=== PATIENT | male | born 1940 | race Caucasian/White ===

== ENCOUNTER 2017-06-05 15:04 | Emergency (ER) | payer MEDICARE, OTHER, SELFPAY ==
[2017-06-05 15:05] VITALS: BP 173/87; PULSE 62; RESP 16; TEMP 37.7; O2SAT 98; BMI 31.4
[2017-06-05 15:19] VITALS: BP 179/90; PULSE 65; RESP 22; O2SAT 97
[2017-06-05 15:22] VITALS: O2SAT 98
--- NOTE | 2017-06-05 15:31 | EKG12_ITS ---
Test Reason : SOB Blood Pressure : / mmHG Vent. Rate : 066 BPM Atrial Rate : 066 BPM P-R Int : 182 ms QRS Dur : 110 ms QT Int : 416 ms P-R-T Axes : 033 029 114 degrees QTc Int : 436 ms Normal sinus rhythm Left ventricular hypertrophy with repolarization abnormality Abnormal ECG Confirmed by MICHELLE WINSLOW, ELISA ([id number]), video editor KOBY DUGGAN ([id number]) on 06/07/2017 1:06:28 PM Referred By: RICARDO Confirmed By:ELISA MARTINEZ MD
--- NOTE | 2017-06-05 15:33 | ED.VISSUMM ---
- ER Visit Summary Date of Service: 06/05/17 Chief Complaint: Shortness of breath on exertion History of Present Illness: The patient is a 76 M with a history of COPD and cardiomyopathy. Patient states he has had shortness of breath on exertion or with breathing in cold air for the past several months. He very rarely has any chest pressure. He has no significant cough or fever. He states he does feel that he wheezes when he has exposure to cold air. It sounds as if patient had stopped using his inhalers, but states he has been using his nebulizer recently without any improvement in his symptoms. He follows with Dr. Wilberto Michel and Dr. Lee. He does not see a planning coordinator on a regular basis. Physical Examination: Vital signs reveal blood pressure 173/87, temperature 99.8 TA, heart rate 62, respiratory rate 16, pulse ox 98% on room air. Oral temperature at the time of my exam is 97.8. Head neck examination is grossly unremarkable. Heart is regular rate and rhythm. Lung sounds are clear with good air movement throughout. Abdomen is soft and nontender. Extremity examination reveals no significant edema. Test Results: EKG is sinus at [address] depression. Prior EKG from Dr. Lee's office was obtained and this is unchanged compared to that study on 09/14/2015. Two-view chest x-ray shows COPD with small pleural effusions. CBC reveals a hemoglobin of 9.3. Prior hemoglobins have ranged from 8 to mid 10 region. Chemistry studies reveal chronic renal insufficiency with a creatinine 1.49. Troponin is 0.02. Emergency Department Course and Treatment: Patient was monitored throughout his stay here. Vital signs are stable. At this time I have no criteria for admission. He does take amiodarone which can have some pulmonary effects. I am unsure if this may be contributing to his symptoms. He is also been diagnosed with COPD but does not follow up with a planning coordinator. I have recommended this and patient was referred to Dr. Kerr for follow-up. At this time symptoms have been ongoing for months and I do not believe he meets criteria for hospitalization. Treatment Plan: [] Disposition: Discharge Impression: Dyspnea This note was generated with [employer] dictation software. It may contain incorrect words, spelling, and punctuation that were not noted in review of the chart prior to signing ED Disposition - Plan for ED Patient: Disposition: Home or Assisted Living Chief Complaint: Shortness of Breath Instructions: ED Dyspnea Shortness of Breath Referrals: John Paul Kerr MD [STAFF PHYSICIAN] - As soon as possible Wilberto Michel MD [Primary Care Provider] -
--- NOTE | 2017-06-05 15:36 | ED.DCSUM_ITS ---
- ER Visit Summary Date of Service: 06/05/17 Chief Complaint: Shortness of breath on exertion History of Present Illness: The patient is a 76 M with a history of COPD and cardiomyopathy. Patient states he has had shortness of breath on exertion or with breathing in cold air for the past several months. He very rarely has any chest pressure. He has no significant cough or fever. He states he does feel that he wheezes when he has exposure to cold air. It sounds as if patient had stopped using his inhalers, but states he has been using his nebulizer recently without any improvement in his symptoms. He follows with Dr. Wilberto Michel and Dr. Lee. He does not see a intelligence agent on a regular basis. Physical Examination: Vital signs reveal blood pressure 173/87, temperature 99.8 TA, heart rate 62, respiratory rate 16, pulse ox 98% on room air. Oral temperature at the time of my exam is 97.8. Head neck examination is grossly unremarkable. Heart is regular rate and rhythm. Lung sounds are clear with good air movement throughout. Abdomen is soft and nontender. Extremity examination reveals no significant edema. Test Results: EKG is sinus at [address] depression. Prior EKG from Dr. Lee's office was obtained and this is unchanged compared to that study on 09/14/2015. Two-view chest x-ray shows COPD with small pleural effusions. CBC reveals a hemoglobin of 9.3. Prior hemoglobins have ranged from 8 to mid 10 region. Chemistry studies reveal chronic renal insufficiency with a creatinine 1.49. Troponin is 0.02. Emergency Department Course and Treatment: Patient was monitored throughout his stay here. Vital signs are stable. At this time I have no criteria for admission. He does take amiodarone which can have some pulmonary effects. I am unsure if this may be contributing to his symptoms. He is also been diagnosed with COPD but does not follow up with a intelligence agent. I have recommended this and patient was referred to Dr. Kerr for follow-up. At this time symptoms have been ongoing for months and I do not believe he meets criteria for hospitalization. Treatment Plan: [] Disposition: Discharge Impression: Dyspnea This note was generated with [employer] acquired by [employer] dictation software. It may contain incorrect words, spelling, and punctuation that were not noted in review of the chart prior to signing ED Disposition - Plan for ED Patient: Disposition: Home or Assisted Living Chief Complaint: Shortness of Breath Instructions: ED Dyspnea Shortness of Breath Referrals: John Paul Kerr MD [STAFF PHYSICIAN] - As soon as possible Wilberto Michel MD [Primary Care Provider] -
--- NOTE | 2017-06-05 15:45 | RAD_ITS ---
STUDY: X-RAY CHEST REASON FOR EXAM: Male, 76 years old. Shortness of breath on exertion. TECHNIQUE: PA and lateral views of the chest. COMPARISON: Chest radiograph dated October 31, 2013. FINDINGS: Cardiac monitoring leads are present. There is hyperinflation of the lungs consistent with chronic obstructive lung disease (COPD). There is interstitial thickening visible throughout both lungs. There is blunting of the posterior costophrenic angles possibly related to small pleural effusions. There is borderline cardiomegaly. Normal mediastinum and scarlett. There is prominence of the pulmonary hilar arteries without peripheral pulmonary vascular congestion. There is atherosclerotic calcification of the aortic arch with tortuosity. There is demineralization of the osseous structures. Normal visualized ribs, clavicles, and shoulders. There is no demonstrated abnormality of the visualized soft tissue structures of the upper abdomen. RAD/Chest PA and Lateral IMPRESSION: COPD with small pleural effusions. Electronically Signed: Angy Benson MD at 16:26 EST , Service support ,
[2017-06-05 16:05] LABS: Absolute Lymphocyte Count 0.92 X10^3/ul (0.83-4.51); Basophil# 0.09 X10^3/uL; Basophil% 1.3 % (0-1); Eosinophil# 0.14 X10^3/uL; Hematocrit 33.3 % (40-54); Hemoglobin 9.3 g/dl (13.0-16.5); Lymphocyte # 0.92 X10^3/ul (4.0); Lymphocyte % 13.2 % (19-41); Mean Corp Hgb Conc 27.9 g/gl (32-36); Mean Corpuscular Hgb 20.1 pg (27.0-32.0); Mean Corpuscular Volume 71.9 fL (80-94); Monocyte# 0.84 X10^3/uL; Monocyte% 12.1 % (0-10); Neutrophil # 4.97 X10^3/uL (2.7-7.7); Neutrophil % 71.3 % (47-70); Platelet Count 194 K/mm3 (150-450); RBC Distribution Width SD 46.6 fl (35.1-43.9); Red Blood Count 4.63 M/mm3 (4.6-6.2)
[2017-06-05 16:08] LABS: Anion Gap 7 (5-15); BUN 15 mg/dL (7-18); BUN/Creat Ratio 10.1 RATIO (10-20); Calcium,Total 8.5 mg/dL (8.5-10.1); Chloride 107 mmol/L (98-107); Creatinine, Serum 1.49 mg/dL (0.70-1.30); Differential Indicated SCAN CRITERIA MET; EST Glomerular Filtration Rate 49 mL/min (>60); Est Glom Filt Rate - Afr Amer 59 mL/min (>60); Estimated Creatinine Clearance 47.02 ml/min; Glucose 112 mg/dL (74-106); POSITIVE COUNT NO; POSITIVE DIFFERENTIAL NO; POSITIVE MORPHOLOGY YES; Sodium Level 141 mmol/L (136-145)
[2017-06-05 16:49] LABS: Anisocytosis 1+; Hypochromasia 2+; Microcytosis 3+
[2017-06-05 17:09] VITALS: BP 167/90; PULSE 67; RESP 14; O2SAT 97
--- NOTE | 2017-06-05 17:11 | ED.DEP ---
ED Disposition - Plan for ED Patient: Disposition: Home or Assisted Living Chief Complaint: Shortness of Breath Instructions: ED Dyspnea Shortness of Breath Referrals: Wilberto Michel MD [Primary Care Provider] - John Paul Kerr MD [STAFF PHYSICIAN] - As soon as possible
[2017-06-05 17:23] VITALS: BP 166/81; PULSE 65; RESP 18; O2SAT 95
== END 2017-06-05 17:24 | disposition home or self-care (01) ==
PROVIDERS: Emergency Provider Emergency Medicine; Family Provider Family Medicine; PCP Family Medicine
DX: R06.00 Dyspnea, unspecified (principal); J44.9 Chronic obstructive pulmonary disease, unspecified; I48.0 Paroxysmal atrial fibrillation; I12.9 Hypertensive chronic kidney disease with stage 1 through stage 4 chronic kidney disease, or unspecified chronic kidney disease; N18.9 Chronic kidney disease, unspecified; I42.9 Cardiomyopathy, unspecified; D64.9 Anemia, unspecified; N40.0 Benign prostatic hyperplasia without lower urinary tract symptoms; Z79.82 Long term (current) use of aspirin; Z79.899 Other long term (current) drug therapy; Z85.828 Personal history of other malignant neoplasm of skin; Z87.891 Personal history of nicotine dependence
CPT/HCPCS: 71046; 80048; 84484; 85025; 93005; 99284

== ENCOUNTER → 2018-02-05 09:47 | Outpatient (CLI) | payer MEDICARE, OTHER, SELFPAY ==
[2018-02-05 12:25] LABS: Absolute Lymphocyte Count 0.92 X10^3/ul (0.83-4.51); Absolute Neutrophil Count 4.4 X10^3/uL (2.0-7.7); Basophil# 0.06 X10^3/uL; Eosinophil# 0.11 X10^3/uL; Eosinophils% 1.8 % (0-5); Hematocrit 34.1 % (40-54); Hemoglobin 9.5 g/dl (13.0-16.5); Lymphocyte # 0.92 X10^3/ul (4.0); Lymphocyte % 15.2 % (19-41); Mean Corp Hgb Conc 27.9 g/gl (32-36); Mean Corpuscular Hgb 20.5 pg (27.0-32.0); Mean Corpuscular Volume 73.7 fL (80-94); Monocyte# 0.55 X10^3/uL; Monocyte% 9.1 % (0-10); Neutrophil # 4.41 X10^3/uL (2.7-7.7); Neutrophil % 72.9 % (47-70); Platelet Count 217 K/mm3 (150-450); RBC Distribution Width CV 18.8 % (11.6-14.6); RBC Distribution Width SD 49.9 fl (35.1-43.9); Red Blood Count 4.63 M/mm3 (4.6-6.2); White Blood Count 6.1 K/mm3 (4.4-11.0)
[2018-02-05 12:26] LABS: Anion Gap 9 (5-15); BUN 16 mg/dL (7-18); BUN/Creat Ratio 9.8 RATIO (10-20); Calcium,Total 8.5 mg/dL (8.5-10.1); Chloride 109 mmol/L (98-107); Creatinine, Serum 1.64 mg/dL (0.70-1.30); EST Glomerular Filtration Rate 44 mL/min (>60); Est Glom Filt Rate - Afr Amer 53 mL/min (>60); Glucose 106 mg/dL (74-106); Potassium 3.5 mmol/L (3.5-5.1); Sodium Level 143 mmol/L (136-145)
[2018-02-05 12:30] LABS: Differential Indicated SCAN CRITERIA MET; POSITIVE COUNT NO; POSITIVE DIFFERENTIAL NO; POSITIVE MORPHOLOGY YES
[2018-02-05 12:51] LABS: BNP,B-Type NATRIURETIC PEPTIDE 1756.6 pg/mL (0-100)
[2018-02-05 13:09] LABS: Platelet Estimate ADEQUATE (ADEQ)
[2018-02-05 13:10] LABS: Anisocytosis 1+; Hypochromasia 1+; Platelet Morphology LARGE
== END ==
PROVIDERS: Family Provider Family Medicine; PCP Family Medicine; Referring Provider Physician Assistant Medical; Visit Provider Physician Assistant Medical
DX: I48.0 Paroxysmal atrial fibrillation (principal); I43 Cardiomyopathy in diseases classified elsewhere; I10 Essential (primary) hypertension; R06.00 Dyspnea, unspecified; E78.5 Hyperlipidemia, unspecified
CPT/HCPCS: 36415; 80048; 83880; 85025

== ENCOUNTER → 2018-03-20 15:45 | Outpatient (CLI) | payer MEDICARE, OTHER, SELFPAY ==
--- NOTE | 2018-03-20 15:51 | RAD_ITS ---
STUDY: X-RAY - PELVIS REASON FOR EXAM: Male, 77 years old. Left inguinal hernia versus varicocele. TECHNIQUE: Frontal and lateral views COMPARISON: None. FINDINGS: There are no dilated loops of bowel. There is abnormal air lucency overlying the left inguinal region with suggestion of hernia containing nondilated bowel versus soft tissue air associated with infection. There are atherosclerotic vascular calcifications of the pelvic arteries. There is diffuse demineralization of the osseous structures. Normal bilateral iliac wings, sacroiliac joints and visualized sacrum. Normal visualized bilateral superior and inferior pubic rami. Normal pubic symphysis. Normal ischial tuberosities. Normal visualized right femoral head. Normal right acetabulum. There is mild articular joint space narrowing of the right hip. Normal visualized left femoral head. Normal left acetabulum. There is mild articular joint space narrowing of the left hip. No acute fracture. RAD/Pelvis 1 or 2 Views IMPRESSION: Air in the left inguinal region with possible hernia containing nondilated bowel. Consider CT scan for confirmation. Electronically Signed: Leonardo Lyons MD at 16:52 EST , Service support ,
== END ==
PROVIDERS: Family Provider Family Medicine; PCP Family Medicine; Referring Provider Family Medicine; Visit Provider Family Medicine
DX: R19.09 Other intra-abdominal and pelvic swelling, mass and lump (principal); J44.9 Chronic obstructive pulmonary disease, unspecified
CPT/HCPCS: 72170

== ENCOUNTER 2018-04-05 09:53 | Day surgery (SDC) | payer MEDICARE, OTHER, SELFPAY ==
[2018-03-22 09:38] VITALS: BMI 27.6
[2018-04-05 10:11] VITALS: BP 166/102; PULSE 67; RESP 16; TEMP 36.6; O2SAT 100; BMI 28.8
[2018-04-05 10:33] LABS: International Normalized Ratio 1.1
[2018-04-05 10:34] LABS: Partial Thromboplast Time 30.2 Seconds (24.1-36.2)
[2018-04-05] MEDS: Cefazolin 2 GM in 0.9% Normal Saline 100 ML IV (11:42)
--- NOTE | 2018-04-05 11:51 | DCINST_ITS ---
Discharge Diet: Light diet - advance as tolerated Discharge Activity: Return to Normal Activity, May Drive - when you are no longer taking narcotic pain medications., May Shower - with the bandage in place 1-2 days after surgery. Lifting Restrictions: 20 pounds for 8 weeks. Additional Activity Instructions:: Climbing stairs is fine, walking is encouraged. Sitting in bed may be uncomfortable. Sitting up using your lateral muscles (sitting up sideways) is usually more comfortable. Do not drive, work heavy equipment of sign legal documents for 24 hours. If your hernia repair was an ingunial repair, you may have scrotal swelling, an ice pack and/or athletic support can provide more comfort. Pain medications may cause nausea, you should typically eat light foods as you take your pain medications. Pain medications may also cause constipation. If you have difficulty with this, discuss with your doctor. Call your doctor if your incision/area has: Continuous Slow Oozing, Sudden Increased Bleeding, Increased Pain/ Swelling, Increased Redness, Foul Smelling Discharge Call your doctor if you observe: Fever of 101 or Higher Suture Line Care: Avoid Pulling/Pushing, Avoid Pinching/Bending Additional Dressing/Incision Instructions:: Leave the operative bandage on for 2-3 days. When you remove the bandage, leave the steri-strips on place until your follow up appointment or they fall off. Allergies/Adverse Reactions: Allergies cortisone Allergy (Verified 04/01/18 08:09) Rash Medications to take at Discharge Albuterol Sulfate [Proair Respiclick] 90 mcg IH DAILY 11/24/14 Aspirin [Aspirin, Baby] 81 mg PO DAILY@0800 11/24/14 Multivitamins,Therapeutic [Multivitamin] 1 tab PO DAILY 11/24/14 omeprazole 40 mg capsule,delayed release 40 mg PO QDAY 05/04/17 lisinopril 10 mg tablet 10 mg PO BID tab 07/03/17 potassium chloride ER 10 mEq capsule,extended release 10 meq PO QDAY #90 cap 07/03/17 simvastatin 20 mg tablet 20 mg PO QHS #90 tab 07/03/17 HANDICAP PLACARD #1 ea 07/05/17 amiodarone 200 mg tablet 200 mg PO DAILY 03/22/18 spironolactone 25 mg tablet 25 mg PO DAILY 03/22/18 Albuterol Aerosols [Ventolin Aerosols] 2.5 mg INHALATION Q4H PRN PRN 04/01/18 Carvedilol [Coreg] 6.25 mg PO BID 04/01/18 Furosemide [Lasix] 40 mg PO DAILY 04/01/18 Isosorbide Dinitrate 30 mg PO QDAY 04/01/18 Oxycodone HCl/Acetaminophen [Percocet 5/325] 1 - 2 tab PO Q4H PRN PRN 5 Days #30 tab 04/05/18 The following prescriptions were given: Oxycodone HCl/Acetaminophen [Percocet 5/325] 1 - 2 tab PO Q4H PRN PRN 5 Days #30 tab PRN Reason: Pain Primary Care Physician: Wilberto Michel MD [Primary Care Provider] - Test Results: Test results from this visit will be discussed in further detail at your follow- up appointment, if applicable. Please Follow Up With: Nikolai Butler MD - [phone] When: Plan to have a follow up appointment in 7 days. Call to schedule.
--- NOTE | 2018-04-05 11:53 | OP.PCM_ITS ---
Problem List (1) Bilateral inguinal hernia with obstruction and without gangrene Status: Acute Qualifiers: Recurrence: non-recurrent Qualified Code(s): K40.00 - Bilateral inguinal hernia, with obstruction, without gangrene, not specified as recurrent Report of Operation Date of Procedure: 04/05/18 Pre-Operative Diagnosis: Bilateral inguinal hernias Post-Operative Diagnosis: Same Surgery/Procedure Performed:: Open left inguinal hernia repair of incarcerated hernia with mesh Type of Anesthesia:: General Anesthesiologist: Afshin Cardona Estimated Blood Loss (mL): < 25 cc Description of Procedure: Patient was brought into the operating room. Placed in the supine position. Under excellent general anesthetic the left lower inguinal area was sterilely prepped and draped in the usual fashion. Local was injected. Left inguinal incision was created. I dissected down. Identified the superior inferior epigastric vessels and tied these off with 2-0 Vicryl ties. I dissected down to the external oblique fascia. I opened the external oblique fascia. I identified the ilioinguinal nerve. It was wispy thin and I knew I was not going to be able to save this so I transected it. I dissected an extremely large hernia off of the cord and vessel structures. I placed it back into its preperitoneal space. I had excellent hemostasis. The cord and vessel structures were all preserved without any bleeding. I placed an extra large mesh plug into the defect. Sutured it to the surrounding structures with 0 Prolene. I placed the onlay piece of mesh. I tacked it to the pubic tubercle with 2 sutures of 0 Prolene. I ran the 1 suture along the ilioinguinal ligament above the internal ring and then the second suture along the transversalis fascia above the inguinal ring. I tied the sutures upon themselves leaving enough space and the keyhole for the cord and vessel structures so that good blood supply would be to the testicle. Ilioinguinal nerve block above the internal ring was performed. I brought the external oblique fascia back tog ether with 2-0 Vicryl. More local was injected. Kehinde's fascia was brought together with 2 interrupted sutures of 2-0 Vicryl. Deep dermal stitches of 3-0 Vicryl. And a running 4-0 Monocryl on the skin. Steri-Strips are applied sterile dressings were applied and the patient tolerated the procedure well. Left testicle was brought back down into its normal anatomic space. - Admit VTE Documentation VTE Present on Admission: No VTE Mechan Device Prophylaxis: SCD's VTE Pharm Prophylaxis ordered?: No Reason prophylaxis not ordered:: Treatment Not Indicated
[2018-04-05] MEDS: Bupivacaine Mpf 0.5% 30 ML VIAL ×2 (12:00→12:43)
[2018-04-05 13:20] VITALS: BP 166/102; BP 168/84; PULSE 75; RESP 18; TEMP 36.3; O2SAT 94
[2018-04-05 13:32] VITALS: BP 151/92; BP 166/102; PULSE 66; RESP 22; O2SAT 100
[2018-04-05 13:45] VITALS: BP 155/88; BP 166/102; PULSE 72; RESP 24; TEMP 36.4; O2SAT 100
[2018-04-05] MEDS: oxyCODONE 5 MG Tablet 10 MG PO (14:39)
[2018-04-05 16:02] VITALS: BP 158/87; BP 166/102; PULSE 78; RESP 18; TEMP 36.6; O2SAT 99
== END 2018-04-05 16:06 | disposition home or self-care (01) ==
LOC: SDC 09:54 → AC 09:54
PROVIDERS: Anesthesiology; Family Provider Family Medicine; PCP Family Medicine; Referring Provider Surgery; Visit Provider Surgery
PROC: (CPT 49507; principal; 2018-04-05 11:45)
DX: K40.00 Bilateral inguinal hernia, with obstruction, without gangrene, not specified as recurrent (principal); I48.0 Paroxysmal atrial fibrillation; J44.9 Chronic obstructive pulmonary disease, unspecified; I10 Essential (primary) hypertension; E78.5 Hyperlipidemia, unspecified; K27.3 Acute peptic ulcer, site unspecified, without hemorrhage or perforation; K27.7 Chronic peptic ulcer, site unspecified, without hemorrhage or perforation; D64.9 Anemia, unspecified; N40.0 Benign prostatic hyperplasia without lower urinary tract symptoms; K21.9 Gastro-esophageal reflux disease without esophagitis; F32.9 Major depressive disorder, single episode, unspecified; Z79.82 Long term (current) use of aspirin; Z79.899 Other long term (current) drug therapy; Z96.653 Presence of artificial knee joint, bilateral; Z87.891 Personal history of nicotine dependence; Z85.828 Personal history of other malignant neoplasm of skin
CPT/HCPCS: 49507; 36415; 85610; 85730; J7120; C1781

== ENCOUNTER → 2018-09-10 10:04 | Outpatient (CLI) | payer MEDICARE, OTHER, SELFPAY ==
[2018-08-26 14:42] VITALS: BMI 27.8
[2018-09-10 13:20] LABS: AST(SGOT) 17 U/L (15-37); Alanine Aminotransfer ALT/SGPT 18 U/L (16-61); Alkaline Phosphatase 86 U/L (45-117); Bilirubin, Direct 0.15 mg/dL (0.00-0.30); Cholesterol 146 mg/dL (200); Globulin 3.6 g/dL (2.2-4.2); High Density Lipoprotein 45 mg/dL; Protein, Total 7.6 g/dL (6.4-8.2); Triglycerides 88 mg/dL; Very Low Density Lipoprotein 18 mg/dL (5-40)
== END ==
PROVIDERS: Family Provider Family Medicine; PCP Family Medicine; Referring Provider Internal Medicine Cardiovascular Disease; Visit Provider Internal Medicine Cardiovascular Disease
DX: E78.5 Hyperlipidemia, unspecified (principal); Z79.899 Other long term (current) drug therapy
CPT/HCPCS: 36415; 80061; 80076

== ENCOUNTER 2018-09-14 18:58 | Inpatient (IN) | payer MEDICARE, OTHER, SELFPAY ==
[2018-08-26 14:42] VITALS: BMI 27.8
[2018-09-14] VITALS (25 sets, daily range): BP systolic 134–155; BP diastolic 72–102; PULSE 62–75; RESP 16–28; TEMP 36.7–37.4; O2SAT 95–100; BMI 27.6; BMI 27.8; BMI 27.9
--- NOTE | 2018-09-14 19:07 | EKG12_ITS ---
Test Reason : STROKE S/SX Blood Pressure : / mmHG Vent. Rate : 068 BPM Atrial Rate : 068 BPM P-R Int : 174 ms QRS Dur : 152 ms QT Int : 478 ms P-R-T Axes : 089 092 089 degrees QTc Int : 508 ms Normal sinus rhythm Right bundle branch block Abnormal ECG Confirmed by MICHELLE WINSLOW, ELISA ([id number]), editor map KOBY DUGGAN ([id number]) on 09/18/2018 11:46:01 AM Referred By: Jackson Kilpatrick Confirmed By:ELISA MARTINEZ MD
--- NOTE | 2018-09-14 19:07 | CT_ITS ---
STUDY: CTA NECK WITH CONTRAST REASON FOR EXAM: Male, 77 years old. Stroke. RADIATION DOSAGE (If Supplied By Facility): CTDIvol = ( 33.90 ) mGy, DLP = ( 696.53 ) mGycm TECHNIQUE: CT angiography with multi-detector data acquisition was performed from the aortic arch to the skull base following intravenous administration of 100 IV Isovue 370. MIP images were reconstructed from the axial data set. Post-processing of the angiographic images was performed, with multiplanar reformation and 3D reconstruction. Individualized dose optimization techniques were used for this CT. COMPARISON: None. FINDINGS: AORTIC ARCH: Normal visualized aortic arch. Normal origins of the brachiocephalic, left common carotid, and left subclavian arteries. RIGHT CAROTID ARTERIES: Normal right common carotid artery (CCA). There is mild atherosclerotic plaque formation without narrowing of the right carotid bulb. Normal origin of the right internal carotid (ICA) artery without a hemodynamically significant stenosis. Normal visualized cervical portion of the right internal carotid artery. Normal origin of the right external carotid artery (ECA). LEFT CAROTID ARTERIES: Normal left common carotid artery (CCA). There is moderate atherosclerotic plaque formation without narrowing of the carotid bulb. There is atherosclerotic plaque formation of the proximal left internal carotid artery with less than 50% cross sectional diameter stenosis. Normal visualized cervical portion of the left internal carotid artery. Normal origin of the left external carotid artery (ECA). VERTEBRAL ARTERIES: Normal bilateral vertebral arteries. Degenerative spine changes are noted. Emphysematous changes are noted in the lung apices. CT/CTA Neck W/WO Contrast IMPRESSION: 1. Atherosclerotic calcification of the left bulb and proximal ICA, with less than 50% stenosis. 2. Atherosclerotic calcification of the right carotid bulb, no stenosis. 3. Normal vertebral arteries. Electronically Signed: Anushka Galaviz MD at 20:02 EDT Tel , Service support ,
--- NOTE | 2018-09-14 19:07 | CT_ITS ---
STUDY: CTA OF THE BRAIN REASON FOR EXAM: Male, 77 years old. Stroke. RADIATION DOSAGE (If Supplied By Facility): CTDIvol = ( 33.90 ) mGy, DLP = ( 696.53 ) mGycm TECHNIQUE: CT angiography was performed with a multi-detector CT scanner. Data acquisition was obtained from the skull base through the vertex following intravenous administration of 100 IV Isovue 370. MIP images were reconstructed from the axial data set. Post-processing of the angiographic images was performed, with multiplanar reformation and 3D reconstruction. Individualized dose optimization techniques were used for this CT. COMPARISON: None. FINDINGS: Normal bilateral petrous carotid arteries. Normal right cavernous carotid artery with a normal supraclinoid bifurcation. Normal left cavernous carotid artery with a normal supraclinoid bifurcation. Normal right A1 segment of the anterior cerebral artery. Normal left A1 segment of the anterior cerebral artery. Normal intact anterior communicating artery (ACOM). Normal bilateral A2 segments of the anterior cerebral arteries. Normal right M1 and M2 segments of the middle cerebral arteries, with a normal M1 bifurcation. Normal left M1 and M2 segments of the middle cerebral arteries, with a normal M1 bifurcation. There is non-visualization of the right posterior communicating artery (PCOM). There is non-visualization of the left posterior communicating artery (PCOM). Normal bilateral vertebral arteries. Normal basilar artery with a normal basilar bifurcation. The visualized bilateral superior cerebellar (SCA) arteries are normal. Normal bilateral P1, P2 and visualized P3 segments of the posterior cerebral arteries. There is no demonstrated aneurysm of the [place]. CT/CTA Head W/WO Contrast IMPRESSION: Normal [place] without a demonstrated aneurysm or significant stenosis. Electronically Signed: Anushka Galaviz MD at 19:53 EDT Tel , Service support ,
--- NOTE | 2018-09-14 19:07 | CT_ITS ---
We are attempting to reach an attending provider to discuss findings. An addendum with communication details will be sent when the communication is complete. STUDY: CT BRAIN WITHOUT CONTRAST REASON FOR EXAM: Male, 77 years old. Strokelike symptoms, weakness RADIATION DOSAGE (If Supplied By Facility): CTDIvol = ( 44.99 ) mGy, DLP = ( 745.49 ) mGycm TECHNIQUE: Transaxial CT imaging of the brain was performed without administration of intravenous contrast material. Individualized dose optimization techniques were used for this CT. COMPARISON: Previous study of 05/04/2015 FINDINGS: Normal soft tissue structures. Normal calvarium. There is mild cerebral atrophy with widening of the extra-axial spaces and ventricular dilatation. There are areas of decreased attenuation within the white matter tracts of the supratentorial brain, consistent with microvascular disease changes. Normal basal ganglia and thalami. Normal brainstem. Normal cerebellum. There is no intracranial hemorrhage. There are no findings of an acute ischemic infarction. Normal visualized paranasal sinuses. CT/Brain/Head without Contrast IMPRESSION: Chronic involutional changes of the brain. There is no intracranial hemorrhage or evidence of acute infarct. If clinically, MRI may be helpful for further evaluation at this time. Electronically Signed: Trey Yepez MD at 19:29 EDT , Service support ,
--- NOTE | 2018-09-14 19:08 | ED.VISSUMM ---
- ER Visit Summary Date of Service: 09/14/18 Chief Complaint: Right-sided weakness and slurred speech History of Present Illness: The patient is a 77 M who presents for sudden onset of right-sided weakness and slurred speech. Patient was eating dinner with his when she suddenly noticed he was not acting right. She called EMS. EMS found him to have right-sided weakness and slurred speech. stroke team was called from the field. Patient is denying any complaints, such as pain, nausea or vomiting, headache, chest pain, shortness of breath at this time. Patient denies being on any blood thinners. He has a history of A. fib, chronic kidney disease, peptic ulcer disease per chart review. Physical Examination: Vital signs: afebrile, hemodynamically stable, no hypoxia on room air General: well nourished, well developed, in no distress leaning to the right Skin: warm, dry, no rash, no pallor HEENT: normocephalic and atraumatic; PERRL, EOMI, moist mucous membranes Cardiovascular: regular rate and rhythm without murmurs, no peripheral edema, 2+ pulses all distal extremities Respiratory: No increased work of breathing Abdominal: Abdomen is soft, nontender with normoactive bowel sounds, no guarding or rebound, no masses MSK: Moves all extremities, no deformities Neuro: Awake and alert, oriented ?4. Right sided lower facial droop, sensation intact and symmetric bilaterally, right arm drift and leg drift, slurred speech, mild expressive aphasia, NIH equals 5 Test Results: Abnormal Lab Results 09/14/18 09/14/18 09/14/18 19:00 19:00 19:00 WBC 7.0 RBC 4.86 Hgb 10.1 L Hct 35.2 L MCV 72.4 L MCH 20.8 L MCHC 28.7 L RDW 18.5 H RDW Differential 48.6 H Plt Count 245 MPV TNP Immature Gran % (Auto) 0.300 Neut % (Auto) 65.2 Lymph % (Auto) 19.3 [place] % (Auto) 10.9 H Eos % (Auto) 2.4 Baso % (Auto) 1.9 H Absolute Neuts (auto) 4.6 Absolute Lymphs (auto) 1.35 Total Counted Not Reportable Differential Comment SCANNED PT 14.2 INR 1.1 APTT 31.9 Sodium 141 Potassium 4.2 Chloride 108 H Carbon Dioxide 27.0 Anion Gap 6 BUN 23 H Creatinine 2.08 H Estim Creat Clear Calc 33.16 Est GFR (MDRD) Af Amer 40 L Est GFR (MDRD) Non-Af 33 L BUN/Creatinine Ratio 11.1 Glucose 115 H Calcium 8.7 Troponin I < 0.015 Clinical Impression(s) from Imaging Studies Brain CT 09/14/18 19:07 IMPRESSION: Chronic involutional changes of the brain. There is no intracranial hemorrhage or evidence of acute infarct. If clinically, MRI may be helpful for further evaluation at this time. Electronically Signed: Trey Yepez MD at 19:29 EDT , Service support , ADDENDUM: 09/14/18 194 IMPRESSION: Chronic involutional changes of the brain. There is no intracranial hemorrhage or evidence of acute infarct. If clinically, MRI may be helpful for further evaluation at this time. N.B. : The above information has been verbally conveyed by Trey Yepez MD to Dr. Sarah Juárez MD, on 09/14/2018 19:33:04 (ET). Electronically Signed: Trey Yepez MD at 19:29 EDT , Service support , Head CTA 09/14/18 19:07 IMPRESSION: Normal [place] of [place] without a demonstrated aneurysm or significant stenosis. Electronically Signed: Anushka Galaviz MD at 19:53 EDT Tel , Service support , Neck CTA 09/14/18 19:07 IMPRESSION: 1. Atherosclerotic calcification of the left bulb and proximal ICA, with less than 50% stenosis. 2. Atherosclerotic calcification of the right carotid bulb, no stenosis. 3. Normal vertebral arteries. Electronically Signed: Anushka Galaviz MD at 20:02 EDT Tel , Service support , Chest X-Ray 09/14/18 19:10 IMPRESSION: Stable cardiomegaly with hyperexpansion. No acute finding. Electronically Signed: Hermes Santana MD at 19:26 EDT , Service support , Medications Given Discontinued Medications Alteplase, Recombinant (Activase; Tpa) 8.33 mg 0.09 mg/kg (8.33 mg) IV X1 ONE Stop: 09/14/18 19:26 Last Admin: 09/14/18 19:41 Dose: 8.33 mg Alteplase, Recombinant 74.9 mg (/ N/A) 0 mls @ 0 mls/hr IV X1 ONE Stop: 09/14/18 19:26 Alteplase, Recombinant 74.9 mg (/ N/A) 74.9 mls @ 74.9 mls/hr IV X1 ONE Stop: 09/14/18 20:29 Last Admin: 09/14/18 19:44 Dose: 74.9 mls/hr Emergency Department Course and Treatment: Stroke team was called. Patient has an NIH of 5. Head CT and CTA head neck was performed. Head CT as read by me showed no intracranial hemorrhage. Patient was discussed with neurologist Dr. Vincent and determined to be an appropriate candidate for TPA. On reevaluation patient had no change in his NIH. The risks and benefits of TPA administration were discussed with the patient with multiple nurses present, and the patient agreed to administration. TPA checklist was reviewed with the patient and he had no contraindications to administration. TPA was administered. Patient had no complications while in the emergency department. His CTA head and neck showed no significant occlusions that would be amenable to thrombectomy therapy, thus patient was admitted to the ICU after discussion with Dr. Kilpatrick. Critical care time of 40 minutes for initial evaluation, coordination of care, interpretation of imaging, EKG and labs, discussion with specialist and hospitalist, discussion with family, frequent re-evaluations and documentation. Treatment Plan: [] Disposition: [] Impression: Acute ischemic stroke, TPA administration This note was generated with Wambaation software. It may contain incorrect words, spelling, and punctuation that were not noted in review of the chart prior to signing ED Disposition - Plan for ED Patient: Disposition: Acute Care Hospital [facility]
--- NOTE | 2018-09-14 19:10 | RAD_ITS ---
STUDY: X-RAY CHEST REASON FOR EXAM: Male, 77 years old. Weakness. Stroke protocol. TECHNIQUE: Single frontal view of the chest. COMPARISON: June 05, 2017 FINDINGS: The lungs are hyperexpanded and unchanged. There are stable healed granulomatous calcifications. There is no demonstrated pleural abnormality. There is stable cardiomegaly. Normal mediastinum and [place]. Normal visualized pulmonary arteries. There is atherosclerotic calcification of the aortic arch with tortuosity. Normal visualized thoracic spine. Normal visualized ribs, clavicles, and shoulders. There is no demonstrated abnormality of the visualized soft tissue structures of the upper abdomen. RAD/Chest 1 View IMPRESSION: Stable cardiomegaly with hyperexpansion. No acute finding. Electronically Signed: Hermes Santana MD at 19:26 EDT , Service support ,
--- NOTE | 2018-09-14 19:12 | ED.DCSUM_ITS ---
- ER Visit Summary Date of Service: 09/14/18 Chief Complaint: Right-sided weakness and slurred speech History of Present Illness: The patient is a 77 M who presents for sudden onset of right-sided weakness and slurred speech. Patient was eating dinner with his when she suddenly noticed he was not acting right. She called EMS. EMS found him to have right-sided weakness and slurred speech. stroke team was called from the field. Patient is denying any complaints, such as pain, nausea or vomiting, headache, chest pain, shortness of breath at this time. Patient denies being on any blood thinners. He has a history of A. fib, chronic kidney disease, peptic ulcer disease per chart review. Physical Examination: Vital signs: afebrile, hemodynamically stable, no hypoxia on room air General: well nourished, well developed, in no distress leaning to the right Skin: warm, dry, no rash, no pallor HEENT: normocephalic and atraumatic; PERRL, EOMI, moist mucous membranes Cardiovascular: regular rate and rhythm without murmurs, no peripheral edema, 2+ pulses all distal extremities Respiratory: No increased work of breathing Abdominal: Abdomen is soft, nontender with normoactive bowel sounds, no guarding or rebound, no masses MSK: Moves all extremities, no deformities Neuro: Awake and alert, oriented ?4. Right sided lower facial droop, sensation intact and symmetric bilaterally, right arm drift and leg drift, slurred speech, mild expressive aphasia, NIH equals 5 Test Results: Abnormal Lab Results 09/14/18 09/14/18 09/14/18 19:00 19:00 19:00 WBC 7.0 RBC 4.86 Hgb 10.1 L Hct 35.2 L MCV 72.4 L MCH 20.8 L MCHC 28.7 L RDW 18.5 H RDW Differential 48.6 H Plt Count 245 MPV TNP Immature Gran % (Auto) 0.300 Neut % (Auto) 65.2 Lymph % (Auto) 19.3 [place] % (Auto) 10.9 H Eos % (Auto) 2.4 Baso % (Auto) 1.9 H Absolute Neuts (auto) 4.6 Absolute Lymphs (auto) 1.35 Total Counted Not Reportable Differential Comment SCANNED PT 14.2 INR 1.1 APTT 31.9 Sodium 141 Potassium 4.2 Chloride 108 H Carbon Dioxide 27.0 Anion Gap 6 BUN 23 H Creatinine 2.08 H Estim Creat Clear Calc 33.16 Est GFR (MDRD) Af Amer 40 L Est GFR (MDRD) Non-Af 33 L BUN/Creatinine Ratio 11.1 Glucose 115 H Calcium 8.7 Troponin I < 0.015 Clinical Impression(s) from Imaging Studies Brain CT 09/14/18 19:07 IMPRESSION: Chronic involutional changes of the brain. There is no intracranial hemorrhage or evidence of acute infarct. If clinically, MRI may be helpful for further evaluation at this time. Electronically Signed: Trey Yepez MD at 19:29 EDT , Service support , ADDENDUM: 09/14/18 194 IMPRESSION: Chronic involutional changes of the brain. There is no intracranial hemorrhage or evidence of acute infarct. If clinically, MRI may be helpful for further evaluation at this time. N.B. : The above information has been verbally conveyed by Trey Yepez MD to Dr. Sarah Juárez MD, on 09/14/2018 19:33:04 (ET). Electronically Signed: Trey Yepez MD at 19:29 EDT , Service support , Head CTA 09/14/18 19:07 IMPRESSION: Normal [place] of [place] without a demonstrated aneurysm or significant stenosis. Electronically Signed: Anushka Galaviz MD at 19:53 EDT Tel , Service support , Neck CTA 09/14/18 19:07 IMPRESSION: 1. Atherosclerotic calcification of the left bulb and proximal ICA, with less than 50% stenosis. 2. Atherosclerotic calcification of the right carotid bulb, no stenosis. 3. Normal vertebral arteries. Electronically Signed: Anushka Galaviz MD at 20:02 EDT Tel , Service support , Chest X-Ray 09/14/18 19:10 IMPRESSION: Stable cardiomegaly with hyperexpansion. No acute finding. Electronically Signed: Hermes Santana MD at 19:26 EDT , Service support , Medications Given Discontinued Medications Alteplase, Recombinant (Activase; Tpa) 8.33 mg 0.09 mg/kg (8.33 mg) IV X1 ONE Stop: 09/14/18 19:26 Last Admin: 09/14/18 19:41 Dose: 8.33 mg Alteplase, Recombinant 74.9 mg (/ N/A) 0 mls @ 0 mls/hr IV X1 ONE Stop: 09/14/18 19:26 Alteplase, Recombinant 74.9 mg (/ N/A) 74.9 mls @ 74.9 mls/hr IV X1 ONE Stop: 09/14/18 20:29 Last Admin: 09/14/18 19:44 Dose: 74.9 mls/hr Emergency Department Course and Treatment: Stroke team was called. Patient has an NIH of 5. Head CT and CTA head neck was performed. Head CT as read by me showed no intracranial hemorrhage. Patient was discussed with neurologist Dr. Vincent and determined to be an appropriate candidate for TPA. On reevaluation patient had no change in his NIH. The risks and benefits of TPA administration were discussed with the patient with multiple nurses present, and the patient agreed to administration. TPA checklist was reviewed with the patient and he had no contraindications to administration. TPA was administered . Patient had no complications while in the emergency department. His CTA head and neck showed no significant occlusions that would be amenable to thrombectomy therapy, thus patient was admitted to the ICU after discussion with Dr. Kilpatrick. Critical care time of 40 minutes for initial evaluation, coordination of care, interpretation of imaging, EKG and labs, discussion with specialist and hospit alist, discussion with family, frequent re-evaluations and documentation. Treatment Plan: [] Disposition: [] Impression: Acute ischemic stroke, TPA administration This note was generated with playnikation software. It may contain incorrect words, spelling, and punctuation that were not noted in review of the chart prior to signing ED Disposition - Plan for ED Patient: Disposition: Acute Care Hospital [facility]
[2018-09-14 19:29] LABS: Absolute Lymphocyte Count 1.35 X10^3/ul (0.83-4.51); Absolute Neutrophil Count 4.6 X10^3/uL (2.0-7.7); Basophil# 0.13 X10^3/uL; Basophil% 1.9 % (0-1); Eosinophil# 0.17 X10^3/uL; Eosinophils% 2.4 % (0-5); Hematocrit 35.2 % (40-54); Hemoglobin 10.1 g/dl (13.0-16.5); Lymphocyte # 1.35 X10^3/ul (4.0); Lymphocyte % 19.3 % (19-41); Mean Corp Hgb Conc 28.7 g/gl (32-36); Mean Corpuscular Hgb 20.8 pg (27.0-32.0); Mean Corpuscular Volume 72.4 fL (80-94); Monocyte# 0.76 X10^3/uL; Monocyte% 10.9 % (0-10); Neutrophil # 4.56 X10^3/uL (2.7-7.7); Neutrophil % 65.2 % (47-70); Platelet Count 245 K/mm3 (150-450); RBC Distribution Width CV 18.5 % (11.6-14.6); RBC Distribution Width SD 48.6 fl (35.1-43.9); Red Blood Count 4.86 M/mm3 (4.6-6.2)
[2018-09-14 19:36] LABS: International Normalized Ratio 1.1; Prothrombin Time (Protime)PT. 14.2 SECONDS (11.7-14.9)
[2018-09-14 19:37] LABS: Anion Gap 6 (5-15); BUN 23 mg/dL (7-18); BUN/Creat Ratio 11.1 RATIO (10-20); Calcium,Total 8.7 mg/dL (8.5-10.1); Chloride 108 mmol/L (98-107); Creatinine, Serum 2.08 mg/dL (0.70-1.30); Differential Indicated SCAN CRITERIA MET; EST Glomerular Filtration Rate 33 mL/min (>60); Est Glom Filt Rate - Afr Amer 40 mL/min (>60); Estimated Creatinine Clearance 33.16 ml/min; Glucose 115 mg/dL (74-106); POSITIVE COUNT NO; POSITIVE DIFFERENTIAL NO; POSITIVE MORPHOLOGY YES; Partial Thromboplast Time 31.9 Seconds (24.1-36.2); Potassium 4.2 mmol/L (3.5-5.1); Sodium Level 141 mmol/L (136-145)
[2018-09-14 19:46] LABS: Differential Comment SCANNED
[2018-09-14] MEDS: 0.9% Normal Saline 1,000 ML 100 ML IV (19:46)
--- NOTE | 2018-09-14 21:21 | HP.PCM_ITS ---
Problem List (1) Acute stroke Status: Acute (2) Hx of bilateral inguinal hernia repair Status: Chronic Comment: 04/05/18 (3) Bilateral inguinal hernia with obstruction and without gangrene Status: Chronic Qualifiers: (4) History of colonoscopy Status: Chronic (5) Atrial fibrillation Status: Chronic (6) PUD (peptic ulcer disease) Status: Chronic (7) Left inguinal hernia Status: Chronic (8) Hemorrhoid Status: Chronic (9) History of left heart catheterization Status: Chronic Comment: 11/25/2014 @ [facility] (10) Anemia Status: Chronic (11) BPH (benign prostatic hyperplasia) Status: Chronic (12) Renal insufficiency Status: Chronic (13) History of bilateral knee replacement Status: Chronic (14) History of cataract surgery Status: Chronic (15) Peptic ulcer disease Status: Chronic (16) GI bleed Status: Chronic (17) COPD (chronic obstructive pulmonary disease) Status: Chronic (18) Osteoarthritis Status: Chronic (19) Dyspnea Status: Acute Qualifiers: (20) Hyperlipidemia Status: Chronic Qualifiers: (21) Cardiomyopathy in diseases classified elsewhere Status: Chronic (22) Hypertension Status: Chronic Qualifiers: (23) Paroxysmal atrial fibrillation Status: Chronic History of Present Illness Date of Admission: 09/14/18 Chief Complaint: Right-sided weakness and slurred speech The patient is a 77 year old M with multiple comorbidities as listed above was brought into ER after he had sudden right-sided weakness, slurred speech just after he finished dinner. As per the near the bedside and his stepdaughter, he was fine before the dinner. He also was not acting right possible confused or disoriented. He denies nausea, vomiting, headache no chest pain, shortness of breath, missed heartbeat or syncope. Patient has been found paroxysmal A. fib at that time he was going preop evaluation for inguinal hernia surgery but is not taking any oral anticoagulant. In ED, CT head does not show acute intracranial hemorrhage. NIH 5 was found. CTA head and neck which did not show any major vessel stenosis or lesion. CTA neck reported less than 50% stenosis of ICA and left bundle and proximal ICA atherosclerotic calcification. EKG shows normal sinus rhythm with right bundle branch block, QRS 152 ms. No d ifference from EMS EKG. To me, patient is not able to provide complete details of history and exam as he states very tired a little irritated. Past Medical History Past Medical History (Chronic Problems): Chronic Problems (Last Reviewed 08/26/18 @ 14:35 by Jazzy Sierra) Hx of bilateral inguinal hernia repair (Chronic) 04/05/18 Bilateral inguinal hernia with obstruction and without gangrene (Chronic) History of colonoscopy (Chronic) Atrial fibrillation (Chronic) PUD (peptic ulcer disease) (Chronic) Left inguinal hernia (Chronic) Hemorrhoid (Chronic) History of left heart catheterization (Chronic 11/25/14) 11/25/2014 @ [facility] Anemia (Chronic) BPH (benign prostatic hyperplasia) (Chronic) Renal insufficiency (Chronic) History of bilateral knee replacement (Chronic) History of cataract surgery (Chronic) Peptic ulcer disease (Chronic) GI bleed (Chronic) COPD (chronic obstructive pulmonary disease) (Chronic) Osteoarthritis (Chronic) Hyperlipidemia (Chronic) Cardiomyopathy in diseases classified elsewhere (Chronic) Hypertension (Chronic) Paroxysmal atrial fibrillation (Chronic) Medical History: Medical History (Last Reviewed 08/26/18 @ 14:35 by Jazzy Sierra) Atrial fibrillation (Chronic) I48.91 PUD (peptic ulcer disease) (Chronic) K27.9 Left inguinal hernia (Chronic) K40.90 Hemorrhoid (Chronic) K64.9 Anemia (Chronic) D64.9 BPH (benign prostatic hyperplasia) (Chronic) N40.0 Renal insufficiency (Chronic) N28.9 Peptic ulcer disease (Chronic) K27.9 GI bleed (Chronic) K92.2 COPD (chronic obstructive pulmonary disease) (Chronic) J44.9 Osteoarthritis (Chronic) M19.90 Hyperlipidemia (Chronic) E78.5 Cardiomyopathy in diseases classified elsewhere (Chronic) I43 Hypertension (Chronic) I10 Paroxysmal atrial fibrillation (Chronic) I48.0 Renal insufficiency (Resolved) N28.9 Allergies cortisone Allergy (Verified 09/14/18 19:21) Rash Home Medications: Ambulatory Orders Medication Instructions Recorded Albuterol Sulfate [Proair 90 mcg IH DAILY 11/24/14 Respiclick] Aspirin [Aspirin, Baby] 81 mg PO DAILY@0800 11/24/14 omeprazole 40 mg capsule,delayed 40 mg PO QDAY 05/04/17 release potassium chloride ER 10 mEq 10 meq PO QDAY #90 cap 07/03/17 capsule,extended release Albuterol Aerosols [Ventolin 2.5 mg INHALATION Q4H PRN PRN 04/01/18 Aerosols] Isosorbide Dinitrate 30 mg PO QDAY 04/01/18 carvedilol 12.5 mg tablet 6.25 mg PO BID #90 tab 06/28/18 furosemide 40 mg tablet 40 mg PO DAILY #90 tab 06/28/18 amiodarone 200 mg tablet 200 mg PO DAILY #90 tab 08/26/18 simvastatin 20 mg tablet 20 mg PO QHS #90 tab 08/26/18 spironolactone 25 mg tablet 25 mg PO DAILY #90 tab 08/26/18 lisinopril 10 mg tablet 10 mg PO BID #180 tab 09/02/18 Surgical History: Surgical History (Last Reviewed 08/26/18 @ 14:35 by Jazzy Sierra) Hx of bilateral inguinal hernia repair (Chronic) Z98.890, Z87.19 04/05/18 History of colonoscopy (Chronic) Z98.890 History of left heart catheterization (Chronic) Onset Date: 11/25/14 Z98.890 11/25/2014 @ [facility] History of bilateral knee replacement (Chronic) Z96.653 History of cataract surgery (Chronic) Z98.49 history of incision and drainage infected back abscess Onset Date: 06/14/18 Surgical History: cataract, - - knee replacement-L, glaucoma surgery Psychiatric History: No pertinent psych hx Smoking Status: Former smoker - *Family History Maternal Family History: Family History (Last Reviewed 08/26/18 @ 14:35 by Jazzy Sierra) Father CAD (coronary artery disease) Colon cancer Mother Alzheimers disease Sister Cancer History Items: - - Alzheimer's dementia Paternal Family History: Family History (Last Reviewed 08/26/18 @ 14:35 by Jazzy Sierra) Father CAD (coronary artery disease) Colon cancer Mother Alzheimers disease Sister Cancer History Items: Heart Disease Sibling Family History: Family History (Last Reviewed 08/26/18 @ 14:35 by Jazzy Sierra) Father CAD (coronary artery disease) Colon cancer Mother Alzheimers disease Sister Cancer History Items: Cancer Review of Systems Constitutional: Denies: Chills, Fever, Weight Change HEENT: Denies: Head Aches, Sinus Congestion, Sinus Drainage Cardiovascular: Reports: Edema. Denies: Chest Pain, Claudication, Chest Pressure, Chest Tightness, Palpitations Respiratory: Denies: Cough, Shortness of breath at rest, Sputum production Gastrointestinal: Denies: Abdominal Pain, Nausea, Vomiting Genitourinary: Denies: Dysuria Musculoskeletal: Denies: Joint Pain, Joint Tenderness Skin: Denies: Rash, Wounds Neurological: Reports: Balance problems, Change in Speech, Slurred speech, Focal weakness, Incoordination. Denies: Numbness Psychiatric: Denies: Anxiety, Depression, Homicidal Ideations, Suicidal Ideations Hematologic/ Lymphatic: Denies: Easy Bruising, Easy Bleeding VTE Information - Inpt Only VTE Present on Admission: No VTE Mechan Device Prophylaxis: SCD's Reason prophylaxis not ordered:: Medical Contraindication - Patient had TPA Patient Problems: Active and Suspected Problems (Last Reviewed 08/26/18 @ 14:35 by Jazzy Sierra) Acute stroke (Acute) - Physical Exam General: Confused, Lethargic HEENT: Atraumatic, PERRLA, EOMI, Normocephalic Oral: Dry Mucosa Neck: Supple, No JVD, Negative Carotid Bruits Lungs: Normal air movement, No rhonchi, No wheeze, No rales, Diminished - Air entry is diminished bilaterally Cardiovascular: Regular rate, Regular Rhythm, Normal S1, Normal S2, No murmurs Abdomen: Bowel Sounds Present, Soft, Non Tender, Non-Distended Extremities: Capillary Refill Less than 3 Seconds, Edema Skin: No rashes, No breakdown Musculoskeletal: No Tenderness to Palpation of Joints or Extremities, Arthritic Changes, - - Bilateral TKR Neurological: - - Right-sided mild facial droop. Right-sided weakness more on the right upper extremity. Slurred speech. Language deficit. To me, patient not able to tell date of and month. NIH 8. Psych/Mental Status: Normal Affect, Appropriate Vital Signs Temp Pulse Resp BP Pulse Ox 99.3 F H 71 20 H 149/83 H 98 09/14/18 20:59 09/14/18 21:02 09/14/18 21:02 09/14/18 21:02 09/14/18 21:02 Oxygen Flow Rate (L/min) 2 Oxygen Delivery Method Nasal Cannula Weight: 203 lb 14.841 oz Body Mass Index (BMI) 27.6 Finger Stick Blood Glucose 123 Laboratory Tests Past 24 Hrs 09/14/18 09/14/18 09/14/18 19:00 19:00 19:00 WBC 7.0 RBC 4.86 Hgb 10.1 L Hct 35.2 L MCV 72.4 L MCH 20.8 L MCHC 28.7 L RDW 18.5 H RDW Differential 48.6 H Plt Count 245 MPV TNP Immature Gran % (Auto) 0.300 Neut % (Auto) 65.2 Lymph % (Auto) 19.3 Child[place] % (Auto) 10.9 H Eos % (Auto) 2.4 Baso % (Auto) 1.9 H Absolute Neuts (auto) 4.6 Absolute Lymphs (auto) 1.35 Total Counted Not Reportable Differential Comment SCANNED PT 14.2 INR 1.1 APTT 31.9 Sodium 141 Potassium 4.2 Chloride 108 H Carbon Dioxide 27.0 Anion Gap 6 BUN 23 H Creatinine 2.08 H Estim Creat Clear Calc 33.16 Est GFR (MDRD) Af Amer 40 L Est GFR (MDRD) Non-Af 33 L BUN/Creatinine Ratio 11.1 Glucose 115 H Calcium 8.7 Troponin I < 0.015 Assessment/Plan All Active Problems (Last Reviewed 08/26/18 @ 14:35 by Jazzy Sierra) Acute stroke (Acute) Dyspnea (Acute) Acute blood loss anemia (Resolved) Atrial fibrillation (Resolved) Renal insufficiency (Resolved) The patient is a 77 year old M with multiple comorbidities as listed above was brought into ER after he had sudden right-sided weakness, slurred speech just after he finished dinner. As per the near the bedside and his stepdaughter, he was fine before the dinner. He also was not acting right possible confused or disoriented. He denies nausea, vomiting, headache no chest pain, shortness of breath, missed heartbeat or syncope. Patient has been found paroxysmal A. fib at that time he was going preop evaluation for inguinal hernia surgery but is not taking any oral anticoagulant. In ED, CT head does not show acute intracranial hemorrhage. NIH 5 was found. CTA head and neck which did not show any major vessel stenosis or lesion. CTA neck reported less than 50% stenosis of ICA and left bundle and proximal ICA atherosclerotic calcification. EKG shows normal sinus rhythm with right bundle branch block, QRS 152 ms. No difference from EMS EKG. To me, patient is not able to provide complete details of history and exam as he states very tired a little irritated. 1. Acute left-sided ischemic stroke: Patient is being admitted admitted in ICU after TPA. No aspirin or antiplatelet or anticoagulant for 24 hours after TPA. MRI brain and 2D echo tomorrow a.m. Neurologist is already been consulted from ER physician. Spiral Winder consult. Fasting profile and A1c tomorrow a.m. 2. 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 Echo in October 2014 reported as EF 35 to 40% with a stage I diastolic dysfunction. Mid inferior mildly hypokinetic. RVSP 36 mmHg. No significant valvular abnormality. Patient is on amiodarone and Coreg at home and is being continued. 3 hypertension: Maintain blood pressure as per protocol of TPA. The most recent blood pressure is 153/92. Patient did not require any antihypertensive medications. 4. Peptic ulcer disease history of GI bleed past 2017: IV PPI. 5. COPD: Bronchodilator as needed. Continue home inhaler. Patient not in exacerbation. 6. Other comorbidities include chronic microcytic anemia mostly secondary to iron deficiency anemia, bilateral TKR, dyslipidemia, BPH: Stable. DVT prophylaxis: Bilateral SCDs. Pharmacological prophylaxis contraindicated as mentioned above. Laboratory Results 09/14/18 19:00: WBC 7.0, RBC 4.86, Hgb 10.1 L, Hct 35.2 L, MCV 72.4 L, MCH 20.8 L, MCHC 28.7 L, RDW 18.5 H, RDW Differential 48.6 H, Plt Count 245, MPV TNP, Immature Gran % (Auto) 0.300, Neut % (Auto) 65.2, Lymph % (Auto) 19.3, Childress % (Auto) 10.9 H, Eos % (Auto) 2.4, Baso % (Auto) 1.9 H, Absolute Neuts (auto) 4.6, Absolute Lymphs (auto) 1.35, Total Counted Not Reportable, Differential Comment SCANNED 09/14/18 19:00: PT 14.2, INR 1.1, APTT 31.9 09/14/18 19:00: Sodium 141, Potassium 4.2, Chloride 108 H, Carbon Dioxide 27.0, Anion Gap 6, BUN 23 H, Creatinine 2.08 H, Estim Creat Clear Calc 33.16, Est GFR (MDRD) Af Amer 40 L, Est GFR (MDRD) Non-Af 33 L, BUN/Creatinine Ratio 11.1, Glucose 115 H, Calcium 8.7, Troponin I < 0.015 Clinical Impression(s) from Imaging Studies Brain CT 09/14/18 19:07 IMPRESSION: Chronic involutional changes of the brain. There is no intracranial hemorrhage or evidence of acute infarct. If clinically, MRI may be helpful for further evaluation at this time. Head CTA 09/14/18 19:07 IMPRESSION: Normal [place] of [place] without a demonstrated aneurysm or significant stenosis. Neck CTA 09/14/18 19:07 IMPRESSION: 1. Atherosclerotic calcification of the left bulb and proximal ICA, with less than 50% stenosis. 2. Atherosclerotic calcification of the right carotid bulb, no stenosis. 3. Normal vertebral arteries. Chest X-Ray 09/14/18 19:10 IMPRESSION: Stable cardiomegaly with hyperexpansion. No acute finding. Code Visit Inpatient E&M: 42348 Init Hosp L3
--- NOTE | 2018-09-14 21:32 | ECHOD_ITS ---
Reason For Study: CVA Procedure This was a 2D Doppler, Color Flow transthoracic echocardiogram. The study was technically difficult. Exam performed portable in ICU/CCU. Left Ventricle Severely dilated left ventricle. Moderately severe segmental systolic dysfunction (see wall motion). The estimated ejection fraction is 27 %. Stage 2 diastolic dysfunction. Mid-Inferior: Akinetic. Mid- inferoseptal : Akinetic. Inferior [place] : Akinetic. Septal [place] : Normal. The rest of the wall segments are hypokinetic. Right Ventricle Normal RV size. Normal systolic function. Atria The left atrium is moderately enlarged. The right atrium is mildly enlarged. Bubble contrast study negative for right to left interatrial shunt. Mitral Valve Normal mitral valve. Mild (1+) eccentric mitral valve insufficiency. Tricuspid Valve Normal tricuspid valve. Mild (1+) tricuspid valve insufficiency. Pulmonary artery systolic pressure is 58 mmHg. Moderate pulmonary hypertension. Aortic Valve Normal aortic valve. Trisinus/trileaflet aortic valve. Pulmonic Valve Normal pulmonic valve. Great Vessels Normal aortic root. The pulmonary artery is normal size. Normal inferior vena cava. Pericardium/Pleural No pericardial effusion. Medication Performed a rapid injection of agitated mix of 9 cc saline and 1cc air to assess for atrial septal defect. MMode/2D Measurements & Calculations LVIDd: 6.4 cm IVSd: 0.66 cm LVOT diam: 2.5 cm LVIDs: 5.7 cm LVPWd: 1.2 cm RVDd: 4.0 cm FS: 12.0 % LVOT area: 4.8 cm2 Ao root diam: 4.2 cm LAV(MOD-bp): 136.4 ml LA A4 area: 30.7 cm2 LAV(MOD-bp) Indexed: 63.6 ml/m2 LAV(MOD-sp2): 154.8 ml LAV(MOD-sp4): 116.2 ml LA dimension(2D): 4.7 cm RA A4 area: 21.2 cm2 Doppler Measurements & Calculations MV E max jasiel: 72.9 cm/sec Lat Peak E' Jasiel: 9.4 cm/sec Med Peak E' Jasiel: 4.5 cm/sec MV A max jasiel: 54.0 cm/sec E/E' lat: 7.8 E/E' med: 16.1 MV E/A: 1.3 Ao V2 max: 136.6 cm/sec LV V1 max: 92.5 cm/sec TR max jasiel: 366.2 cm/sec Ao max P.5 mmHg LV V1 max P.4 mmHg TR max P.6 mmHg MILAGRO(V,D): 3.2 cm2 Interpretation Summary Severely dilated left ventricle. Moderately severe segmental systolic dysfunction (see wall motion). The estimated ejection fraction is 27 %. Stage 2 diastolic dysfunction. The left atrium is moderately enlarged. Mild (1+) eccentric mitral valve insufficiency. Pulmonary artery systolic pressure is 58 mmHg. Moderate pulmonary hypertension. Bubble contrast study negative for right to left interatrial shunt. Compared to previous study, the left ventricular systolic function has worsened.. Ordering Physician: Jackson Kilpatrick Referring Physician: Jackson Kilpatrick Performed By: Kenyatta Carrillo, GELACIO
[2018-09-14] MEDS: Ipratropium/Albuterol Sulfate 3 ML AMPUL.NEB INHALATION (22:12)
[2018-09-14 23:16] LABS: Bedside Glucose 123 mg/dL (70-110)
[2018-09-15] VITALS (36 sets, daily range): BP systolic 132–173; BP diastolic 72–104; PULSE 65–84; RESP 15–32; TEMP 36.9–37.7; O2SAT 93–99; BMI 27.8
[2018-09-15] MEDS: Ipratropium/Albuterol Sulfate 3 ML AMPUL.NEB INHALATION ×3 (03:38→22:05)
--- NOTE | 2018-09-15 03:38 | CT_ITS ---
STUDY: CT BRAIN WITHOUT CONTRAST REASON FOR EXAM: Male, 77 years old. Confusion RADIATION DOSAGE (If Supplied By Facility): CTDIvol = ( 44.99 ) mGy, DLP = ( 779.24 ) mGycm TECHNIQUE: Transaxial CT imaging of the brain was performed without administration of intravenous contrast material. Individualized dose optimization techniques were used for this CT. COMPARISON: No relevant priors. FINDINGS: Normal soft tissue structures. Normal calvarium. There is mild cerebral atrophy with widening of the extra-axial spaces and ventricular dilatation. There are areas of decreased attenuation within the white matter tracts of the supratentorial brain, consistent with microvascular disease changes. Normal basal ganglia and thalami. Normal brainstem. Normal cerebellum. There is no intracranial hemorrhage. There are no findings of an acute ischemic infarction. Normal visualized paranasal sinuses. CT/Brain/Head without Contrast IMPRESSION: Chronic involutional changes of the brain. Electronically Signed: Jaylan Jay, at 4:31 EDT Tel , Service support ,
--- NOTE | 2018-09-15 03:58 | MRI_ITS ---
STUDY: MRI BRAIN WITHOUT CONTRAST REASON FOR EXAM: Male, 77 years old. Sudden onset of slurred speech. TECHNIQUE: Standardized multiplanar fat and water weighted pulse sequences were obtained. COMPARISON: None. FINDINGS: There is moderate cerebral atrophy with widening of the extra-axial spaces and ventricular dilatation. There are multiple confluent white matter hyperintensities, distributed throughout the deep white matter tracts of the cerebral hemispheres, consistent with severe chronic white matter ischemic changes. There is a focal region of posterior left insular ribbon cortical DWI signal extending to the centrum semiovale ovale with diameter measuring approximately 10 x 5 mm.. Normal T2* images of the brain without demonstrated susceptibility artifact. There is no demonstrated hemosiderin stain. Normal bilateral basal ganglia. Normal thalami. There is no extra-axial fluid accumulation. Normal flow voids within the major intracranial circulation suggesting patency by spin echo criteria. Normal sella turcica, pituitary gland, infundibular stalk, optic chiasm and hypothalamus. Normal tectal plate and pineal gland. Normal midbrain, belkis and medulla. Normal cerebellum. Normal basal cisterns. Normal bilateral temporal bones. Normal bilateral internal auditory canals. No demonstrated orbital abnormality, within the constraints of a routine brain study. Normal visualized paranasal sinuses. Normal calvarium and skull base. Normal visualized soft tissue structures. Normal visualized upper cervical spine. MRI/Brain without Contrast IMPRESSION: Extensive periventricular microvascular ischemic senescent changes with left posterior insular ribbon small region of cortical ischemia extending to the centrum semiovale. No evidence of large territorial ischemia or acute intracranial blood product. Electronically Signed: Serafin Arguello DO at 8:51 EDT , Service support ,
[2018-09-15 04:38] LABS: Absolute Lymphocyte Count 1.06 X10^3/ul (0.83-4.51); Absolute Neutrophil Count 5.7 X10^3/uL (2.0-7.7); Basophil# 0.08 X10^3/uL; Eosinophil# 0.16 X10^3/uL; Eosinophils% 2.1 % (0-5); Hematocrit 32.2 % (40-54); Hemoglobin 9.3 g/dl (13.0-16.5); Lymphocyte # 1.06 X10^3/ul (4.0); Lymphocyte % 13.8 % (19-41); Mean Corp Hgb Conc 28.9 g/gl (32-36); Mean Corpuscular Hgb 20.9 pg (27.0-32.0); Mean Corpuscular Volume 72.2 fL (80-94); Mean Platelet Vol. 11.6 fl (6.2-12.0); Monocyte# 0.69 X10^3/uL; Neutrophil # 5.66 X10^3/uL (2.7-7.7); Platelet Count 228 K/mm3 (150-450); RBC Distribution Width CV 18.6 % (11.6-14.6); RBC Distribution Width SD 49.1 fl (35.1-43.9); Red Blood Count 4.46 M/mm3 (4.6-6.2); White Blood Count 7.7 K/mm3 (4.4-11.0)
[2018-09-15 04:45] LABS: AST(SGOT) 17 U/L (15-37); Alanine Aminotransfer ALT/SGPT 18 U/L (16-61); Albumin, Serum 3.4 g/dL (3.2-5.0); Alkaline Phosphatase 74 U/L (45-117); Anion Gap 7 (5-15); BUN 23 mg/dL (7-18); BUN/Creat Ratio 12.5 RATIO (10-20); Calcium,Total 8.3 mg/dL (8.5-10.1); Chloride 112 mmol/L (98-107); Cholesterol 105 mg/dL (200); Creatinine, Serum 1.84 mg/dL (0.70-1.30); Differential Indicated SCAN CRITERIA MET; EST Glomerular Filtration Rate 38 mL/min (>60); Est Glom Filt Rate - Afr Amer 46 mL/min (>60); Estimated Creatinine Clearance 37.49 ml/min; Globulin 3.3 g/dL (2.2-4.2); Glucose 104 mg/dL (74-106); High Density Lipoprotein 35 mg/dL; POSITIVE COUNT NO; POSITIVE DIFFERENTIAL NO; POSITIVE MORPHOLOGY YES; Phosphorus 3.9 mg/dL (2.5-4.9); Protein, Total 6.7 g/dL (6.4-8.2); Sodium Level 144 mmol/L (136-145); Thyroid Stim Hormone (TSH) 1.85 uIU/mL (0.358-3.74); Triglycerides 97 mg/dL; Very Low Density Lipoprotein 19 mg/dL (5-40)
--- NOTE | 2018-09-15 05:55 | EKG12_ITS ---
Test Reason : CVA Blood Pressure : / mmHG Vent. Rate : 076 BPM Atrial Rate : 076 BPM P-R Int : 182 ms QRS Dur : 152 ms QT Int : 468 ms P-R-T Axes : 081 091 066 degrees QTc Int : 526 ms Sinus rhythm with occasional Premature ventricular complexes Right bundle branch block Abnormal ECG When compared with ECG of 14-SEP-2018 19:31, MANUAL COMPARISON REQUIRED, DATA IS UNCONFIRMED Confirmed by MICHELLE WINSLOW, ELISA ([id number]), web editor KOBY DUGGAN ([id number]) on 09/23/2018 2:48:42 PM Referred By: Jackson Kilpatrick Confirmed By:ELISA MARTINEZ MD
--- NOTE | 2018-09-15 05:56 | PCM.HOSP.N ---
Hospitalist Note The patient was seen and examined. Nursing staff said patient has worsening in the speech with gross language deficit. On my exam, it has right-sided upper extremity weakness similar to first exam. Right lower extremity weakness got worse. Patient has increased language abnormality with difficult to comprehend. Severe language abnormality. Severe dysarthria. Limb ataxia and inattention NIH stroke scale 14 In ED it was 8. Repeat CT head was done. No intracranial hemorrhage. No finding of an acute ischemic infarction.
[2018-09-15 06:50] LABS: Bedside Glucose 113 mg/dL (70-110)
--- NOTE | 2018-09-15 06:55 | PCM.CON.CC ---
Reason for Consult Date of Consultation: 09/15/18 Reason for Consultation: CVA status post TPA History of Present Illness: The patient is a 77-year-old male, with a history as outlined below, who presented to the emergency department on September 14 with right-sided weakness and dysarthria. The patient has known underlying paroxysmal atrial fibrillation and COPD, based upon pulmonary function studies from October 2013. The patient was apparently undergoing preop evaluation for inguinal hernia surgery repair and was therefore not taking an oral anticoagulant. On presentation to the emergency department, the patient was noted to be afebrile and hemodynamically stable. Initial laboratory evaluation revealed evidence of microcytic anemia. Coagulation profile was within normal limits. Chemistry profile revealed evidence of acute on chronic kidney disease with a creatinine of 2.08. Initial troponin was negative. CT head revealed chronic involutional changes without acute intracranial hemorrhage or acute infarction. His NIH score in the emergency department was documented to be 5. The case was discussed with neurology and the patient was felt to be a candidate for TPA administration. Therefore, TPA was administered. The patient was then admitted to the medical intensive care unit for ongoing management. Overnight, a stat CT head had to be obtained due to worsening neurological status. His last documented NIH was noted to be 14. The repeat CT head overnight revealed no significant interval changes. There was no evidence of hemorrhage. In addition to the aforementioned, over the course of last night, the patient developed an elevation in troponin to 1.23. Cardiology was subsequently consulted. Past Medical History Past Medical History (Chronic Problems): Chronic Problems (Last Reviewed 08/26/18 @ 14:35 by Jazzy Sierra) Hx of bilateral inguinal hernia repair (Chronic) 04/05/18 Bilateral inguinal hernia with obstruction and without gangrene (Chronic) History of colonoscopy (Chronic) Atrial fibrillation (Chronic) PUD (peptic ulcer disease) (Chronic) Left inguinal hernia (Chronic) Hemorrhoid (Chronic) History of left heart catheterization (Chronic 11/25/14) 11/25/2014 @ [facility] Anemia (Chronic) BPH (benign prostatic hyperplasia) (Chronic) Renal insufficiency (Chronic) History of bilateral knee replacement (Chronic) History of cataract surgery (Chronic) Peptic ulcer disease (Chronic) GI bleed (Chronic) COPD (chronic obstructive pulmonary disease) (Chronic) Osteoarthritis (Chronic) Hyperlipidemia (Chronic) Cardiomyopathy in diseases classified elsewhere (Chronic) Hypertension (Chronic) Paroxysmal atrial fibrillation (Chronic) Medical History: Medical History (Last Reviewed 08/26/18 @ 14:35 by Jazzy Sierra) Atrial fibrillation (Chronic) I48.91 PUD (peptic ulcer disease) (Chronic) K27.9 Left inguinal hernia (Chronic) K40.90 Hemorrhoid (Chronic) K64.9 Anemia (Chronic) D64.9 BPH (benign prostatic hyperplasia) (Chronic) N40.0 Renal insufficiency (Chronic) N28.9 Peptic ulcer disease (Chronic) K27.9 GI bleed (Chronic) K92.2 COPD (chronic obstructive pulmonary disease) (Chronic) J44.9 Osteoarthritis (Chronic) M19.90 Hyperlipidemia (Chronic) E78.5 Cardiomyopathy in diseases classified elsewhere (Chronic) I43 Hypertension (Chronic) I10 Paroxysmal atrial fibrillation (Chronic) I48.0 Renal insufficiency (Resolved) N28.9 Allergies cortisone Allergy (Verified 09/14/18 19:21) Rash Home Medications: Ambulatory Orders Medication Instructions Recorded Albuterol Sulfate [Proair 90 mcg IH DAILY 11/24/14 Respiclick] Aspirin [Aspirin, Baby] 81 mg PO DAILY@0800 11/24/14 omeprazole 40 mg capsule,delayed 40 mg PO QDAY 05/04/17 release potassium chloride ER 10 mEq 10 meq PO QDAY #90 cap 07/03/17 capsule,extended release Albuterol Aerosols [Ventolin 2.5 mg INHALATION Q4H PRN PRN 04/01/18 Aerosols] Isosorbide Dinitrate 30 mg PO QDAY 04/01/18 carvedilol 12.5 mg tablet 6.25 mg PO BID #90 tab 06/28/18 furosemide 40 mg tablet 40 mg PO DAILY #90 tab 06/28/18 amiodarone 200 mg tablet 200 mg PO DAILY #90 tab 08/26/18 simvastatin 20 mg tablet 20 mg PO QHS #90 tab 08/26/18 spironolactone 25 mg tablet 25 mg PO DAILY #90 tab 08/26/18 lisinopril 10 mg tablet 10 mg PO BID #180 tab 09/02/18 Surgical History: Surgical History (Last Reviewed 08/26/18 @ 14:35 by Jazzy Sierra) Hx of bilateral inguinal hernia repair (Chronic) Z98.890, Z87.19 04/05/18 History of colonoscopy (Chronic) Z98.890 History of left heart catheterization (Chronic) Onset Date: 11/25/14 Z98.890 11/25/2014 @ [facility] History of bilateral knee replacement (Chronic) Z96.653 History of cataract surgery (Chronic) Z98.49 history of incision and drainage infected back abscess Onset Date: 06/14/18 Surgical History: cataract, - - knee replacement-L, glaucoma surgery Psychiatric History: No pertinent psych hx Smoking Status: Former smoker - *Family History Maternal Family History: Family History (Last Reviewed 08/26/18 @ 14:35 by Jazzy Sierra) Father CAD (coronary artery disease) Colon cancer Mother Alzheimers disease Sister Cancer History Items: - - Alzheimer's dementia Paternal Family History: Family History (Last Reviewed 08/26/18 @ 14:35 by Jazzy Sierra) Father CAD (coronary artery disease) Colon cancer Mother Alzheimers disease Sister Cancer History Items: Heart Disease Sibling Family History: Family History (Last Reviewed 08/26/18 @ 14:35 by Jazzy Sierra) Father CAD (coronary artery disease) Colon cancer Mother Alzheimers disease Sister Cancer History Items: Cancer Review of Systems Constitutional: Denies: Chills, Fever Eyes: Denies: Blurred vision, Double vision HEENT: Denies: Head Aches, Sinus Congestion, Sinus Drainage Cardiovascular: Denies: Chest Pain, Palpitations Respiratory: Denies: Cough, Shortness of breath at rest, Sputum production Gastrointestinal: Denies: Abdominal Pain, Nausea, Vomiting Genitourinary: Denies: Dysuria Musculoskeletal: Denies: Joint Pain, Joint Tenderness Skin: Denies: Rash, Wounds Neurological: Reports: Change in Speech, Slurred speech, Focal weakness Psychiatric: Denies: Anxiety, Depression, Homicidal Ideations, Suicidal Ideations Hematologic/ Lymphatic: Reports: Anemia Patient Problems: Active and Suspected Problems (Last Reviewed 08/26/18 @ 14:35 by Jazzy Sierra) Acute stroke (Acute) NSTEMI (non-ST elevated myocardial infarction) (Acute) Objective: The patient's most recent lab work, culture data and imaging studies have all been personally reviewed. - Physical Exam General: Alert, Cooperative, No apparent distress HEENT: Atraumatic, PERRLA, Normocephalic Oral: Dry Mucosa Neck: Supple, No Nodes, Trachea Midline Lungs: No rhonchi, No wheeze, No rales, Diminished Cardiovascular: Regular rate, Regular Rhythm, Normal S1, Normal S2, No murmurs Abdomen: Bowel Sounds Present, Soft, Non Tender, Non-Distended Extremities: No clubbing, No cyanosis, Edema Skin: No breakdown Musculoskeletal: No Muscle Wasting Lymphatic: No Cervical, Supraclavicular, or Inguinal Adenopathy Neurological: - - Pronounced dysarthric speech. Flaccid right upper extremity. Some movement of right lower extremity. + facial droop Psych/Mental Status: Normal Affect, Appropriate Vital Signs Temp Pulse Resp BP Pulse Ox 98.9 F 71 23 H 161/96 H 97 09/15/18 06:29 09/15/18 06:29 09/15/18 06:29 09/15/18 06:29 09/15/18 06:29 Oxygen Flow Rate (L/min) 2 Oxygen Delivery Method Room Air Weight: 207 lb 10.807 oz Body Mass Index (BMI) 27.8 Finger Stick Blood Glucose 123 Intake and Output for Last 24 Hours 09/13/18 09/14/18 09/15/18 23:59 23:59 23:59 Intake Total 903 / 903 Output Total 500 / 500 Balance 403 / 403 Laboratory Tests Past 24 Hrs 09/14/18 09/14/18 09/14/18 19:00 19:00 19:00 WBC 7.0 RBC 4.86 Hgb 10.1 L Hct 35.2 L MCV 72.4 L MCH 20.8 L MCHC 28.7 L RDW 18.5 H RDW Differential 48.6 H Plt Count 245 MPV TNP Immature Gran % (Auto) 0.300 Neut % (Auto) 65.2 Lymph % (Auto) 19.3 Holmes % (Auto) 10.9 H Eos % (Auto) 2.4 Baso % (Auto) 1.9 H Absolute Neuts (auto) 4.6 Absolute Lymphs (auto) 1.35 Total Counted Not Reportable Differential Comment SCANNED PT 14.2 INR 1.1 APTT 31.9 Sodium 141 Potassium 4.2 Chloride 108 H Carbon Dioxide 27.0 Anion Gap 6 BUN 23 H Creatinine 2.08 H Estim Creat Clear Calc 33.16 Est GFR (MDRD) Af Amer 40 L Est GFR (MDRD) Non-Af 33 L BUN/Creatinine Ratio 11.1 Glucose 115 H Hemoglobin A1c Calcium 8.7 Phosphorus Magnesium Total Bilirubin AST ALT Alkaline Phosphatase Troponin I < 0.015 Total Protein Albumin Globulin Albumin/Globulin Ratio Triglycerides Cholesterol LDL Cholesterol VLDL Cholesterol HDL Cholesterol TSH 09/14/18 09/15/18 09/15/18 22:15 04:10 04:10 WBC RBC Hgb Hct MCV MCH MCHC RDW RDW Differential Plt Count MPV Immature Gran % (Auto) Neut % (Auto) Lymph % (Auto) Holmes % (Auto) Eos % (Auto) Baso % (Auto) Absolute Neuts (auto) Absolute Lymphs (auto) Total Counted Differential Comment PT INR APTT Sodium 144 Potassium 4.0 Chloride 112 H Carbon Dioxide 25.0 Anion Gap 7 BUN 23 H Creatinine 1.84 H Estim Creat Clear Calc 37.49 Est GFR (MDRD) Af Amer 46 L Est GFR (MDRD) Non-Af 38 L BUN/Creatinine Ratio 12.5 Glucose 104 Hemoglobin A1c Calcium 8.3 L Phosphorus 3.9 Magnesium 2.0 Total Bilirubin 0.30 AST 17 ALT 18 Alkaline Phosphatase 74 Troponin I 0.056 H Total Protein 6.7 Albumin 3.4 Globulin 3.3 Albumin/Globulin Ratio 1.0 Triglycerides 97 Cholesterol 105 LDL Cholesterol 51 VLDL Cholesterol 19 HDL Cholesterol 35 L TSH 1.85 09/15/18 09/15/18 09/15/18 04:10 04:10 04:10 WBC 7.7 RBC 4.46 L Hgb 9.3 L Hct 32.2 L MCV 72.2 L MCH 20.9 L MCHC 28.9 L RDW 18.6 H RDW Differential 49.1 H Plt Count 228 MPV 11.6 Immature Gran % (Auto) 0.100 Neut % (Auto) 74.0 H Lymph % (Auto) 13.8 L Holmes % (Auto) 9.0 Eos % (Auto) 2.1 Baso % (Auto) 1.0 Absolute Neuts (auto) 5.7 Absolute Lymphs (auto) 1.06 Total Counted Pending Differential Comment PT INR APTT Sodium Potassium Chloride Carbon Dioxide Anion Gap BUN Creatinine Estim Creat Clear Calc Est GFR (MDRD) Af Amer Est GFR (MDRD) Non-Af BUN/Creatinine Ratio Glucose Hemoglobin A1c Pending Calcium Phosphorus Magnesium Total Bilirubin AST ALT Alkaline Phosphatase Troponin I 1.230 H* Total Protein Albumin Globulin Albumin/Globulin Ratio Triglycerides Cholesterol LDL Cholesterol VLDL Cholesterol HDL Cholesterol TSH POC Glucose 09/15/18 09/14/18 06:40 23:12 POC Glucose 113 H 123 H Clinical Impression(s) from Imaging Studies Brain CT 09/14/18 19:07 IMPRESSION: Chronic involutional changes of the brain. There is no intracranial hemorrhage or evidence of acute infarct. If clinically, MRI may be helpful for further evaluation at this time. Electronically Signed: Trey Yepez MD at 19:29 EDT , Service support , ADDENDUM: 09/14/18 1940 IMPRESSION: Chronic involutional changes of the brain. There is no intracranial hemorrhage or evidence of acute infarct. If clinically, MRI may be helpful for further evaluation at this time. N.B. : The above information has been verbally conveyed by Trey Yepez MD to Dr. Sarah Juárez MD, on 09/14/2018 19:33:04 (ET). Electronically Signed: Trey Yepez MD at 19:29 EDT , Service support , Head CTA 09/14/18 19:07 IMPRESSION: Normal [place] [facility] [place] without a demonstrated aneurysm or significant stenosis. Electronically Signed: Anushka Galaviz MD at 19:53 EDT Tel , Service support , Neck CTA 09/14/18 19:07 IMPRESSION: 1. Atherosclerotic calcification of the left bulb and proximal ICA, with less than 50% stenosis. 2. Atherosclerotic calcification of the right carotid bulb, no stenosis. 3. Normal vertebral arteries. Electronically Signed: Anushka Galaviz MD at 20:02 EDT Tel , Service support , Chest X-Ray 09/14/18 19:10 IMPRESSION: Stable cardiomegaly with hyperexpansion. No acute finding. Electronically Signed: Hermes Santana MD at 19:26 EDT , Service support , Brain CT 09/15/18 03:38 IMPRESSION: Chronic involutional changes of the brain. Electronically Signed: Jaylan Jay, at 4:31 EDT Tel , Service support , Assessment/Plan Active and Suspected Problems (Last Reviewed 08/26/18 @ 14:35 by Jazzy Sierra) Acute stroke (Acute) NSTEMI (non-ST elevated myocardial infarction) (Acute) RECOMMENDATIONS: 1. Continue post TPA administration management per protocol. 2. Repeat head imaging scheduled for this morning. 3. Continue as needed antihypertensives. Allow for permissive hypertension. 4. Continue statin therapy. 5. Neurology and cardiology consultations pending. 6. Continue to trend troponins. 7. Await echocardiogram. 8. PT/OT evaluations pending. IMPRESSIONS: 1. 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 MRI is pending this morning. Allow for permissive hypertension for now. Neurology to evaluate the patient with additional recommendations forthcoming. Echocardiogram is pending. PT/OT to evaluate patient. 2. History of paroxysmal atrial fibrillation/troponin elevation The patient is currently in normal sinus rhythm. Evaluation by cardiology is pending due to elevated troponin. Echocardiogram is pending. Continue statin therapy. 3. Acute on chronic kidney disease Likely prerenal in etiology, as the patient responded to IV fluids. Urine output is appropriate. No indication for renal replacement therapy at this time. 4. Known COPD Continue bronchodilators as ordered. The patient is currently maintaining appropriate oxygen saturations on room air. This note was generated with [employer] dictation software. It may contain incorrect words, spelling, and punctuation that were not noted in checking the note before signing. Code Visit Inpatient E&M: 16901 Init Hosp L3
--- NOTE | 2018-09-15 07:00 | CON.PCM_ITS ---
Reason for Consult Date of Consultation: 09/15/18 Reason for Consultation: CVA status post TPA History of Present Illness: The patient is a 77-year-old male, with a history as outlined below, who presented to the emergency department on September 14 with right-sided weakness and dysarthria. The patient has known underlying paroxysmal atrial fibrillation and COPD, based upon pulmonary function studies from October 2013. The patient was apparently undergoing preop evaluation for inguinal hernia surgery repair and was therefore not taking an oral anticoagulant. On presentation to the emergency department, the patient was noted to be afebrile and hemodynamically stable. Initial laboratory evaluation revealed evidence of microcytic anemia. Coagulation profile was within normal limits. Chemistry profile revealed evidence of acute on chronic kidney disease with a creatinine of 2.08. Initial troponin was negative. CT head revealed chronic involutional changes without acute intracranial hemorrhage or acute infarction. His NIH score in the emergency department was documented to be 5. The case was discussed with neurology and the patient was felt to be a candidate for TPA administration. Therefore, TPA was administered. The patient was then admitted to the medical intensive care unit for ongoing management. Overnight, a stat CT head had to be obtained due to worsening neurological status. His last documented NIH was noted to be 14. The repeat CT head overnight revealed no significant interval changes. There was no evidence of hemorrhage. In addition to the aforementioned, over the course of last night, the patient developed an elevation in troponin to 1.23. Cardiology was subsequently consulted. Past Medical History Past Medical History (Chronic Problems): Chronic Problems (Last Reviewed 08/26/18 @ 14:35 by Jazzy Sierra) Hx of bilateral inguinal hernia repair (Chronic) 04/05/18 Bilateral inguinal hernia with obstruction and without gangrene (Chronic) History of colonoscopy (Chronic) Atrial fibrillation (Chronic) PUD (peptic ulcer disease) (Chronic) Left inguinal hernia (Chronic) Hemorrhoid (Chronic) History of left heart catheterization (Chronic 11/25/14) 11/25/2014 @ [facility] Anemia (Chronic) BPH (benign prostatic hyperplasia) (Chronic) Renal insufficiency (Chronic) History of bilateral knee replacement (Chronic) History of cataract surgery (Chronic) Peptic ulcer disease (Chronic) GI bleed (Chronic) COPD (chronic obstructive pulmonary disease) (Chronic) Osteoarthritis (Chronic) Hyperlipidemia (Chronic) Cardiomyopathy in diseases classified elsewhere (Chronic) Hypertension (Chronic) Paroxysmal atrial fibrillation (Chronic) Medical History: Medical History (Last Reviewed 08/26/18 @ 14:35 by Jazzy Sierra) Atrial fibrillation (Chronic) I48.91 PUD (peptic ulcer disease) (Chronic) K27.9 Left inguinal hernia (Chronic) K40.90 Hemorrhoid (Chronic) K64.9 Anemia (Chronic) D64.9 BPH (benign prostatic hyperplasia) (Chronic) N40.0 Renal insufficiency (Chronic) N28.9 Peptic ulcer disease (Chronic) K27.9 GI bleed (Chronic) K92.2 COPD (chronic obstructive pulmonary disease) (Chronic) J44.9 Osteoarthritis (Chronic) M19.90 Hyperlipidemia (Chronic) E78.5 Cardiomyopathy in diseases classified elsewhere (Chronic) I43 Hypertension (Chronic) I10 Paroxysmal atrial fibrillation (Chronic) I48.0 Renal insufficiency (Resolved) N28.9 Allergies cortisone Allergy (Verified 09/14/18 19:21) Rash Home Medications: Ambulatory Orders Medication Instructions Recorded Albuterol Sulfate [Proair 90 mcg IH DAILY 11/24/14 Respiclick] Aspirin [Aspirin, Baby] 81 mg PO DAILY@0800 11/24/14 omeprazole 40 mg capsule,delayed 40 mg PO QDAY 05/04/17 release potassium chloride ER 10 mEq 10 meq PO QDAY #90 cap 07/03/17 capsule,extended release Albuterol Aerosols [Ventolin 2.5 mg INHALATION Q4H PRN PRN 04/01/18 Aerosols] Isosorbide Dinitrate 30 mg PO QDAY 04/01/18 carvedilol 12.5 mg tablet 6.25 mg PO BID #90 tab 06/28/18 furosemide 40 mg tablet 40 mg PO DAILY #90 tab 06/28/18 amiodarone 200 mg tablet 200 mg PO DAILY #90 tab 08/26/18 simvastatin 20 mg tablet 20 mg PO QHS #90 tab 08/26/18 spironolactone 25 mg tablet 25 mg PO DAILY #90 tab 08/26/18 lisinopril 10 mg tablet 10 mg PO BID #180 tab 09/02/18 Surgical History: Surgical History (Last Reviewed 08/26/18 @ 14:35 by Jazzy Sierra) Hx of bilateral inguinal hernia repair (Chronic) Z98.890, Z87.19 04/05/18 History of colonoscopy (Chronic) Z98.890 History of left heart catheterization (Chronic) Onset Date: 11/25/14 Z98.890 11/25/2014 @ [facility] History of bilateral knee replacement (Chronic) Z96.653 History of cataract surgery (Chronic) Z98.49 history of incision and drainage infected back abscess Onset Date: 06/14/18 Surgical History: cataract, - - knee replacement-L, glaucoma surgery Psychiatric History: No pertinent psych hx Smoking Status: Former smoker - *Family History Maternal Family History: Family History (Last Reviewed 08/26/18 @ 14:35 by Jazzy Sierra) Father CAD (coronary artery disease) Colon cancer Mother Alzheimers disease Sister Cancer History Items: - - Alzheimer's dementia Paternal Family History: Family History (Last Reviewed 08/26/18 @ 14:35 by Jazzy Sierra) Father CAD (coronary artery disease) Colon cancer Mother Alzheimers disease Sister Cancer History Items: Heart Disease Sibling Family History: Family History (Last Reviewed 08/26/18 @ 14:35 by Jzazy Sierra) Father CAD (coronary artery disease) Colon cancer Mother Alzheimers disease Sister Cancer History Items: Cancer Review of Systems Constitutional: Denies: Chills, Fever Eyes: Denies: Blurred vision, Double vision HEENT: Denies: Head Aches, Sinus Congestion, Sinus Drainage Cardiovascular: Denies: Chest Pain, Palpitations Respiratory: Denies: Cough, Shortness of breath at rest, Sputum production Gastrointestinal: Denies: Abdominal Pain, Nausea, Vomiting Genitourinary: Denies: Dysuria Musculoskeletal: Denies: Joint Pain, Joint Tenderness Skin: Denies: Rash, Wounds Neurological: Reports: Change in Speech, Slurred speech, Focal weakness Psychiatric: Denies: Anxiety, Depression, Homicidal Ideations, Suicidal Ideations Hematologic/ Lymphatic: Reports: Anemia Patient Problems: Active and Suspected Problems (Last Reviewed 08/26/18 @ 14:35 by Jazzy Sierra) Acute stroke (Acute) NSTEMI (non-ST elevated myocardial infarction) (Acute) Objective: The patient's most recent lab work, culture data and imaging studies have all been personally reviewed. - Physical Exam General: Alert, Cooperative, No apparent distress HEENT: Atraumatic, PERRLA, Normocephalic Oral: Dry Mucosa Neck: Supple, No Nodes, Trachea Midline Lungs: No rhonchi, No wheeze, No rales, Diminished Cardiovascular: Regular rate, Regular Rhythm, Normal S1, Normal S2, No murmurs Abdomen: Bowel Sounds Present, Soft, Non Tender, Non-Distended Extremities: No clubbing, No cyanosis, Edema Skin: No breakdown Musculoskeletal: No Muscle Wasting Lymphatic: No Cervical, Supraclavicular, or Inguinal Adenopathy Neurological: - - Pronounced dysarthric speech. Flaccid right upper extremity. Some movement of right lower extremity. + facial droop Psych/Mental Status: Normal Affect, Appropriate Vital Signs Temp Pulse Resp BP Pulse Ox 98.9 F 71 23 H 161/96 H 97 09/15/18 06:29 09/15/18 06:29 09/15/18 06:29 09/15/18 06:29 09/15/18 06:29 Oxygen Flow Rate (L/min) 2 Oxygen Delivery Method Room Air Weight: 207 lb 10.807 oz Body Mass Index (BMI) 27.8 Finger Stick Blood Glucose 123 Intake and Output for Last 24 Hours 09/13/18 09/14/18 09/15/18 23:59 23:59 23:59 Intake Total 903 / 903 Output Total 500 / 500 Balance 403 / 403 Laboratory Tests Past 24 Hrs 09/14/18 09/14/18 09/14/18 19:00 19:00 19:00 WBC 7.0 RBC 4.86 Hgb 10.1 L Hct 35.2 L MCV 72.4 L MCH 20.8 L MCHC 28.7 L RDW 18.5 H RDW Differential 48.6 H Plt Count 245 MPV TNP Immature Gran % (Auto) 0.300 Neut % (Auto) 65.2 Lymph % (Auto) 19.3 [place] % (Auto) 10.9 H Eos % (Auto) 2.4 Baso % (Auto) 1.9 H Absolute Neuts (auto) 4.6 Absolute Lymphs (auto) 1.35 Total Counted Not Reportable Differential Comment SCANNED PT 14.2 INR 1.1 APTT 31.9 Sodium 141 Potassium 4.2 Chloride 108 H Carbon Dioxide 27.0 Anion Gap 6 BUN 23 H Creatinine 2.08 H Estim Creat Clear Calc 33.16 Est GFR (MDRD) Af Amer 40 L Est GFR (MDRD) Non-Af 33 L BUN/Creatinine Ratio 11.1 Glucose 115 H Hemoglobin A1c Calcium 8.7 Phosphorus Magnesium Total Bilirubin AST ALT Alkaline Phosphatase Troponin I < 0.015 Total Protein Albumin Globulin Albumin/Globulin Ratio Triglycerides Cholesterol LDL Cholesterol VLDL Cholesterol HDL Cholesterol TSH 09/14/18 09/15/18 09/15/18 22:15 04:10 04:10 WBC RBC Hgb Hct MCV MCH MCHC RDW RDW Differential Plt Count MPV Immature Gran % (Auto) Neut % (Auto) Lymph % (Auto) [place] % (Auto) Eos % (Auto) Baso % (Auto) Absolute Neuts (auto) Absolute Lymphs (auto) Total Counted Differential Comment PT INR APTT Sodium 144 Potassium 4.0 Chloride 112 H Carbon Dioxide 25.0 Anion Gap 7 BUN 23 H Creatinine 1.84 H Estim Creat Clear Calc 37.49 Est GFR (MDRD) Af Amer 46 L Est GFR (MDRD) Non-Af 38 L BUN/Creatinine Ratio 12.5 Glucose 104 Hemoglobin A1c Calcium 8.3 L Phosphorus 3.9 Magnesium 2.0 Total Bilirubin 0.30 AST 17 ALT 18 Alkaline Phosphatase 74 Troponin I 0.056 H Total Protein 6.7 Albumin 3.4 Globulin 3.3 Albumin/Globulin Ratio 1.0 Triglycerides 97 Cholesterol 105 LDL Cholesterol 51 VLDL Cholesterol 19 HDL Cholesterol 35 L TSH 1.85 09/15/18 09/15/18 09/15/18 04:10 04:10 04:10 WBC 7.7 RBC 4.46 L Hgb 9.3 L Hct 32.2 L MCV 72.2 L MCH 20.9 L MCHC 28.9 L RDW 18.6 H RDW Differential 49.1 H Plt Count 228 MPV 11.6 Immature Gran % (Auto) 0.100 Neut % (Auto) 74.0 H Lymph % (Auto) 13.8 L [place] % (Auto) 9.0 Eos % (Auto) 2.1 Baso % (Auto) 1.0 Absolute Neuts (auto) 5.7 Absolute Lymphs (auto) 1.06 Total Counted Pending Differential Comment PT INR APTT Sodium Potassium Chloride Carbon Dioxide Anion Gap BUN Creatinine Estim Creat Clear Calc Est GFR (MDRD) Af Amer Est GFR (MDRD) Non-Af BUN/Creatinine Ratio Glucose Hemoglobin A1c Pending Calcium Phosphorus Magnesium Total Bilirubin AST ALT Alkaline Phosphatase Troponin I 1.230 H* Total Protein Albumin Globulin Albumin/Globulin Ratio Triglycerides Cholesterol LDL Cholesterol VLDL Cholesterol HDL Cholesterol TSH POC Glucose 09/15/18 09/14/18 06:40 23:12 POC Glucose 113 H 123 H Clinical Impression(s) from Imaging Studies Brain CT 09/14/18 19:07 IMPRESSION: Chronic involutional changes of the brain. There is no intracranial hemorrhage or evidence of acute infarct. If clinically, MRI may be helpful for further evaluation at this time. Electronically Signed: Trey Yepez MD at 19:29 EDT , Service support , ADDENDUM: 09/14/18 1940 IMPRESSION: Chronic involutional changes of the brain. There is no intracranial hemorrhage or evidence of acute infarct. If clinically, MRI may be helpful for further evaluation at this time. N.B. : The above information has been verbally conveyed by Trey Yepez MD to Dr. Sarah Juárez MD, on 09/14/2018 19:33:04 (ET). Electronically Signed: Trey Yepez MD at 19:29 EDT , Service support , Head CTA 09/14/18 19:07 IMPRESSION: Normal [place] without a demonstrated aneurysm or significant stenosis. Electronically Signed: Anushka Galaviz MD at 19:53 EDT Tel , Service support , Neck CTA 09/14/18 19:07 IMPRESSION: 1. Atherosclerotic calcification of the left bulb and proximal ICA, with less than 50% stenosis. 2. Atherosclerotic calcification of the right carotid bulb, no stenosis. 3. Normal vertebral arteries. Electronically Signed: Anushka Galaviz MD at 20:02 EDT Tel , Service support , Chest X-Ray 09/14/18 19:10 IMPRESSION: Stable cardiomegaly with hyperexpansion. No acute finding. Electronically Signed: Hermes Santana MD at 19:26 EDT , Service support , Brain CT 09/15/18 03:38 IMPRESSION: Chronic involutional changes of the brain. Electronically Signed: Jaylan Jay, at 4:31 EDT Tel , Service support , Assessment/Plan Active and Suspected Problems (Last Reviewed 08/26/18 @ 14:35 by Jazzy Sierra) Acute stroke (Acute) NSTEMI (non-ST elevated myocardial infarction) (Acute) RECOMMENDATIONS: 1. Continue post TPA administration management per protocol. 2. Repeat head imaging scheduled for this morning. 3. Continue as needed antihypertensives. Allow for permissive hypertension. 4. Continue statin therapy. 5. Neurology and cardiology consultations pending. 6. Continue to trend troponins. 7. Await echocardiogram. 8. PT/OT evaluations pending. IMPRESSIONS: 1. 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 MRI is pending this morning. Allow for permissive hypertension for now. Neurology to evaluate the patient with additional recommendations forthcoming. Echocardiogram is pending. PT/OT to evaluate patient. 2. History of paroxysmal atrial fibrillation/troponin elevation The patient is currently in normal sinus rhythm. Evaluation by cardiology is pending due to elevated troponin. Echocardiogram is pending. Continue statin therapy. 3. Acute on chronic kidney disease Likely prerenal in etiology, as the patient responded to IV fluids. Urine output is appropriate. No indication for renal replacement therapy at this time. 4. Known COPD Continue bronchodilators as ordered. The patient is currently maintaining appropriate oxygen saturations on room air. This note was generated with [employer] dictation software. It may contain incorrect words, spelling, and punctuation that were not noted in checking the note before signing. Code Visit Inpatient E&M: 76870 Init Hosp L3
[2018-09-15 07:03] LABS: Differential Comment SCANNED; Hypochromasia 2+; Microcytosis 3+; Platelet Estimate ADEQUATE (ADEQ); Schistocytes RARE
--- NOTE | 2018-09-15 07:25 | NURSING ---
NIHSS done w/off-going ROBER Garduno.
[2018-09-15 07:55] LABS: Hemoglobin A1c 5.5 % (4.2-6.3)
--- NOTE | 2018-09-15 09:49 | PCM.PN.HOSP ---
Patient Problems: Active and Suspected Problems (Last Reviewed 08/26/18 @ 14:35 by Jazzy Sierra) Acute stroke (Acute) Subjective: Patient was admitted in the early hours of this morning with complaint of sudden onset of right upper extremity and right lower extremity weakness this after he ate dinner last night. He also had associated slurred speech. He does have a history of paroxysmal A. fib but had not been taking any oral anticoagulant. CT done showed no acute intracranial hemorrhage and NIH scale was 5. CT of the head and neck showed less than 50% stenosis of ICA and proximal ICA atherosclerotic calcific location. EKG showed normal sinus rhythm with right bundle branch block. He received TPA in the ED and was admitted to the ICU for closer monitoring. During the night, it was noted that his dysphagia and right-sided weakness was getting worse so he had a repeat CT which was negative. He had an MRI this morning results of which are pending. Patient seen and examined this morning. He still complaining of right upper extremity and right lower extremity weakness. You can see what he does room with him but said he thought he was well enough to go home. Labs and vitals reviewed. Troponins also noted to have trended up from 0.056 on admission was 1.23. Cardiology has been consulted. Vitals/I&O's: Vital Signs Temp Pulse Resp BP Pulse Ox 98.9 F 71 23 H 161/96 H 97 09/15/18 06:29 09/15/18 06:29 09/15/18 06:29 09/15/18 06:29 09/15/18 06:29 Oxygen Flow Rate (L/min) 2 Oxygen Delivery Method Room Air Weight: 207 lb 10.807 oz Body Mass Index (BMI) 27.8 Finger Stick Blood Glucose 123 Intake and Output for Last 24 Hours 09/13/18 09/14/18 09/15/18 23:59 23:59 23:59 Intake Total 903 / 903 Output Total 500 / 500 Balance 403 / 403 General: Alert, Oriented x3, Cooperative, No apparent distress HEENT: Atraumatic, PERRLA, EOMI, Normocephalic Oral: Moist Mucosa Neck: Supple, No JVD, Negative Carotid Bruits Lungs: Clear to auscultation, Normal air movement Cardiovascular: Regular rate, Regular Rhythm, Normal S1, Normal S2, No murmurs Abdomen: Bowel Sounds Present, Soft, Non Tender, Non-Distended, No Hepato-splenomegaly Extremities: No clubbing, No cyanosis, No edema, Capillary Refill Less than 3 Seconds, No Calf Tenderness Skin: No rashes, No breakdown Musculoskeletal: No Tenderness to Palpation of Joints or Extremities Lymphatic: No Cervical, Supraclavicular, or Inguinal Adenopathy Neurological: - - Power in RLE is 3-/5, power in RUE is 1/5. Has numbness in RUE and RLE. Has mouth droop on left side. NIHSS -13 Psych/Mental Status: Normal Affect, Appropriate, Alert and oriented to time, place, person, mood and affect Laboratory Results 09/14/18 19:00: WBC 7.0, RBC 4.86, Hgb 10.1 L, Hct 35.2 L, MCV 72.4 L, MCH 20.8 L, MCHC 28.7 L, RDW 18.5 H, RDW Differential 48.6 H, Plt Count 245, MPV TNP, Immature Gran % (Auto) 0.300, Neut % (Auto) 65.2, Lymph % (Auto) 19.3, [place] % (Auto) 10.9 H, Eos % (Auto) 2.4, Baso % (Auto) 1.9 H, Absolute Neuts (auto) 4.6, Absolute Lymphs (auto) 1.35, Total Counted Not Reportable, Differential Comment SCANNED 09/14/18 19:00: PT 14.2, INR 1.1, APTT 31.9 09/14/18 19:00: Sodium 141, Potassium 4.2, Chloride 108 H, Carbon Dioxide 27.0, Anion Gap 6, BUN 23 H, Creatinine 2.08 H, Estim Creat Clear Calc 33.16, Est GFR (MDRD) Af Amer 40 L, Est GFR (MDRD) Non-Af 33 L, BUN/Creatinine Ratio 11.1, Glucose 115 H, Calcium 8.7, Troponin I < 0.015 09/14/18 22:15: Troponin I 0.056 H 09/14/18 23:12: POC Glucose 123 H 09/15/18 04:10: Sodium 144, Potassium 4.0, Chloride 112 H, Carbon Dioxide 25.0, Anion Gap 7, BUN 23 H, Creatinine 1.84 H, Estim Creat Clear Calc 37.49, Est GFR (MDRD) Af Amer 46 L, Est GFR (MDRD) Non-Af 38 L, BUN/Creatinine Ratio 12.5, Glucose 104, Calcium 8.3 L, Phosphorus 3.9, Magnesium 2.0, Total Bilirubin 0.30, AST 17, ALT 18, Alkaline Phosphatase 74, Total Protein 6.7, Albumin 3.4, Globulin 3.3, Albumin/Globulin Ratio 1.0, Triglycerides 97, Cholesterol 105, LDL Cholesterol 51, VLDL Cholesterol 19, HDL Cholesterol 35 L 09/15/18 04:10: TSH 1.85 09/15/18 04:10: Hemoglobin A1c 5.5 09/15/18 04:10: WBC 7.7, RBC 4.46 L, Hgb 9.3 L, Hct 32.2 L, MCV 72.2 L, MCH 20.9 L, MCHC 28.9 L, RDW 18.6 H, RDW Differential 49.1 H, Plt Count 228, MPV 11.6, Immature Gran % (Auto) 0.100, Neut % (Auto) 74.0 H, Lymph % (Auto) 13.8 L, [place] % (Auto) 9.0, Eos % (Auto) 2.1, Baso % (Auto) 1.0, Absolute Neuts (auto) 5.7, Absolute Lymphs (auto) 1.06, Total Counted Not Reportable, Differential Comment SCANNED, Platelet Estimate ADEQUATE, Hypochromasia 2+, Microcytosis 3+, Schistocytes RARE 09/15/18 04:10: Troponin I 1.230 H* 09/15/18 06:40: POC Glucose 113 H Diagnostic Data Head CTA 09/14/18 19:07 IMPRESSION: Normal [place] without a demonstrated aneurysm or significant stenosis. Electronically Signed: Anushka Galaviz MD at 19:53 EDT Tel , Service support , Neck CTA 09/14/18 19:07 IMPRESSION: 1. Atherosclerotic calcification of the left bulb and proximal ICA, with less than 50% stenosis. 2. Atherosclerotic calcification of the right carotid bulb, no stenosis. 3. Normal vertebral arteries. Electronically Signed: Anushka Galaviz MD at 20:02 EDT Tel , Service support , Chest X-Ray 09/14/18 19:10 IMPRESSION: Stable cardiomegaly with hyperexpansion. No acute finding. Electronically Signed: Hermes Santana MD at 19:26 EDT , Service support , Brain CT 09/15/18 03:38 IMPRESSION: Chronic involutional changes of the brain. Electronically Signed: Jaylan Jay, at 4:31 EDT Tel , Service support , Brain MRI 09/15/18 03:58 IMPRESSION: Extensive periventricular microvascular ischemic senescent changes with left posterior insular ribbon small region of cortical ischemia extending to the centrum semiovale. No evidence of large territorial ischemia or acute intracranial blood product. Electronically Signed: Serafin Arguello DO at 8:51 EDT , Service support , ADDENDUM: 09/15/18 0930 Current Medications Acetaminophen (Tylenol) 650 mg PO Q4H PRN PRN PRN Reason: Headache/Temp>99F Acetaminophen (Tylenol) 650 mg RECTAL Q4H PRN PRN PRN Reason: Headache/Temp>99F Acetaminophen (Tylenol Liquid) 650 mg NG Q4H PRN PRN PRN Reason: Headache/Temp>99F Albuterol/Ipratropium (Duoneb) 3 ml INHALATION Q4H PRN PRN Reason: sob Last Admin: 09/15/18 03:38 Dose: 3 ml Amiodarone HCl (Cordarone) 200 mg PO DAILY [facility] Atorvastatin Calcium (Lipitor) 80 mg PO QHS [facility] Last Admin: 09/14/18 22:22 Dose: Not Given Carvedilol (Coreg) 6.25 mg PO BID [facility] Last Admin: 05/25/19 22:22 Dose: Not Given Dextrose (D50w Syringe) 0 gm IV X1 PRN; Protocol PRN Reason: Hypoglycemia Epinephrine HCl () 0.3 mg IM .X1 PRN PRN Reason: Allergic Reaction Stop: 09/16/18 19:25 Glucagon () 1 mg IM .X1 PRN PRN Reason: Hypoglycemia Nicardipine HCl 25 mg/ Sodium (Chloride) 250 mls @ 0 mls/hr IV .Q0M PRN PRN Reason: see instructions Pantoprazole Sodium 40 mg/ (Sodium Chloride) 110 mls @ 330 mls/hr IV Q24 [facility]ENDY Last Admin: 09/14/18 22:22 Dose: 330 mls/hr Sodium Chloride () 250 mls @ 15 mls/hr IV .[id number] PRN PRN Reason: SALINE FLUSH Isosorbide Dinitrate (Isordil) 30 mg PO DAILY [facility] Labetalol HCl (Trandate) 10 mg IV Q10M PRN PRN Reason: MAINTAIN BP < 220/120 Stop: 09/15/18 21:31 Nitroglycerin (Nitrostat) 0.4 mg SUBLINGUAL Q5M PRN PRN Reason: CARDIAC/CHEST PAIN Ondansetron HCl (Zofran) 4 mg IV Q8H PRN PRN PRN Reason: NAUSEA/VOMITING Potassium Chloride (K-Dur) 10 meq PO DAILY [facility] Promethazine HCl (Phenergan) 25 mg IV Q6H PRN PRN PRN Reason: Breakthrough Nausea/Vomiting Senna/Docusate Sodium (Senokot-S, Michelle-Colace) 2 tablet PO BID PRN PRN PRN Reason: Constipation Sodium Chloride () 5 - 15 ml IV UD PRN PRN Reason: SALINE FLUSH Medical Necessity - Tobacco Use Smoking Status: Former smoker Assessment/Plan All Active Problems (Last Reviewed 08/26/18 @ 14:35 by Jazzy Sierra) Acute stroke (Acute) Dyspnea (Acute) Acute blood loss anemia (Resolved) Atrial fibrillation (Resolved) Renal insufficiency (Resolved) 1. acute ischemic CVA s/p TPA Had sudden onset right-sided weakness and numbness as well as slurring of his speech and mild droop on the right. CT of the head showed no acute intracranial hemorrhage. NIH score was 5 at time of admission. Also a history of paroxysmal A. fib. Status post TPA NIH stroke scale this morning is 13. MRI of the brain shows extensive periventricular microvascular ischemic senescent changes with left posterior insular red-brown small region of cortical ischemia extending to the centrum semiovale. No evidence of large territorial ischemia or acute intracranial blood products. neurology consulted- awaiting rec's. lipid panel is WNL; A1C is 5.5 Will wait for at least 24 hours after TPA before starting anticoagulants and aspirin required initiation of nicardipine drip overnight to help control BP 2. Non-STEMI: Troponin trended up from 0.056 to 1.23. EKG showed no acute ST changes. Cardiology consulted. on SL nitroglycerin Due to TPA, cannot give aspirin and Plavix now. 3. Chronic combined HF stable. EF is known to be 35% to 40% from 2D echo done in October 2014. Also has stage I diastolic dysfunction. On carvedilol 5.25mg bid. Will repeat echo. 4. History of paroxysmal A. fib: Currently rate controlled. States he was diagnosed during preop clearance for herniorrhaphy some years ago. On metoprolol. Also on amiodarone. Not on any anticoagulation. 5. Hypertension: not on any BP meds now. BP as per TPA protocol 6. History of PUDx: on PPI 7. COPD: on breathing treatments. stable 8. Chronic iron deficiency anemia: On iron supplementation. 9. Dyslipidemia: on high intensity statin 10. BPH: stable DVT prophylaxis; SCDs Code Visit Inpatient E&M: 25104 [facility] L[facility]
--- NOTE | 2018-09-15 09:54 | PN_ITS ---
Patient Problems: Active and Suspected Problems (Last Reviewed 08/26/18 @ 14:35 by Jazzy Sierra) Acute stroke (Acute) Subjective: Patient was admitted in the early hours of this morning with complaint of sudden onset of right upper extremity and right lower extremity weakness this after he ate dinner last night. He also had associated slurred speech. He does have a history of paroxysmal A. fib but had not been taking any oral anticoagulant. CT done showed no acute intracranial hemorrhage and NIH scale was 5. CT of the head and neck showed less than 50% stenosis of ICA and proximal ICA atherosclerotic calcific location. EKG showed normal sinus rhythm with right bundle branch block. He received TPA in the ED and was admitted to the ICU for closer monitoring. During the night, it was noted that his dysphagia and right- sided weakness was getting worse so he had a repeat CT which was negative. He had an MRI this morning results of which are pending. Patient seen and examined this morning. He still complaining of right upper extremity and right lower extremity weakness. You can see what he does room with him but said he thought he was well enough to go home. Labs and vitals reviewed. Troponins also noted to have trended up from 0.056 on admission was 1.23. Cardiology has been consulted. Vitals/I&O's: Vital Signs Temp Pulse Resp BP Pulse Ox 98.9 F 71 23 H 161/96 H 97 09/15/18 06:29 09/15/18 06:29 09/15/18 06:29 09/15/18 06:29 09/15/18 06:29 Oxygen Flow Rate (L/min) 2 Oxygen Delivery Method Room Air Weight: 207 lb 10.807 oz Body Mass Index (BMI) 27.8 Finger Stick Blood Glucose 123 Intake and Output for Last 24 Hours 09/13/18 09/14/18 09/15/18 23:59 23:59 23:59 Intake Total 903 / 903 Output Total 500 / 500 Balance 403 / 403 General: Alert, Oriented x3, Cooperative, No apparent distress HEENT: Atraumatic, PERRLA, EOMI, Normocephalic Oral: Moist Mucosa Neck: Supple, No JVD, Negative Carotid Bruits Lungs: Clear to auscultation, Normal air movement Cardiovascular: Regular rate, Regular Rhythm, Normal S1, Normal S2, No murmurs Abdomen: Bowel Sounds Present, Soft, Non Tender, Non-Distended, No Hepato- splenomegaly Extremities: No clubbing, No cyanosis, No edema, Capillary Refill Less than 3 Seconds, No Calf Tenderness Skin: No rashes, No breakdown Musculoskeletal: No Tenderness to Palpation of Joints or Extremities Lymphatic: No Cervical, Supraclavicular, or Inguinal Adenopathy Neurological: - - Power in RLE is 3-/5, power in RUE is 1/5. Has numbness in RUE and RLE. Has mouth droop on left side. NIHSS -13 Psych/Mental Status: Normal Affect, Appropriate, Alert and oriented to time, place, person, mood and affect Laboratory Results 09/14/18 19:00: WBC 7.0, RBC 4.86, Hgb 10.1 L, Hct 35.2 L, MCV 72.4 L, MCH 20.8 L, MCHC 28.7 L, RDW 18.5 H, RDW Differential 48.6 H, Plt Count 245, MPV TNP, Immature Gran % (Auto) 0.300, Neut % (Auto) 65.2, Lymph % (Auto) 19.3, [place] % (Auto) 10.9 H, Eos % (Auto) 2.4, Baso % (Auto) 1.9 H, Absolute Neuts (auto) 4.6, Absolute Lymphs (auto) 1.35, Total Counted Not Reportable, Differential Comment SCANNED 09/14/18 19:00: PT 14.2, INR 1.1, APTT 31.9 09/14/18 19:00: Sodium 141, Potassium 4.2, Chloride 108 H, Carbon Dioxide 27.0, Anion Gap 6, BUN 23 H, Creatinine 2.08 H, Estim Creat Clear Calc 33.16, Est GFR (MDRD) Af Amer 40 L, Est GFR (MDRD) Non-Af 33 L, BUN/Creatinine Ratio 11.1, Glucose 115 H, Calcium 8.7, Troponin I < 0.015 09/14/18 22:15: Troponin I 0.056 H 09/14/18 23:12: POC Glucose 123 H 09/15/18 04:10: Sodium 144, Potassium 4.0, Chloride 112 H, Carbon Dioxide 25.0, Anion Gap 7, BUN 23 H, Creatinine 1.84 H, Estim Creat Clear Calc 37.49, Est GFR (MDRD) Af Amer 46 L, Est GFR (MDRD) Non-Af 38 L, BUN/Creatinine Ratio 12.5, Glucose 104, Calcium 8.3 L, Phosphorus 3.9, Magnesium 2.0, Total Bilirubin 0.30, AST 17, ALT 18, Alkaline Phosphatase 74, Total Protein 6.7, Albumin 3.4, Globulin 3.3, Albumin/Globulin Ratio 1.0, Triglycerides 97, Cholesterol 105, LDL Cholesterol 51, VLDL Cholesterol 19, HDL Cholesterol 35 L 09/15/18 04:10: TSH 1.85 09/15/18 04:10: Hemoglobin A1c 5.5 09/15/18 04:10: WBC 7.7, RBC 4.46 L, Hgb 9.3 L, Hct 32.2 L, MCV 72.2 L, MCH 20.9 L, MCHC 28.9 L, RDW 18.6 H, RDW Differential 49.1 H, Plt Count 228, MPV 11.6, Immature Gran % (Auto) 0.100, Neut % (Auto) 74.0 H, Lymph % (Auto) 13.8 L, [place] % (Auto) 9.0, Eos % (Auto) 2.1, Baso % (Auto) 1.0, Absolute Neuts (auto) 5.7, Absolute Lymphs (auto) 1.06, Total Counted Not Reportable, Differential Comment SCANNED, Platelet Estimate ADEQUATE, Hypochromasia 2+, Microcytosis 3+, Schistocytes RARE 09/15/18 04:10: Troponin I 1.230 H* 09/15/18 06:40: POC Glucose 113 H Diagnostic Data Head CTA 09/14/18 19:07 IMPRESSION: Normal [place] without a demonstrated aneurysm or significant stenosis. Electronically Signed: Anushka Galaviz MD at 19:53 EDT Tel , Service support , Neck CTA 09/14/18 19:07 IMPRESSION: 1. Atherosclerotic calcification of the left bulb and proximal ICA, with less than 50% stenosis. 2. Atherosclerotic calcification of the right carotid bulb, no stenosis. 3. Normal vertebral arteries. Electronically Signed: Anushka Galaviz MD at 20:02 EDT Tel , Service support , Chest X-Ray 09/14/18 19:10 IMPRESSION: Stable cardiomegaly with hyperexpansion. No acute finding. Electronically Signed: Hermes Santana MD at 19:26 EDT , Service support , Brain CT 09/15/18 03:38 IMPRESSION: Chronic involutional changes of the brain. Electronically Signed: Jaylan aJy, at 4:31 EDT Tel , Service support , Brain MRI 09/15/18 03:58 IMPRESSION: Extensive periventricular microvascular ischemic senescent changes with left posterior insular ribbon small region of cortical ischemia extending to the centrum semiovale. No evidence of large territorial ischemia or acute intracranial blood product. Electronically Signed: Serafin Arguello DO at 8:51 EDT , Service support , ADDENDUM: 09/15/18 0930 Current Medications Acetaminophen (Tylenol) 650 mg PO Q4H PRN PRN PRN Reason: Headache/Temp>99F Acetaminophen (Tylenol) 650 mg RECTAL Q4H PRN PRN PRN Reason: Headache/Temp>99F Acetaminophen (Tylenol Liquid) 650 mg NG Q4H PRN PRN PRN Reason: Headache/Temp>99F Albuterol/Ipratropium (Duoneb) 3 ml INHALATION Q4H PRN PRN Reason: sob Last Admin: 09/15/18 03:38 Dose: 3 ml Amiodarone HCl (Cordarone) 200 mg PO DAILY [facility] Atorvastatin Calcium (Lipitor) 80 mg PO QHS [facility] Last Admin: 09/14/18 22:22 Dose: Not Given Carvedilol (Coreg) 6.25 mg PO BID [facility] Last Admin: 05/25/19 22:22 Dose: Not Given Dextrose (D50w Syringe) 0 gm IV X1 PRN; Protocol PRN Reason: Hypoglycemia Epinephrine HCl () 0.3 mg IM .X1 PRN PRN Reason: Allergic Reaction Stop: 09/16/18 19:25 Glucagon () 1 mg IM .X1 PRN PRN Reason: Hypoglycemia Nicardipine HCl 25 mg/ Sodium (Chloride) 250 mls @ 0 mls/hr IV .Q0M PRN PRN Reason: see instructions Pantoprazole Sodium 40 mg/ (Sodium Chloride) 110 mls @ 330 mls/hr IV Q24 MENDY Last Admin: 09/14/18 22:22 Dose: 330 mls/hr Sodium Chloride () 250 mls @ 15 mls/hr IV .[id number] PRN PRN Reason: SALINE FLUSH Isosorbide Dinitrate (Isordil) 30 mg PO DAILY MENDY Labetalol HCl (Trandate) 10 mg IV Q10M PRN PRN Reason: MAINTAIN BP < 220/120 Stop: 09/15/18 21:31 Nitroglycerin (Nitrostat) 0.4 mg SUBLINGUAL Q5M PRN PRN Reason: CARDIAC/CHEST PAIN Ondansetron HCl (Zofran) 4 mg IV Q8H PRN PRN PRN Reason: NAUSEA/VOMITING Potassium Chloride (K-Dur) 10 meq PO DAILY MENDY Promethazine HCl (Phenergan) 25 mg IV Q6H PRN PRN PRN Reason: Breakthrough Nausea/Vomiting Senna/Docusate Sodium (Senokot-S, Michelle-Colace) 2 tablet PO BID PRN PRN PRN Reason: Constipation Sodium Chloride () 5 - 15 ml IV UD PRN PRN Reason: SALINE FLUSH Medical Necessity - Tobacco Use Smoking Status: Former smoker Assessment/Plan All Active Problems (Last Reviewed 08/26/18 @ 14:35 by Jazzy Sierra) Acute stroke (Acute) Dyspnea (Acute) Acute blood loss anemia (Resolved) Atrial fibrillation (Resolved) Renal insufficiency (Resolved) 1. acute ischemic CVA s/p TPA * Had sudden onset right-sided weakness and numbness as well as slurring of his speech and mild droop on the right. * CT of the head showed no acute intracranial hemorrhage. NIH score was 5 at time of admission. * Also a history of paroxysmal A. fib. Status post TPA * NIH stroke scale this morning is 13. * MRI of the brain shows extensive periventricular microvascular ischemic senescent changes with left posterior insular red-brown small region of cortical ischemia extending to the centrum semiovale. No evidence of large territorial ischemia or acute intracranial blood products. * neurology consulted- awaiting rec's. * lipid panel is WNL; A1C is 5.5 * Will wait for at least 24 hours after TPA before starting anticoagulants and aspirin * required initiation of nicardipine drip overnight to help control BP * 2. Non-STEMI: * Troponin trended up from 0.056 to 1.23. * EKG showed no acute ST changes. * Cardiology consulted. * on SL nitroglycerin * Due to TPA, cannot give aspirin and Plavix now. 3. Chronic combined HF * stable. * EF is known to be 35% to 40% from 2D echo done in October 2014. Also has stage I diastolic dysfunction. * On carvedilol 5.25mg bid. Will repeat echo. * 4. History of paroxysmal A. fib: * Currently rate controlled. * States he was diagnosed during preop clearance for herniorrhaphy some years ago. On metoprolol. Also on amiodarone. Not on any anticoagulation. 5. Hypertension: not on any BP meds now. BP as per TPA protocol 6. History of PUDx: on PPI 7. COPD: on breathing treatments. stable 8. Chronic iron deficiency anemia: On iron supplementation. 9. Dyslipidemia: on high intensity statin 10. BPH: stable DVT prophylaxis; SCDs Code Visit Inpatient E&M: 53802 Subs Hosp L3
--- NOTE | 2018-09-15 11:17 | CON.PCM_ITS ---
Problem List (1) Acute stroke Status: Acute Reason for Consult Date of Consultation: 09/15/18 Reason for Consultation: Stroke status post IV TPA History of Present Illness: The patient is a 77 year old M with PMH HTN, HLD, PAF not on anticoagulation, CKD, cardiomyopathy, history of GI bleed, BPH admitted with acute stroke. History is obtained from the patient as well as medical records and documentation. Per ED documentation patient presented yesterday 09/14/2018 with acute onset right-sided weakness and slurred speech, NIHSS was 5 per ED documentation on arrival, patient was on IV TPA candidate and TPA was started around 19:41 on 09/14/18, per the hospitalist initial note documentation NIHSS was 8 and later per the ICU nurse documentation NIHSS was around 12 overnight. At present patient continues to have right facial droop, right-sided weakness with aphasia and mild dysarthria. He denies any headache, visual disturbances, or dizziness. Per discussion with the stepdaughter and he has been having history of vertigo. Per patient he had a GI bleed many years ago, also per documentation he has peptic ulcer disease. Patient is or stepdaughter are not able to provide any history regarding his past GI bleed. Per documentation he has been seeing tape fastener machine operator Dr. Lee and has been on amiodarone for his A. fib but was not on any anticoagulation (reasons unclear). Per patient he lives with his , uses cane to ambulate intermittently, does drive, denies any frequent falls and does not use cane or walker to ambulate. CT head done on admission did not show any bleed. Per patient he was taking aspirin at baseline. CTA head/neck did not show any LVO, less than 50% stenosis of the left ICA. MRI brain reported to show small left insular and left [employer] (left MCA) stroke and upon my review also possibly shows a very small right frontal (right MCA) acute stroke. Past Medical History Past Medical History (Chronic Problems): Chronic Problems (Last Reviewed 08/26/18 @ 14:35 by Jazzy Sierra) Hx of bilateral inguinal hernia repair (Chronic) 04/05/18 Bilateral inguinal hernia with obstruction and without gangrene (Chronic) History of colonoscopy (Chronic) Atrial fibrillation (Chronic) PUD (peptic ulcer disease) (Chronic) Left inguinal hernia (Chronic) Hemorrhoid (Chronic) History of left heart catheterization (Chronic 11/25/14) 11/25/2014 @ [facility] Anemia (Chronic) BPH (benign prostatic hyperplasia) (Chronic) Renal insufficiency (Chronic) History of bilateral knee replacement (Chronic) History of cataract surgery (Chronic) Peptic ulcer disease (Chronic) GI bleed (Chronic) COPD (chronic obstructive pulmonary disease) (Chronic) Osteoarthritis (Chronic) Hyperlipidemia (Chronic) Cardiomyopathy in diseases classified elsewhere (Chronic) Hypertension (Chronic) Paroxysmal atrial fibrillation (Chronic) Medical History: Medical History (Last Reviewed 08/26/18 @ 14:35 by Jazzy Sierra) Atrial fibrillation (Chronic) I48.91 PUD (peptic ulcer disease) (Chronic) K27.9 Left inguinal hernia (Chronic) K40.90 Hemorrhoid (Chronic) K64.9 Anemia (Chronic) D64.9 BPH (benign prostatic hyperplasia) (Chronic) N40.0 Renal insufficiency (Chronic) N28.9 Peptic ulcer disease (Chronic) K27.9 GI bleed (Chronic) K92.2 COPD (chronic obstructive pulmonary disease) (Chronic) J44.9 Osteoarthritis (Chronic) M19.90 Hyperlipidemia (Chronic) E78.5 Cardiomyopathy in diseases classified elsewhere (Chronic) I43 Hypertension (Chronic) I10 Paroxysmal atrial fibrillation (Chronic) I48.0 Renal insufficiency (Resolved) N28.9 Allergies cortisone Allergy (Verified 09/14/18 19:21) Rash Home Medications: Ambulatory Orders Medication Instructions Recorded Albuterol Sulfate [Proair 90 mcg IH DAILY 11/24/14 Respiclick] Aspirin [Aspirin, Baby] 81 mg PO DAILY@0800 11/24/14 omeprazole 40 mg capsule,delayed 40 mg PO QDAY 05/04/17 release potassium chloride ER 10 mEq 10 meq PO QDAY #90 cap 07/03/17 capsule,extended release Albuterol Aerosols [Ventolin 2.5 mg INHALATION Q4H PRN PRN 04/01/18 Aerosols] Isosorbide Dinitrate 30 mg PO QDAY 04/01/18 carvedilol 12.5 mg tablet 6.25 mg PO BID #90 tab 06/28/18 furosemide 40 mg tablet 40 mg PO DAILY #90 tab 06/28/18 amiodarone 200 mg tablet 200 mg PO DAILY #90 tab 08/26/18 simvastatin 20 mg tablet 20 mg PO QHS #90 tab 08/26/18 spironolactone 25 mg tablet 25 mg PO DAILY #90 tab 08/26/18 lisinopril 10 mg tablet 10 mg PO BID #180 tab 09/02/18 Surgical History: Surgical History (Last Reviewed 08/26/18 @ 14:35 by Jazzy Sierra) Hx of bilateral inguinal hernia repair (Chronic) Z98.890, Z87.19 04/05/18 History of colonoscopy (Chronic) Z98.890 History of left heart catheterization (Chronic) Onset Date: 11/25/14 Z98.890 11/25/2014 @ [facility] History of bilateral knee replacement (Chronic) Z96.653 History of cataract surgery (Chronic) Z98.49 history of incision and drainage infected back abscess Onset Date: 06/14/18 Surgical History: cataract, - - knee replacement-L, glaucoma surgery Psychiatric History: No pertinent psych hx Smoking Status: Former smoker - *Family History Maternal Family History: Family History (Last Reviewed 08/26/18 @ 14:35 by Jazzy Sierra) Father CAD (coronary artery disease) Colon cancer Mother Alzheimers disease Sister Cancer History Items: - - Alzheimer's dementia Paternal Family History: Family History (Last Reviewed 08/26/18 @ 14:35 by Jazzy Sierra) Father CAD (coronary artery disease) Colon cancer Mother Alzheimers disease Sister Cancer History Items: Heart Disease Sibling Family History: Family History (Last Reviewed 08/26/18 @ 14:35 by Jazzy Sierra) Father CAD (coronary artery disease) Colon cancer Mother Alzheimers disease Sister Cancer History Items: Cancer Review of Systems Constitutional: Reports: - - Complete ROS negative except as documented in HPI Patient Problems: Active and Suspected Problems (Last Reviewed 08/26/18 @ 14:35 by Jazzy Sierra) Acute stroke (Acute) NSTEMI (non-ST elevated myocardial infarction) (Acute) - Physical Exam General: Alert HEENT: Normocephalic Neck: Supple Lungs: Normal air movement Cardiovascular: Normal S1, Normal S2 Abdomen: Bowel Sounds Present Extremities: No cyanosis Neurological: - - Conscious, alert, CN- Right 7th UMN facial palsy, power 5/5 left UE/LE, right UE-0/5, right LE 4/5, right LE pronator drift, plantars- right equivocal and left flexor, no sensory loss or extinction at present, aphasia +, mild dysarthria present, gait deferred, Reflexes + B/L B/S/T/K/A, NIHSS 12 at present, mRS 0 at baseline Psych/Mental Status: Normal Affect Vital Signs Temp Pulse Resp BP Pulse Ox 99.4 F H 79 31 H 162/103 H 95 09/15/18 09:15 09/15/18 09:15 09/15/18 09:15 09/15/18 09:15 09/15/18 09:15 Oxygen Flow Rate (L/min) 2 Oxygen Delivery Method Room Air Weight: 94.2 kg Body Mass Index (BMI) 27.8 Finger Stick Blood Glucose 123 Intake and Output for Last 24 Hours 09/13/18 09/14/18 09/15/18 23:59 23:59 23:59 Intake Total 903 / 903 Output Total 500 / 500 Balance 403 / 403 Laboratory Tests Past 24 Hrs 09/14/18 09/14/18 09/14/18 19:00 19:00 19:00 WBC 7.0 RBC 4.86 Hgb 10.1 L Hct 35.2 L MCV 72.4 L MCH 20.8 L MCHC 28.7 L RDW 18.5 H RDW Differential 48.6 H Plt Count 245 MPV TNP Immature Gran % (Auto) 0.300 Neut % (Auto) 65.2 Lymph % (Auto) 19.3 [place] % (Auto) 10.9 H Eos % (Auto) 2.4 Baso % (Auto) 1.9 H Absolute Neuts (auto) 4.6 Absolute Lymphs (auto) 1.35 Total Counted Not Reportable Differential Comment SCANNED Platelet Estimate Hypochromasia Microcytosis Schistocytes PT 14.2 INR 1.1 APTT 31.9 Sodium 141 Potassium 4.2 Chloride 108 H Carbon Dioxide 27.0 Anion Gap 6 BUN 23 H Creatinine 2.08 H Estim Creat Clear Calc 33.16 Est GFR (MDRD) Af Amer 40 L Est GFR (MDRD) Non-Af 33 L BUN/Creatinine Ratio 11.1 Glucose 115 H Hemoglobin A1c Calcium 8.7 Phosphorus Magnesium Total Bilirubin AST ALT Alkaline Phosphatase Troponin I < 0.015 Total Protein Albumin Globulin Albumin/Globulin Ratio Triglycerides Cholesterol LDL Cholesterol VLDL Cholesterol HDL Cholesterol TSH 09/14/18 09/15/18 09/15/18 22:15 04:10 04:10 WBC RBC Hgb Hct MCV MCH MCHC RDW RDW Differential Plt Count MPV Immature Gran % (Auto) Neut % (Auto) Lymph % (Auto) [place] % (Auto) Eos % (Auto) Baso % (Auto) Absolute Neuts (auto) Absolute Lymphs (auto) Total Counted Differential Comment Platelet Estimate Hypochromasia Microcytosis Schistocytes PT INR APTT Sodium 144 Potassium 4.0 Chloride 112 H Carbon Dioxide 25.0 Anion Gap 7 BUN 23 H Creatinine 1.84 H Estim Creat Clear Calc 37.49 Est GFR (MDRD) Af Amer 46 L Est GFR (MDRD) Non-Af 38 L BUN/Creatinine Ratio 12.5 Glucose 104 Hemoglobin A1c Calcium 8.3 L Phosphorus 3.9 Magnesium 2.0 Total Bilirubin 0.30 AST 17 ALT 18 Alkaline Phosphatase 74 Troponin I 0.056 H Total Protein 6.7 Albumin 3.4 Globulin 3.3 Albumin/Globulin Ratio 1.0 Triglycerides 97 Cholesterol 105 LDL Cholesterol 51 VLDL Cholesterol 19 HDL Cholesterol 35 L TSH 1.85 09/15/18 09/15/18 09/15/18 04:10 04:10 04:10 WBC 7.7 RBC 4.46 L Hgb 9.3 L Hct 32.2 L MCV 72.2 L MCH 20.9 L MCHC 28.9 L RDW 18.6 H RDW Differential 49.1 H Plt Count 228 MPV 11.6 Immature Gran % (Auto) 0.100 Neut % (Auto) 74.0 H Lymph % (Auto) 13.8 L [place] % (Auto) 9.0 Eos % (Auto) 2.1 Baso % (Auto) 1.0 Absolute Neuts (auto) 5.7 Absolute Lymphs (auto) 1.06 Total Counted Not Reportable Differential Comment SCANNED Platelet Estimate ADEQUATE Hypochromasia 2+ Microcytosis 3+ Schistocytes RARE PT INR APTT Sodium Potassium Chloride Carbon Dioxide Anion Gap BUN Creatinine Estim Creat Clear Calc Est GFR (MDRD) Af Amer Est GFR (MDRD) Non-Af BUN/Creatinine Ratio Glucose Hemoglobin A1c 5.5 Calcium Phosphorus Magnesium Total Bilirubin AST ALT Alkaline Phosphatase Troponin I 1.230 H* Total Protein Albumin Globulin Albumin/Globulin Ratio Triglycerides Cholesterol LDL Cholesterol VLDL Cholesterol HDL Cholesterol TSH 09/15/18 10:50 WBC RBC Hgb Hct MCV MCH MCHC RDW RDW Differential Plt Count MPV Immature Gran % (Auto) Neut % (Auto) Lymph % (Auto) [place] % (Auto) Eos % (Auto) Baso % (Auto) Absolute Neuts (auto) Absolute Lymphs (auto) Total Counted Differential Comment Platelet Estimate Hypochromasia Microcytosis Schistocytes PT INR APTT Sodium Potassium Chloride Carbon Dioxide Anion Gap BUN Creatinine Estim Creat Clear Calc Est GFR (MDRD) Af Amer Est GFR (MDRD) Non-Af BUN/Creatinine Ratio Glucose Hemoglobin A1c Calcium Phosphorus Magnesium Total Bilirubin AST ALT Alkaline Phosphatase Troponin I Pending Total Protein Albumin Globulin Albumin/Globulin Ratio Triglycerides Cholesterol LDL Cholesterol VLDL Cholesterol HDL Cholesterol TSH POC Glucose 09/15/18 09/14/18 06:40 23:12 POC Glucose 113 H 123 H Assessment/Plan All Active Problems (Last Reviewed 08/26/18 @ 14:35 by Jazzy Sierra) Acute stroke (Acute) NSTEMI (non-ST elevated myocardial infarction) (Acute) Dyspnea (Acute) Acute blood loss anemia (Resolved) Atrial fibrillation (Resolved) Renal insufficiency (Resolved) The patient is a 77 year old M with PMH HTN, HLD, PAF not on anticoagulation, CKD, cardiomyopathy, history of GI bleed, BPH admitted with acute stroke. History is obtained from the patient as well as medical records and documentation. Per ED documentation patient presented yesterday 09/14/2018 with acute onset right-sided weakness and slurred speech, NIHSS was 5 per ED documentation on arrival, patient was on IV TPA candidate and TPA was started around 19:41 on 09/14/18, per the hospitalist initial note documentation NIHSS was 8 and later per the ICU nurse documentation NIHSS was around 12 overnight. At present patient continues to have right facial droop, right-sided weakness with aphasia and mild dysarthria. He denies any headache, visual disturbances, or dizziness. Per discussion with the stepdaughter and he has been having history of vertigo. Per patient he had a GI bleed many years ago, also per documentation he has peptic ulcer disease. Patient is or stepdaughter are not able to provide any history regarding his past GI bleed. Per documentation he has been seeing tape fastener machine operator Dr. Lee and has been on amiodarone for his A. fib but was not on any anticoagulation (reasons unclear). Per patient he lives with his , uses cane to ambulate intermittently, does drive, denies any frequent falls and does not use cane or walker to ambulate. CT head done on admission did not show any bleed. Per patient he was taking aspirin at baseline. CTA head/neck did not show any LVO, less than 50% stenosis of the left ICA. MRI brain reported to show small left insular and left [employer] (left MCA) stroke and upon my review also possibly shows a very small right frontal (right MCA) acute stroke. Impression Acute left MCA stroke (left insula and left [employer]) and possible small right MCA (right frontal) stroke?likely embolic Plan ?Patient is status post IV TPA. The nurse called me early this morning 09/15/2018 as patient's NIHSS was around 12, a stat CT head without contrast done did not report to show any acute bleed. ?No antiplatelets or DVT prophylaxis until 24 hours of IV TPA. Repeat CT head without contrast at 24 hours post IV TPA and if there is no bleed, then patient can be started on antiplatelet with aspirin 81 mg daily and pharmacological DVT prophylaxis. ?Start Eliquis 5 mg p.o. twice daily from 09/18/2018 if patient continues to be stable from the stroke point of view and if there is no bleed/contraindication. Once Eliquis is started aspirin can be discontinued if okay with cardiology and pharmacological DVT prophylaxis can also be discontinued at the time. Bleeding risks with Eliquis discussed in detail with the patient and the family. ?MRI brain images reviewed, CTA head/neck images reviewed -Permissive HTN for 24-48 hrs. ?LDL?51, HbA1c?5.5 ?Await TTE ?GI/DVT prophylaxis ?Cardiology consult ?Frequent neurochecks ?Stroke risk factors discussed and stroke education provided ?PT/OT/ST ?Fall precautions ?Further medical management per hospitalist team/ICU team and tape fastener machine operator ?Follow-up with neurology as outpatient in 2 to 3 weeks ?Please call with questions if any ?Thank you for allowing us to participate in patient's care and management Code Visit Inpatient E&M: [id number] Init Hosp L3
[2018-09-15 12:40] LABS: Bedside Glucose 115 mg/dL (70-110)
--- NOTE | 2018-09-15 12:55 | PCM.CONS.C ---
Problem List (1) NSTEMI (non-ST elevated myocardial infarction) Status: Acute Reason for Consult Date of Consultation: 09/15/18 History of Present Illness: The patient is a 77 year old M with past medical history significant for proximal atrial fibrillation, hypertension, history of GI bleed, dyslipidemia and nonobstructive coronary artery disease diagnosed in 2014 on cardiac catheterization. He presented to the emergency room with right-sided weakness and was diagnosed with a CVA. Subsequently he received TPA. Patient denies any chest pains or shortness of breath. However troponin were checked for the patient. They trended positive ruling him in for non-ST elevation myocardial infarction. Presently patient is awake and alert. He denies any chest pains. No shortness of breath. No palpitations. [] Past Medical History Allergies/Adverse Reactions: Allergies cortisone Allergy (Verified 09/14/18 19:21) Rash Home Medications: Ambulatory Orders Medication Instructions Recorded Albuterol Sulfate [Proair 90 mcg IH DAILY 11/24/14 Respiclick] Aspirin [Aspirin, Baby] 81 mg PO DAILY@0800 11/24/14 omeprazole 40 mg capsule,delayed 40 mg PO QDAY 05/04/17 release potassium chloride ER 10 mEq 10 meq PO QDAY #90 cap 07/03/17 capsule,extended release Albuterol Aerosols [Ventolin 2.5 mg INHALATION Q4H PRN PRN 04/01/18 Aerosols] Isosorbide Dinitrate 30 mg PO QDAY 04/01/18 carvedilol 12.5 mg tablet 6.25 mg PO BID #90 tab 06/28/18 furosemide 40 mg tablet 40 mg PO DAILY #90 tab 06/28/18 amiodarone 200 mg tablet 200 mg PO DAILY #90 tab 08/26/18 simvastatin 20 mg tablet 20 mg PO QHS #90 tab 08/26/18 spironolactone 25 mg tablet 25 mg PO DAILY #90 tab 08/26/18 lisinopril 10 mg tablet 10 mg PO BID #180 tab 09/02/18 Past Medical History (Chronic Problems): Chronic Problems (Last Reviewed 08/26/18 @ 14:35 by Jazzy Sierra) Hx of bilateral inguinal hernia repair (Chronic) 04/05/18 Bilateral inguinal hernia with obstruction and without gangrene (Chronic) History of colonoscopy (Chronic) Atrial fibrillation (Chronic) PUD (peptic ulcer disease) (Chronic) Left inguinal hernia (Chronic) Hemorrhoid (Chronic) History of left heart catheterization (Chronic 11/25/14) 11/25/2014 @ [facility] Anemia (Chronic) BPH (benign prostatic hyperplasia) (Chronic) Renal insufficiency (Chronic) History of bilateral knee replacement (Chronic) History of cataract surgery (Chronic) Peptic ulcer disease (Chronic) GI bleed (Chronic) COPD (chronic obstructive pulmonary disease) (Chronic) Osteoarthritis (Chronic) Hyperlipidemia (Chronic) Cardiomyopathy in diseases classified elsewhere (Chronic) Hypertension (Chronic) Paroxysmal atrial fibrillation (Chronic) Surgical History: cataract, - - knee replacement-L, glaucoma surgery Psychiatric History: No pertinent psych hx - *Family History Maternal Family History: Family History (Last Reviewed 08/26/18 @ 14:35 by Jazzy Sierra) Father CAD (coronary artery disease) Colon cancer Mother Alzheimers disease Sister Cancer History Items: - - Alzheimer's dementia Paternal Family History: Family History (Last Reviewed 08/26/18 @ 14:35 by Jazzy Sierra) Father CAD (coronary artery disease) Colon cancer Mother Alzheimers disease Sister Cancer History Items: Heart Disease Sibling Family History: Family History (Last Reviewed 08/26/18 @ 14:35 by Jazzy Sierra) Father CAD (coronary artery disease) Colon cancer Mother Alzheimers disease Sister Cancer History Items: Cancer Smoking Status: Former smoker Review of Systems - Review of Systems General: Denies: Fever, Chills Cardiovascular: Denies: Chest Discomfort, Chest Discomfort at Rest, Chest Discomfort with Exertion, Shortness of Breath at Rest, Shortness of Breath with Exertion, Orthopnea, PND, Peripheral Edema Neurological: Reports: History of CVA - CVA diagnosed on admission. Acute. Received TPA. Subjectve: Appears comfortable. No distress. Objective: Vital Signs Temp Pulse Resp BP Pulse Ox 99.6 F H 79 28 H 158/100 H 97 09/15/18 11:15 09/15/18 11:15 09/15/18 11:15 09/15/18 11:15 09/15/18 11:15 Oxygen Flow Rate (L/min) 2 Oxygen Delivery Method Room Air Weight: 93.3 kg Body Mass Index (BMI) 27.8 Finger Stick Blood Glucose 123 Intake and Output for Last 24 Hours 09/13/18 09/14/18 09/15/18 23:59 23:59 23:59 Intake Total 903 / 903 Output Total 500 / 500 Balance 403 / 403 General: Awake, Alert, Oriented x 3, No Acute Distress HEENT: Atraumatic, Normocephalic Oral: Moist Mucosa Lungs: Clear to auscultation Cardiovascular: Regular Rhythm, Normal S1, Normal S2 Abdomen: Bowel Sounds Present, Soft Extremities: No edema Neurological: - - Right-sided weakness. 09/14/18 19:00: WBC 7.0, RBC 4.86, Hgb 10.1 L, Hct 35.2 L, MCV 72.4 L, MCH 20.8 L, MCHC 28.7 L, RDW 18.5 H, RDW Differential 48.6 H, Plt Count 245, MPV TNP, Immature Gran % (Auto) 0.300, Neut % (Auto) 65.2, Lymph % (Auto) 19.3, Ste[place] % (Auto) 10.9 H, Eos % (Auto) 2.4, Baso % (Auto) 1.9 H, Absolute Neuts (auto) 4.6, Total Counted Not Reportable 09/14/18 19:00: PT 14.2, INR 1.1, APTT 31.9 09/14/18 19:00: Sodium 141, Potassium 4.2, Chloride 108 H, Carbon Dioxide 27.0, Anion Gap 6, BUN 23 H, Creatinine 2.08 H, Est GFR (MDRD) Af Amer 40 L, Est GFR (MDRD) Non-Af 33 L, BUN/Creatinine Ratio 11.1, Glucose 115 H, Calcium 8.7, Troponin I < 0.015 09/14/18 22:15: Troponin I 0.056 H 09/15/18 04:10: Sodium 144, Potassium 4.0, Chloride 112 H, Carbon Dioxide 25.0, Anion Gap 7, BUN 23 H, Creatinine 1.84 H, Est GFR (MDRD) Af Amer 46 L, Est GFR (MDRD) Non-Af 38 L, BUN/Creatinine Ratio 12.5, Glucose 104, Calcium 8.3 L, Phosphorus 3.9, Magnesium 2.0, Total Bilirubin 0.30, Triglycerides 97, Cholesterol 105, LDL Cholesterol 51, VLDL Cholesterol 19, HDL Cholesterol 35 L 09/15/18 04:10: Hemoglobin A1c 5.5 09/15/18 04:10: WBC 7.7, RBC 4.46 L, Hgb 9.3 L, Hct 32.2 L, MCV 72.2 L, MCH 20.9 L, MCHC 28.9 L, RDW 18.6 H, RDW Differential 49.1 H, Plt Count 228, MPV 11.6, Immature Gran % (Auto) 0.100, Neut % (Auto) 74.0 H, Lymph % (Auto) 13.8 L, [place] % (Auto) 9.0, Eos % (Auto) 2.1, Baso % (Auto) 1.0, Absolute Neuts (auto) 5.7, Total Counted Not Reportable 09/15/18 04:10: Troponin I 1.230 H* 09/15/18 10:50: Troponin I 3.090 H* Rhythm: Normal sinus rhythm EKG: Normal sinus rhythm. Right bundle branch block ECHO: Stress Test: Cardiac Cath: PCI: CT Surgery: Holter monitor: EPS: PPM: CXR: Chest CT Scan: Assessment/Plan 1. Non-ST elevation myocardial infarction. No antiplatelet medications for the next 24 hours as per neurology as the patient received TPA for an acute CVA. Monitor. Conservative management. No cardiac catheterization or angiography or any intervention in view of the acute CVA. Patient completely asymptomatic. Troponin elevation likely secondary to hyperadrenergic response to an acute CVA. And has underlying coronary artery disease. Resume antiplatelet medications when okay with neurology. 2. Paroxysmal atrial fibrillation. Neurology recommends starting on Eliquis on Sunday. Patient containing normal sinus rhythm on amiodarone. Continue. 3. Acute CVA with right-sided weakness. Status post TPA. Neurology and critical care following. 4. Dyslipidemia. 5. History of CAD. See #1 above.
[2018-09-15] MEDS: Amiodarone 200 MG Tablet PO (13:40)
[2018-09-15] MEDS: Isosorbide DN 30 MG Tablet PO (13:41)
--- NOTE | 2018-09-15 19:15 | NURSING ---
BERTA done w/on-coming RN.
--- NOTE | 2018-09-15 19:15 | NURSING ---
BERTA done w/off-going RN.
--- NOTE | 2018-09-15 19:30 | CT_ITS ---
STUDY: CT BRAIN WITHOUT CONTRAST REASON FOR EXAM: Male, 77 years old. Posterior PA RADIATION DOSAGE (If Supplied By Facility): CTDIvol = ( 44.99 ) mGy, DLP = ( 796.11 ) mGycm TECHNIQUE: Transaxial CT imaging of the brain was performed without administration of intravenous contrast material. Individualized dose optimization techniques were used for this CT. COMPARISON: Prior study of earlier this date 3:47 AM FINDINGS: Normal soft tissue structures. Normal calvarium. There is mild cerebral atrophy with widening of the extra-axial spaces and ventricular dilatation. There are areas of decreased attenuation within the white matter tracts of the supratentorial brain, consistent with microvascular disease changes. Normal basal ganglia and thalami. Normal brainstem. Normal cerebellum. There is no intracranial hemorrhage. There are no findings of an acute ischemic infarction. Normal visualized paranasal sinuses. CT/Brain/Head without Contrast IMPRESSION: Chronic involutional changes of the brain. Electronically Signed: Trey Yepez MD at 20:28 EDT , Service support ,
[2018-09-15] MEDS: Atorvastatin Calcium 80 MG Tablet PO (21:56)
[2018-09-15 22:56] LABS: Bedside Glucose 119 mg/dL (70-110)
[2018-09-16] VITALS (25 sets, daily range): BP systolic 113–158; BP diastolic 68–98; PULSE 62–91; RESP 15–33; TEMP 36.5–37.4; O2SAT 92–99; BMI 27.8
[2018-09-16 04:28] LABS: Absolute Lymphocyte Count 1.41 X10^3/ul (0.83-4.51); Absolute Neutrophil Count 4.8 X10^3/uL (2.0-7.7); Basophil# 0.11 X10^3/uL; Basophil% 1.5 % (0-1); Eosinophil# 0.16 X10^3/uL; Eosinophils% 2.2 % (0-5); Hematocrit 32.3 % (40-54); Hemoglobin 9.3 g/dl (13.0-16.5); Lymphocyte # 1.41 X10^3/ul (4.0); Lymphocyte % 19.4 % (19-41); Mean Corp Hgb Conc 28.8 g/gl (32-36); Mean Corpuscular Hgb 20.8 pg (27.0-32.0); Mean Corpuscular Volume 72.3 fL (80-94); Monocyte# 0.79 X10^3/uL; Monocyte% 10.9 % (0-10); Neutrophil # 4.77 X10^3/uL (2.7-7.7); Platelet Count 190 K/mm3 (150-450); RBC Distribution Width CV 18.6 % (11.6-14.6); RBC Distribution Width SD 48.8 fl (35.1-43.9); Red Blood Count 4.47 M/mm3 (4.6-6.2); White Blood Count 7.3 K/mm3 (4.4-11.0)
[2018-09-16 04:29] LABS: Differential Indicated SCAN CRITERIA MET; Neutrophil % 65.9 % (47-70); POSITIVE COUNT NO; POSITIVE DIFFERENTIAL NO; POSITIVE MORPHOLOGY YES
[2018-09-16 04:30] LABS: Anion Gap 7 (5-15); BUN 18 mg/dL (7-18); BUN/Creat Ratio 11.8 RATIO (10-20); Calcium,Total 8.6 mg/dL (8.5-10.1); Chloride 113 mmol/L (98-107); Creatinine, Serum 1.53 mg/dL (0.70-1.30); EST Glomerular Filtration Rate 47 mL/min (>60); Est Glom Filt Rate - Afr Amer 57 mL/min (>60); Estimated Creatinine Clearance 45.08 ml/min; Glucose 92 mg/dL (74-106); Sodium Level 144 mmol/L (136-145)
[2018-09-16 05:13] LABS: Differential Comment SCANNED; Hypochromasia 2+; Microcytosis 2+
--- NOTE | 2018-09-16 06:51 | PCM.PN.INT ---
Subjective: Patient did well overnight. Patient did have an earlier CAT scan secondary to elevation of NIH as high as 15. This did not show any significant bleed. Patient continued to improve overnight and current NIH is 6, predominantly from right upper extremity weakness. Patient denies any pain at this time. Patient currently is on room air and denies any dyspnea. General: Alert, Oriented x3, Cooperative, No apparent distress, - - No conversational dyspnea. HEENT: Atraumatic, PERRLA, EOMI, Normocephalic, - - No scleral icterus or injection. No disconjugate gaze. No facial droop is appreciated. Oral: Moist Mucosa, No Gingival or Mucosal Lesions/ Ulcerations, - - Fair dentition Neck: Supple, No JVD, No Nodes, Trachea Midline Lungs: Clear to auscultation, Normal air movement, No rhonchi, No wheeze, No rales Cardiovascular: Regular rate, Regular Rhythm, Normal S1, Normal S2, No murmurs, No rub noted, No Gallop Abdomen: Bowel Sounds Present, Soft, Non Tender, Non-Distended Extremities: No clubbing, No cyanosis, No edema Skin: No rashes, No breakdown Musculoskeletal: No Tenderness to Palpation of Joints or Extremities Lymphatic: No Cervical, Supraclavicular, or Inguinal Adenopathy Neurological: - - Right upper extremity flaccid paralysis. Sensation is intact. Good strength of right lower extremity. No facial droop is appreciated. No aphasia or dysarthria appreciated Psych/Mental Status: Alert and oriented to time, place, person, mood and affect Vital Signs Temp Pulse Resp BP Pulse Ox 37.1 C 81 32 H 158/95 H 97 09/16/18 04:00 09/16/18 06:00 09/16/18 06:00 09/16/18 06:00 09/16/18 06:00 Oxygen Flow Rate (L/min) 2 Oxygen Delivery Method Room Air Weight: 90.6 kg Body Mass Index (BMI) 27.8 Finger Stick Blood Glucose 123 Intake and Output for Last 24 Hours 09/14/18 09/15/18 09/16/18 23:59 23:59 23:59 Intake Total 1168 / 1168 360 / 360 Output Total 1450 / 1450 500 / 500 Balance -282 / -282 -140 / -140 Labs (Last 48 Hours) 09/14/18 09/14/18 09/14/18 19:00 19:00 19:00 WBC 7.0 RBC 4.86 Hgb 10.1 L Hct 35.2 L MCV 72.4 L MCH 20.8 L MCHC 28.7 L RDW 18.5 H RDW Differential 48.6 H Plt Count 245 MPV TNP Immature Gran % (Auto) 0.300 Neut % (Auto) 65.2 Lymph % (Auto) 19.3 Crook % (Auto) 10.9 H Eos % (Auto) 2.4 Baso % (Auto) 1.9 H Absolute Neuts (auto) 4.6 Absolute Lymphs (auto) 1.35 Total Counted Not Reportable Differential Comment SCANNED Platelet Estimate Hypochromasia Microcytosis Schistocytes PT 14.2 INR 1.1 APTT 31.9 Sodium 141 Potassium 4.2 Chloride 108 H Carbon Dioxide 27.0 Anion Gap 6 BUN 23 H Creatinine 2.08 H Estim Creat Clear Calc 33.16 Est GFR (MDRD) Af Amer 40 L Est GFR (MDRD) Non-Af 33 L BUN/Creatinine Ratio 11.1 Glucose 115 H Hemoglobin A1c Calcium 8.7 Phosphorus Magnesium Total Bilirubin AST ALT Alkaline Phosphatase Troponin I < 0.015 Total Protein Albumin Globulin Albumin/Globulin Ratio Triglycerides Cholesterol LDL Cholesterol VLDL Cholesterol HDL Cholesterol TSH POC Glucose 09/14/18 09/14/18 09/15/18 22:15 23:12 04:10 WBC RBC Hgb Hct MCV MCH MCHC RDW RDW Differential Plt Count MPV Immature Gran % (Auto) Neut % (Auto) Lymph % (Auto) [place] % (Auto) Eos % (Auto) Baso % (Auto) Absolute Neuts (auto) Absolute Lymphs (auto) Total Counted Differential Comment Platelet Estimate Hypochromasia Microcytosis Schistocytes PT INR APTT Sodium 144 Potassium 4.0 Chloride 112 H Carbon Dioxide 25.0 Anion Gap 7 BUN 23 H Creatinine 1.84 H Estim Creat Clear Calc 37.49 Est GFR (MDRD) Af Amer 46 L Est GFR (MDRD) Non-Af 38 L BUN/Creatinine Ratio 12.5 Glucose 104 Hemoglobin A1c Calcium 8.3 L Phosphorus 3.9 Magnesium 2.0 Total Bilirubin 0.30 AST 17 ALT 18 Alkaline Phosphatase 74 Troponin I 0.056 H Total Protein 6.7 Albumin 3.4 Globulin 3.3 Albumin/Globulin Ratio 1.0 Triglycerides 97 Cholesterol 105 LDL Cholesterol 51 VLDL Cholesterol 19 HDL Cholesterol 35 L TSH POC Glucose 123 H 09/15/18 09/15/18 09/15/18 04:10 04:10 04:10 WBC 7.7 RBC 4.46 L Hgb 9.3 L Hct 32.2 L MCV 72.2 L MCH 20.9 L MCHC 28.9 L RDW 18.6 H RDW Differential 49.1 H Plt Count 228 MPV 11.6 Immature Gran % (Auto) 0.100 Neut % (Auto) 74.0 H Lymph % (Auto) 13.8 L [place] % (Auto) 9.0 Eos % (Auto) 2.1 Baso % (Auto) 1.0 Absolute Neuts (auto) 5.7 Absolute Lymphs (auto) 1.06 Total Counted Not Reportable Differential Comment SCANNED Platelet Estimate ADEQUATE Hypochromasia 2+ Microcytosis 3+ Schistocytes RARE PT INR APTT Sodium Potassium Chloride Carbon Dioxide Anion Gap BUN Creatinine Estim Creat Clear Calc Est GFR (MDRD) Af Amer Est GFR (MDRD) Non-Af BUN/Creatinine Ratio Glucose Hemoglobin A1c 5.5 Calcium Phosphorus Magnesium Total Bilirubin AST ALT Alkaline Phosphatase Troponin I Total Protein Albumin Globulin Albumin/Globulin Ratio Triglycerides Cholesterol LDL Cholesterol VLDL Cholesterol HDL Cholesterol TSH 1.85 POC Glucose 09/15/18 09/15/18 09/15/18 04:10 06:40 10:50 WBC RBC Hgb Hct MCV MCH MCHC RDW RDW Differential Plt Count MPV Immature Gran % (Auto) Neut % (Auto) Lymph % (Auto) [place] % (Auto) Eos % (Auto) Baso % (Auto) Absolute Neuts (auto) Absolute Lymphs (auto) Total Counted Differential Comment Platelet Estimate Hypochromasia Microcytosis Schistocytes PT INR APTT Sodium Potassium Chloride Carbon Dioxide Anion Gap BUN Creatinine Estim Creat Clear Calc Est GFR (MDRD) Af Amer Est GFR (MDRD) Non-Af BUN/Creatinine Ratio Glucose Hemoglobin A1c Calcium Phosphorus Magnesium Total Bilirubin AST ALT Alkaline Phosphatase Troponin I 1.230 H* 3.090 H* Total Protein Albumin Globulin Albumin/Globulin Ratio Triglycerides Cholesterol LDL Cholesterol VLDL Cholesterol HDL Cholesterol TSH POC Glucose 113 H 09/15/18 09/15/18 09/15/18 12:19 14:50 22:51 WBC RBC Hgb Hct MCV MCH MCHC RDW RDW Differential Plt Count MPV Immature Gran % (Auto) Neut % (Auto) Lymph % (Auto) [place] % (Auto) Eos % (Auto) Baso % (Auto) Absolute Neuts (auto) Absolute Lymphs (auto) Total Counted Differential Comment Platelet Estimate Hypochromasia Microcytosis Schistocytes PT INR APTT Sodium Potassium Chloride Carbon Dioxide Anion Gap BUN Creatinine Estim Creat Clear Calc Est GFR (MDRD) Af Amer Est GFR (MDRD) Non-Af BUN/Creatinine Ratio Glucose Hemoglobin A1c Calcium Phosphorus Magnesium Total Bilirubin AST ALT Alkaline Phosphatase Troponin I 2.340 H* Total Protein Albumin Globulin Albumin/Globulin Ratio Triglycerides Cholesterol LDL Cholesterol VLDL Cholesterol HDL Cholesterol TSH POC Glucose 115 H 119 H 09/16/18 09/16/18 04:10 04:10 WBC 7.3 RBC 4.47 L Hgb 9.3 L Hct 32.3 L MCV 72.3 L MCH 20.8 L MCHC 28.8 L RDW 18.6 H RDW Differential 48.8 H Plt Count 190 MPV Immature Gran % (Auto) 0.100 Neut % (Auto) 65.9 Lymph % (Auto) 19.4 [place] % (Auto) 10.9 H Eos % (Auto) 2.2 Baso % (Auto) 1.5 H Absolute Neuts (auto) 4.8 Absolute Lymphs (auto) 1.41 Total Counted Not Reportable Differential Comment SCANNED Platelet Estimate Hypochromasia 2+ Microcytosis 2+ Schistocytes PT INR APTT Sodium 144 Potassium 4.0 Chloride 113 H Carbon Dioxide 24.0 Anion Gap 7 BUN 18 Creatinine 1.53 H Estim Creat Clear Calc 45.08 Est GFR (MDRD) Af Amer 57 L Est GFR (MDRD) Non-Af 47 L BUN/Creatinine Ratio 11.8 Glucose 92 Hemoglobin A1c Calcium 8.6 Phosphorus Magnesium Total Bilirubin AST ALT Alkaline Phosphatase Troponin I Total Protein Albumin Globulin Albumin/Globulin Ratio Triglycerides Cholesterol LDL Cholesterol VLDL Cholesterol HDL Cholesterol TSH POC Glucose Clinical Impression(s) from Imaging Studies Brain CT 09/14/18 19:07 IMPRESSION: Chronic involutional changes of the brain. There is no intracranial hemorrhage or evidence of acute infarct. If clinically, MRI may be helpful for further evaluation at this time. Electronically Signed: Trey Yepez MD at 19:29 EDT , Service support , ADDENDUM: 09/14/18 1940 IMPRESSION: Chronic involutional changes of the brain. There is no intracranial hemorrhage or evidence of acute infarct. If clinically, MRI may be helpful for further evaluation at this time. N.B. : The above information has been verbally conveyed by Trey Yepez MD to Dr. Sarah Juárez MD, on 09/14/2018 19:33:04 (ET). Electronically Signed: Trey Yepez MD at 19:29 EDT , Service support , Head CTA 09/14/18 19:07 IMPRESSION: Normal [place] of [place] without a demonstrated aneurysm or significant stenosis. Electronically Signed: Anushka Galaviz MD at 19:53 EDT Tel , Service support , Neck CTA 09/14/18 19:07 IMPRESSION: 1. Atherosclerotic calcification of the left bulb and proximal ICA, with less than 50% stenosis. 2. Atherosclerotic calcification of the right carotid bulb, no stenosis. 3. Normal vertebral arteries. Electronically Signed: Anushka Galaviz MD at 20:02 EDT Tel , Service support , Chest X-Ray 09/14/18 19:10 IMPRESSION: Stable cardiomegaly with hyperexpansion. No acute finding. Electronically Signed: Hermes Santana MD at 19:26 EDT , Service support , Brain CT 09/15/18 03:38 IMPRESSION: Chronic involutional changes of the brain. Electronically Signed: Jaylan Jay at 4:31 EDT Tel , Service support , Brain MRI 09/15/18 03:58 IMPRESSION: Extensive periventricular microvascular ischemic senescent changes with left posterior insular ribbon small region of cortical ischemia extending to the centrum semiovale. No evidence of large territorial ischemia or acute intracranial blood product. Electronically Signed: Serafin Arguello DO at 8:51 EDT , Service support , ADDENDUM: 09/15/[address] 09/15/18 19:30 IMPRESSION: Chronic involutional changes of the brain. Electronically Signed: Trey Yepez MD at 20:28 EDT , Service support , Medical Necessity - Tobacco Use Smoking Status: Former smoker Assessment/Plan All Active Problems (Last Reviewed 08/26/18 @ 14:35 by Jazzy Sierra) Acute stroke (Acute) NSTEMI (non-ST elevated myocardial infarction) (Acute) Dyspnea (Acute) Acute blood loss anemia (Resolved) Atrial fibrillation (Resolved) Renal insufficiency (Resolved) RECOMMENDATIONS: 1. Reevaluation by speech therapy for modified diet 2. Likely okay to reinitiate baseline antihypertensives and statin therapy 3. Await cardiology and neurology recommendations 4. Hemodynamically stable on room air. Will sign off from a critical care perspective IMPRESSIONS: 1. 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 Continue post TPA protocol. Cardiology and neurology have been consulted. Patient remains on telemetry. Patient does have right upper extremity deficits, but other deficits have appeared to improve significantly. 2. History of paroxysmal atrial fibrillation/troponin elevation The patient is currently in normal sinus rhythm. Evaluation by cardiology is pending due to elevated troponin. Echocardiogram is pending. Continue statin therapy. 3. Acute on chronic kidney disease Likely prerenal in etiology, as the patient responded to IV fluids. Urine output is appropriate. No indication for renal replacement therapy at this time. 4. Known COPD Happy to follow as an outpatient if patient requests. Otherwise, continue bronchodilators as ordered. The patient is currently maintaining appropriate oxygen saturations on room air. Code Visit Inpatient E&M: 28331 Subs Hosp L2
--- NOTE | 2018-09-16 07:05 | PN_ITS ---
Subjective: Patient did well overnight. Patient did have an earlier CAT scan secondary to elevation of NIH as high as 15. This did not show any significant bleed. Patient continued to improve overnight and current NIH is 6, predominantly from right upper extremity weakness. Patient denies any pain at this time. Patient currently is on room air and denies any dyspnea. General: Alert, Oriented x3, Cooperative, No apparent distress, - - No conversational dyspnea. HEENT: Atraumatic, PERRLA, EOMI, Normocephalic, - - No scleral icterus or injection. No disconjugate gaze. No facial droop is appreciated. Oral: Moist Mucosa, No Gingival or Mucosal Lesions/ Ulcerations, - - Fair dentition Neck: Supple, No JVD, No Nodes, Trachea Midline Lungs: Clear to auscultation, Normal air movement, No rhonchi, No wheeze, No rales Cardiovascular: Regular rate, Regular Rhythm, Normal S1, Normal S2, No murmurs, No rub noted, No Gallop Abdomen: Bowel Sounds Present, Soft, Non Tender, Non-Distended Extremities: No clubbing, No cyanosis, No edema Skin: No rashes, No breakdown Musculoskeletal: No Tenderness to Palpation of Joints or Extremities Lymphatic: No Cervical, Supraclavicular, or Inguinal Adenopathy Neurological: - - Right upper extremity flaccid paralysis. Sensation is intact. Good strength of right lower extremity. No facial droop is appreciated. No aphasia or dysarthria appreciated Psych/Mental Status: Alert and oriented to time, place, person, mood and affect Vital Signs Temp Pulse Resp BP Pulse Ox 37.1 C 81 32 H 158/95 H 97 09/16/18 04:00 09/16/18 06:00 09/16/18 06:00 09/16/18 06:00 09/16/18 06:00 Oxygen Flow Rate (L/min) 2 Oxygen Delivery Method Room Air Weight: 90.6 kg Body Mass Index (BMI) 27.8 Finger Stick Blood Glucose 123 Intake and Output for Last 24 Hours 09/14/18 09/15/18 09/16/18 23:59 23:59 23:59 Intake Total 1168 / 1168 360 / 360 Output Total 1450 / 1450 500 / 500 Balance -282 / -282 -140 / -140 Labs (Last 48 Hours) 09/14/18 09/14/18 09/14/18 19:00 19:00 19:00 WBC 7.0 RBC 4.86 Hgb 10.1 L Hct 35.2 L MCV 72.4 L MCH 20.8 L MCHC 28.7 L RDW 18.5 H RDW Differential 48.6 H Plt Count 245 MPV TNP Immature Gran % (Auto) 0.300 Neut % (Auto) 65.2 Lymph % (Auto) 19.3 [place] % (Auto) 10.9 H Eos % (Auto) 2.4 Baso % (Auto) 1.9 H Absolute Neuts (auto) 4.6 Absolute Lymphs (auto) 1.35 Total Counted Not Reportable Differential Comment SCANNED Platelet Estimate Hypochromasia Microcytosis Schistocytes PT 14.2 INR 1.1 APTT 31.9 Sodium 141 Potassium 4.2 Chloride 108 H Carbon Dioxide 27.0 Anion Gap 6 BUN 23 H Creatinine 2.08 H Estim Creat Clear Calc 33.16 Est GFR (MDRD) Af Amer 40 L Est GFR (MDRD) Non-Af 33 L BUN/Creatinine Ratio 11.1 Glucose 115 H Hemoglobin A1c Calcium 8.7 Phosphorus Magnesium Total Bilirubin AST ALT Alkaline Phosphatase Troponin I < 0.015 Total Protein Albumin Globulin Albumin/Globulin Ratio Triglycerides Cholesterol LDL Cholesterol VLDL Cholesterol HDL Cholesterol TSH POC Glucose 09/14/18 09/14/18 09/15/18 22:15 23:12 04:10 WBC RBC Hgb Hct MCV MCH MCHC RDW RDW Differential Plt Count MPV Immature Gran % (Auto) Neut % (Auto) Lymph % (Auto) [place] % (Auto) Eos % (Auto) Baso % (Auto) Absolute Neuts (auto) Absolute Lymphs (auto) Total Counted Differential Comment Platelet Estimate Hypochromasia Microcytosis Schistocytes PT INR APTT Sodium 144 Potassium 4.0 Chloride 112 H Carbon Dioxide 25.0 Anion Gap 7 BUN 23 H Creatinine 1.84 H Estim Creat Clear Calc 37.49 Est GFR (MDRD) Af Amer 46 L Est GFR (MDRD) Non-Af 38 L BUN/Creatinine Ratio 12.5 Glucose 104 Hemoglobin A1c Calcium 8.3 L Phosphorus 3.9 Magnesium 2.0 Total Bilirubin 0.30 AST 17 ALT 18 Alkaline Phosphatase 74 Troponin I 0.056 H Total Protein 6.7 Albumin 3.4 Globulin 3.3 Albumin/Globulin Ratio 1.0 Triglycerides 97 Cholesterol 105 LDL Cholesterol 51 VLDL Cholesterol 19 HDL Cholesterol 35 L TSH POC Glucose 123 H 09/15/18 09/15/18 09/15/18 04:10 04:10 04:10 WBC 7.7 RBC 4.46 L Hgb 9.3 L Hct 32.2 L MCV 72.2 L MCH 20.9 L MCHC 28.9 L RDW 18.6 H RDW Differential 49.1 H Plt Count 228 MPV 11.6 Immature Gran % (Auto) 0.100 Neut % (Auto) 74.0 H Lymph % (Auto) 13.8 L [place] % (Auto) 9.0 Eos % (Auto) 2.1 Baso % (Auto) 1.0 Absolute Neuts (auto) 5.7 Absolute Lymphs (auto) 1.06 Total Counted Not Reportable Differential Comment SCANNED Platelet Estimate ADEQUATE Hypochromasia 2+ Microcytosis 3+ Schistocytes RARE PT INR APTT Sodium Potassium Chloride Carbon Dioxide Anion Gap BUN Creatinine Estim Creat Clear Calc Est GFR (MDRD) Af Amer Est GFR (MDRD) Non-Af BUN/Creatinine Ratio Glucose Hemoglobin A1c 5.5 Calcium Phosphorus Magnesium Total Bilirubin AST ALT Alkaline Phosphatase Troponin I Total Protein Albumin Globulin Albumin/Globulin Ratio Triglycerides Cholesterol LDL Cholesterol VLDL Cholesterol HDL Cholesterol TSH 1.85 POC Glucose 09/15/18 09/15/18 09/15/18 04:10 06:40 10:50 WBC RBC Hgb Hct MCV MCH MCHC RDW RDW Differential Plt Count MPV Immature Gran % (Auto) Neut % (Auto) Lymph % (Auto) [place] % (Auto) Eos % (Auto) Baso % (Auto) Absolute Neuts (auto) Absolute Lymphs (auto) Total Counted Differential Comment Platelet Estimate Hypochromasia Microcytosis Schistocytes PT INR APTT Sodium Potassium Chloride Carbon Dioxide Anion Gap BUN Creatinine Estim Creat Clear Calc Est GFR (MDRD) Af Amer Est GFR (MDRD) Non-Af BUN/Creatinine Ratio Glucose Hemoglobin A1c Calcium Phosphorus Magnesium Total Bilirubin AST ALT Alkaline Phosphatase Troponin I 1.230 H* 3.090 H* Total Protein Albumin Globulin Albumin/Globulin Ratio Triglycerides Cholesterol LDL Cholesterol VLDL Cholesterol HDL Cholesterol TSH POC Glucose 113 H 09/15/18 09/15/18 09/15/18 12:19 14:50 22:51 WBC RBC Hgb Hct MCV MCH MCHC RDW RDW Differential Plt Count MPV Immature Gran % (Auto) Neut % (Auto) Lymph % (Auto) [place] % (Auto) Eos % (Auto) Baso % (Auto) Absolute Neuts (auto) Absolute Lymphs (auto) Total Counted Differential Comment Platelet Estimate Hypochromasia Microcytosis Schistocytes PT INR APTT Sodium Potassium Chloride Carbon Dioxide Anion Gap BUN Creatinine Estim Creat Clear Calc Est GFR (MDRD) Af Amer Est GFR (MDRD) Non-Af BUN/Creatinine Ratio Glucose Hemoglobin A1c Calcium Phosphorus Magnesium Total Bilirubin AST ALT Alkaline Phosphatase Troponin I 2.340 H* Total Protein Albumin Globulin Albumin/Globulin Ratio Triglycerides Cholesterol LDL Cholesterol VLDL Cholesterol HDL Cholesterol TSH POC Glucose 115 H 119 H 09/16/18 09/16/18 04:10 04:10 WBC 7.3 RBC 4.47 L Hgb 9.3 L Hct 32.3 L MCV 72.3 L MCH 20.8 L MCHC 28.8 L RDW 18.6 H RDW Differential 48.8 H Plt Count 190 MPV Immature Gran % (Auto) 0.100 Neut % (Auto) 65.9 Lymph % (Auto) 19.4 [place] % (Auto) 10.9 H Eos % (Auto) 2.2 Baso % (Auto) 1.5 H Absolute Neuts (auto) 4.8 Absolute Lymphs (auto) 1.41 Total Counted Not Reportable Differential Comment SCANNED Platelet Estimate Hypochromasia 2+ Microcytosis 2+ Schistocytes PT INR APTT Sodium 144 Potassium 4.0 Chloride 113 H Carbon Dioxide 24.0 Anion Gap 7 BUN 18 Creatinine 1.53 H Estim Creat Clear Calc 45.08 Est GFR (MDRD) Af Amer 57 L Est GFR (MDRD) Non-Af 47 L BUN/Creatinine Ratio 11.8 Glucose 92 Hemoglobin A1c Calcium 8.6 Phosphorus Magnesium Total Bilirubin AST ALT Alkaline Phosphatase Troponin I Total Protein Albumin Globulin Albumin/Globulin Ratio Triglycerides Cholesterol LDL Cholesterol VLDL Cholesterol HDL Cholesterol TSH POC Glucose Clinical Impression(s) from Imaging Studies Brain CT 09/14/18 19:07 IMPRESSION: Chronic involutional changes of the brain. There is no intracranial hemorrhage or evidence of acute infarct. If clinically, MRI may be helpful for further evaluation at this time. Electronically Signed: Trey Yepez MD at 19:29 EDT , Service support , ADDENDUM: 09/14/18 1940 IMPRESSION: Chronic involutional changes of the brain. There is no intracranial hemorrhage or evidence of acute infarct. If clinically, MRI may be helpful for further evaluation at this time. N.B. : The above information has been verbally conveyed by Trey Yepez MD to Dr. Sarah Juárez MD, on 09/14/2018 19:33:04 (ET). Electronically Signed: Trey Yepez MD at 19:29 EDT , Service support , Head CTA 09/14/18 19:07 IMPRESSION: Normal [place] of [place] without a demonstrated aneurysm or significant stenosis. Electronically Signed: Anushka Galaviz MD at 19:53 EDT Tel , Service support , Neck CTA 09/14/18 19:07 IMPRESSION: 1. Atherosclerotic calcification of the left bulb and proximal ICA, with less than 50% stenosis. 2. Atherosclerotic calcification of the right carotid bulb, no stenosis. 3. Normal vertebral arteries. Electronically Signed: Anushka Galaviz MD at 20:02 EDT Tel , Service support , Chest X-Ray 09/14/18 19:10 IMPRESSION: Stable cardiomegaly with hyperexpansion. No acute finding. Electronically Signed: Hermes Santana MD at 19:26 EDT , Service support , Brain CT 09/15/18 03:38 IMPRESSION: Chronic involutional changes of the brain. Electronically Signed: Jaylan Jay at 4:31 EDT Tel , Service support , Brain MRI 09/15/18 03:58 IMPRESSION: Extensive periventricular microvascular ischemic senescent changes with left posterior insular ribbon small region of cortical ischemia extending to the centrum semiovale. No evidence of large territorial ischemia or acute intracranial blood product. Electronically Signed: Serafin Arguello DO at 8:51 EDT , Service support , ADDENDUM: 09/15/[address] 09/15/18 19:30 IMPRESSION: Chronic involutional changes of the brain. Electronically Signed: Trey Yepez MD at 20:28 EDT , Service support , Medical Necessity - Tobacco Use Smoking Status: Former smoker Assessment/Plan All Active Problems (Last Reviewed 08/26/18 @ 14:35 by Jazzy Sierra) Acute stroke (Acute) NSTEMI (non-ST elevated myocardial infarction) (Acute) Dyspnea (Acute) Acute blood loss anemia (Resolved) Atrial fibrillation (Resolved) Renal insufficiency (Resolved) RECOMMENDATIONS: 1. Reevaluation by speech therapy for modified diet 2. Likely okay to reinitiate baseline antihypertensives and statin therapy 3. Await cardiology and neurology recommendations 4. Hemodynamically stable on room air. Will sign off from a critical care perspective IMPRESSIONS: 1. 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 Continue post TPA protocol. Cardiology and neurology have been consulted. Patient remains on telemetry. Patient does have right upper extremity deficits, but other deficits have appeared to improve significantly. 2. History of paroxysmal atrial fibrillation/troponin elevation The patient is currently in normal sinus rhythm. Evaluation by cardiology is pending due to elevated troponin. Echocardiogram is pending. Continue statin therapy. 3. Acute on chronic kidney disease Likely prerenal in etiology, as the patient responded to IV fluids. Urine output is appropriate. No indication for renal replacement therapy at this time. 4. Known COPD Happy to follow as an outpatient if patient requests. Otherwise, continue bronchodilators as ordered. The patient is currently maintaining appropriate oxygen saturations on room air. Code Visit Inpatient E&M: 03567 Subs Hosp L2
[2018-09-16] MEDS: Ipratropium/Albuterol Sulfate 3 ML AMPUL.NEB INHALATION ×2 (07:07→21:54)
[2018-09-16] MEDS: Enoxaparin 40 MG/0.4 ML Syringe SC (07:52)
[2018-09-16] MEDS: Isosorbide DN 30 MG Tablet PO (07:52)
[2018-09-16] MEDS: Aspirin 81 MG TAB.CHEW PO (07:52)
[2018-09-16] MEDS: Amiodarone 200 MG Tablet PO (07:52)
[2018-09-16 07:55] LABS: Bedside Glucose 105 mg/dL (70-110)
--- NOTE | 2018-09-16 09:13 | PCM.PN.HOSP ---
Patient Problems: Active and Suspected Problems (Last Reviewed 08/26/18 @ 14:35 by Jazzy Sierra) Acute stroke (Acute) NSTEMI (non-ST elevated myocardial infarction) (Acute) Subjective: Patient seen and examined. He feels much better and has no complaints today. He is able to move his right lower extremity much more today and also has some movement returning to his right upper extremity. He denies any fever, any chills, and palpitations or dizziness, chest pain, and vomiting or diarrhea. Review of systems otherwise negative. Labs and vitals reviewed. Troponins noted to have trended up to a peak of 3.09 and trended down subsequently to 3.34. Cardiology on board. Vitals/I&O's: Vital Signs Temp Pulse Resp BP Pulse Ox 98.7 F 77 18 131/92 H 92 09/16/18 04:00 09/16/18 08:00 09/16/18 08:00 09/16/18 08:00 09/16/18 08:00 Oxygen Flow Rate (L/min) 2 Oxygen Delivery Method Room Air Weight: 199 lb 11.821 oz Body Mass Index (BMI) 27.8 Finger Stick Blood Glucose 123 Intake and Output for Last 24 Hours 09/14/18 09/15/18 09/16/18 23:59 23:59 23:59 Intake Total 1168 / 1168 360 / 360 Output Total 1450 / 1450 500 / 500 Balance -282 / -282 -140 / -140 General: Alert, Oriented x3, Cooperative, No apparent distress HEENT: Atraumatic, PERRLA, EOMI, Normocephalic Oral: Moist Mucosa Neck: Supple, No JVD, Negative Carotid Bruits Lungs: Clear to auscultation, Normal air movement Cardiovascular: Regular rate, Regular Rhythm, Normal S1, Normal S2, No murmurs Abdomen: Bowel Sounds Present, Soft, Non Tender, Non-Distended, No Hepato-splenomegaly Extremities: No clubbing, No cyanosis, No edema, Capillary Refill Less than 3 Seconds, No Calf Tenderness Skin: No rashes, No breakdown Musculoskeletal: No Tenderness to Palpation of Joints or Extremities Lymphatic: No Cervical, Supraclavicular, or Inguinal Adenopathy Neurological: - - Power in RLE is 4/5, power in RUE is 3/5. Numbness in RLE and RLE has improved significantly. NIHSS today is 5; from 13 yesterday. Psych/Mental Status: Normal Affect, Appropriate, Alert and oriented to time, place, person, mood and affect Laboratory Results 09/15/18 10:50: Troponin I 3.090 H* 09/15/18 12:19: POC Glucose 115 H 09/15/18 14:50: Troponin I 2.340 H* 09/15/18 22:51: POC Glucose 119 H 09/16/18 04:10: WBC 7.3, RBC 4.47 L, Hgb 9.3 L, Hct 32.3 L, MCV 72.3 L, MCH 20.8 L, MCHC 28.8 L, RDW 18.6 H, RDW Differential 48.8 H, Plt Count 190, Immature Gran % (Auto) 0.100, Neut % (Auto) 65.9, Lymph % (Auto) 19.4, [place] % (Auto) 10.9 H, Eos % (Auto) 2.2, Baso % (Auto) 1.5 H, Absolute Neuts (auto) 4.8, Absolute Lymphs (auto) 1.41, Total Counted Not Reportable, Differential Comment SCANNED, Hypochromasia 2+, Microcytosis 2+ 09/16/18 04:10: Sodium 144, Potassium 4.0, Chloride 113 H, Carbon Dioxide 24.0, Anion Gap 7, BUN 18, Creatinine 1.53 H, Estim Creat Clear Calc 45.08, Est GFR (MDRD) Af Amer 57 L, Est GFR (MDRD) Non-Af 47 L, BUN/Creatinine Ratio 11.8, Glucose 92, Calcium 8.6 09/16/18 07:45: POC Glucose 105 Current Medications Acetaminophen (Tylenol) 650 mg PO Q4H PRN PRN PRN Reason: Headache/Temp>99F Acetaminophen (Tylenol) 650 mg RECTAL Q4H PRN PRN PRN Reason: Headache/Temp>99F Acetaminophen (Tylenol Liquid) 650 mg NG Q4H PRN PRN PRN Reason: Headache/Temp>99F Albuterol/Ipratropium (Duoneb) 3 ml INHALATION Q4H PRN PRN Reason: sob Last Admin: 09/16/18 07:07 Dose: 3 ml Amiodarone HCl (Cordarone) 200 mg PO DAILY [facility] Last Admin: 09/16/18 07:52 Dose: 200 mg Apixaban (Eliquis) 5 mg PO BID [facility] Aspirin (Aspirin, Baby) 81 mg PO DAILY@0800 [facility] Last Admin: 09/16/18 07:52 Dose: 81 mg Atorvastatin Calcium (Lipitor) 80 mg PO QHS [facility] Last Admin: 09/15/18 21:56 Dose: 80 mg Carvedilol (Coreg) 6.25 mg PO BID [facility] Last Admin: 09/14/18 22:22 Dose: Not Given Dextrose (D50w Syringe) 0 gm IV X1 PRN; Protocol PRN Reason: Hypoglycemia Enoxaparin Sodium (Lovenox) 40 mg SC DAILY [facility] Last Admin: 09/16/18 07:52 Dose: 40 mg Epinephrine HCl () 0.3 mg IM .X1 PRN PRN Reason: Allergic Reaction Stop: 09/16/18 19:25 Glucagon () 1 mg IM .X1 PRN PRN Reason: Hypoglycemia Nicardipine HCl 25 mg/ Sodium (Chloride) 250 mls @ 0 mls/hr IV .Q0M PRN PRN Reason: see instructions Pantoprazole Sodium 40 mg/ (Sodium Chloride) 110 mls @ 330 mls/hr IV Q24 [facility] Last Admin: 09/15/18 13:48 Dose: 330 mls/hr Sodium Chloride () 250 mls @ 15 mls/hr IV .[id number] PRN PRN Reason: SALINE FLUSH Isosorbide Dinitrate (Isordil) 30 mg PO DAILY [facility] Last Admin: 09/16/18 07:52 Dose: 30 mg Nitroglycerin (Nitrostat) 0.4 mg SUBLINGUAL Q5M PRN PRN Reason: CARDIAC/CHEST PAIN Ondansetron HCl (Zofran) 4 mg IV Q8H PRN PRN PRN Reason: NAUSEA/VOMITING Potassium Chloride (K-Dur) 10 meq PO DAILY [facility] Last Admin: 09/16/18 07:52 Dose: 10 meq Promethazine HCl (Phenergan) 25 mg IV Q6H PRN PRN PRN Reason: Breakthrough Nausea/Vomiting Senna/Docusate Sodium (Senokot-S, Michelle-Colace) 2 tablet PO BID PRN PRN PRN Reason: Constipation Sodium Chloride () 5 - 15 ml IV UD PRN PRN Reason: SALINE FLUSH Medical Necessity - Tobacco Use Smoking Status: Former smoker Assessment/Plan All Active Problems (Last Reviewed 08/26/18 @ 14:35 by Jazzy Sierra) Acute stroke (Acute) NSTEMI (non-ST elevated myocardial infarction) (Acute) Dyspnea (Acute) Acute blood loss anemia (Resolved) Atrial fibrillation (Resolved) Renal insufficiency (Resolved) 1. acute ischemic CVA s/p TPA right sided weakness and numbness has improved significantly. NIHSS today is 5, from 13 yesterday MRI of the brain shows extensive periventricular microvascular ischemic senescent changes with left posterior insular red-brown small region of cortical ischemia extending to the centrum semiovale. No evidence of large territorial ischemia or acute intracranial blood products. lipid panel is WNL; A1C is 5.5 to start pO aspirin 81mg daily today. Will start eliquis 5mg bid on Sunday and stop aspirin then. PT/OT on board 2. Non-STEMI: Troponin trended up from 0.056 to 3.09. EKG showed no acute ST changes. Cardiology on board- recommend no cardiac cath or antiography or any intervention o/a of acute CVA. to resume antiplatelet meds when ok with neurology to start aspirin today. 3. Chronic combined HF stable. EF is known to be 35% to 40% from 2D echo done in October 2014. Also has stage I diastolic dysfunction. On carvedilol 5.25mg bid. repeat echo pending 4. History of paroxysmal A. fib: Currently rate controlled. States he was diagnosed during preop clearance for herniorrhaphy some years ago. On metoprolol. Also on amiodarone. to start eliquis 5mg bid on Sunday, due to patient having received TPA. to start PO aspirin today. 5. Hypertension: BP meds held on admission to allow for permissive hypertension> Will resume BP meds today. 6. History of PUDx: on PPI 7. COPD: on breathing treatments. stable 8. Chronic iron deficiency anemia: On iron supplementation. 9. Dyslipidemia: on high intensity statin 10. BPH: stable DVT prophylaxis; SCDs Code Visit Inpatient E&M: 26400 Subs Hosp L3
--- NOTE | 2018-09-16 09:17 | PN_ITS ---
Patient Problems: Active and Suspected Problems (Last Reviewed 08/26/18 @ 14:35 by Jazzy Sierra) Acute stroke (Acute) NSTEMI (non-ST elevated myocardial infarction) (Acute) Subjective: Patient seen and examined. He feels much better and has no complaints today. He is able to move his right lower extremity much more today and also has some movement returning to his right upper extremity. He denies any fever, any chills, and palpitations or dizziness, chest pain, and vomiting or diarrhea. Review of systems otherwise negative. Labs and vitals reviewed. Troponins noted to have trended up to a peak of 3.09 and trended down subsequently to 3.34. Cardiology on board. Vitals/I&O's: Vital Signs Temp Pulse Resp BP Pulse Ox 98.7 F 77 18 131/92 H 92 09/16/18 04:00 09/16/18 08:00 09/16/18 08:00 09/16/18 08:00 09/16/18 08:00 Oxygen Flow Rate (L/min) 2 Oxygen Delivery Method Room Air Weight: 199 lb 11.821 oz Body Mass Index (BMI) 27.8 Finger Stick Blood Glucose 123 Intake and Output for Last 24 Hours 09/14/18 09/15/18 09/16/18 23:59 23:59 23:59 Intake Total 1168 / 1168 360 / 360 Output Total 1450 / 1450 500 / 500 Balance -282 / -282 -140 / -140 General: Alert, Oriented x3, Cooperative, No apparent distress HEENT: Atraumatic, PERRLA, EOMI, Normocephalic Oral: Moist Mucosa Neck: Supple, No JVD, Negative Carotid Bruits Lungs: Clear to auscultation, Normal air movement Cardiovascular: Regular rate, Regular Rhythm, Normal S1, Normal S2, No murmurs Abdomen: Bowel Sounds Present, Soft, Non Tender, Non-Distended, No Hepato- splenomegaly Extremities: No clubbing, No cyanosis, No edema, Capillary Refill Less than 3 Seconds, No Calf Tenderness Skin: No rashes, No breakdown Musculoskeletal: No Tenderness to Palpation of Joints or Extremities Lymphatic: No Cervical, Supraclavicular, or Inguinal Adenopathy Neurological: - - Power in RLE is 4/5, power in RUE is 3/5. Numbness in RLE and RLE has improved significantly. NIHSS today is 5; from 13 yesterday. Psych/Mental Status: Normal Affect, Appropriate, Alert and oriented to time, place, person, mood and affect Laboratory Results 09/15/18 10:50: Troponin I 3.090 H* 09/15/18 12:19: POC Glucose 115 H 09/15/18 14:50: Troponin I 2.340 H* 09/15/18 22:51: POC Glucose 119 H 09/16/18 04:10: WBC 7.3, RBC 4.47 L, Hgb 9.3 L, Hct 32.3 L, MCV 72.3 L, MCH 20.8 L, MCHC 28.8 L, RDW 18.6 H, RDW Differential 48.8 H, Plt Count 190, Immature Gran % (Auto) 0.100, Neut % (Auto) 65.9, Lymph % (Auto) 19.4, [place] % (Auto) 10.9 H, Eos % (Auto) 2.2, Baso % (Auto) 1.5 H, Absolute Neuts (auto) 4.8, Absolute Lymphs (auto) 1.41, Total Counted Not Reportable, Differential Comment SCANNED, Hypochromasia 2+, Microcytosis 2+ 09/16/18 04:10: Sodium 144, Potassium 4.0, Chloride 113 H, Carbon Dioxide 24.0, Anion Gap 7, BUN 18, Creatinine 1.53 H, Estim Creat Clear Calc 45.08, Est GFR (MDRD) Af Amer 57 L, Est GFR (MDRD) Non-Af 47 L, BUN/Creatinine Ratio 11.8, Glucose 92, Calcium 8.6 09/16/18 07:45: POC Glucose 105 Current Medications Acetaminophen (Tylenol) 650 mg PO Q4H PRN PRN PRN Reason: Headache/Temp>99F Acetaminophen (Tylenol) 650 mg RECTAL Q4H PRN PRN PRN Reason: Headache/Temp>99F Acetaminophen (Tylenol Liquid) 650 mg NG Q4H PRN PRN PRN Reason: Headache/Temp>99F Albuterol/Ipratropium (Duoneb) 3 ml INHALATION Q4H PRN PRN Reason: sob Last Admin: 09/16/18 07:07 Dose: 3 ml Amiodarone HCl (Cordarone) 200 mg PO DAILY [facility] Last Admin: 09/16/18 07:52 Dose: 200 mg Apixaban (Eliquis) 5 mg PO BID [facility] Aspirin (Aspirin, Baby) 81 mg PO DAILY@0800 [facility] Last Admin: 09/16/18 07:52 Dose: 81 mg Atorvastatin Calcium (Lipitor) 80 mg PO QHS [facility] Last Admin: 09/15/18 21:56 Dose: 80 mg Carvedilol (Coreg) 6.25 mg PO BID [facility] Last Admin: 09/14/18 22:22 Dose: Not Given Dextrose (D50w Syringe) 0 gm IV X1 PRN; Protocol PRN Reason: Hypoglycemia Enoxaparin Sodium (Lovenox) 40 mg SC DAILY [facility] Last Admin: 09/16/18 07:52 Dose: 40 mg Epinephrine HCl () 0.3 mg IM .X1 PRN PRN Reason: Allergic Reaction Stop: 09/16/18 19:25 Glucagon () 1 mg IM .X1 PRN PRN Reason: Hypoglycemia Nicardipine HCl 25 mg/ Sodium (Chloride) 250 mls @ 0 mls/hr IV .Q0M PRN PRN Reason: see instructions Pantoprazole Sodium 40 mg/ (Sodium Chloride) 110 mls @ 330 mls/hr IV Q24 [facility] Last Admin: 09/15/18 13:48 Dose: 330 mls/hr Sodium Chloride () 250 mls @ 15 mls/hr IV .[id number] PRN PRN Reason: SALINE FLUSH Isosorbide Dinitrate (Isordil) 30 mg PO DAILY [facility] Last Admin: 09/16/18 07:52 Dose: 30 mg Nitroglycerin (Nitrostat) 0.4 mg SUBLINGUAL Q5M PRN PRN Reason: CARDIAC/CHEST PAIN Ondansetron HCl (Zofran) 4 mg IV Q8H PRN PRN PRN Reason: NAUSEA/VOMITING Potassium Chloride (K-Dur) 10 meq PO DAILY [facility] Last Admin: 09/16/18 07:52 Dose: 10 meq Promethazine HCl (Phenergan) 25 mg IV Q6H PRN PRN PRN Reason: Breakthrough Nausea/Vomiting Senna/Docusate Sodium (Senokot-S, Michelle-Colace) 2 tablet PO BID PRN PRN PRN Reason: Constipation Sodium Chloride () 5 - 15 ml IV UD PRN PRN Reason: SALINE FLUSH Medical Necessity - Tobacco Use Smoking Status: Former smoker Assessment/Plan All Active Problems (Last Reviewed 08/26/18 @ 14:35 by Jazzy Sierra) Acute stroke (Acute) NSTEMI (non-ST elevated myocardial infarction) (Acute) Dyspnea (Acute) Acute blood loss anemia (Resolved) Atrial fibrillation (Resolved) Renal insufficiency (Resolved) 1. acute ischemic CVA s/p TPA * right sided weakness and numbness has improved significantly. NIHSS today is 5, from 13 yesterday * MRI of the brain shows extensive periventricular microvascular ischemic senescent changes with left posterior insular red-brown small region of cortical ischemia extending to the centrum semiovale. No evidence of large territorial ischemia or acute intracranial blood products. * lipid panel is WNL; A1C is 5.5 * to start pO aspirin 81mg daily today. Will start eliquis 5mg bid on Sunday and stop aspirin then. * PT/OT on board * 2. Non-STEMI: * Troponin trended up from 0.056 to 3.09. * EKG showed no acute ST changes. * Cardiology on board- recommend no cardiac cath or antiography or any intervention o/a of acute CVA. * to resume antiplatelet meds when ok with neurology * to start aspirin today. * * 3. Chronic combined HF * stable. * EF is known to be 35% to 40% from 2D echo done in October 2014. Also has stage I diastolic dysfunction. * On carvedilol 5.25mg bid. * repeat echo pending * 4. History of paroxysmal A. fib: * Currently rate controlled. * States he was diagnosed during preop clearance for herniorrhaphy some years ago. * On metoprolol. Also on amiodarone. * to start eliquis 5mg bid on Sunday, due to patient having received TPA. * to start PO aspirin today. 5. Hypertension: BP meds held on admission to allow for permissive hypertension> Will resume BP meds today. 6. History of PUDx: on PPI 7. COPD: on breathing treatments. stable 8. Chronic iron deficiency anemia: On iron supplementation. 9. Dyslipidemia: on high intensity statin 10. BPH: stable DVT prophylaxis; SCDs Code Visit Inpatient E&M: 14883 Subs Hosp L3
[2018-09-16] MEDS: Carvedilol 6.25 MG Tablet PO ×2 (10:21→21:37)
--- NOTE | 2018-09-16 12:51 | PN.CARD_ITS ---
Subjectve: Sitting up in a chair. No complaints. Started to have some movement of his right upper extremity. Objective: Vital Signs Temp Pulse Resp BP Pulse Ox 99.3 F H 66 21 H 156/98 H 97 09/16/18 09:58 09/16/18 11:57 09/16/18 10:00 09/16/18 10:00 09/16/18 10:00 Oxygen Flow Rate (L/min) 2 Oxygen Delivery Method Room Air Weight: 90.6 kg Body Mass Index (BMI) 27.8 Finger Stick Blood Glucose 123 Intake and Output for Last 24 Hours 09/14/18 09/15/18 09/16/18 23:59 23:59 23:59 Intake Total 1168 / 1168 580 / 580 Output Total 1450 / 1450 850 / 850 Balance -282 / -282 -270 / -270 General: Awake, Alert, Oriented x 3, No Acute Distress HEENT: Atraumatic Lungs: - - Diminished air entry bilaterally. Cardiovascular: Regular Rhythm, Normal S1, Normal S2 Extremities: No edema 09/15/18 14:50: Troponin I 2.340 H* 09/16/18 04:10: WBC 7.3, RBC 4.47 L, Hgb 9.3 L, Hct 32.3 L, MCV 72.3 L, MCH 20.8 L, MCHC 28.8 L, RDW 18.6 H, RDW Differential 48.8 H, Plt Count 190, Immature Gran % (Auto) 0.100, Neut % (Auto) 65.9, Lymph % (Auto) 19.4, [place] % (Auto) 10.9 H, Eos % (Auto) 2.2, Baso % (Auto) 1.5 H, Absolute Neuts (auto) 4.8, Total Counted Not Reportable 09/16/18 04:10: Sodium 144, Potassium 4.0, Chloride 113 H, Carbon Dioxide 24.0, Anion Gap 7, BUN 18, Creatinine 1.53 H, Est GFR (MDRD) Af Amer 57 L, Est GFR (MDRD) Non-Af 47 L, BUN/Creatinine Ratio 11.8, Glucose 92, Calcium 8.6 Rhythm: EKG: ECHO: Stress Test: Cardiac Cath: PCI: CT Surgery: Holter monitor: EPS: PPM: CXR: Chest CT Scan: Medical Necessity - Tobacco Use Smoking Status: Former smoker Assessment/Plan 1. Non-ST elevation myocardial infarction. Started on aspirin today. Resume beta-blockers. Start on nitrates. 2. Paroxysmal atrial fibrillation. Neurology recommends starting on Eliquis on Sunday. Patient containing normal sinus rhythm on amiodarone. Continue. 3. Acute CVA with right-sided weakness. Status post TPA. Neurology and critical care following. 4. Dyslipidemia. 5. History of CAD. See #[address] Lee will assume cardiology care from tomorrow.
[2018-09-16 17:35] LABS: Bedside Glucose 121 mg/dL (70-110)
[2018-09-16] MEDS: Atorvastatin Calcium 80 MG Tablet PO (21:37)
[2018-09-16 21:46] LABS: Bedside Glucose 122 mg/dL (70-110)
[2018-09-17] VITALS (12 sets, daily range): BP systolic 137–156; BP diastolic 77–92; PULSE 54–82; RESP 16–28; TEMP 36.4–36.8; O2SAT 94–98; BMI 27.8
[2018-09-17] MEDS: Ipratropium/Albuterol Sulfate 3 ML AMPUL.NEB INHALATION ×2 (05:27→10:11)
[2018-09-17 05:50] LABS: Anion Gap 9 (5-15); BUN 19 mg/dL (7-18); Calcium,Total 8.6 mg/dL (8.5-10.1); Chloride 109 mmol/L (98-107); Creatinine, Serum 1.72 mg/dL (0.70-1.30); EST Glomerular Filtration Rate 41 mL/min (>60); Est Glom Filt Rate - Afr Amer 50 mL/min (>60); Glucose 98 mg/dL (74-106); Sodium Level 143 mmol/L (136-145)
[2018-09-17 06:26] LABS: Absolute Neutrophil Count 4.6 X10^3/uL (2.0-7.7); Basophil# 0.07 X10^3/uL; Eosinophil# 0.23 X10^3/uL; Eosinophils% 3.3 % (0-5); Hematocrit 33.4 % (40-54); Hemoglobin 9.6 g/dl (13.0-16.5); Lymphocyte % 17.2 % (19-41); Mean Corp Hgb Conc 28.7 g/gl (32-36); Mean Corpuscular Hgb 20.8 pg (27.0-32.0); Mean Corpuscular Volume 72.5 fL (80-94); Monocyte# 0.83 X10^3/uL; Monocyte% 11.9 % (0-10); Neutrophil # 4.63 X10^3/uL (2.7-7.7); Neutrophil % 66.6 % (47-70); Platelet Count 186 K/mm3 (150-450); RBC Distribution Width CV 18.8 % (11.6-14.6); RBC Distribution Width SD 49.4 fl (35.1-43.9); Red Blood Count 4.61 M/mm3 (4.6-6.2)
[2018-09-17 06:31] LABS: Differential Indicated SCAN CRITERIA MET; POSITIVE COUNT NO; POSITIVE DIFFERENTIAL NO; POSITIVE MORPHOLOGY YES
[2018-09-17 07:06] LABS: Bedside Glucose 107 mg/dL (70-110)
[2018-09-17 07:24] LABS: Differential Comment SCANNED; Microcytosis 2+
--- NOTE | 2018-09-17 08:06 | NURSING ---
Michelle Clinical instructor attempted to start new IV on pt. first attempt failed. pt refusing second attempt. will try again later
[2018-09-17 08:26] LABS: Bedside Glucose 123 mg/dL (70-110)
--- NOTE | 2018-09-17 09:10 | PN.NEURO_ITS ---
Patient Problems: Active and Suspected Problems (Last Reviewed 08/26/18 @ 14:35 by Jazzy Sierra) Acute stroke (Acute) NSTEMI (non-ST elevated myocardial infarction) (Acute) Subjective: no pain, reports difficulty sleeping due to anxiety and sob Objective: nihss 4 - Physical Exam General: Alert, Oriented x3, Cooperative, No apparent distress Psych/Mental Status: Normal Affect, Alert and oriented to time, place, person, mood and affect Vital Signs Temp Pulse Resp BP Pulse Ox 36.8 C 59 L 22 H 137/80 H 94 09/17/18 06:56 09/17/18 07:20 09/17/18 06:56 09/17/18 06:56 09/17/18 07:40 Oxygen Flow Rate (L/min) 2 Oxygen Delivery Method Room Air Weight: 91.5 kg Body Mass Index (BMI) 27.8 Finger Stick Blood Glucose 123 Intake and Output for Last 24 Hours 09/15/18 09/16/18 09/17/18 23:59 23:59 23:59 Intake Total 1168 / 1168 890 / 890 0 / 0 Output Total 1450 / 1450 1275 / 1275 190 / 190 Balance -282 / -282 -385 / -385 -190 / -190 Laboratory Tests Past 24 Hrs 09/17/18 09/17/18 05:06 05:06 WBC 7.0 RBC 4.61 Hgb 9.6 L Hct 33.4 L MCV 72.5 L MCH 20.8 L MCHC 28.7 L RDW 18.8 H RDW Differential 49.4 H Plt Count 186 Immature Gran % (Auto) 0.000 Neut % (Auto) 66.6 Lymph % (Auto) 17.2 L [place] % (Auto) 11.9 H Eos % (Auto) 3.3 Baso % (Auto) 1.0 Absolute Neuts (auto) 4.6 Absolute Lymphs (auto) 1.20 Total Counted Not Reportable Differential Comment SCANNED Microcytosis 2+ Sodium 143 Potassium 4.0 Chloride 109 H Carbon Dioxide 25.0 Anion Gap 9 BUN 19 H Creatinine 1.72 H Estim Creat Clear Calc 40.10 Est GFR (MDRD) Af Amer 50 L Est GFR (MDRD) Non-Af 41 L BUN/Creatinine Ratio 11.0 Glucose 98 Calcium 8.6 POC Glucose 05/09/16/18 09/16/18 07:00 21:40 17:12 POC Glucose 107 122 H 121 H 09/14/18 18:59 POC Glucose 123 H Current Medications Generic Name Dose Route Start Last Admin Trade Name Freq PRN Reason Stop Dose Admin Acetaminophen 650 mg 09/14/18 21:30 Tylenol PO Q4H PRN PRN Headache/Temp>99F Acetaminophen 650 mg 09/14/18 21:30 Tylenol RECTAL Q4H PRN PRN Headache/Temp>99F Acetaminophen 650 mg 09/14/18 21:30 Tylenol Liquid NG Q4H PRN PRN Headache/Temp>99F Albuterol/Ipratropium 3 ml 09/14/18 21:46 09/17/18 05:27 Duoneb INHALATION 3 ml Q4H PRN Administration sob Amiodarone HCl 200 mg 09/15/18 10:00 09/16/18 07:52 Cordarone PO 200 mg DAILY [facility] Administration Apixaban 5 mg 09/18/18 10:00 Eliquis PO BID [facility] Aspirin 81 mg 09/16/18 08:00 09/16/18 07:52 Aspirin, Baby PO 81 mg DAILY@0800 [facility] Administration Atorvastatin Calcium 80 mg 09/14/18 22:00 09/16/18 21:37 Lipitor PO 80 mg QHS [facility] Administration Carvedilol 6.25 mg 09/14/18 22:00 09/16/18 21:37 Coreg PO 6.25 mg BID [facility] Administration Dextrose 0 gm 09/14/18 21:30 D50w Syringe IV X1 PRN Hypoglycemia Protocol Enoxaparin Sodium 40 mg 09/16/18 10:00 09/16/18 07:52 Lovenox SC 40 mg DAILY [facility] Administration Furosemide 40 mg 09/17/18 10:00 Lasix PO DAILY [facility] Glucagon 1 mg 09/14/18 21:30 IM .X1 PRN Hypoglycemia Nicardipine HCl 25 mg/ Sodium 250 mls @ 0 mls/hr 09/14/18 19:25 Chloride IV .Q0M PRN see instructions As Directed Pantoprazole Sodium 40 mg/ 110 mls @ 330 mls/hr 09/14/18 21:45 09/16/18 10:21 Sodium Chloride IV 330 mls/hr Q24 [facility] Administration Sodium Chloride 250 mls @ 15 mls/hr 09/14/18 21:50 IV .[id number] PRN SALINE FLUSH Isosorbide Dinitrate 30 mg 09/15/18 10:00 09/16/18 07:52 Isordil PO 30 mg DAILY [facility] Administration Nitroglycerin 0.4 mg 09/14/18 21:30 Nitrostat SUBLINGUAL Q5M PRN CARDIAC/CHEST PAIN Ondansetron HCl 4 mg 09/14/18 21:30 Zofran IV Q8H PRN PRN NAUSEA/VOMITING Potassium Chloride 10 meq 09/15/18 10:00 09/16/18 07:52 K-Dur PO 10 meq DAILY [facility] Administration Promethazine HCl 25 mg 09/14/18 21:30 Phenergan IV Q6H PRN PRN Breakthrough Nausea/Vomiting Senna/Docusate Sodium 2 tablet 09/14/18 21:30 Senokot-S, Michelle-Colace PO BID PRN PRN Constipation Sodium Chloride 5 - 15 ml 09/14/18 21:50 IV UD PRN SALINE FLUSH Medical Necessity - Tobacco Use Smoking Status: Former smoker Assessment/Plan All Active Problems (Last Reviewed 08/26/18 @ 14:35 by Jazzy Sierra) Acute stroke (Acute) NSTEMI (non-ST elevated myocardial infarction) (Acute) Dyspnea (Acute) Acute blood loss anemia (Resolved) Atrial fibrillation (Resolved) Renal insufficiency (Resolved) left mca cva s/p iv tpa * pt/ot/sp * consider rehab * eliquis tomorrow * rec prn aerosols as well as antianxiety agents
[2018-09-17] MEDS: Aspirin 81 MG TAB.CHEW PO (09:20)
[2018-09-17] MEDS: Amiodarone 200 MG Tablet PO (09:20)
[2018-09-17] MEDS: Carvedilol 6.25 MG Tablet PO (09:21)
[2018-09-17] MEDS: Isosorbide DN 30 MG Tablet PO (09:21)
[2018-09-17] MEDS: Enoxaparin 40 MG/0.4 ML Syringe SC (09:22)
[2018-09-17] MEDS: Furosemide 40 MG Tablet PO (09:26)
[2018-09-17] MEDS: Pantoprazole Sodium 40 MG Tablet PO (09:50)
--- NOTE | 2018-09-17 11:40 | CASEMGMT ---
Social Work Assessment Referral Date: 09/14/18 Date of Assessment: 09/17/18 Reason for Consult: DISCHARGE PLANNING/PHQ9-STROKE S/P TPA Information obtained from: MEDICAL CHART, PATIENT AND PATIENT'S JIMMY Living Arrangements: PRIOR TO ADMISSION PATIENT LIVING HOME WITH IN A RANCH STYLE HOME WITH 1 STEP TO ENTER FROM BACK, 2 STEPS FRONT. DME: WALKER, CANE, SHOWER CHAIR, NEBULIZER Employment/Financial: RETIRED, DENIES ANY FINANCIAL CONCERNS Supports: PATIENT HAS GOOD SUPPORT FROM FAMILY AND NEIGHBORS Social/Family Stressors: PATIENT REPORTS OVER THE LAST MONTH HAS NOT FELT HIMSELF. PATIENT REPORTS LAST WEEK WAS HAVING DIZZY SPELLS. Mental Health History: PATIENT ADMITS TO OF MENTAL HEALTH. Diagnoses: DEPRESSION, ANXIETY Medications: PATIENT STATES WAS PRESCRIBED AN ANTI-DEPRESSANT, BUT DID NOT TAKE THE MEDICATION. Physicians/Practitioners: DR. DIAN HARPER Substance Abuse History: PATIENT ADMITS OVER THE LAST MONTH HAS INCREASED HIS ALCOHOL CONSUMPTION. Substance(s) of choice: VODKA Interventions: SOCIAL SERVICE ASSESSMENT COMPLETED. PHQ-9 COMPLETED- RECOMMEND FOLLOW UP. REFERRAL TO REHAB UNIT MADE TO [facility]. DISCUSSED ADVANCED DIRECTIVES- PATIENT WOULD LIKE TO POSSIBLY COMPLETE AT A LATER TIME. Assessment: PATIENT IS A 77 Y/O MALE ADMITTED D/T STROKE S/P TPA. PATIENT LIVES HOME WITH IN A RANCH STYLE HOME WITH 5 CATS. PATIENT STATES HAS 3 CHILDREN AND HAS 3 CHILDREN. REPORTS THE ONLY CHILD OF PATIENT'S THAT HE HAS RELATIONSHIP WITH IS SON, ALOK. STATES HER DAUGHTER, ALISSA GODWIN HAS BEEN KEEPING ALOK INFORMED OF PATIENT'S STATUS. PATIENT STATES DME IN THE HOME CONSISTS OF NEBULIZER, WALKER, CANE, SHOWER CHAIR. PATIENT ADMITS TO OF ANXIETY AND DEPRESSION THAT HAS INCREASED OVER THE LAST MONTH. PHQ-9 WAS COMPLETED WITH PATIENT AND WOULD RECOMMEND FURTHER FOLLOW UP. PATIENT ALSO ADMITS OVER THE LAST MONTH AN INCREASE IN ALCOHOL CONSUMPTION-VODKA. PATIENT STATES HAS DISCUSSED D/C PLAN WITH PHYSICIAN AND AND WOULD LIKE REFERRAL TO THE REHAB UNIT. REFERRAL MADE TO [facility]. SOCIAL WORK TO CONTINUE TO FOLLOW FOR D/C PLANNING NEEDS. PLAN: REFERRAL MADE TO REHAB UNIT
--- NOTE | 2018-09-17 14:50 | CASEMGMT ---
Rehab can take pt tomorrow. SW let pt know that he will be able to go to rehab tomorrow. SW explained it is covered by insurance. SW asked if he would like SW to call his . Pt states his has memory issues. He then spoke at length about her memory issues, states she is forgetful. He states she is okay to be home on her own, but is concerned about her. She still drives, he feels she will be able to get herself something to eat. He states she is diagnosed w/Alzheimer's, spoke of how difficult it is. This is pt's second marriage. He states has three children from the first marriage, only speaks to one of them. has a daughter in [place]. SW offered support to pt. SW let SW in rehab know to follow up w/pt in regard to . BREANNA Kumar
--- NOTE | 2018-09-17 15:06 | PN.CARD_ITS ---
Subjectve: Patient sitting in a chair, slowly recovering use of his right arm. Right facial droop, with some confabulation, but otherwise answers questions appr opriately. No chest pain or angina. Telemetry normal sinus rhythm with rare PVCs. Objective: Vital Signs Temp Pulse Resp BP Pulse Ox 98.1 F 82 22 H 139/77 H 98 09/17/18 11:30 09/17/18 12:49 09/17/18 12:49 09/17/18 11:30 09/17/18 11:30 Oxygen Flow Rate (L/min) 2 Oxygen Delivery Method Room Air Weight: 201 lb 11.567 oz Body Mass Index (BMI) 27.8 Finger Stick Blood Glucose 123 Intake and Output for Last 24 Hours 09/15/18 09/16/18 09/17/18 23:59 23:59 23:59 Intake Total 1168 / 1168 890 / 890 130 / 130 Output Total 1450 / 1450 1275 / 1275 340 / 340 Balance -282 / -282 -385 / -385 -210 / -210 General: Awake, Alert, Oriented x 3 HEENT: PERRL, EOMI, Sclera Non Icteric Neck: Supple, Good ROM, No Lymph Node Enlargement Lungs: Clear to auscultation Cardiovascular: Regular Rhythm, Premature Ectopic Beats, Normal S1, Normal S2, No Murmurs, No Rubs, No Gallops Vascular: No Carotid Bruits, Normal Femoral Pulses, Normal Radial Pulses, Normal Dorsalis Pedal Pulse, Normal Posterior Tibial Pulses Abdomen: Bowel Sounds Present, Soft, Non Tender, No HSM, No Organomegaly Extremities: No Cyanosis, No Clubbing, No edema Neurological: No Focal Motor or Sensory Deficit 09/17/18 05:06: WBC 7.0, RBC 4.61, Hgb 9.6 L, Hct 33.4 L, MCV 72.5 L, MCH 20.8 L , MCHC 28.7 L, RDW 18.8 H, RDW Differential 49.4 H, Plt Count 186, Immature Gran % (Auto) 0.000, Neut % (Auto) 66.6, Lymph % (Auto) 17.2 L, [place] % (Auto) 11.9 H, Eos % (Auto) 3.3, Baso % (Auto) 1.0, Absolute Neuts (auto) 4.6, Total Counted Not Reportable 09/17/18 05:06: Sodium 143, Potassium 4.0, Chloride 109 H, Carbon Dioxide 25.0, Anion Gap 9, BUN 19 H, Creatinine 1.72 H, Est GFR (MDRD) Af Amer 50 L, Est GFR (MDRD) Non-Af 41 L, BUN/Creatinine Ratio 11.0, Glucose 98, Calcium 8.6 Rhythm: EKG: ECHO: Stress Test: Cardiac Cath: PCI: CT Surgery: Holter monitor: EPS: PPM: CXR: Chest CT Scan: Medical Necessity - Tobacco Use Smoking Status: Former smoker Assessment/Plan 1. Non-STEMI: The patient had catheterization in 2014 which showed nonobstructive coronary disease superimposed upon severe LV dysfunction. His EF is not appreciably changed since that time, with at least moderate pulmonary hypertension with an RVSP of at least 58 mmHg. In addition he had a small troponin release superimposed on his recent CVA. I would not recommend repeat catheterization at this time given his recent CVA. He denies any chest pain or anginal symptoms at this time. I recommend he continue his baby aspirin for his nonobstructive coronary disease, Coreg, Lasix, and other antihypertensive agents for afterload reduction. Would recommend continuing Imdur 30 mill grams p.o. daily. I would not entertain the idea of catheterization for at least 1 months time and only if the patient's symptoms warranted. 2. Atrial fibrillation: Currently normal sinus rhythm, continue amiodarone and Coreg. He will require lifelong Eliquis given his LV dysfunction, and CVA. 3. Hyperlipidemia: Continue statin based medicines. 4. Patient may be transferred to inpatient rehab. Discussed with Dr. Cardenas. Thank you very much for the opportunity to participate in the cardiac care of your patient. Code Visit Inpatient E&M: 48427 Subs Hosp L2
--- NOTE | 2018-09-17 15:07 | PCM.TXEXTCAR ---
- Diet 09/15/18 10:28 Diet: Regular Diet Food consistency:: Regular Liquid Consistency:: Regular/Thin Is pt able to select menu?: Yes Diet Comments: limit distractions (no tv or talking while eating) - Routine Orders/Code Status Enema Type: Fleetz Enema Frequency: Daily PRN Suppository Type: Dulcolax 10mg Suppository Frequency: Daily PRN O2 Frequency: PRN Keep PO Greater than or Equal to (%): 90 - Therapies Weight Bearing: Weight bearing as tolerated Physical Therapy: Eval and Treat Occupational Therapy: Eval and Treat - Allergies/Procedures Done in Hospital Allergies/Adverse Reactions: Allergies cortisone Allergy (Verified 09/14/18 19:21) Rash Procedures: 2-D Echocardiogram - Type of Care/Length of Stay Estimated LOS: Convalescent Care Less Than 30 days Type of Care Needed: Skilled Rehab Potential: Fair Prognosis: Fair - Additional Orders/Day of Discharge Additional Orders: start eliquis on 09/18/18 Day of Discharge: 09/17/18 - Dietary and Speech Recommendations Dietitian Recommendations/Changes: When po intake improves, rec diet change to Cardiac/ consistency per FISH NET MAKER. Speech Linguistic Eval Summary: The patient is a 77 year old male w/ a past medical history significant for Atrial fibrillation, Peptic ulcer disease, Left inguinal hernia, Hemorrhoid, Anemia, Benign prostatic hyperplasia, GI bleed, Chronic obstructive pulmonary disease, Osteoarthritis, Hyperlipidemia, Cardiomyopathy in diseases classified elsewhere, Hypertension, Paroxysmal atrial fibrillation and Renal insufficiency who presented to the ED on 09/14/2018 w/ acute onset of R sided weakness and slurred speech. CT brain 09/15/18 IMPRESSION: Chronic involutional changes of the brain. MRI bran 09/15/18 IMPRESSION: Extensive periventricular microvascular ischemic senescent changes with left posterior insular ribbon small region of cortical ischemia extending to the centrum semiovale. No evidence of large territorial ischemia or acute intracranial blood product. 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 Still drove, managed own medications/finances independently prior to admission. Informal cognitive-lingusitic evaluation completed at bedside w/ , Dinora, present. Trace-mild dysarthria characterized by milf SOB (perceived by patient, not evicent to this FISH NET MAKER during evaluation) and slight imprecise articulation d/t right facial (labial, nose, brow) asymmetry. Lingual strength/ ROM equal and symmetrical. Fully oriented. Mildly hyperverbal w/ tangential speech appreciated, although may be baseline behavior. Immediate recall 3/3, delayed 1/3, increased to 2/3 w/ choice of 3 provided. Immediate recall of story length infomation: 10/08 w/ changing of pertiennt details. Answered 2/6 yes/no ?s re same story. reprots patient's memory is typically good and that this is a change from baseline. Able to name 10 items in a concrete category w/in a 60 second time constraint, although rapid decay in responses appreciated w/ patient indicating increased difficulty comapred to baseline. Reading comprehension WNL. Mil;d impairment in auditory comprehension w/ deficits in execution of commadns and comprehension of yes/no ?s. Suspect inattention impacting performance. Anticipate dischage to inpatient rehab. Recommend further assessment of higher level cognitive-communication skills at next level of care w/ ongoing intervention to ensure discharge home at the highest level of independent functioning possible. - Follow Up Care Primary Care Physician: Wilberto Michel MD [Primary Care Provider] - Please follow up with your Primary Care Physician in: one week Please Follow Up With: Joesph Vincent MD When: 2-3 weeks Please Follow Up With: Nikolai Lee MD When: one week
--- NOTE | 2018-09-17 15:10 | TREXTCAR_ITS ---
- Diet 09/15/18 10:28 Diet: Regular Diet Food consistency:: Regular Liquid Consistency:: Regular/Thin Is pt able to select menu?: Yes Diet Comments: limit distractions (no tv or talking while eating) - Routine Orders/Code Status Enema Type: Fleetz Enema Frequency: Daily PRN Suppository Type: Dulcolax 10mg Suppository Frequency: Daily PRN O2 Frequency: PRN Keep PO Greater than or Equal to (%): 90 - Therapies Weight Bearing: Weight bearing as tolerated Physical Therapy: Eval and Treat Occupational Therapy: Eval and Treat - Allergies/Procedures Done in Hospital Allergies/Adverse Reactions: Allergies cortisone Allergy (Verified 09/14/18 19:21) Rash Procedures: 2-D Echocardiogram - Type of Care/Length of Stay Estimated LOS: Convalescent Care Less Than 30 days Type of Care Needed: Skilled Rehab Potential: Fair Prognosis: Fair - Additional Orders/Day of Discharge Additional Orders: start eliquis on 09/18/18 Day of Discharge: 09/17/18 - Dietary and Speech Recommendations Dietitian Recommendations/Changes: When po intake improves, rec diet change to Cardiac/ consistency per PROCUREMENT CONSULTANT. Speech Linguistic Eval Summary: The patient is a 77 year old male w/ a past medical history significant for Atrial fibrillation, Peptic ulcer disease, Left inguinal hernia, Hemorrhoid, Anemia, Benign prostatic hyperplasia, GI bleed, Chronic obstructive pulmonary disease, Osteoarthritis, Hyperlipidemia, Cardiomyopathy in diseases classified elsewhere, Hypertension, Paroxysmal atrial fibrillation and Renal insufficiency who presented to the ED on 09/14/2018 w/ acute onset of R sided weakness and slurred speech. CT brain 09/15/18 IMPRESSION: Chronic involutional changes of the brain. MRI bran 09/15/18 IMPRESSION: Extensive periventricular microvascular ischemic senescent changes with left posterior insular ribbon small region of cortical ischemia extending to the centrum semiovale. No evidence of large territorial ischemia or acute intracranial blood product. 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 Still drove, managed own medications/finances independently prior to admission. Informal cognitive-lingusitic evaluation completed at bedside w/ , Dinora, present. Trace-mild dysarthria characterized by milf SOB (perceived by patient, not evicent to this PROCUREMENT CONSULTANT during evaluation) and slight imprecise articulation d/t right facial (labial, nose, brow) asymmetry. Lingual strength/ ROM equal and symmetrical. Fully oriented. Mildly hyperverbal w/ tangential speech appreciated, although may be baseline behavior. Immediate recall 3/3, delayed 1/3, increased to 2/3 w/ choice of 3 provided. Immediate recall of story length infomation: 10/08 w/ changing of pertiennt details. Answered 2/6 yes/no ?s re same story. reprots patient's memory is typically good and that this is a change from baseline. Able to name 10 items in a concrete category w/in a 60 second time constraint, although rapid decay in responses appreciated w/ patient indicating increased difficulty comapred to baseline. Reading comprehension WNL. Mil;d impairment in auditory comprehension w/ deficits in execution of commadns and comprehension of yes/no ?s. Suspect inattention impacting performance. An ticipate dischage to inpatient rehab. Recommend further assessment of higher level cognitive-communication skills at next level of care w/ ongoing intervention to ensure discharge home at the highest level of independent functioning possible. - Follow Up Care Primary Care Physician: Wilberto Michel MD [Primary Care Provider] - Please follow up with your Primary Care Physician in: one week Please Follow Up With: Joesph Vincent MD When: 2-3 weeks Please Follow Up With: Nikolai Lee MD When: one week
--- NOTE | 2018-09-17 15:13 | DCINST_ITS ---
- Discharge Diagnoses Current Active Problems: Current Active and Chronic Problems (Last Reviewed 08/26/18 @ 14:35 by Jazzy Sierra) Acute stroke (Acute) NSTEMI (non-ST elevated myocardial infarction) (Acute) You will use the following diet at home:: Cardiac Your liquids should be the consistency of: Regular/Thin Discharge Activity: Return to Normal Activity Weight Bearing Status: Weight bearing as tolerated Call your doctor if you observe: Fever of 101 or Higher, Numbness or Tingling, Shortness of breath, Chest pain Instructions: Discharge Instructions for Stroke, Symptoms of a Heart Attack, Discharge Instructions for Heart Attack Allergies/Adverse Reactions: Allergies cortisone Allergy (Verified 09/14/18 19:21) Rash Medications to take at Discharge Albuterol Sulfate [Proair Respiclick] 90 mcg IH DAILY 11/24/14 omeprazole 40 mg capsule,delayed release 40 mg PO QDAY 05/04/17 potassium chloride ER 10 mEq capsule,extended release 10 meq PO QDAY #90 cap 07/03/17 Albuterol Aerosols [Ventolin Aerosols] 2.5 mg INHALATION Q4H PRN PRN 04/01/18 Isosorbide Dinitrate 30 mg PO QDAY 04/01/18 carvedilol 12.5 mg tablet 6.25 mg PO BID #90 tab 06/28/18 furosemide 40 mg tablet 40 mg PO DAILY #90 tab 06/28/18 amiodarone 200 mg tablet 200 mg PO DAILY #90 tab 08/26/18 spironolactone 25 mg tablet 25 mg PO DAILY #90 tab 08/26/18 lisinopril 10 mg tablet 10 mg PO BID #180 tab 09/02/18 Apixaban [Eliquis] 5 mg PO BID #60 tab 09/17/18 Aspirin [Aspirin, Baby] 81 mg PO DAILY@0800 #30 tab.chew 09/17/18 Atorvastatin Calcium [Lipitor] 80 mg PO QHS #30 tab 09/17/18 The following prescriptions were given: Aspirin [Aspirin, Baby] 81 mg PO DAILY@0800 #30 tab.chew Atorvastatin Calcium [Lipitor] 80 mg PO QHS #30 tab Apixaban [Eliquis] 5 mg PO BID #60 tab Primary Care Physician: Wilberto Michel MD [Primary Care Provider] - Please follow up with your Primary Care Physician in: one week Test Results: Test results from this visit will be discussed in further detail at your follow- up appointment, if applicable. Please Follow Up With: Joesph Vincent MD When: 2-3 weeks Please Follow Up With: Nikolai Lee MD When: one week Proposed Discharge Date: 09/17/18
--- NOTE | 2018-09-17 15:13 | DS.PCM_ITS ---
Discharge Date and Diagnosis - Problem List Patient Problems: Active and Suspected Problems (Last Reviewed 08/26/18 @ 14:35 by Jazzy Sierra) Acute stroke (Acute) NSTEMI (non-ST elevated myocardial infarction) (Acute) Date of Admission: 09/14/18 Date of Discharge: 09/17/18 - Primary Discharge Diagnosis Active and Suspected Problems (Last Reviewed 08/26/18 @ 14:35 by Jazzy Sierra) Acute ischemic stroke (Acute) NSTEMI (non-ST elevated myocardial infarction) (Acute) - Secondary Discharge Diagnosis Chronic Problems (Last Reviewed 08/26/18 @ 14:35 by Jazzy Sierra) Hx of bilateral inguinal hernia repair (Chronic) 04/05/18 Bilateral inguinal hernia with obstruction and without gangrene (Chronic) History of colonoscopy (Chronic) Atrial fibrillation (Chronic) PUD (peptic ulcer disease) (Chronic) Left inguinal hernia (Chronic) Hemorrhoid (Chronic) History of left heart catheterization (Chronic 11/25/14) 11/25/2014 @ [facility] Anemia (Chronic) BPH (benign prostatic hyperplasia) (Chronic) Renal insufficiency (Chronic) History of bilateral knee replacement (Chronic) History of cataract surgery (Chronic) Peptic ulcer disease (Chronic) GI bleed (Chronic) COPD (chronic obstructive pulmonary disease) (Chronic) Osteoarthritis (Chronic) Hyperlipidemia (Chronic) Cardiomyopathy in diseases classified elsewhere (Chronic) Hypertension (Chronic) Paroxysmal atrial fibrillation (Chronic) Hospital Course and Treatment Imaging Results: Diagnostic Data Head CTA 09/14/18 19:07 IMPRESSION: Normal [place] without a demonstrated aneurysm or significant stenosis. Electronically Signed: Anushka Galaviz MD at 19:53 EDT Tel , Service support , Neck CTA 09/14/18 19:07 IMPRESSION: 1. Atherosclerotic calcification of the left bulb and proximal ICA, with less than 50% stenosis. 2. Atherosclerotic calcification of the right carotid bulb, no stenosis. 3. Normal vertebral arteries. Electronically Signed: Anushka Galaviz MD at 20:02 EDT Tel , Service support , Chest X-Ray 09/14/18 19:10 IMPRESSION: Stable cardiomegaly with hyperexpansion. No acute finding. Electronically Signed: Hermes Santana MD at 19:26 EDT , Service support , Brain MRI 09/15/18 03:58 IMPRESSION: Extensive periventricular microvascular ischemic senescent changes with left posterior insular ribbon small region of cortical ischemia extending to the centrum semiovale. No evidence of large territorial ischemia or acute intracranial blood product. Electronically Signed: Serafin Arguello DO at 8:51 EDT , Service support , ADDENDUM: 09/15/[address] 09/15/18 19:30 IMPRESSION: Chronic involutional changes of the brain. Electronically Signed: Trey Yepez MD at 20:28 EDT , Service support , neurology- Dr Vincent cardiology- Dr Osorio critical care- Dr Cox Operations: None Procedures: 2-D Echocardiogram Summary of Care Provided: Patient is a 77 y/o male with a PMH as listed who was admitted through the ED on 09/14/18 with a complaint of right sided weakness and dysarthria which started just after he finished dinner on the day of admission. NIH was 5 on admission. He was administered tPA after discussion with neurology. He was admitted to the ICU for closer monitoring after TPA administration. Moy subsequently wo rsened neurologically, with worsening right-sided weakness and dysarthria. NIH repeated was 14 and she had a repeat head CT which was negative. His troponin also increased to 1.23 during the night of admission. He was therefore managed for acute ischemic stroke and non-STEMI as EKG did not show any acute ST changes. Troponin was within normal limits and A1c was 5.5. MRI done showed extensive periventricular microvascular ischemic senescent changes with left posterior insular small region of cortical ischemia extending to the centrum semiovale. Neurology was consulted and at least 24 to 48 hours after TPA, he was started on aspirin. Patient's right-sided weakness and dysarthria improved significantly. NIH went down to 5 subsequently. Patient remained stable and was transferred out of ICU to the regular nursing floor. Cardiology saw him and decided for conservative management in light of acute ischemic CVA. 2D echo done showed EF of 27% with stage II diastolic dysfunction and hypokinesia of the left ventricle. He also had a moderately enlarged left atrium and mildly enlarged right atrium with negative bubble study. RVSP was 58 mmHg. Patient remained stable and cardiology advocated conservative management with no plans for invasive cardiac cath. He was discharged to the inpatient rehab unit on 09/17/2018 with a prescription for p.o. aspirin and p.o. Eliquis as well as PO atorvastatin. He is to start Eliquis 5mg bid on 09/18/2018. Patient seen and examined prior to discharge. He had no complaints and felt well. Right lower extremity weakness had resolved but he still had residual right upper extremity weakness. Review of systems otherwise negative. Dysarthria had also improved markedly. Labs and vitals reviewed. Home medication reviewed and reconciled. o/e: Vital Signs Height 6 ft Weight: 201 lb 11.567 oz Weight in Pounds 201.7 lbs Pulse Ox 96 Temperature 97.9 F Pulse Rate 69 Respiratory Rate 18 Blood Pressure [BP] 145/84 Blood Pressure 147/77 Blood Pressure Position [BP] Semi-Fowlers Blood Pressure Position Semi-Fowlers General: Alert, Oriented x3, Cooperative, No apparent distress HEENT: Atraumatic, PERRLA, EOMI, Normocephalic Oral: Moist Mucosa Neck: Supple, No JVD, Negative Carotid Bruits Lungs: Clear to auscultation, Normal air movement Cardiovascular: Regular rate, Regular Rhythm, Normal S1, Normal S2, No murmurs Abdomen: Bowel Sounds Present, Soft, Non Tender, Non-Distended, No Hepato- splenomegaly Extremities: No clubbing, No cyanosis, No edema, Capillary Refill Less than 3 Seconds, No Calf Tenderness Skin: No rashes, No breakdown Musculoskeletal: No Tenderness to Palpation of Joints or Extremities Lymphatic: No Cervical, Supraclavicular, or Inguinal Adenopathy Neurological: - - Power in RLE is 4/5, power in RUE is 3/5. Numbness in RLE and RLE has improved significantly. Psych/Mental Status: Normal Affect, Appropriate, Alert and oriented to time, place, person, mood and affect Plan as above. Patient Problems: Active and Suspected Problems (Last Reviewed 08/26/18 @ 14:35 by Jazzy Sierra) Acute stroke (Acute) NSTEMI (non-ST elevated myocardial infarction) (Acute) - Physical Exam Vital Signs Temp Pulse Resp BP Pulse Ox 98.1 F 82 22 H 139/77 H 98 09/17/18 11:30 09/17/18 12:49 09/17/18 12:49 09/17/18 11:30 09/17/18 11:30 Oxygen Flow Rate (L/min) 2 Oxygen Delivery Method Room Air Weight: 201 lb 11.567 oz Body Mass Index (BMI) 27.8 Finger Stick Blood Glucose 123 Intake and Output for Last 24 Hours 09/15/18 09/16/18 09/17/18 23:59 23:59 23:59 Intake Total 1168 / 1168 890 / 890 130 / 130 Output Total 1450 / 1450 1275 / 1275 340 / 340 Balance -282 / -282 -385 / -385 -210 / -210 Laboratory Tests Past 24 Hrs 09/17/18 09/17/18 05:06 05:06 WBC 7.0 RBC 4.61 Hgb 9.6 L Hct 33.4 L MCV 72.5 L MCH 20.8 L MCHC 28.7 L RDW 18.8 H RDW Differential 49.4 H Plt Count 186 Immature Gran % (Auto) 0.000 Neut % (Auto) 66.6 Lymph % (Auto) 17.2 L [place] % (Auto) 11.9 H Eos % (Auto) 3.3 Baso % (Auto) 1.0 Absolute Neuts (auto) 4.6 Absolute Lymphs (auto) 1.20 Total Counted Not Reportable Differential Comment SCANNED Microcytosis 2+ Sodium 143 Potassium 4.0 Chloride 109 H Carbon Dioxide 25.0 Anion Gap 9 BUN 19 H Creatinine 1.72 H Estim Creat Clear Calc 40.10 Est GFR (MDRD) Af Amer 50 L Est GFR (MDRD) Non-Af 41 L BUN/Creatinine Ratio 11.0 Glucose 98 Calcium 8.6 POC Glucose 09/17/18 09/16/18 09/16/18 07:00 21:40 17:12 POC Glucose 107 122 H 121 H 09/14/18 18:59 POC Glucose 123 H Discharge Diet: Low fat/ Low Cholesterol Discharge Activity: Return to Normal Activity Weight Bearing Status: Weight bearing as tolerated Call your doctor if you observe: Fever of 101 or Higher, Numbness or Tingling, Shortness of breath, Chest pain Home Medications: Medications to take at Discharge Albuterol Sulfate [Proair Respiclick] 90 mcg IH DAILY 11/24/14 omeprazole 40 mg capsule,delayed release 40 mg PO QDAY 05/04/17 potassium chloride ER 10 mEq capsule,extended release 10 meq PO QDAY #90 cap 07/03/17 Albuterol Aerosols [Ventolin Aerosols] 2.5 mg INHALATION Q4H PRN PRN 04/01/18 Isosorbide Dinitrate 30 mg PO QDAY 04/01/18 carvedilol 12.5 mg tablet 6.25 mg PO BID #90 tab 06/28/18 furosemide 40 mg tablet 40 mg PO DAILY #90 tab 06/28/18 amiodarone 200 mg tablet 200 mg PO DAILY #90 tab 08/26/18 spironolactone 25 mg tablet 25 mg PO DAILY #90 tab 08/26/18 lisinopril 10 mg tablet 10 mg PO BID #180 tab 09/02/18 Apixaban [Eliquis] 5 mg PO BID #60 tab 09/17/18 Aspirin [Aspirin, Baby] 81 mg PO DAILY@0800 #30 tab.chew 09/17/18 Atorvastatin Calcium [Lipitor] 80 mg PO QHS #30 tab 09/17/18 Following Prescrptions Were Given to Patient: Aspirin [Aspirin, Baby] 81 mg PO DAILY@0800 #30 tab.chew Atorvastatin Calcium [Lipitor] 80 mg PO QHS #30 tab Apixaban [Eliquis] 5 mg PO BID #60 tab Primary Care Physician: Wilberto Michel MD [Primary Care Provider] - Please follow up with your Primary Care Physician in: one week Please Follow Up With: Joesph Vincent MD When: 2-3 weeks Please Follow Up With: Nikolai Lee MD When: one week Patient Instructions: Symptoms of a Heart Attack, Discharge Instructions for Heart Attack, Discharge Instructions for Stroke Disposition: Inpt Rehab Unit/Facility Minutes spent on discharge:: 45 Patient Condition:: Stable Medical Necessity - Tobacco Use Smoking Status: Former smoker Meaningful Use Info Meaningful Use Diagnoses (Choose all that apply): AMI, Ischemic CVA - AMI Aspirin given w/in 24hrs of arrival?: Yes ASA at discharge?: Yes Statins at discharge?: Yes Reuben/ARB at discharge?: Yes Beta Mary at discharge?: Yes Done w/ Acute AK measure.: Yes Documented LVEF (%): 27 - CVA Therapy Assessed for PT,OT and/or ST?: Yes - Ischemic Stroke Antithrombotic order at d/c?: Yes Dx of Atrial fib/flutter?: Yes Anticoagulant at discharge?: Yes Statins at discharge?: Yes Primary Dx Acute Ischemic CVA?: Yes IV tPA ordered during stay?: Yes Code Visit Inpatient E&M: 39027 Disch Hosp
--- NOTE | 2018-09-17 15:19 | CASEMGMT ---
SW spoke w/physician, pt can go to rehab today. SW called [facility], rehab can take pt today. SW let pt know, he is okay w/SW letting his know. SW let RN know also pt can go to rehab today. SW called pt's , let her know that pt will go to rehab today, she said she was glad. SW let her know when she comes to visit to ask at the desk when she comes in and someone may be able to show her where to go. states understanding. No further needs, pt to rehab today. BREANNA Kumar
== END 2018-09-17 17:24 | disposition skilled nursing facility (03) | DRG 61 ==
LOC: ED 20:40 → ICU 21:14 → PCU 09-17 08:24 → ICU 09-18 09:32
PROVIDERS: Internal Medicine Critical Care Medicine; Admitting Provider Internal Medicine; Emergency Provider Emergency Medicine; Family Provider Family Medicine; PCP Family Medicine; Referring Provider Internal Medicine; Visit Provider Student in an Organized Health Care Education/Training Program
DX: I63.512 Cerebral infarction due to unspecified occlusion or stenosis of left middle cerebral artery (principal); I21.4 Non-ST elevation (NSTEMI) myocardial infarction; I13.0 Hypertensive heart and chronic kidney disease with heart failure and stage 1 through stage 4 chronic kidney disease, or unspecified chronic kidney disease; I50.42 Chronic combined systolic (congestive) and diastolic (congestive) heart failure; N18.9 Chronic kidney disease, unspecified; N17.9 Acute kidney failure, unspecified; G81.91 Hemiplegia, unspecified affecting right dominant side; D50.9 Iron deficiency anemia, unspecified; R47.81 Slurred speech; I48.91 Unspecified atrial fibrillation; Z92.82 Status post administration of tPA (rtPA) in a different facility within the last 24 hours prior to admission to current facility; R29.810 Facial weakness; R47.01 Aphasia; R29.705 NIHSS score 5; I48.0 Paroxysmal atrial fibrillation; I25.10 Atherosclerotic heart disease of native coronary artery without angina pectoris; J44.9 Chronic obstructive pulmonary disease, unspecified; E78.5 Hyperlipidemia, unspecified; M19.90 Unspecified osteoarthritis, unspecified site; N40.0 Benign prostatic hyperplasia without lower urinary tract symptoms; Z79.01 Long term (current) use of anticoagulants; Z79.82 Long term (current) use of aspirin; Z79.899 Other long term (current) drug therapy; Z96.653 Presence of artificial knee joint, bilateral; Z87.11 Personal history of peptic ulcer disease; Z87.891 Personal history of nicotine dependence
CPT/HCPCS: 36415; 51702; 70450; 70496; 70498; 70551; 71045; 80048; 80053; 80061; 82962; 83036; 83735; 84100; 84443; 84484; 85025; 85610; 85730; 92523; 92526; 92610; 93005; 93306; 94640; 97161; 97165; 97530; 97802; 99285; J2997; Q9957; Q9967; A4216; J3490

== ENCOUNTER 2018-09-17 17:25 | Inpatient (IN) | payer MEDICARE, OTHER, SELFPAY ==
[2018-09-17 14:13] VITALS: BMI 27.8
[2018-09-17 17:30] VITALS: BP 162/96; PULSE 78; RESP 20; TEMP 36.6; O2SAT 96; BMI 26.8
[2018-09-17 20:20] VITALS: BP 146/87; PULSE 69; RESP 18; TEMP 36.6; O2SAT 96
[2018-09-17] MEDS: Carvedilol 6.25 MG Tablet PO (21:15)
[2018-09-17] MEDS: Lisinopril 10 MG Tablet PO (21:15)
[2018-09-17] MEDS: Atorvastatin Calcium 80 MG Tablet PO (21:15)
[2018-09-17 23:16] VITALS: PULSE 76; RESP 18
[2018-09-18] VITALS: BMI 26.8
[2018-09-18 06:10] LABS: AST(SGOT) 17 U/L (15-37); Alanine Aminotransfer ALT/SGPT 17 U/L (16-61); Albumin, Serum 3.2 g/dL (3.2-5.0); Alkaline Phosphatase 78 U/L (45-117); Anion Gap 8 (5-15); BUN 20 mg/dL (7-18); BUN/Creat Ratio 12.1 RATIO (10-20); Calcium,Total 8.4 mg/dL (8.5-10.1); Chloride 110 mmol/L (98-107); Creatinine, Serum 1.65 mg/dL (0.70-1.30); EST Glomerular Filtration Rate 43 mL/min (>60); Est Glom Filt Rate - Afr Amer 52 mL/min (>60); Globulin 3.3 g/dL (2.2-4.2); Glucose 92 mg/dL (74-106); Potassium 3.8 mmol/L (3.5-5.1); Protein, Total 6.5 g/dL (6.4-8.2); Sodium Level 142 mmol/L (136-145)
[2018-09-18 06:13] LABS: Absolute Lymphocyte Count 1.02 X10^3/ul (0.83-4.51); Absolute Neutrophil Count 3.8 X10^3/uL (2.0-7.7); Basophil# 0.08 X10^3/uL; Basophil% 1.4 % (0-1); Eosinophil# 0.23 X10^3/uL; Hematocrit 32.2 % (40-54); Hemoglobin 9.3 g/dl (13.0-16.5); Lymphocyte # 1.02 X10^3/ul (4.0); Lymphocyte % 17.6 % (19-41); Mean Corp Hgb Conc 28.9 g/gl (32-36); Mean Corpuscular Hgb 20.7 pg (27.0-32.0); Mean Corpuscular Volume 71.6 fL (80-94); Monocyte# 0.63 X10^3/uL; Monocyte% 10.9 % (0-10); Neutrophil # 3.82 X10^3/uL (2.7-7.7); Neutrophil % 65.9 % (47-70); Platelet Count 191 K/mm3 (150-450); RBC Distribution Width CV 18.9 % (11.6-14.6); White Blood Count 5.8 K/mm3 (4.4-11.0)
[2018-09-18 06:22] LABS: Differential Indicated SCAN CRITERIA MET; POSITIVE COUNT NO; POSITIVE DIFFERENTIAL NO; POSITIVE MORPHOLOGY YES
[2018-09-18 06:31] LABS: Differential Comment SCANNED
[2018-09-18 06:32] LABS: Hypochromasia 2+; Microcytosis 3+; Platelet Estimate ADEQUATE (ADEQ)
[2018-09-18 06:42] VITALS: PULSE 56; RESP 24; O2SAT 97
[2018-09-18] MEDS: Albuterol 2.5 MG/3 ML VIAL.NEB. INHALATION ×2 (06:42→22:23)
[2018-09-18 07:05] VITALS: BP 152/91; PULSE 72; RESP 28; TEMP 36.3; O2SAT 97
[2018-09-18] MEDS: APIXABAN 5 MG TABLET PO ×2 (08:30→20:31)
[2018-09-18] MEDS: Furosemide 40 MG Tablet PO (08:31)
[2018-09-18] MEDS: Amiodarone 200 MG Tablet PO (08:31)
[2018-09-18] MEDS: Pantoprazole Sodium 40 MG Tablet PO (08:31)
[2018-09-18] MEDS: Carvedilol 6.25 MG Tablet PO ×2 (08:31→20:31)
[2018-09-18] MEDS: Lisinopril 10 MG Tablet PO ×2 (08:31→20:32)
[2018-09-18] MEDS: Spironolactone 25 MG Tablet PO (08:31)
[2018-09-18] MEDS: Aspirin 81 MG TAB.CHEW PO (08:31)
[2018-09-18] MEDS: Isosorbide DN 30 MG Tablet PO (08:31)
--- NOTE | 2018-09-18 08:44 | PCM.HP.COS ---
History of Present Illness Date of Admission: 09/17/18 Chief Complaint: Debility secondary to acute ischemic stroke and Non-Stemi The patient is a 77 year old M with PMH of atrial fibrillation, COPD, PUD, chronic anemia, BPH, chronic renal insufficiency, hyperlipidemia, cardiomyopathy, hypertension, and osteoarthritis. Admitted to [facility] on 09/17/2018 with debility secondary to acute ischemic stroke and Non-Stemi for greater of 3 hours of therapy daily with a goal of returning back home at or near his prior level of functional dependence. On 09/14/2018 patient presented to [facility] with right-sided weakness and dysarthria. NIH score was 5 and he was administered TPA. NIH was repeated increased to 14. His troponin increased to 1.23 and an EKG did not show acute ST changes. Was diagnosed with a non-STEMI. Brain CT done which showed chronic involutional changes of the brain. Brain MRI showed extensive periventricular microvascular ischemic senescent changes with left posterior insular ribbon small region of the cortical ischemia extending to the centrum semioval. No evidence of large territorial ischemia or acute intracranial blood product. Head CTA showed normal [place] of [place] without demonstrated aneurysm or significant stenosis. Neck CTA showed arthrosclerotic calcification of the left bulb and proximal ICA, with less than 50% stenosis. Atherosclerotic calcification of the right carotid bulb, no stenosis. Normal for vertebral arteries. 2D echo showed EF of 27% with stage II diastolic dysfunction and hypokinesia of the left ventricle. Also a moderately enlarged left atrium and mildly enlarged right atrium with negative bubble study. Neurology was consulted and advocated conservative management with no plans for invasive cardiac cath. Patient was started on aspirin, Eliquis, and Lipitor. Patient lives with spouse in a one level house, he is retired and independent with all of his ADLs, mobility and driving needs. States that his will help with most of the chores due to his COPD. Past Medical History Past Medical History (Chronic Problems): Chronic Problems (Last Reviewed 08/26/18 @ 14:35 by Jazzy Sierra) Hx of bilateral inguinal hernia repair (Chronic) 04/05/18 Bilateral inguinal hernia with obstruction and without gangrene (Chronic) History of colonoscopy (Chronic) Atrial fibrillation (Chronic) PUD (peptic ulcer disease) (Chronic) Left inguinal hernia (Chronic) Hemorrhoid (Chronic) History of left heart catheterization (Chronic 11/25/14) 11/25/2014 @ [facility] Anemia (Chronic) BPH (benign prostatic hyperplasia) (Chronic) Renal insufficiency (Chronic) History of bilateral knee replacement (Chronic) History of cataract surgery (Chronic) Peptic ulcer disease (Chronic) GI bleed (Chronic) COPD (chronic obstructive pulmonary disease) (Chronic) Osteoarthritis (Chronic) Hyperlipidemia (Chronic) Cardiomyopathy in diseases classified elsewhere (Chronic) Hypertension (Chronic) Paroxysmal atrial fibrillation (Chronic) Medical History: Medical History (Last Reviewed 08/26/18 @ 14:35 by Jazzy Sierra) Atrial fibrillation (Chronic) I48.91 PUD (peptic ulcer disease) (Chronic) K27.9 Left inguinal hernia (Chronic) K40.90 Hemorrhoid (Chronic) K64.9 Anemia (Chronic) D64.9 BPH (benign prostatic hyperplasia) (Chronic) N40.0 Renal insufficiency (Chronic) N28.9 Peptic ulcer disease (Chronic) K27.9 GI bleed (Chronic) K92.2 COPD (chronic obstructive pulmonary disease) (Chronic) J44.9 Osteoarthritis (Chronic) M19.90 Hyperlipidemia (Chronic) E78.5 Cardiomyopathy in diseases classified elsewhere (Chronic) I43 Hypertension (Chronic) I10 Paroxysmal atrial fibrillation (Chronic) I48.0 Renal insufficiency (Resolved) N28.9 Allergies cortisone Allergy (Verified 09/14/18 19:21) Rash Home Medications: Ambulatory Orders Medication Instructions Recorded Albuterol Sulfate [Proair 90 mcg IH DAILY 11/24/14 Respiclick] omeprazole 40 mg capsule,delayed 40 mg PO QDAY 05/04/17 release Albuterol Aerosols [Ventolin 2.5 mg INHALATION Q4H PRN PRN 04/01/18 Aerosols] Isosorbide Dinitrate 30 mg PO QDAY 04/01/18 carvedilol 12.5 mg tablet 6.25 mg PO BID #90 tab 06/28/18 furosemide 40 mg tablet 40 mg PO DAILY #90 tab 06/28/18 amiodarone 200 mg tablet 200 mg PO DAILY #90 tab 08/26/18 lisinopril 10 mg tablet 10 mg PO BID #180 tab 09/02/18 Apixaban [Eliquis] 5 mg PO BID 09/17/18 Aspirin [Aspirin, Baby] 81 mg PO DAILY@0800 09/17/18 Atorvastatin Calcium [Lipitor] 80 mg PO QHS 09/17/18 Potassium Chloride 10 meq PO QDAY 09/17/18 Spironolactone 25 mg PO DAILY 09/17/18 Surgical History: Surgical History (Last Reviewed 08/26/18 @ 14:35 by Jazzy Sierra) Hx of bilateral inguinal hernia repair (Chronic) Z98.890, Z87.19 04/05/18 History of colonoscopy (Chronic) Z98.890 History of left heart catheterization (Chronic) Onset Date: 11/25/14 Z98.890 11/25/2014 @ [facility] History of bilateral knee replacement (Chronic) Z96.653 History of cataract surgery (Chronic) Z98.49 history of incision and drainage infected back abscess Onset Date: 06/14/18 Surgical History: cataract, - - bilateral knee replacement, glaucoma surgery, inguinal hernia repair, Psychiatric History: No pertinent psych hx Lives: Spouse/ Significant Other Smoking Status: Former smoker Tobacco Use: Cigarettes - *Family History Maternal Family History: Family History (Last Reviewed 08/26/18 @ 14:35 by Jazzy Sierra) Father CAD (coronary artery disease) Colon cancer Mother Alzheimers disease Sister Cancer History Items: - - Alzheimer's dementia Paternal Family History: Family History (Last Reviewed 08/26/18 @ 14:35 by Jazzy Sierra) Father CAD (coronary artery disease) Colon cancer Mother Alzheimers disease Sister Cancer History Items: Heart Disease Sibling Family History: Family History (Last Reviewed 08/26/18 @ 14:35 by Jazzy Sierra) Father CAD (coronary artery disease) Colon cancer Mother Alzheimers disease Sister Cancer History Items: Cancer Review of Systems Constitutional: Denies: Chills, Fever, Weight Change Eyes: Denies: Blurred vision, Double vision, Redness, Vision Change HEENT: Denies: Difficulty Hearing, Difficulty Swallowing, Dysphasia, Head Aches, Sinus Congestion, Sinus Drainage, Visual Changes Cardiovascular: Denies: Chest Pain, Chest Pressure, Chest Tightness, Palpitations Respiratory: Denies: Cough, Shortness of Breath, Shortness of breath at rest, Sputum production Gastrointestinal: Denies: Abdominal Pain, Constipation, Nausea, Vomiting Genitourinary: Denies: Dysuria, Frequency, Incontinence Musculoskeletal: Denies: Joint Pain, Joint stiffness, Joint swelling, Joint Tenderness Skin: Denies: Rash, Wounds Neurological: Denies: Blurred vision, Double vision, Difficulty swallowing, Focal weakness, Numbness, Tingling Psychiatric: Denies: Anxiety, Depression, Homicidal Ideations, Suicidal Ideations Hematologic/ Lymphatic: Denies: Easy Bruising, Easy Bleeding VTE Information - Inpt Only VTE Present on Admission: No VTE Mechan Device Prophylaxis: SCD's, Knee High ELLIOT Hose VTE Pharm Prophylaxis ordered?: Yes Subjective: Per nursing no issues overnight. Patient denies chest pain or tightness, SOB, dizziness or lightheadedness, headache, blurred or double vision. Patient talkative and pleasant. - Physical Exam General: Alert, Oriented x3, Cooperative HEENT: Atraumatic, PERRLA Oral: Moist Mucosa Neck: Supple, No JVD Lungs: Clear to auscultation, Normal air movement Cardiovascular: Regular rate, Regular Rhythm Abdomen: Bowel Sounds Present, Soft, Non Tender Extremities: No clubbing, No cyanosis, No edema Skin: No rashes, No breakdown Musculoskeletal: No Tenderness to Palpation of Joints or Extremities Neurological: Cranial nerves II-XII grossly intact, Deep Tendon Reflexes 2+/4 and Symmetrical, Neuro grossly intact, - - 3/5 strength to RUE and 4/5 RLE. speech clear Psych/Mental Status: Normal Affect, Appropriate, Alert and oriented to time, place, person, mood and affect Vital Signs Temp Pulse Resp BP Pulse Ox 97.4 F L 72 28 H 152/91 H 97 09/18/18 07:05 09/18/18 07:05 09/18/18 07:05 09/18/18 07:05 09/18/18 07:05 Oxygen Delivery Method Room Air Weight: 89.7 kg Body Mass Index (BMI) 26.8 Finger Stick Blood Glucose 123 Intake and Output for Last 24 Hours 09/16/18 09/17/18 09/18/18 23:59 23:59 23:59 Output Total 200 / 200 150 / 150 Balance -200 / -200 -150 / -150 Laboratory Tests Past 24 Hrs 09/18/18 09/18/18 05:30 05:30 WBC 5.8 RBC 4.50 L Hgb 9.3 L Hct 32.2 L MCV 71.6 L MCH 20.7 L MCHC 28.9 L RDW 18.9 H RDW Differential 48.0 H Plt Count 191 Immature Gran % (Auto) 0.200 Neut % (Auto) 65.9 Lymph % (Auto) 17.6 L [place] % (Auto) 10.9 H Eos % (Auto) 4.0 Baso % (Auto) 1.4 H Absolute Neuts (auto) 3.8 Absolute Lymphs (auto) 1.02 Total Counted Not Reportable Differential Comment SCANNED Platelet Estimate ADEQUATE Hypochromasia 2+ Microcytosis 3+ Sodium 142 Potassium 3.8 Chloride 110 H Carbon Dioxide 24.0 Anion Gap 8 BUN 20 H Creatinine 1.65 H Estim Creat Clear Calc 41.80 Est GFR (MDRD) Af Amer 52 L Est GFR (MDRD) Non-Af 43 L BUN/Creatinine Ratio 12.1 Glucose 92 Calcium 8.4 L Total Bilirubin 0.60 AST 17 ALT 17 Alkaline Phosphatase 78 Total Protein 6.5 Albumin 3.2 Globulin 3.3 Albumin/Globulin Ratio 1.0 Assessment/Plan All Active Problems (Last Reviewed 08/26/18 @ 14:35 by Jazzy Sierra) Acute stroke (Acute) NSTEMI (non-ST elevated myocardial infarction) (Acute) Dyspnea (Acute) Acute blood loss anemia (Resolved) Atrial fibrillation (Resolved) Renal insufficiency (Resolved) The patient is a 77 year old M with PMH of atrial fibrillation, COPD, PUD, chronic anemia, BPH, chronic renal insufficiency, hyperlipidemia, cardiomyopathy, hypertension, and osteoarthritis. Admitted to [facility] on 09/17/2018 with debility secondary to acute ischemic stroke and Non-Stemi for greater of 3 hours of therapy daily with a goal of returning back home at or near his prior level of functional dependence. On 09/14/2018 patient presented to [facility] with right-sided weakness and dysarthria. NIH score was 5 and he was administered TPA. NIH was repeated increased to 14. His troponin increased to 2.34 and an EKG did not show acute ST changes. Was diagnosed with a non-STEMI. Brain CT done which showed chronic involutional changes of the brain. Brain MRI showed extensive periventricular microvascular ischemic senescent changes with left posterior insular ribbon small region of the cortical ischemia extending to the centrum semioval. No evidence of large territorial ischemia or acute intracranial blood product. Head CTA showed normal [place] of [place] without demonstrated aneurysm or significant stenosis. Neck CTA showed arthrosclerotic calcification of the left bulb and proximal ICA, with less than 50% stenosis. Atherosclerotic calcification of the right carotid bulb, no stenosis. Normal for vertebral arteries. 2D echo showed EF of 27% with stage II diastolic dysfunction and hypokinesia of the left ventricle. Also a moderately enlarged left atrium and mildly enlarged right atrium with negative bubble study. HgbA1c 5.5 %. LDL 51. Cardiology was consulted and advocated conservative management with no plans for invasive cardiac cath. Patient was started on aspirin, Eliquis, and Lipitor. Patient lives with spouse in a one level house, he is retired and independent with all of his ADLs, mobility and driving needs. States that his will help with most of the chores due to his COPD. Plan - PT for mobility - OT for ADLs - ST for evaluation - Analgesics as needed - Ischemic stroke post TPA on Eliquis, asa, Lipitor, lisinopril - Non-Stemi on Lasix, carvedilol, isosorbide dinitrate - HTN continue anti-hypertensives - Atrial fibrillation on Eliquis, amiodarone, Coreg - Cardiomyopathy on Coreg - PUD on Protonix - COPD on ProAir - Chronic renal insufficiency on 09/18/2018 Cr 1.69 GFR 43 - Hyperlipidemia on lipitor - Chronic anemia monitor - BPH - GI/DVT prophylaxis on protonix/eliquis, knee high elliot hose and SCDs - Bowel protocol - Fall precautions - Medical management per hospitalist- consult - F/U with PCP, neurology, pulmonary and cardiology
--- NOTE | 2018-09-18 15:00 | PCM.PN.HOSP ---
Subjective: Patient is a 77-year-old male with past medical history as listed was admitted by the ED on 09/14/2018 with debility due to ischemic stroke and non-STEMI. He received TPA. CT scan done showed only chronic involutional changes of the brain and brain MRI showed extensive periventricular microvascular ischemic senescent changes with left posterior insular ribbon small region of the cortical ischemia extending to the centrum of semiovale. He had right-sided weakness which gradually improved. Patient suddenly developed STEMI with troponins trending up. 2D echo done showed EF of 27% with stage II diastolic dysfunction and hypokinesis of left ventricle. Cardiology was consulted and did not want to do any invasive measures on account of ischemic CVA. Patient was started on aspirin, Eliquis and Lipitor and subsequently discharged on 09/18/2018 to the inpatient rehab unit. Hospitalist service was consulted for medical management. Patient seen and examined. He is well-known to hospitalist from when he was admitted after he was discharged. He has no complaints. Right sided weakness has improved markedly. His speech is virtually back to normal. Review of systems otherwise negative. Labs and vitals reviewed. Vitals/I&O's: Vital Signs Temp Pulse Resp BP Pulse Ox 97.4 F L 72 28 H 152/91 H 97 09/18/18 07:05 09/18/18 07:05 09/18/18 07:05 09/18/18 07:05 09/18/18 07:05 Oxygen Delivery Method Room Air Weight: 197 lb 12.074 oz Body Mass Index (BMI) 26.8 Finger Stick Blood Glucose 123 Intake and Output for Last 24 Hours 09/16/18 09/17/18 09/18/18 23:59 23:59 23:59 Intake Total 440 / 440 Output Total 200 / 200 150 / 150 Balance -200 / -200 290 / 290 General: Alert, Oriented x3, Cooperative, No apparent distress HEENT: Atraumatic, PERRLA, EOMI, Normocephalic Oral: Moist Mucosa Neck: Supple, No JVD, Negative Carotid Bruits, Negative Hepatojugular Reflux, No Nodes, No Nuchal Rigidity Lungs: Clear to auscultation, Normal air movement, No rhonchi, No wheeze, No rales Cardiovascular: Regular rate, Regular Rhythm, Normal S1, Normal S2, No murmurs Abdomen: Bowel Sounds Present, Soft, Non Tender, Non-Distended, No Hepato-splenomegaly Extremities: No clubbing, No cyanosis, No edema, Capillary Refill Less than 3 Seconds Skin: No rashes, No breakdown Musculoskeletal: No Tenderness to Palpation of Joints or Extremities Lymphatic: No Cervical, Supraclavicular, or Inguinal Adenopathy Neurological: Cranial nerves II-XII grossly intact, - - RUE power is 4/5, power in rest of limbs is 5/5; normal sensation Psych/Mental Status: Normal Affect, Appropriate, Alert and oriented to time, place, person, mood and affect Laboratory Results 09/18/18 05:30: WBC 5.8, RBC 4.50 L, Hgb 9.3 L, Hct 32.2 L, MCV 71.6 L, MCH 20.7 L, MCHC 28.9 L, RDW 18.9 H, RDW Differential 48.0 H, Plt Count 191, Immature Gran % (Auto) 0.200, Neut % (Auto) 65.9, Lymph % (Auto) 17.6 L, [place] % (Auto) 10.9 H, Eos % (Auto) 4.0, Baso % (Auto) 1.4 H, Absolute Neuts (auto) 3.8, Absolute Lymphs (auto) 1.02, Total Counted Not Reportable, Differential Comment SCANNED, Platelet Estimate ADEQUATE, Hypochromasia 2+, Microcytosis 3+ 09/18/18 05:30: Sodium 142, Potassium 3.8, Chloride 110 H, Carbon Dioxide 24.0, Anion Gap 8, BUN 20 H, Creatinine 1.65 H, Estim Creat Clear Calc 41.80, Est GFR (MDRD) Af Amer 52 L, Est GFR (MDRD) Non-Af 43 L, BUN/Creatinine Ratio 12.1, Glucose 92, Calcium 8.4 L, Total Bilirubin 0.60, AST 17, ALT 17, Alkaline Phosphatase 78, Total Protein 6.5, Albumin 3.2, Globulin 3.3, Albumin/Globulin Ratio 1.0 Current Medications Acetaminophen (Tylenol) 650 mg PO Q6H PRN PRN PRN Reason: Mild Pain (0-3/10)/Headache Albuterol Sulfate (Ventolin Aerosols) 2.5 mg INHALATION Q4H PRN PRN PRN Reason: WHEEZING Last Admin: 09/18/18 06:42 Dose: 2.5 mg Albuterol Sulfate (Ventolin Hfa (Sp)) 1 puff INHALATION DAILY [facility] Last Admin: 09/18/18 08:35 Dose: 1 puff Amiodarone HCl (Cordarone) 200 mg PO DAILY [facility] Last Admin: 09/18/18 08:31 Dose: 200 mg Apixaban (Eliquis) 5 mg PO BID [facility] Last Admin: 09/18/18 08:30 Dose: 5 mg Aspirin (Aspirin, Baby) 81 mg PO DAILY@0800 [facility] Last Admin: 09/18/18 08:31 Dose: 81 mg Atorvastatin Calcium (Lipitor) 80 mg PO QHS [facility] Last Admin: 09/17/18 21:15 Dose: 80 mg Bisacodyl (Dulcolax) 10 mg RECTAL .PRN X 1 PRN PRN Reason: Constipation Carvedilol (Coreg) 6.25 mg PO BID [facility] Last Admin: 09/18/18 08:31 Dose: 6.25 mg Furosemide (Lasix) 40 mg PO DAILY [facility] Last Admin: 09/18/18 08:31 Dose: 40 mg Isosorbide Dinitrate (Isordil) 30 mg PO DAILY [facility] Last Admin: 09/18/18 08:31 Dose: 30 mg Lisinopril (Zestril) 10 mg PO BID [facility] Last Admin: 09/18/18 08:31 Dose: 10 mg Magnesium Hydroxide (Milk Of Magnesia) 30 ml PO .PRN X 1 PRN PRN Reason: Constipation Pantoprazole Sodium (Protonix) 40 mg PO DAILY [facility] Last Admin: 09/18/18 08:31 Dose: 40 mg Potassium [facility]Dur[facility] Last Admin: 09/18/18 08:31 Dose: 10 meq Spironolactone (Aldactone) 25 mg PO DAILY [facility] Last Admin: 09/18/18 08:31 Dose: 25 mg Medical Necessity - Tobacco Use Smoking Status: Former smoker Tobacco Use: Cigarettes Assessment/Plan All Active Problems (Last Reviewed 08/26/18 @ 14:35 by Jazzy Sierra) Acute stroke (Acute) NSTEMI (non-ST elevated myocardial infarction) (Acute) Dyspnea (Acute) Acute blood loss anemia (Resolved) Atrial fibrillation (Resolved) Renal insufficiency (Resolved) 1. Acute ischemic stroke s/p TPA power in RUE and RLE have improved significantly, and speech is back to near normal On aspirin, Eliquis and high intensity statin. PT OT on board. Urology on board. 2. History of non-STEMI: Conservative management per cardiology in light of acute ischemic CVA. On aspirin, statin and metoprolol. Also on Imdur. 3. History of A. fib: Rate and rhythm controlled. On amiodarone and metoprolol. On Eliquis. 4. Hypertension: Controlled. On lisinopril and carvedilol. 5. History of peptic ulcer disease: On pantoprazole. 6. COPD: Breathing treatments. 7. Chronic iron deficiency anemia: On iron supplementation 8. BPH: Stable DVT prophylaxis: On Eliquis Code Visit Inpatient E&M: 68126 Subs Hosp L2
[2018-09-18 15:53] VITALS: BMI 26.8
--- NOTE | 2018-09-18 18:32 | NURSING ---
pt turning off chair alarm and standing without assistance from staff. Reeducated on calling for assistance and that the alarm is used for his safety. Pt and his voiced understanding.
[2018-09-18] MEDS: Atorvastatin Calcium 80 MG Tablet PO (20:32)
[2018-09-18 20:39] VITALS: BP 142/85; PULSE 66; RESP 18; TEMP 36.5; O2SAT 95
[2018-09-18 22:23] VITALS: PULSE 64; RESP 18; O2SAT 96
[2018-09-18 22:25] VITALS: BMI 26.8
--- NOTE | 2018-09-18 22:58 | NURSING ---
Reviewed and agree with LPNs fims and handoff
[2018-09-19 06:47] VITALS: O2SAT 100
[2018-09-19 07:00] VITALS: BP 141/78; PULSE 64; RESP 18; TEMP 36.4; O2SAT 100
--- NOTE | 2018-09-19 09:36 | REHABEVAL_ITS ---
Admission Information Status Changes from Prescreening?: No changes Identified Actual Problem List:: Cognitve Impr/Memory Loss, Alteration in Nutrition, Mobility Impaired, Self Care Deficit, BP, Hypertension, Ineffect.D/C Plan r/t Psy Potential Problem List:: DVT, Bleeding, Infection, UTI, Aspiration, Falls, Skin Integrity, Depression Risk of Complications DVT: LMWH, DEANNE Hose, Sequential Compression Device Bleeding: Monitor Lab Values, Nursing to Teach Precautions for anti-coagulation therapy., Wound, if applicable, to be assessed every shift., Stroke patients assessed for lethargy or change in status. Infection: Clinical Staff to Monitor for S/S of infection:, S/S of infection include fever, redness, warmth, etc. Urinary Tract Infection: Monitor for frequency, burning, discomfort, or incontinence., Nursing will obtain urine sample for urinalysis and C&S when ordered. Aspiration: Clinical staff will monitor for coughing, drooling, congestion., Speech will evaluate swallowing and dsyphasia., Nursing will monitor patient swallowing during meals. Falls: Patient will be evaluated for Fall Precautions, Patient will be placed on Fall Precautions as indicated per protocol. Skin Breakdown: Nursing will assess skin daily using assessment tool., Nursing will place on Skin Breakdown Precautions as indicated. Pain: Clinical staff will assess patient's pain level per protocol., Medications will be given, if needed, and the pain level reassessed., Other methods: Massage, distraction, decrease stimulus, etc. used PRN. Plan of Care Patient requires physician specializing in physical medicine and rehab oversight to provide close medical supervision of rehab issues including: Pain Management, Sleep Problems, Bowel and Bladder, Medical and co-morbidity Management, DVT prophylaxis, Rehabilitation Leadership, Coordination of treatment team Patient needs Physical Therapy: For a minimum of 1 hour, At least 5 out of 7 days Patient needs Physical Therapy to improve:: Mobility, Mobility, Mobility, Strengthening, Transfers, Stretching, ROM, Endurance, Stairs, Gait, Balance Patient needs Occupational Therapy: For a minimum of 1 hour, At least 5 out of 7 days Patient needs Occupational Therapy to improve ADL's incl.: Eating, Grooming, Bathing, Dressing, Toileting, Toilet transfers, Community Reintegration, Higher functioning activities, Household tasks, Adaptive Equipment, Splinting, Other activities as determined Patient requires speech therapy: For a minimum of 1 hour, At least 5 out of 7 days Patient requires speech therapy for: Swallowing, Cognition, Language Skills, Compensatory Strategies Patient requires 24/ Rehabilitation Nursing for: Pain Issues, Identifying and preventing risk factors, Monitoring and reporting current medical conditions, Assisting with ambulation, transfer, and all ADL's, Teaching patients about disease process and medications, Family teaching, Providing safe environment, Bowel and Bladder Issues, Skin integrity, Medication Management Patient needs Substation Design Draftsperson/ Case Management for: Discharge Planning, Arranging Home Equipment or Services, Family Interventions Patient needs Dietary and Nutrition Services for: Adequate Nutrition, Nutritional Supplements, Nutritional Education Goals Patient will remain: free from falls, or injury at time of discharge. Patient will perform bed mobility at: MOD I level of assist. Patient will complete transfers from bed to chair at: MOD I level of assist. Patient will ambulate: 100 feet, with MOD I assist, with LRD Patient will complete upper body dressing at: MOD I level of assist. Patient will complete lower body dressing at: MOD I level of assist. Patient will complete toileting at: MOD I level of assist. Patient will perform bathing at: MOD I level of assist. Patient will complete grooming at: MOD I level of assist. Patient will complete home management skills at: MOD I level of assist. Patient will achieve: 12 stairs, at MOD I assist Patient will have pain level of: of 3 or less Patient's skin will: remain intact, free from infection. Patient will receive: adequate nutrition. Discharge Planning Pt Prognosis for Sig. Practical Improv. w/in Reasonable Time: Good Anticipated D/C Destination: Home with Outpt Therapy Was Preadmission Assessment Accurate?: Yes
[2018-09-19] MEDS: APIXABAN 5 MG TABLET PO ×2 (09:37→19:56)
[2018-09-19] MEDS: Lisinopril 10 MG Tablet PO ×2 (09:37→19:56)
[2018-09-19] MEDS: Isosorbide DN 30 MG Tablet PO (09:37)
[2018-09-19] MEDS: Amiodarone 200 MG Tablet PO (09:37)
[2018-09-19] MEDS: Pantoprazole Sodium 40 MG Tablet PO (09:37)
[2018-09-19] MEDS: Spironolactone 25 MG Tablet PO (09:37)
[2018-09-19] MEDS: Aspirin 81 MG TAB.CHEW PO (09:37)
[2018-09-19] MEDS: Furosemide 40 MG Tablet PO (09:37)
[2018-09-19] MEDS: Carvedilol 6.25 MG Tablet PO ×2 (09:37→19:56)
--- NOTE | 2018-09-19 11:16 | PCM.PN.NEU ---
Subjective: Per nursing no issues overnight. Per patient tolerating therapies well. Denies further questions or concerns. Denies headaches, chest pain or tightness, SOB, dizziness or lightheadedness. - Physical Exam General: Alert, Oriented x3, Cooperative HEENT: Atraumatic, PERRLA Oral: Moist Mucosa Neck: Supple, No JVD Lungs: Clear to auscultation, Normal air movement Cardiovascular: Regular rate, Regular Rhythm Abdomen: Soft, Non Tender Extremities: No clubbing, No cyanosis, No edema Musculoskeletal: No Tenderness to Palpation of Joints or Extremities Neurological: Cranial nerves II-XII grossly intact, Deep Tendon Reflexes 2+/4 and Symmetrical, Neuro grossly intact, Motor Exam 5/5 strength throughout - Except Right UE increased in strength 4/5 and mobility with movement now can raise Right UE overhead. Psych/Mental Status: Normal Affect, Appropriate, Alert and oriented to time, place, person, mood and affect Vital Signs Temp Pulse Resp BP Pulse Ox 97.5 F L 64 18 141/78 H 100 09/19/18 07:00 09/19/18 07:00 09/19/18 07:00 09/19/18 07:00 09/19/18 07:00 Oxygen Delivery Method Room Air Weight: 89.7 kg Body Mass Index (BMI) 26.8 Finger Stick Blood Glucose 123 Intake and Output for Last 24 Hours 09/17/18 09/18/18 09/19/18 23:59 23:59 23:59 Intake Total 440 / 440 360 / 360 Output Total 200 / 200 325 / 325 Balance -200 / -200 115 / 115 360 / 360 Medical Necessity - Tobacco Use Smoking Status: Former smoker Tobacco Use: Cigarettes Assessment/Plan All Active Problems (Last Reviewed 08/26/18 @ 14:35 by Jazzy Sierra) Acute stroke (Acute) NSTEMI (non-ST elevated myocardial infarction) (Acute) Dyspnea (Acute) Acute blood loss anemia (Resolved) Atrial fibrillation (Resolved) Renal insufficiency (Resolved) The patient is a 77 year old M with PMH of atrial fibrillation, COPD, PUD, chronic anemia, BPH, chronic renal insufficiency, hyperlipidemia, cardiomyopathy, hypertension, and osteoarthritis. Admitted to [facility] on 09/17/2018 with debility secondary to acute ischemic stroke and Non-Stemi for greater of 3 hours of therapy daily with a goal of returning back home at or near his prior level of functional dependence. On 09/14/2018 patient presented to [facility] with right-sided weakness and dysarthria. NIH score was 5 and he was administered TPA. NIH was repeated increased to 14. His troponin increased to 2.34 and an EKG did not show acute ST changes. Was diagnosed with a non-STEMI. Brain CT done which showed chronic involutional changes of the brain. Brain MRI showed extensive periventricular microvascular ischemic senescent changes with left posterior insular ribbon small region of the cortical ischemia extending to the centrum semioval. No evidence of large territorial ischemia or acute intracranial blood product. Head CTA showed normal [place] without demonstrated aneurysm or significant stenosis. Neck CTA showed arthrosclerotic calcification of the left bulb and proximal ICA, with less than 50% stenosis. Atherosclerotic calcification of the right carotid bulb, no stenosis. Normal for vertebral arteries. 2D echo showed EF of 27% with stage II diastolic dysfunction and hypokinesia of the left ventricle. Also a moderately enlarged left atrium and mildly enlarged right atrium with negative bubble study. HgbA1c 5.5 %. LDL 51. Cardiology was consulted and advocated conservative management with no plans for invasive cardiac cath. Patient was started on aspirin, Eliquis, and Lipitor. Patient lives with spouse in a one level house, he is retired and independent with all of his ADLs, mobility and driving needs. States that his will help with most of the chores due to his COPD. Plan - PT for mobility - OT for ADLs - ST for evaluation - Analgesics as needed - Ischemic stroke post TPA on Eliquis, asa, Lipitor, lisinopril - Non-Stemi on Lasix, carvedilol, isosorbide dinitrate - HTN continue anti-hypertensives - Atrial fibrillation on Eliquis, amiodarone, Coreg - Cardiomyopathy on Coreg - PUD on Protonix - COPD on ProAir - Chronic renal insufficiency on 09/18/2018 Cr 1.69 GFR 43 - Hyperlipidemia on lipitor - Chronic anemia monitor - BPH - GI/DVT prophylaxis on protonix/eliquis, knee high elliot hose and SCDs - Bowel protocol - Fall precautions - Medical management per hospitalist- consult - F/U with PCP, neurology, pulmonary and cardiology
[2018-09-19 14:48] VITALS: BMI 26.8
[2018-09-19 19:49] VITALS: BP 140/73; PULSE 65; RESP 16; TEMP 36.6; O2SAT 95
[2018-09-19] MEDS: Atorvastatin Calcium 80 MG Tablet PO (19:56)
[2018-09-19 23:34] VITALS: BMI 26.8
[2018-09-20 08:00] VITALS: BP 131/82; PULSE 67; RESP 16; TEMP 36.7; O2SAT 96
[2018-09-20] MEDS: Furosemide 40 MG Tablet PO (08:57)
[2018-09-20] MEDS: Carvedilol 6.25 MG Tablet PO ×2 (08:57→21:44)
[2018-09-20] MEDS: Amiodarone 200 MG Tablet PO (08:57)
[2018-09-20] MEDS: Pantoprazole Sodium 40 MG Tablet PO (08:57)
[2018-09-20] MEDS: Aspirin 81 MG TAB.CHEW PO (08:57)
[2018-09-20] MEDS: Isosorbide DN 30 MG Tablet PO (08:57)
[2018-09-20] MEDS: Lisinopril 10 MG Tablet PO ×2 (08:57→21:43)
[2018-09-20] MEDS: APIXABAN 5 MG TABLET PO ×2 (08:57→21:44)
[2018-09-20] MEDS: Spironolactone 25 MG Tablet PO (08:58)
--- NOTE | 2018-09-20 09:10 | PCM.PN.NEU ---
Subjective: Per nursing no issues overnight. Per patient tolerating therapies well. Denies chest pain, chest tightness, SOB, dizziness or lightheadedness. Denies further questions or concerns. - Physical Exam General: Alert, Oriented x3, Cooperative HEENT: Atraumatic, PERRLA Oral: Moist Mucosa Neck: Supple, No JVD Lungs: Clear to auscultation, Normal air movement Cardiovascular: Regular rate, Regular Rhythm Abdomen: Bowel Sounds Present, Soft, Non Tender Extremities: No clubbing, No cyanosis, No edema Skin: No rashes, No breakdown Neurological: Cranial nerves II-XII grossly intact, Deep Tendon Reflexes 2+/4 and Symmetrical, Neuro grossly intact, Motor Exam 5/5 strength throughout - except RUE 4/5 Psych/Mental Status: Normal Affect, Appropriate, Alert and oriented to time, place, person, mood and affect Vital Signs Temp Pulse Resp BP Pulse Ox 98.0 F 67 16 131/82 H 96 09/20/18 08:00 09/20/18 08:00 09/20/18 08:00 09/20/18 08:00 09/20/18 08:00 Oxygen Delivery Method Room Air Weight: 89.7 kg Body Mass Index (BMI) 26.8 Finger Stick Blood Glucose 123 Intake and Output for Last 24 Hours 09/18/18 09/19/18 09/20/18 23:59 23:59 23:59 Intake Total 440 / 440 720 / 720 240 / 240 Output Total 325 / 325 100 / 100 Balance 115 / 115 620 / 620 240 / 240 Medical Necessity - Tobacco Use Smoking Status: Former smoker Tobacco Use: Cigarettes Assessment/Plan All Active Problems (Last Reviewed 08/26/18 @ 14:35 by Jazzy Sierra) Acute stroke (Acute) NSTEMI (non-ST elevated myocardial infarction) (Acute) Dyspnea (Acute) Acute blood loss anemia (Resolved) Atrial fibrillation (Resolved) Renal insufficiency (Resolved) The patient is a 77 year old M with PMH of atrial fibrillation, COPD, PUD, chronic anemia, BPH, chronic renal insufficiency, hyperlipidemia, cardiomyopathy, hypertension, and osteoarthritis. Admitted to [facility] on 09/17/2018 with debility secondary to acute ischemic stroke and Non-Stemi for greater of 3 hours of therapy daily with a goal of returning back home at or near his prior level of functional dependence. On 09/14/2018 patient presented to [facility] with right-sided weakness and dysarthria. NIH score was 5 and he was administered TPA. NIH was repeated increased to 14. His troponin increased to 2.34 and an EKG did not show acute ST changes. Was diagnosed with a non-STEMI. Brain CT done which showed chronic involutional changes of the brain. Brain MRI showed extensive periventricular microvascular ischemic senescent changes with left posterior insular ribbon small region of the cortical ischemia extending to the centrum semioval. No evidence of large territorial ischemia or acute intracranial blood product. Head CTA showed normal [place] without demonstrated aneurysm or significant stenosis. Neck CTA showed arthrosclerotic calcification of the left bulb and proximal ICA, with less than 50% stenosis. Atherosclerotic calcification of the right carotid bulb, no stenosis. Normal for vertebral arteries. 2D echo showed EF of 27% with stage II diastolic dysfunction and hypokinesia of the left ventricle. Also a moderately enlarged left atrium and mildly enlarged right atrium with negative bubble study. HgbA1c 5.5 %. LDL 51. Cardiology was consulted and advocated conservative management with no plans for invasive cardiac cath. Patient was started on aspirin, Eliquis, and Lipitor. Patient lives with spouse in a one level house, he is retired and independent with all of his ADLs, mobility and driving needs. States that his will help with most of the chores due to his COPD. Plan - PT for mobility - OT for ADLs - ST for evaluation - Analgesics as needed - Ischemic stroke post TPA on Eliquis, asa, Lipitor, lisinopril - Non-Stemi on Lasix, carvedilol, isosorbide dinitrate - HTN continue anti-hypertensives - Atrial fibrillation on Eliquis, amiodarone, Coreg - Cardiomyopathy on Coreg - PUD on Protonix - COPD on ProAir - Chronic renal insufficiency on 09/18/2018 Cr 1.69 GFR 43 recheck bmp 09/22/2018 - Hyperlipidemia on lipitor - Chronic anemia monitor - BPH - GI/DVT prophylaxis on protonix/eliquis, knee high elliot hose and SCDs - Bowel protocol - Fall precautions - Medical management per hospitalist- consult - F/U with PCP, neurology, pulmonary and cardiology
--- NOTE | 2018-09-20 09:15 | PN.NEURO_ITS ---
Subjective: Per nursing no issues overnight. Per patient tolerating therapies well. Denies chest pain, chest tightness, SOB, dizziness or lightheadedness. Denies further questions or concerns. - Physical Exam General: Alert, Oriented x3, Cooperative HEENT: Atraumatic, PERRLA Oral: Moist Mucosa Neck: Supple, No JVD Lungs: Clear to auscultation, Normal air movement Cardiovascular: Regular rate, Regular Rhythm Abdomen: Bowel Sounds Present, Soft, Non Tender Extremities: No clubbing, No cyanosis, No edema Skin: No rashes, No breakdown Neurological: Cranial nerves II-XII grossly intact, Deep Tendon Reflexes 2+/4 and Symmetrical, Neuro grossly intact, Motor Exam 5/5 strength throughout - exc ept RUE 4/5 Psych/Mental Status: Normal Affect, Appropriate, Alert and oriented to time, place, person, mood and affect Vital Signs Temp Pulse Resp BP Pulse Ox 98.0 F 67 16 131/82 H 96 09/20/18 08:00 09/20/18 08:00 09/20/18 08:00 09/20/18 08:00 09/20/18 08:00 Oxygen Delivery Method Room Air Weight: 89.7 kg Body Mass Index (BMI) 26.8 Finger Stick Blood Glucose 123 Intake and Output for Last 24 Hours 09/18/18 09/19/18 09/20/18 23:59 23:59 23:59 Intake Total 440 / 440 720 / 720 240 / 240 Output Total 325 / 325 100 / 100 Balance 115 / 115 620 / 620 240 / 240 Medical Necessity - Tobacco Use Smoking Status: Former smoker Tobacco Use: Cigarettes Assessment/Plan All Active Problems (Last Reviewed 08/26/18 @ 14:35 by Jazzy Sierra) Acute stroke (Acute) NSTEMI (non-ST elevated myocardial infarction) (Acute) Dyspnea (Acute) Acute blood loss anemia (Resolved) Atrial fibrillation (Resolved) Renal insufficiency (Resolved) The patient is a 77 year old M with PMH of atrial fibrillation, COPD, PUD, chronic anemia, BPH, chronic renal insufficiency, hyperlipidemia, cardiomyopathy, hypertension, and osteoarthritis. Admitted to [facility] on 09/17/2018 with debility secondary to acute ischemic stroke and Non-Stemi for greater of 3 hours of therapy daily with a goal of returning back home at or near his prior level of functional dependence. On 09/14/2018 patient presented to [facility] with right-sided weakness and dysarthria. NIH score was 5 and he was administered TPA. NIH was repeated increased to 14. His troponin increased to 2.34 and an EKG did not show acute ST changes. Was diagnosed with a non-STEMI. Brain CT done which showed chronic involutional changes of the brain. Brain MRI showed extensive periventricular microvascular ischemic senescent changes with left posterior insular ribbon small region of the cortical ischemia extending to the centrum semioval. No evidence of large territorial ischemia or acute intracranial blood product. Head CTA showed normal [place] of [place] without demonstrated aneurysm or significant stenosis. Neck CTA showed arthrosclerotic calcification of the left bulb and proximal ICA, with less than 50% stenosis. Atherosclerotic calcification of the right carotid bulb, no stenosis. Normal for vertebral arteries. 2D echo showed EF of 27% with stage II diastolic dysfunction and hypokinesia of the left ventricle. Also a moderately enlarged left atrium and mildly enlarged right atrium with negative bubble study. HgbA1c 5.5 %. LDL 51. Cardiology was consulted and advocated conservative management with no plans for invasive cardiac cath. Patient was started on aspirin, Eliquis, and Lipitor. Patient lives with spouse in a one level house, he is retired and independent with all of his ADLs, mobility and driving needs. States that his will help with most of the chores due to his COPD. Plan - PT for mobility - OT for ADLs - ST for evaluation - Analgesics as needed - Ischemic stroke post TPA on Eliquis, asa, Lipitor, lisinopril - Non-Stemi on Lasix, carvedilol, isosorbide dinitrate - HTN continue anti-hypertensives - Atrial fibrillation on Eliquis, amiodarone, Coreg - Cardiomyopathy on Coreg - PUD on Protonix - COPD on ProAir - Chronic renal insufficiency on 09/18/2018 Cr 1.69 GFR 43 recheck bmp 09/22/2018 - Hyperlipidemia on lipitor - Chronic anemia monitor - BPH - GI/DVT prophylaxis on protonix/eliquis, knee high elliot hose and SCDs - Bowel protocol - Fall precautions - Medical management per hospitalist- consult - F/U with PCP, neurology, pulmonary and cardiology
[2018-09-20 11:36] VITALS: BMI 26.8
--- NOTE | 2018-09-20 17:21 | PCM.PN.HOSP ---
Subjective: Patient was admitted for rehab on 09/18 2018 from [facility], acute care hospital after ischemic stroke and non-STEMI. Patient had TPA in ER and was further admitted in ICU. Patient had troponins diagnosed non-STEMI. Echo reported as EF 27% with stage II diastolic dysfunction and hypokinesis of left ventricle. After TPA, audit associate felt not the appropriate time for invasive procedure/cardiac cath therefore currently on medical management. Vitals/I&O's: Vital Signs Temp Pulse Resp BP Pulse Ox 98.0 F 67 16 131/82 H 96 09/20/18 08:00 09/20/18 08:00 09/20/18 08:00 09/20/18 08:00 09/20/18 08:00 Oxygen Delivery Method Room Air Weight: 197 lb 12.074 oz Body Mass Index (BMI) 26.8 Finger Stick Blood Glucose 123 Intake and Output for Last 24 Hours 09/18/18 09/19/18 09/20/18 23:59 23:59 23:59 Intake Total 440 / 440 720 / 720 360 / 360 Output Total 325 / 325 100 / 100 Balance 115 / 115 620 / 620 360 / 360 General: Alert, Oriented x3, Cooperative HEENT: Atraumatic, PERRLA, EOMI, Normocephalic Neck: Supple, No JVD, Negative Carotid Bruits Lungs: Clear to auscultation, Normal air movement Cardiovascular: Regular rate, Regular Rhythm, Normal S1, Normal S2, No murmurs Abdomen: Bowel Sounds Present, Soft, Non Tender, Non-Distended Extremities: No edema, Capillary Refill Less than 3 Seconds Skin: No rashes, No breakdown Musculoskeletal: No Tenderness to Palpation of Joints or Extremities, Arthritic Changes Neurological: Cranial nerves II-XII grossly intact, Deep Tendon Reflexes 2+/4 and Symmetrical, Neuro grossly intact, - - Right-sided facial droop. Mild right upper extremity weakness but patient can hold right upper extremity for full 10 seconds. Right lower extremity 5/5 at major joints. Patient language deficit has much improved and has comprehensive speech. Denies dysphagia Psych/Mental Status: Normal Affect, Appropriate Current Medications Acetaminophen (Tylenol) 650 mg PO Q6H PRN PRN PRN Reason: Mild Pain (0-3/10)/Headache Albuterol Sulfate (Ventolin Aerosols) 2.5 mg INHALATION Q4H PRN PRN PRN Reason: WHEEZING Last Admin: 09/18/18 22:23 Dose: 2.5 mg Albuterol Sulfate (Ventolin Hfa (Sp)) 1 puff INHALATION BID [facility] Last Admin: 09/20/18 08:59 Dose: 1 puff Amiodarone HCl (Cordarone) 200 mg PO DAILY [facility] Last Admin: 09/20/18 08:57 Dose: 200 mg Apixaban (Eliquis) 5 mg PO BID [facility] Last Admin: 09/20/18 08:57 Dose: 5 mg Aspirin (Aspirin, Baby) 81 mg PO DAILY@0800 [facility] Last Admin: 09/20/18 08:57 Dose: 81 mg Atorvastatin Calcium (Lipitor) 80 mg PO QHS [facility] Last Admin: 09/19/18 19:56 Dose: 80 mg Bisacodyl (Dulcolax) 10 mg RECTAL .PRN X 1 PRN PRN Reason: Constipation Carvedilol (Coreg) 6.25 mg PO BID [facility] Last Admin: 09/20/18 08:57 Dose: 6.25 mg Furosemide (Lasix) 40 mg PO DAILY [facility] Last Admin: 09/20/18 08:57 Dose: 40 mg Isosorbide Dinitrate (Isordil) 30 mg PO DAILY [facility] Last Admin: 09/20/18 08:57 Dose: 30 mg Lisinopril (Zestril) 10 mg PO BID [facility] Last Admin: 09/20/18 08:57 Dose: 10 mg Magnesium Hydroxide (Milk Of Magnesia) 30 ml PO .PRN X 1 PRN PRN Reason: Constipation Pantoprazole Sodium (Protonix) 40 mg PO DAILY [facility] Last Admin: 09/20/18 08:57 Dose: 40 mg [facility] Last Admin: 09/20/18 08:57 Dose: 10 meq Spironolactone (Aldactone) 25 mg PO DAILY [facility] Last Admin: 09/20/18 08:58 Dose: 25 mg Medical Necessity - Tobacco Use Smoking Status: Former smoker Tobacco Use: Cigarettes Assessment/Plan All Active Problems (Last Reviewed 08/26/18 @ 14:35 by Jazzy Sierra) Acute stroke (Acute) NSTEMI (non-ST elevated myocardial infarction) (Acute) Dyspnea (Acute) Acute blood loss anemia (Resolved) Atrial fibrillation (Resolved) Renal insufficiency (Resolved) There is a 77-year-old gentleman admitted with acute ischemic stroke, left posterior insular cortical ischemia. Patient also had non-STEMI. 1. Acute ischemic stroke left posterior insular cortical ischemia; status post TPA power in RUE and RLE have improved significantly, and speech is back to near normal On aspirin, Eliquis and high intensity statin. PT OT on board. Patient is being admitted in acute rehab under neurology service. 2. History of non-STEMI and chronic heart failure: Ischemic in type: Conservative management per cardiology in view of TPA. On aspirin, statin and metoprolol. Also on Imdur. On medical management. Patient is not short of breath. EF 27% on recent echo on 09/14 2018. Moderately severe segmental systolic dysfunction with a stage II diastolic dysfunction. Left atrium moderately enlarged. 3. History of A. fib: Rate and rhythm controlled. On amiodarone and metoprolol. On Eliquis. 4. Hypertension: Controlled. On lisinopril and carvedilol. 5. History of peptic ulcer disease: On pantoprazole. 6. COPD: Breathing treatments. 7. Chronic iron deficiency anemia: On iron supplementation 8. BPH: Stable DVT prophylaxis: On Eliquis Code Visit Inpatient E&M: 27163 Subs Hosp L2
--- NOTE | 2018-09-20 17:24 | PN_ITS ---
Subjective: Patient was admitted for rehab on 09/18 2018 from [facility], acute care hospital after ischemic stroke and non-STEMI. Patient had TPA in ER and was further admitted in ICU. Patient had troponins diagnosed non-STEMI. Echo reported as EF 27% with stage II diastolic dysfunction and hypokinesis of left ventricle. After TPA, aviation safety technician felt not the appropriate time for invasive procedure/cardiac cath therefore currently on medical management. Vitals/I&O's: Vital Signs Temp Pulse Resp BP Pulse Ox 98.0 F 67 16 131/82 H 96 09/20/18 08:00 09/20/18 08:00 09/20/18 08:00 09/20/18 08:00 09/20/18 08:00 Oxygen Delivery Method Room Air Weight: 197 lb 12.074 oz Body Mass Index (BMI) 26.8 Finger Stick Blood Glucose 123 Intake and Output for Last 24 Hours 09/18/18 09/19/18 09/20/18 23:59 23:59 23:59 Intake Total 440 / 440 720 / 720 360 / 360 Output Total 325 / 325 100 / 100 Balance 115 / 115 620 / 620 360 / 360 General: Alert, Oriented x3, Cooperative HEENT: Atraumatic, PERRLA, EOMI, Normocephalic Neck: Supple, No JVD, Negative Carotid Bruits Lungs: Clear to auscultation, Normal air movement Cardiovascular: Regular rate, Regular Rhythm, Normal S1, Normal S2, No murmurs Abdomen: Bowel Sounds Present, Soft, Non Tender, Non-Distended Extremities: No edema, Capillary Refill Less than 3 Seconds Skin: No rashes, No breakdown Musculoskeletal: No Tenderness to Palpation of Joints or Extremities, Arthritic Changes Neurological: Cranial nerves II-XII grossly intact, Deep Tendon Reflexes 2+/4 and Symmetrical, Neuro grossly intact, - - Right-sided facial droop. Mild right upper extremity weakness but patient can hold right upper extremity for full 10 seconds. Right lower extremity 5/5 at major joints. Patient language deficit has much improved and has comprehensive speech. Denies dysphagia Psych/Mental Status: Normal Affect, Appropriate Current Medications Acetaminophen (Tylenol) 650 mg PO Q6H PRN PRN PRN Reason: Mild Pain (0-3/10)/Headache Albuterol Sulfate (Ventolin Aerosols) 2.5 mg INHALATION Q4H PRN PRN PRN Reason: WHEEZING Last Admin: 09/18/18 22:23 Dose: 2.5 mg Albuterol Sulfate (Ventolin Hfa (Sp)) 1 puff INHALATION BID [facility] Last Admin: 09/20/18 08:59 Dose: 1 puff Amiodarone HCl (Cordarone) 200 mg PO DAILY [facility] Last Admin: 09/20/18 08:57 Dose: 200 mg Apixaban (Eliquis) 5 mg PO BID [facility] Last Admin: 09/20/18 08:57 Dose: 5 mg Aspirin (Aspirin, Baby) 81 mg PO DAILY@0800 [facility] Last Admin: 09/20/18 08:57 Dose: 81 mg Atorvastatin Calcium (Lipitor) 80 mg PO QHS [facility] Last Admin: 09/19/18 19:56 Dose: 80 mg Bisacodyl (Dulcolax) 10 mg RECTAL .PRN X 1 PRN PRN Reason: Constipation Carvedilol (Coreg) 6.25 mg PO BID [facility] Last Admin: 09/20/18 08:57 Dose: 6.25 mg Furosemide (Lasix) 40 mg PO DAILY [facility] Last Admin: 09/20/18 08:57 Dose: 40 mg Isosorbide Dinitrate (Isordil) 30 mg PO DAILY [facility] Last Admin: 09/20/18 08:57 Dose: 30 mg Lisinopril (Zestril) 10 mg PO BID [facility] Last Admin: 09/20/18 08:57 Dose: 10 mg Magnesium Hydroxide (Milk Of Magnesia) 30 ml PO .PRN X 1 PRN PRN Reason: Constipation Pantoprazole Sodium (Protonix) 40 mg PO DAILY [facility] Last Admin: 09/20/18 08:57 Dose: 40 mg Potassium Chloride ([facility]Dur) [facility] Last Admin: 09/20/18 08:57 Dose: 10 meq Spironolactone (Aldactone) 25 mg PO DAILY [facility] Last Admin: 09/20/18 08:58 Dose: 25 mg Medical Necessity - Tobacco Use Smoking Status: Former smoker Tobacco Use: Cigarettes Assessment/Plan All Active Problems (Last Reviewed 08/26/18 @ 14:35 by Jazzy Sierra) Acute stroke (Acute) NSTEMI (non-ST elevated myocardial infarction) (Acute) Dyspnea (Acute) Acute blood loss anemia (Resolved) Atrial fibrillation (Resolved) Renal insufficiency (Resolved) There is a 77-year-old gentleman admitted with acute ischemic stroke, left posterior insular cortical ischemia. Patient also had non-STEMI. 1. Acute ischemic stroke left posterior insular cortical ischemia; status post TPA * power in RUE and RLE have improved significantly, and speech is back to near normal * On aspirin, Eliquis and high intensity statin. * PT OT on board. * Patient is being admitted in acute rehab under neurology service. 2. History of non-STEMI and chronic heart failure: Ischemic in type: Conservative management per cardiology in view of TPA. On aspirin, statin and metoprolol. Also on Imdur. On medical management. Patient is not short of breath. EF 27% on recent echo on 09/14 2018. Moderately severe segmental systolic dysfunction with a stage II diastolic dysfunction. Left atrium moderately enlarged. 3. History of A. fib: Rate and rhythm controlled. On amiodarone and metoprolol. On Eliquis. 4. Hypertension: Controlled. On lisinopril and carvedilol. 5. History of peptic ulcer disease: On pantoprazole. 6. COPD: Breathing treatments. 7. Chronic iron deficiency anemia: On iron supplementation 8. BPH: Stable DVT prophylaxis: On Eliquis Code Visit Inpatient E&M: 13044 Subs Hosp L2
[2018-09-20 21:37] VITALS: BP 137/76; PULSE 57; RESP 16; TEMP 36.8; O2SAT 93
[2018-09-20] MEDS: Atorvastatin Calcium 80 MG Tablet PO (21:44)
[2018-09-21 01:30] VITALS: PULSE 59; RESP 16
[2018-09-21] MEDS: Albuterol 2.5 MG/3 ML VIAL.NEB. INHALATION (01:30)
[2018-09-21 01:35] VITALS: PULSE 58; RESP 16; O2SAT 93
--- NOTE | 2018-09-21 01:40 | NURSING ---
PT AWAKE.INTERMITTENT MOIST, UNPRODUCTIVE COUGH. LUNG SOUNDS ARE CLEAR THROUGHOUT. TALKS EASILY. PT STATES HE TAKES AN AEROSOL [place] AT HOME WHEN HE FEELS LIKE THIS. RESP THERAPY NOTIFIED.
--- NOTE | 2018-09-21 01:56 | NURSING ---
RESP THERAPIST HERE TO PROVIDE PT AEROSOL [place].
--- NOTE | 2018-09-21 02:21 | NURSING ---
PT RESTING QUIETLY IN BED. REPORTS THAT HIS BREATHING FEELS BETTER NOW. NO LONGER COUGHING. RESP APPEAR EVEN AND EASY.
[2018-09-21 09:06] VITALS: BP 130/78; PULSE 56; RESP 20; TEMP 36.9; O2SAT 94
[2018-09-21] MEDS: Amiodarone 200 MG Tablet PO (10:19)
[2018-09-21] MEDS: Spironolactone 25 MG Tablet PO (10:19)
[2018-09-21] MEDS: Aspirin 81 MG TAB.CHEW PO (10:19)
[2018-09-21] MEDS: Pantoprazole Sodium 40 MG Tablet PO (10:20)
[2018-09-21] MEDS: Lisinopril 10 MG Tablet PO ×2 (10:20→22:04)
[2018-09-21] MEDS: APIXABAN 5 MG TABLET PO ×2 (10:20→20:20)
[2018-09-21] MEDS: Carvedilol 6.25 MG Tablet PO ×2 (10:20→20:19)
[2018-09-21] MEDS: Isosorbide DN 30 MG Tablet PO (10:20)
[2018-09-21] MEDS: Furosemide 40 MG Tablet PO (10:20)
[2018-09-21 10:33] VITALS: BMI 26.8
[2018-09-21 19:04] VITALS: BP 150/75; PULSE 64; RESP 18; TEMP 36.4; O2SAT 95
[2018-09-21 20:14] VITALS: BMI 26.8
[2018-09-21] MEDS: Atorvastatin Calcium 80 MG Tablet PO (20:19)
[2018-09-21 22:00] VITALS: PULSE 64; O2SAT 95
[2018-09-22 05:20] VITALS: PULSE 54; RESP 18
[2018-09-22] MEDS: Albuterol 2.5 MG/3 ML VIAL.NEB. INHALATION (05:20)
[2018-09-22 07:04] VITALS: BP 133/77; PULSE 53; RESP 19; TEMP 36.6; O2SAT 94
[2018-09-22] MEDS: Aspirin 81 MG TAB.CHEW PO (08:10)
[2018-09-22] MEDS: Pantoprazole Sodium 40 MG Tablet PO (08:11)
[2018-09-22] MEDS: Isosorbide DN 30 MG Tablet PO (08:11)
[2018-09-22] MEDS: Carvedilol 6.25 MG Tablet PO ×2 (08:11→21:29)
[2018-09-22] MEDS: Furosemide 40 MG Tablet PO (08:11)
[2018-09-22] MEDS: Lisinopril 10 MG Tablet PO (08:11)
[2018-09-22] MEDS: Amiodarone 200 MG Tablet PO (08:11)
[2018-09-22] MEDS: APIXABAN 5 MG TABLET PO ×2 (08:11→21:29)
[2018-09-22] MEDS: Spironolactone 25 MG Tablet PO (08:11)
[2018-09-22 08:25] VITALS: BMI 26.8
[2018-09-22 08:32] LABS: Anion Gap 9 (5-15); BUN 36 mg/dL (7-18); BUN/Creat Ratio 17.9 RATIO (10-20); Calcium,Total 8.6 mg/dL (8.5-10.1); Chloride 105 mmol/L (98-107); Creatinine, Serum 2.01 mg/dL (0.70-1.30); EST Glomerular Filtration Rate 34 mL/min (>60); Est Glom Filt Rate - Afr Amer 42 mL/min (>60); Estimated Creatinine Clearance 34.32 ml/min; Glucose 98 mg/dL (74-106); Potassium 4.3 mmol/L (3.5-5.1); Sodium Level 140 mmol/L (136-145)
--- NOTE | 2018-09-22 15:43 | PCM.PN.HOSP ---
Subjective: Patient denies any new complaint. Doing good with physical therapy. No chest pain, dizziness. Speech is almost normal. Right upper extremity weakness is much improved. Labs discussed with the patient and his near the bedside. Creatinine went up from 1.65-2.0. Discussed about the change in medications and repeat labs tomorrow. Vitals/I&O's: Vital Signs Temp Pulse Resp BP Pulse Ox 97.8 F 53 L 19 H 133/77 H 94 09/22/18 07:04 09/22/18 07:04 09/22/18 07:04 09/22/18 07:04 09/22/18 07:04 Oxygen Flow Rate (L/min) 3 Oxygen Delivery Method Room Air Weight: 197 lb 12.074 oz Body Mass Index (BMI) 26.8 Finger Stick Blood Glucose 123 Intake and Output for Last 24 Hours 09/20/18 09/21/18 09/22/18 23:59 23:59 23:59 Intake Total 520 / 520 240 / 240 Balance 520 / 520 240 / 240 General: Alert, Oriented x3, Cooperative HEENT: Atraumatic, PERRLA, EOMI, Normocephalic Neck: Supple, No JVD, Negative Carotid Bruits Lungs: Clear to auscultation, Normal air movement, No rhonchi, No wheeze, No rales Cardiovascular: Regular rate, Normal S1, Normal S2, No murmurs, Irregular Rate Abdomen: Bowel Sounds Present, Soft, Non Tender, Non-Distended Extremities: No edema, Capillary Refill Less than 3 Seconds Skin: No rashes, No breakdown Musculoskeletal: No Tenderness to Palpation of Joints or Extremities, Arthritic Changes Lymphatic: No Cervical, Supraclavicular, or Inguinal Adenopathy Neurological: - - Right-sided facial droop. Mild right upper extremity weakness, 4+/5 but patient can hold right upper extremity for full 10 seconds. Right lower extremity 5/5 at major joints. Patient language deficit has much improved and has comprehensive speech. Denies dysphagia Psych/Mental Status: Normal Affect, Appropriate Laboratory Results 09/22/18 06:55: Sodium 140, Potassium 4.3, Chloride 105, Carbon Dioxide 26.0, Anion Gap 9, BUN 36 H, Creatinine 2.01 H, Estim Creat Clear Calc 34.32, Est GFR (MDRD) Af Amer 42 L, Est GFR (MDRD) Non-Af 34 L, BUN/Creatinine Ratio 17.9, Glucose 98, Calcium 8.6 Current Medications Acetaminophen (Tylenol) 650 mg PO Q6H PRN PRN PRN Reason: Mild Pain (0-3/10)/Headache Albuterol Sulfate (Ventolin Aerosols) 2.5 mg INHALATION Q4H PRN PRN PRN Reason: WHEEZING Last Admin: 09/22/18 05:20 Dose: 2.5 mg Albuterol Sulfate (Ventolin Hfa (Sp)) 1 puff INHALATION BID [facility] Last Admin: 09/22/18 08:11 Dose: 1 puff Amiodarone HCl (Cordarone) 200 mg PO DAILY [facility] Last Admin: 09/22/18 08:11 Dose: 200 mg Apixaban (Eliquis) 5 mg PO BID [facility] Last Admin: 09/22/18 08:11 Dose: 5 mg Aspirin (Aspirin, Baby) 81 mg PO DAILY@0800 [facility] Last Admin: 09/22/18 08:10 Dose: 81 mg Atorvastatin Calcium (Lipitor) 80 mg PO QHS [facility] Last Admin: 09/21/18 20:19 Dose: 80 mg Bisacodyl (Dulcolax) 10 mg RECTAL .PRN X 1 PRN PRN Reason: Constipation Carvedilol (Coreg) 6.25 mg PO BID [facility] Last Admin: 09/22/18 08:11 Dose: 6.25 mg Isosorbide Dinitrate (Isordil) 30 mg PO DAILY [facility] Last Admin: 09/22/18 08:11 Dose: 30 mg Lisinopril (Zestril) 10 mg PO DAILY [facility] Magnesium Hydroxide (Milk Of Magnesia) 30 ml PO .PRN X 1 PRN PRN Reason: Constipation Pantoprazole Sodium (Protonix) 40 mg PO DAILY [facility] Last Admin: 09/22/18 08:11 Dose: 40 mg Spironolactone (Aldactone) 25 mg PO DAILY [facility] Last Admin: 09/22/18 08:11 Dose: 25 mg Medical Necessity - Tobacco Use Smoking Status: Former smoker Tobacco Use: Cigarettes Assessment/Plan All Active Problems (Last Reviewed 08/26/18 @ 14:35 by Jazzy Sierra) Acute stroke (Acute) NSTEMI (non-ST elevated myocardial infarction) (Acute) Dyspnea (Acute) Acute blood loss anemia (Resolved) Atrial fibrillation (Resolved) Renal insufficiency (Resolved) There is a 77-year-old gentleman admitted with acute ischemic stroke, left posterior insular cortical ischemia. Patient also had non-STEMI. 1. Acute ischemic stroke left posterior insular cortical ischemia; status post TPA power in RUE and RLE have improved significantly, and speech is back to near normal On aspirin, Eliquis and high intensity statin. PT OT on board. Patient is being admitted in acute rehab under neurology service. 2. History of non-STEMI and chronic heart failure: Ischemic in type: Conservative management per cardiology in view of TPA. On aspirin, statin and metoprolol. Also on Imdur. On medical management. Patient is not short of breath. EF 27% on recent echo on 09/14 2018. Moderately severe segmental systolic dysfunction with a stage II diastolic dysfunction. Left atrium moderately enlarged. 3. CKD stage III: Patient creatinine went up from 1.65-2.01. K4.3. Lasix held. Lisinopril changed from 10 mg twice daily to once daily. Discontinue supplemental KCl. Patient on spironolactone. Monitor BMP tomorrow morning. 4 History of A. fib: Rate and rhythm controlled. On amiodarone and metoprolol. On Eliquis. 4. Hypertension: Controlled. On lisinopril and carvedilol. 5. History of peptic ulcer disease: On pantoprazole. 6. COPD: Breathing treatments. 7. Chronic iron deficiency anemia: On iron supplementation 8. BPH: Stable DVT prophylaxis: On Eliquis Active Medications Acetaminophen (Tylenol) 650 mg PO Q6H PRN PRN PRN Reason: Mild Pain (0-3/10)/Headache Albuterol Sulfate (Ventolin Aerosols) 2.5 mg INHALATION Q4H PRN PRN PRN Reason: WHEEZING Last Admin: 09/22/18 05:20 Dose: 2.5 mg Albuterol Sulfate (Ventolin Hfa (Sp)) 1 puff INHALATION BID [facility] Last Admin: 09/22/18 08:11 Dose: 1 puff Amiodarone HCl (Cordarone) 200 mg PO DAILY [facility] Last Admin: 09/22/18 08:11 Dose: 200 mg Apixaban (Eliquis) 5 mg PO BID [facility] Last Admin: 09/22/18 08:11 Dose: 5 mg Aspirin (Aspirin, Baby) 81 mg PO DAILY@0800 [facility] Last Admin: 09/22/18 08:10 Dose: 81 mg Atorvastatin Calcium (Lipitor) 80 mg PO QHS [facility] Last Admin: 09/21/18 20:19 Dose: 80 mg Bisacodyl (Dulcolax) 10 mg RECTAL .PRN X 1 PRN PRN Reason: Constipation Carvedilol (Coreg) 6.25 mg PO BID [facility] Last Admin: 09/22/18 08:11 Dose: 6.25 mg Isosorbide Dinitrate (Isordil) 30 mg PO DAILY [facility] Last Admin: 09/22/18 08:11 Dose: 30 mg Lisinopril (Zestril) 10 mg PO DAILY [facility] Magnesium Hydroxide (Milk Of Magnesia) 30 ml PO .PRN X 1 PRN PRN Reason: Constipation Pantoprazole Sodium (Protonix) 40 mg PO DAILY [facility] Last Admin: 09/22/18 08:11 Dose: 40 mg Spironolactone (Aldactone) 25 mg PO DAILY [facility] Last Admin: 09/22/18 08:11 Dose: 25 mg Laboratory Results 09/22/18 06:55: Sodium 140, Potassium 4.3, Chloride 105, Carbon Dioxide 26.0, Anion Gap 9, BUN 36 H, Creatinine 2.01 H, Estim Creat Clear Calc 34.32, Est GFR (MDRD) Af Amer 42 L, Est GFR (MDRD) Non-Af 34 L, BUN/Creatinine Ratio 17.9, Glucose 98, Calcium 8.6 Code Visit Inpatient E&M: 66900 Subs Hosp L2
--- NOTE | 2018-09-22 15:48 | PN_ITS ---
Subjective: Patient denies any new complaint. Doing good with physical therapy. No chest pain, dizziness. Speech is almost normal. Right upper extremity weakness is much improved. Labs discussed with the patient and his near the bedside. Creatinine went up from 1.65-2.0. Discussed about the change in medications and repeat labs tomorrow. Vitals/I&O's: Vital Signs Temp Pulse Resp BP Pulse Ox 97.8 F 53 L 19 H 133/77 H 94 09/22/18 07:04 09/22/18 07:04 09/22/18 07:04 09/22/18 07:04 09/22/18 07:04 Oxygen Flow Rate (L/min) 3 Oxygen Delivery Method Room Air Weight: 197 lb 12.074 oz Body Mass Index (BMI) 26.8 Finger Stick Blood Glucose 123 Intake and Output for Last 24 Hours 09/20/18 09/21/18 09/22/18 23:59 23:59 23:59 Intake Total 520 / 520 240 / 240 Balance 520 / 520 240 / 240 General: Alert, Oriented x3, Cooperative HEENT: Atraumatic, PERRLA, EOMI, Normocephalic Neck: Supple, No JVD, Negative Carotid Bruits Lungs: Clear to auscultation, Normal air movement, No rhonchi, No wheeze, No rales Cardiovascular: Regular rate, Normal S1, Normal S2, No murmurs, Irregular Rate Abdomen: Bowel Sounds Present, Soft, Non Tender, Non-Distended Extremities: No edema, Capillary Refill Less than 3 Seconds Skin: No rashes, No breakdown Musculoskeletal: No Tenderness to Palpation of Joints or Extremities, Arthritic Changes Lymphatic: No Cervical, Supraclavicular, or Inguinal Adenopathy Neurological: - - Right-sided facial droop. Mild right upper extremity weakness, 4+/5 but patient can hold right upper extremity for full 10 seconds. Right lower extremity 5/5 at major joints. Patient language deficit has much improved and has comprehensive speech. Denies dysphagia Psych/Mental Status: Normal Affect, Appropriate Laboratory Results 09/22/18 06:55: Sodium 140, Potassium 4.3, Chloride 105, Carbon Dioxide 26.0, Anion Gap 9, BUN 36 H, Creatinine 2.01 H, Estim Creat Clear Calc 34.32, Est GFR (MDRD) Af Amer 42 L, Est GFR (MDRD) Non-Af 34 L, BUN/Creatinine Ratio 17.9, Glucose 98, Calcium 8.6 Current Medications Acetaminophen (Tylenol) 650 mg PO Q6H PRN PRN PRN Reason: Mild Pain (0-3/10)/Headache Albuterol Sulfate (Ventolin Aerosols) 2.5 mg INHALATION Q4H PRN PRN PRN Reason: WHEEZING Last Admin: 09/22/18 05:20 Dose: 2.5 mg Albuterol Sulfate (Ventolin Hfa (Sp)) 1 puff INHALATION BID [facility] Last Admin: 09/22/18 08:11 Dose: 1 puff Amiodarone HCl (Cordarone) 200 mg PO DAILY [facility] Last Admin: 09/22/18 08:11 Dose: 200 mg Apixaban (Eliquis) 5 mg PO BID [facility] Last Admin: 09/22/18 08:11 Dose: 5 mg Aspirin (Aspirin, Baby) 81 mg PO DAILY@0800 [facility] Last Admin: 09/22/18 08:10 Dose: 81 mg Atorvastatin Calcium (Lipitor) 80 mg PO QHS [facility] Last Admin: 09/21/18 20:19 Dose: 80 mg Bisacodyl (Dulcolax) 10 mg RECTAL .PRN X 1 PRN PRN Reason: Constipation Carvedilol (Coreg) 6.25 mg PO BID [facility] Last Admin: 09/22/18 08:11 Dose: 6.25 mg Isosorbide Dinitrate (Isordil) 30 mg PO DAILY [facility] Last Admin: 09/22/18 08:11 Dose: 30 mg Lisinopril (Zestril) 10 mg PO DAILY [facility] Magnesium Hydroxide (Milk Of Magnesia) 30 ml PO .PRN X 1 PRN PRN Reason: Constipation Pantoprazole Sodium (Protonix) 40 mg PO DAILY [facility] Last Admin: 09/22/18 08:11 Dose: 40 mg Spironolactone (Aldactone) 25 mg PO DAILY [facility] Last Admin: 09/22/18 08:11 Dose: 25 mg Medical Necessity - Tobacco Use Smoking Status: Former smoker Tobacco Use: Cigarettes Assessment/Plan All Active Problems (Last Reviewed 08/26/18 @ 14:35 by Jazzy Sierra) Acute stroke (Acute) NSTEMI (non-ST elevated myocardial infarction) (Acute) Dyspnea (Acute) Acute blood loss anemia (Resolved) Atrial fibrillation (Resolved) Renal insufficiency (Resolved) There is a 77-year-old gentleman admitted with acute ischemic stroke, left posterior insular cortical ischemia. Patient also had non-STEMI. 1. Acute ischemic stroke left posterior insular cortical ischemia; status post TPA * power in RUE and RLE have improved significantly, and speech is back to near normal * On aspirin, Eliquis and high intensity statin. * PT OT on board. * Patient is being admitted in acute rehab under neurology service. 2. History of non-STEMI and chronic heart failure: Ischemic in type: Conservative management per cardiology in view of TPA. On aspirin, statin and metoprolol. Also on Imdur. On medical management. Patient is not short of breath. EF 27% on recent echo on 09/14 2018. Moderately severe segmental systolic dysfunction with a stage II diastolic dysfunction. Left atrium mod erately enlarged. 3. CKD stage III: Patient creatinine went up from 1.65-2.01. K4.3. Lasix held. Lisinopril changed from 10 mg twice daily to once daily. Discontinue supplemental KCl. Patient on spironolactone. Monitor BMP tomorrow morning. 4 History of A. fib: Rate and rhythm controlled. On amiodarone and metoprolol. On Eliquis. 4. Hypertension: Controlled. On lisinopril and carvedilol. 5. History of peptic ulcer disease: On pantoprazole. 6. COPD: Breathing treatments. 7. Chronic iron deficiency anemia: On iron supplementation 8. BPH: Stable DVT prophylaxis: On Eliquis Active Medications Acetaminophen (Tylenol) 650 mg PO Q6H PRN PRN PRN Reason: Mild Pain (0-3/10)/Headache Albuterol Sulfate (Ventolin Aerosols) 2.5 mg INHALATION Q4H PRN PRN PRN Reason: WHEEZING Last Admin: 09/22/18 05:20 Dose: 2.5 mg Albuterol Sulfate (Ventolin Hfa (Sp)) 1 puff INHALATION BID [facility] Last Admin: 09/22/18 08:11 Dose: 1 puff Amiodarone HCl (Cordarone) 200 mg PO DAILY [facility] Last Admin: 09/22/18 08:11 Dose: 200 mg Apixaban (Eliquis) 5 mg PO BID [facility] Last Admin: 09/22/18 08:11 Dose: 5 mg Aspirin (Aspirin, Baby) 81 mg PO DAILY@0800 [facility] Last Admin: 09/22/18 08:10 Dose: 81 mg Atorvastatin Calcium (Lipitor) 80 mg PO QHS [facility] Last Admin: 09/21/18 20:19 Dose: 80 mg Bisacodyl (Dulcolax) 10 mg RECTAL .PRN X 1 PRN PRN Reason: Constipation Carvedilol (Coreg) 6.25 mg PO BID [facility] Last Admin: 09/22/18 08:11 Dose: 6.25 mg Isosorbide Dinitrate (Isordil) 30 mg PO DAILY [facility] Last Admin: 09/22/18 08:11 Dose: 30 mg Lisinopril (Zestril) 10 mg PO DAILY [facility] Magnesium Hydroxide (Milk Of Magnesia) 30 ml PO .PRN X 1 PRN PRN Reason: Constipation Pantoprazole Sodium (Protonix) 40 mg PO DAILY [facility] Last Admin: 09/22/18 08:11 Dose: 40 mg Spironolactone (Aldactone) 25 mg PO DAILY [facility] Last Admin: 09/22/18 08:11 Dose: 25 mg Laboratory Results 09/22/18 06:55: Sodium 140, Potassium 4.3, Chloride 105, Carbon Dioxide 26.0, Anion Gap 9, BUN 36 H, Creatinine 2.01 H, Estim Creat Clear Calc 34.32, Est GFR (MDRD) Af Amer 42 L, Est GFR (MDRD) Non-Af 34 L, BUN/Creatinine Ratio 17.9, Glucose 98, Calcium 8.6 Code Visit Inpatient E&M: 16593 Subs Hosp L2
[2018-09-22 18:45] VITALS: BP 126/69; PULSE 64; RESP 16; TEMP 36.5; O2SAT 95
[2018-09-22 19:40] VITALS: O2SAT 95
[2018-09-22 19:47] VITALS: BMI 26.8
[2018-09-22] MEDS: Atorvastatin Calcium 80 MG Tablet PO (21:29)
--- NOTE | 2018-09-23 00:25 | NURSING ---
Pt expressed remarks about all the meds prescribed for pt. Pt stated he didn't have much lois in doctors as they just read something in a book and then prescribe it for him. Pt stated that he needs to get home to take care of his cats and spouse. Pt also stated that he hopes that his Team meeting will determine that he is ready to go home.
[2018-09-23 06:10] LABS: Anion Gap 7 (5-15); BUN 38 mg/dL (7-18); BUN/Creat Ratio 19.7 RATIO (10-20); Calcium,Total 8.7 mg/dL (8.5-10.1); Chloride 106 mmol/L (98-107); Creatinine, Serum 1.93 mg/dL (0.70-1.30); EST Glomerular Filtration Rate 36 mL/min (>60); Est Glom Filt Rate - Afr Amer 44 mL/min (>60); Estimated Creatinine Clearance 35.74 ml/min; Glucose 96 mg/dL (74-106); Potassium 4.3 mmol/L (3.5-5.1); Sodium Level 140 mmol/L (136-145)
[2018-09-23 06:50] VITALS: BP 128/58; PULSE 56; RESP 16; TEMP 36.6; O2SAT 92
--- NOTE | 2018-09-23 06:52 | PCA ---
Upon waking pt for the morning I found that the pt had voided in bed to the point of soaking through his atends pants and bed pad. pt had been checked on multiable times during the night and offered to go the restroom or offered the urinal. Each time pt declined and stated he would call if needed. When asked the pt if he was aware that he had voided he snapped back that if i had in issues with it to get someone else. I told the pt that it wasnt an issue for me i just wanted to make sure he was well taken care of. Pt then agreed to take a shower. I reported my finding to the nurse.
[2018-09-23] MEDS: APIXABAN 5 MG TABLET PO ×2 (08:38→21:21)
[2018-09-23] MEDS: Aspirin 81 MG TAB.CHEW PO (08:38)
[2018-09-23] MEDS: Amiodarone 200 MG Tablet PO (08:39)
[2018-09-23] MEDS: Spironolactone 25 MG Tablet PO (08:39)
[2018-09-23] MEDS: Lisinopril 10 MG Tablet PO (08:39)
[2018-09-23] MEDS: Pantoprazole Sodium 40 MG Tablet PO (08:39)
[2018-09-23] MEDS: Isosorbide DN 30 MG Tablet PO (08:39)
[2018-09-23] MEDS: Carvedilol 6.25 MG Tablet PO ×2 (08:39→21:21)
--- NOTE | 2018-09-23 09:42 | PN.NEURO_ITS ---
Subjective: Per nursing no issues overnight. Team meeting held today. Per PT contact guard assist with transfers and light touch with ambulation with walker. Per OT light touching with ADLs and ST working on memory and cognitive functions. Per nursing having some episodes of urinary incontinence, patient requiring total assist with toileting needs. From therapy standpoint, patient is not ready to be discharged home, but patient wants to be discharged home and would like to take care of who has dementia. At present, patient is a high fall risk and needs continued therapy. Discussed all of these with patient and understands the risk as well as the fall risk from premature discharge. Patient to sign out AMA for possible date 09/25/18. - Physical Exam General: Alert, Oriented x3, Cooperative HEENT: Atraumatic, PERRLA Oral: Moist Mucosa Neck: Supple, No JVD Lungs: Clear to auscultation, Normal air movement Cardiovascular: Regular rate, Regular Rhythm Abdomen: Bowel Sounds Present, Soft, Non Tender Extremities: No clubbing, No cyanosis, No edema Skin: No rashes, No breakdown Musculoskeletal: No Tenderness to Palpation of Joints or Extremities Neurological: Cranial nerves II-XII grossly intact, Deep Tendon Reflexes 2+/4 and Symmetrical, Neuro grossly intact, Motor Exam 5/5 strength throughout - except for RUE 4/5. NIHSS 0. Psych/Mental Status: Normal Affect, Appropriate, Alert and oriented to time, place, person, mood and affect Vital Signs Temp Pulse Resp BP Pulse Ox 97.8 F 56 L 16 128/58 H 92 09/23/18 06:50 09/23/18 06:50 09/23/18 06:50 09/23/18 06:50 09/23/18 06:50 Oxygen Flow Rate (L/min) 3 Oxygen Delivery Method Room Air Weight: 89.7 kg Body Mass Index (BMI) 26.8 Finger Stick Blood Glucose 123 Intake and Output for Last 24 Hours 09/21/18 09/22/18 09/23/18 23:59 23:59 23:59 Intake Total 240 / 240 360 / 360 Balance 240 / 240 360 / 360 Laboratory Tests Past 24 Hrs 09/23/18 05:25 Sodium 140 Potassium 4.3 Chloride 106 Carbon Dioxide 27.0 Anion Gap 7 BUN 38 H Creatinine 1.93 H Estim Creat Clear Calc 35.74 Est GFR (MDRD) Af Amer 44 L Est GFR (MDRD) Non-Af 36 L BUN/Creatinine Ratio 19.7 Glucose 96 Calcium 8.7 Medical Necessity - Tobacco Use Smoking Status: Former smoker Tobacco Use: Cigarettes Assessment/Plan All Active Problems (Last Reviewed 08/26/18 @ 14:35 by Jazzy Sierra) Acute stroke (Acute) NSTEMI (non-ST elevated myocardial infarction) (Acute) Dyspnea (Acute) Acute blood loss anemia (Resolved) Atrial fibrillation (Resolved) Renal insufficiency (Resolved) The patient is a 77 year old M with PMH of atrial fibrillation, COPD, PUD, chronic anemia, BPH, chronic renal insufficiency, hyperlipidemia, cardiomyopathy, hypertension, and osteoarthritis. Admitted to [facility] on 09/17/2018 with debility secondary to acute ischemic stroke and Non-Stemi for greater of 3 hours of therapy daily with a goal of returning back home at or near his prior level of functional dependence. On 09/14/2018 patient presented to [facility] with right-sided weakness and dysarthria. NIH score was 5 and he was administered TPA. NIH was repeated increased to 14. His troponin increased to 2.34 and an EKG did not show acute ST changes. Was diagnosed with a non-STEMI. Brain CT done which showed chronic involutional changes of the brain. Brain MRI showed extensive periventricular microvascular ischemic senescent changes with left posterior insular ribbon small region of the cortical ischemia extending to the centrum semioval. No evidence of large territorial ischemia or acute intracranial blood product. Head CTA showed normal [place] of [place] without demonstrated aneurysm or significant stenosis. Neck CTA showed arthrosclerotic calcification of the left bulb and proximal ICA, with less than 50% stenosis. Atherosclerotic calcification of the right carotid bulb, no stenosis. Normal for vertebral arteries. 2D echo showed EF of 27% with stage II diastolic dysfunction and hypokinesia of the left ventricle. Also a moderately enlarged left atrium and mildly enlarged right atrium with negative bubble study. HgbA1c 5.5 %. LDL 51. Cardiology was consulted and advocated conservative management with no plans for invasive cardiac cath. Patient was started on aspirin, Eliquis, and Lipitor. Patient lives with spouse in a one level house, he is retired and independent with all of his ADLs, mobility and driving needs. States that his will help with most of the chores due to his COPD. Plan - PT for mobility - OT for ADLs - ST for evaluation - Analgesics as needed - Ischemic stroke post TPA on Eliquis, asa, Lipitor - Non-Stemi carvedilol, isosorbide dinitrate - HTN continue anti-hypertensives - Atrial fibrillation on Eliquis, amiodarone, Coreg - Cardiomyopathy on Coreg - PUD on Protonix - COPD on ProAir - Chronic renal insufficiency on 09/23/2018 Cr 1.9 decreased from 2.01 lasix and lisinopril d/c on 09/22/18 per hospitalist - Hyperlipidemia on lipitor - Chronic anemia monitor - BPH - GI/DVT prophylaxis on protonix/eliquis, knee high elliot hose and SCDs - Bowel protocol - Fall precautions - Medical management per hospitalist- consult - F/U with PCP, neurology, pulmonary and cardiology
[2018-09-23 11:07] VITALS: BMI 26.8
--- NOTE | 2018-09-23 12:49 | CASEMGMT ---
Social Work Team meeting held with patient. No family present. Patient lives at home as primary caregiver for with Alzheimer's. Patient continues to work with PT/OT/ST; however, cognition and fall risk are a barrier for a safe discharge. Patient is requesting to discharge home this week. Will continue to follow to determine safe discharge plan. BRANDEN SonW
[2018-09-23 19:27] VITALS: BP 123/73; PULSE 55; RESP 20; TEMP 36.6; O2SAT 95
[2018-09-23 19:30] VITALS: PULSE 55; O2SAT 95; BMI 26.8
[2018-09-23] MEDS: Atorvastatin Calcium 80 MG Tablet 40 MG PO (21:21)
--- NOTE | 2018-09-24 03:29 | NURSING ---
Reviewed and agree with MAT INSPECTOR documentation and [facility]IMs charting.
[2018-09-24] MEDS: Magnesium Hydroxide 30 ML UDC PO (07:11)
[2018-09-24] MEDS: Pantoprazole Sodium 40 MG Tablet PO (07:41)
[2018-09-24] MEDS: Lisinopril 10 MG Tablet PO (07:41)
[2018-09-24] MEDS: Isosorbide DN 30 MG Tablet PO (07:42)
[2018-09-24] MEDS: Aspirin 81 MG TAB.CHEW PO (07:42)
[2018-09-24] MEDS: Carvedilol 6.25 MG Tablet PO ×2 (07:42→21:37)
[2018-09-24] MEDS: APIXABAN 5 MG TABLET PO ×2 (07:42→21:37)
[2018-09-24] MEDS: Amiodarone 200 MG Tablet PO (07:43)
[2018-09-24] MEDS: Spironolactone 25 MG Tablet PO (07:43)
[2018-09-24 08:19] VITALS: BP 123/73; PULSE 61; RESP 18; TEMP 36.7; O2SAT 94
[2018-09-24 14:21] VITALS: BMI 26.8
--- NOTE | 2018-09-24 14:23 | PCM.PN.HOSP ---
Subjective: Patient seen and examined. He has no complaints. Review of systems otherwise negative. Labs and vitals reviewed. Vitals/I&O's: Vital Signs Temp Pulse Resp BP Pulse Ox 98.0 F 61 18 123/73 H 94 09/24/18 08:19 09/24/18 08:19 09/24/18 08:19 09/24/18 08:19 09/24/18 08:19 Oxygen Flow Rate (L/min) 3 Oxygen Delivery Method Room Air Weight: 197 lb 12.074 oz Body Mass Index (BMI) 26.8 Finger Stick Blood Glucose 123 Intake and Output for Last 24 Hours 09/22/18 09/23/18 09/24/18 23:59 23:59 23:59 Intake Total 1080 / 1080 Balance 1080 / 1080 General: Alert, Oriented x3, Cooperative, No apparent distress HEENT: Atraumatic, PERRLA, EOMI, Normocephalic Oral: Moist Mucosa Neck: Supple, No JVD, Negative Carotid Bruits, Negative Hepatojugular Reflux, No Nodes, No Nuchal Rigidity Lungs: Clear to auscultation, Normal air movement, No rhonchi, No wheeze, No rales Cardiovascular: Regular rate, Regular Rhythm, Normal S1, Normal S2, No murmurs Abdomen: Bowel Sounds Present, Soft, Non Tender, Non-Distended, No Hepato-splenomegaly Extremities: No clubbing, No cyanosis, No edema, Capillary Refill Less than 3 Seconds Skin: No rashes, No breakdown Musculoskeletal: No Tenderness to Palpation of Joints or Extremities Lymphatic: No Cervical, Supraclavicular, or Inguinal Adenopathy Neurological: Cranial nerves II-XII grossly intact, - - RUE power is 4/5, power in rest of limbs is 5/5; normal sensation Psych/Mental Status: Normal Affect, Appropriate, Alert and oriented to time, place, person, mood and affect Current Medications Acetaminophen (Tylenol) 650 mg PO Q6H PRN PRN PRN Reason: Mild Pain (0-3/10)/Headache Albuterol Sulfate (Ventolin Aerosols) 2.5 mg INHALATION Q4H PRN PRN PRN Reason: WHEEZING Last Admin: 09/22/18 05:20 Dose: 2.5 mg Albuterol Sulfate (Ventolin Hfa (Sp)) 1 puff INHALATION BID [facility] Last Admin: 09/24/18 07:43 Dose: 1 puff Amiodarone HCl (Cordarone) 200 mg PO DAILY [facility] Last Admin: 09/24/18 07:43 Dose: 200 mg Apixaban (Eliquis) 5 mg PO BID [facility] Last Admin: 09/24/18 07:42 Dose: 5 mg Aspirin (Aspirin, Baby) 81 mg PO DAILY@0800 [facility] Last Admin: 09/24/18 07:42 Dose: 81 mg Atorvastatin Calcium (Lipitor) 40 mg PO QHS [facility] Last Admin: 09/23/18 21:21 Dose: 40 mg Bisacodyl (Dulcolax) 10 mg RECTAL .PRN X 1 PRN PRN Reason: Constipation Carvedilol (Coreg) 6.25 mg PO BID [facility] Last Admin: 09/24/18 07:42 Dose: 6.25 mg Isosorbide Dinitrate (Isordil) 30 mg PO DAILY [facility] Last Admin: 09/24/18 07:42 Dose: 30 mg Lisinopril (Zestril) 10 mg PO DAILY [facility] Last Admin: 09/24/18 07:41 Dose: 10 mg Magnesium Hydroxide (Milk Of Magnesia) 30 ml PO .PRN X 1 PRN PRN Reason: Constipation Last Admin: 09/24/18 07:11 Dose: 30 ml Pantoprazole Sodium (Protonix) 40 mg PO DAILY [facility] Last Admin: 09/24/18 07:41 Dose: 40 mg Spironolactone (Aldactone) 25 mg PO DAILY [facility] Last Admin: 09/24/18 07:43 Dose: 25 mg Medical Necessity - Tobacco Use Smoking Status: Former smoker Tobacco Use: Cigarettes Assessment/Plan All Active Problems (Last Reviewed 08/26/18 @ 14:35 by Jazzy Sierra) Acute stroke (Acute) NSTEMI (non-ST elevated myocardial infarction) (Acute) Dyspnea (Acute) Acute blood loss anemia (Resolved) Atrial fibrillation (Resolved) Renal insufficiency (Resolved) 1. Acute ischemic stroke s/p TPA power in RUE and RLE are back to n ormal, and speech is now normalised. On aspirin, Eliquis and high intensity statin. PT OT on board. Urology on board. 2. History of non-STEMI: Conservative management per cardiology in light of acute ischemic CVA. On aspirin, statin and metoprolol. Also on Imdur. 3. History of A. fib: Rate and rhythm controlled. On amiodarone and metoprolol. On Eliquis. 4. Hypertension: Controlled. On lisinopril and carvedilol. 5. History of peptic ulcer disease: On pantoprazole. 6. COPD: Breathing treatments. 7. Chronic iron deficiency anemia: On iron supplementation 8. BPH: Stable DVT prophylaxis: On Eliquis Code Visit Inpatient E&M: 71245 Subs Hosp L2
--- NOTE | 2018-09-24 15:52 | PN.NEURO_ITS ---
Subjective: Patient will continue his stay on rehab for increase in strength, mobility and cognition with a re-evaluation on Sunday09/26/18, d/t patient does not want to sign out AMA. Patient tolerating therapies well and denies pain, sob, chest pain or tightness, headaches, dizziness or lightheadedness. - Physical Exam General: Alert, Oriented x3, Cooperative HEENT: Atraumatic, PERRLA Oral: Moist Mucosa Neck: Supple, No JVD Lungs: Clear to auscultation, Normal air movement Cardiovascular: Regular rate, Regular Rhythm Abdomen: Bowel Sounds Present, Soft, Non Tender Extremities: No clubbing, No cyanosis, No edema Musculoskeletal: No Tenderness to Palpation of Joints or Extremities Neurological: Cranial nerves II-XII grossly intact, Neuro grossly intact, Motor Exam 5/5 strength throughout - except RUE 4/5 NIHSS 0 Psych/Mental Status: Normal Affect, Appropriate, Alert and oriented to time, place, person, mood and affect Vital Signs Temp Pulse Resp BP Pulse Ox 98.0 F 61 18 123/73 H 94 09/24/18 08:19 09/24/18 08:19 09/24/18 08:19 09/24/18 08:19 09/24/18 08:19 Oxygen Flow Rate (L/min) 3 Oxygen Delivery Method Room Air Weight: 89.7 kg Body Mass Index (BMI) 26.8 Finger Stick Blood Glucose 123 Intake and Output for Last 24 Hours 09/22/18 09/23/18 09/24/18 23:59 23:59 23:59 Intake Total 1080 / 1080 Balance 1080 / 1080 Medical Necessity - Tobacco Use Smoking Status: Former smoker Tobacco Use: Cigarettes Assessment/Plan All Active Problems (Last Reviewed 08/26/18 @ 14:35 by Jazzy Sierra) Acute stroke (Acute) NSTEMI (non-ST elevated myocardial infarction) (Acute) Dyspnea (Acute) Acute blood loss anemia (Resolved) Atrial fibrillation (Resolved) Renal insufficiency (Resolved) The patient is a 77 year old M with PMH of atrial fibrillation, COPD, PUD, chronic anemia, BPH, chronic renal insufficiency, hyperlipidemia, cardiomyopathy, hypertension, and osteoarthritis. Admitted to [facility] on 09/17/2018 with debility secondary to acute ischemic stroke and Non-Stemi for greater of 3 hours of therapy daily with a goal of returning back home at or near his prior level of functional dependence. On 09/14/2018 patient presented to [facility] with right-sided weakness and dysarthria. NIH score was 5 and he was administered TPA. NIH was repeated increased to 14. His troponin increased to 2.34 and an EKG did not show acute ST changes. Was diagnosed with a non-STEMI. Brain CT done which showed chronic involutional changes of the brain. Brain MRI showed extensive periventricular microvascular ischemic senescent changes with left posterior insular ribbon small region of the cortical ischemia extending to the centrum semioval. No evidence of large territorial ischemia or acute intracranial blood product. Head CTA showed normal [place] without demonstrated aneurysm or significant stenosis. Neck CTA showed arthrosclerotic calcification of the left bulb and proximal ICA, with less than 50% stenosis. Atherosclerotic calcification of the right carotid bulb, no stenosis. Normal for vertebral arteries. 2D echo showed EF of 27% with stage II diastolic dysfunction and hypokinesia of the left ventricle. Also a moderately enlarged left atrium and mildly enlarged right atrium with negative bubble study. HgbA1c 5.5 %. LDL 51. Cardiology was consulted and advocated conservative management with no plans for invasive cardiac cath. Patient was started on aspirin, Eliquis, and Lipitor. Patient lives with spouse in a one level house, he is retired and independent with all of his ADLs, mobility and driving needs. States that his will help with most of the chores due to his COPD. Plan - PT for mobility - OT for ADLs - ST for evaluation - Analgesics as needed - Ischemic stroke post TPA on Eliquis, asa, Lipitor - Non-Stemi carvedilol, isosorbide dinitrate - HTN continue anti-hypertensives - Atrial fibrillation on Eliquis, amiodarone, Coreg - Cardiomyopathy on Coreg - PUD on Protonix - COPD on ProAir - Chronic renal insufficiency on 09/23/2018 Cr 1.9 decreased from 2.01 lasix and lisinopril d/c on 09/22/18 per hospitalist recheck bmp 09/25/18 - Hyperlipidemia on lipitor - Chronic anemia monitor - BPH - GI/DVT prophylaxis on protonix/eliquis, knee high elliot hose and SCDs - Bowel protocol - Fall precautions - Medical management per hospitalist- consult - F/U with PCP, neurology, pulmonary and cardiology
[2018-09-24 20:00] VITALS: BP 137/69; PULSE 58; RESP 16; TEMP 36.9; O2SAT 97; BMI 26.8
[2018-09-24] MEDS: Atorvastatin Calcium 80 MG Tablet 40 MG PO (21:37)
--- NOTE | 2018-09-25 01:05 | NURSING ---
Reviewed and agree with WARRANTY ADMINISTRATOR documentation and FIMs charting.
[2018-09-25] MEDS: Albuterol 2.5 MG/3 ML VIAL.NEB. INHALATION (06:43)
[2018-09-25 06:45] VITALS: PULSE 60; RESP 18; O2SAT 98
[2018-09-25] MEDS: Pantoprazole Sodium 40 MG Tablet PO (07:48)
[2018-09-25] MEDS: Aspirin 81 MG TAB.CHEW PO (07:48)
[2018-09-25] MEDS: Amiodarone 200 MG Tablet PO (07:48)
[2018-09-25] MEDS: Carvedilol 6.25 MG Tablet PO ×2 (07:48→21:37)
[2018-09-25] MEDS: APIXABAN 5 MG TABLET PO ×2 (07:48→21:37)
[2018-09-25] MEDS: Isosorbide DN 30 MG Tablet PO (07:48)
[2018-09-25] MEDS: Spironolactone 25 MG Tablet PO (07:48)
[2018-09-25] MEDS: Lisinopril 10 MG Tablet PO (07:48)
[2018-09-25 08:34] VITALS: BP 140/74; PULSE 65; RESP 18; TEMP 36.4; O2SAT 99
[2018-09-25 13:00] VITALS: BMI 26.8
--- NOTE | 2018-09-25 15:58 | PN.NEURO_ITS ---
Subjective: Per nursing no issues overnight. Per patient tolerating therapies well. Denies further questions or concerns. - Physical Exam General: Alert, Oriented x3, Cooperative HEENT: Atraumatic, PERRLA Oral: Moist Mucosa Neck: Supple, No JVD Lungs: Clear to auscultation, Normal air movement Cardiovascular: Regular rate, Regular Rhythm Abdomen: Bowel Sounds Present, Soft, Non Tender Extremities: No clubbing, No cyanosis, No edema Skin: No rashes, No breakdown Musculoskeletal: No Tenderness to Palpation of Joints or Extremities Neurological: Cranial nerves II-XII grossly intact, Deep Tendon Reflexes 2+/4 and Symmetrical, Neuro grossly intact, Motor Exam 5/5 strength throughout - except RUE 4/5, - - NIHSS 0 Psych/Mental Status: Normal Affect, Appropriate, Alert and oriented to time, place, person, mood and affect Vital Signs Temp Pulse Resp BP Pulse Ox 97.6 F L 65 18 140/74 H 99 09/25/18 08:34 09/25/18 08:34 09/25/18 08:34 09/25/18 08:34 09/25/18 08:34 Oxygen Flow Rate (L/min) 3 Oxygen Delivery Method Room Air Weight: 89.6 kg Body Mass Index (BMI) 26.8 Finger Stick Blood Glucose 123 Intake and Output for Last 24 Hours 09/23/18 09/24/18 09/25/18 23:59 23:59 23:59 Intake Total 1080 / 1080 Balance 1080 / 1080 Medical Necessity - Tobacco Use Smoking Status: Former smoker Tobacco Use: Cigarettes Assessment/Plan All Active Problems (Last Reviewed 08/26/18 @ 14:35 by Jazzy Sierra) Acute stroke (Acute) NSTEMI (non-ST elevated myocardial infarction) (Acute) Dyspnea (Acute) Acute blood loss anemia (Resolved) Atrial fibrillation (Resolved) Renal insufficiency (Resolved) The patient is a 77 year old M with PMH of atrial fibrillation, COPD, PUD, chronic anemia, BPH, chronic renal insufficiency, hyperlipidemia, cardiomyopathy, hypertension, and osteoarthritis. Admitted to [facility] on 09/17/2018 with debility secondary to acute ischemic stroke and Non-Stemi for greater of 3 hours of therapy daily with a goal of returning back home at or near his prior level of functional dependence. On 09/14/2018 patient presented to [facility] with right-sided weakness and dysarthria. NIH score was 5 and he was administered TPA. NIH was repeated increased to 14. His troponin increased to 2.34 and an EKG did not show acute ST changes. Was diagnosed with a non-STEMI. Brain CT done which showed chronic involutional changes of the brain. Brain MRI showed extensive periventricular microvascular ischemic senescent changes with left posterior insular ribbon small region of the cortical ischemia extending to the centrum semioval. No evidence of large territorial ischemia or acute intracranial blood product. Head CTA showed normal [place] without demonstrated aneurysm or significant stenosis. Neck CTA showed arthrosclerotic calcification of the left bulb and proximal ICA, with less than 50% stenosis. Atherosclerotic calcification of the right carotid bulb, no stenosis. Normal for vertebral arteries. 2D echo showed EF of 27% with stage II diastolic dysfunction and hypokinesia of the left ventricle. Also a moderately enlarged left atrium and mildly enlarged right atrium with negative bubble study. HgbA1c 5.5 %. LDL 51. Cardiology was consulted and advocated conservative management with no plans for invasive cardiac cath. Patient was started on aspirin, Eliquis, and Lipitor. Patient lives with spouse in a one level house, he is retired and independent with all of his ADLs, mobility and driving needs. States that his will help with most of the chores due to his COPD. Plan - PT for mobility - OT for ADLs - ST for evaluation - Analgesics as needed - Ischemic stroke post TPA on Eliquis, asa, Lipitor - Non-Stemi carvedilol, isosorbide dinitrate - HTN continue anti-hypertensives - Atrial fibrillation on Eliquis, amiodarone, Coreg - Cardiomyopathy on Coreg - PUD on Protonix - COPD on ProAir - Chronic renal insufficiency on 09/23/2018 Cr 1.9 decreased from 2.01 lasix and lisinopril d/c on 09/22/18 per hospitalist recheck bmp 09/26/18 - Hyperlipidemia on lipitor - Chronic anemia monitor - BPH - GI/DVT prophylaxis on protonix/eliquis, knee high elliot hose and SCDs - Bowel protocol - Fall precautions - Medical management per hospitalist- consult - F/U with PCP, neurology, pulmonary and cardiology
[2018-09-25] MEDS: Atorvastatin Calcium 80 MG Tablet 40 MG PO (21:37)
[2018-09-25 22:00] VITALS: BP 132/74; PULSE 62; RESP 16; TEMP 36.8; O2SAT 96
[2018-09-26 00:34] VITALS: BMI 26.8
--- NOTE | 2018-09-26 04:46 | NURSING ---
REVIEWED AND AGREE WITH INFRASTRUCTURE DEVELOPER FIMS AND HANDOFF CHARTING
--- NOTE | 2018-09-26 05:35 | NURSING ---
PT FOUND TO HAVE BLOOD FROM R OUTER EAR WHICH HAS DRIPPED ONTO CHEEK AND SMALL AMT BLOOD NOTED ON PILLOW CASE AND SHEETS. PT STATES HE WAS SCRATCHING AN ITCH TO INNER EAR WITH R FINGER AND BELIEVES HE WAS TOO VIGOROUS BECAUSE HE DOES NOT HAVE FULL USE OF R HAND/ARM. PT DENIES PAIN TO AREA UNLESS CLEANING OUTER EAR WITH WASHCLOTH AND WARM WATER. NO ACTIVE BLEEDING NOTED. PT DENIES HEARING LOSS TO EAR. SHARP AREA ON R INDEX FINGERNAIL NOTED.
[2018-09-26 06:01] LABS: Anion Gap 10 (5-15); BUN 29 mg/dL (7-18); BUN/Creat Ratio 15.9 RATIO (10-20); Calcium,Total 8.5 mg/dL (8.5-10.1); Chloride 110 mmol/L (98-107); Creatinine, Serum 1.82 mg/dL (0.70-1.30); EST Glomerular Filtration Rate 39 mL/min (>60); Est Glom Filt Rate - Afr Amer 47 mL/min (>60); Glucose 90 mg/dL (74-106); Potassium 4.2 mmol/L (3.5-5.1); Sodium Level 143 mmol/L (136-145)
[2018-09-26 09:02] VITALS: BP 138/65; PULSE 64; RESP 16; TEMP 36.4; O2SAT 99
[2018-09-26] MEDS: APIXABAN 5 MG TABLET PO ×2 (09:11→21:02)
[2018-09-26] MEDS: Aspirin 81 MG TAB.CHEW PO (09:11)
[2018-09-26] MEDS: Carvedilol 6.25 MG Tablet PO ×2 (09:11→21:02)
[2018-09-26] MEDS: Pantoprazole Sodium 40 MG Tablet PO (09:11)
[2018-09-26] MEDS: Spironolactone 25 MG Tablet PO (09:11)
[2018-09-26] MEDS: Amiodarone 200 MG Tablet PO (09:11)
[2018-09-26] MEDS: Lisinopril 10 MG Tablet PO (09:11)
[2018-09-26] MEDS: Isosorbide DN 30 MG Tablet PO (09:11)
--- NOTE | 2018-09-26 12:11 | CASEMGMT ---
Social Work Met with patient regarding discharge. IDT agreeable to patient discharging 09/27 home with spouse. Therapy recommending HHC PT/OT/ST; however, patient refused stating he will be fine. Educated patient to PCP can refer to HHC if he changes his mind. Patient did agree to FWW - referral made to Manuela at [facility] to deliver to room prior to DC. PHQ-9 completed per CVA dx - patient scored 7 - mild depression - resources given. Notified IT APPLICATIONS DEVELOPER about patient refusing HHC. Plan: home with spouse 09/27/18 with FWW. Refused HHC. BRANDEN SonW
--- NOTE | 2018-09-26 12:26 | PN.NEURO_ITS ---
Subjective: Per patient tolerating therapies well. Per therapies, patient has gained increase in strength and mobility and will be appropriate to be discharged home on 09/27/18, therapies recommending home health for PT/OT/ST, patient refused home therapy, discussed the risks with the patient, he understands the same, he is a high fall risk. During rehab course at times has refused speech therapy. Denies further questions or concerns. - Physical Exam General: Alert, Oriented x3, Cooperative HEENT: Atraumatic, PERRLA Oral: Moist Mucosa Neck: Supple, No JVD Lungs: Clear to auscultation, Normal air movement Cardiovascular: Regular rate, Regular Rhythm Abdomen: Bowel Sounds Present, Soft, Non Tender Extremities: No clubbing, No cyanosis, No edema Musculoskeletal: No Tenderness to Palpation of Joints or Extremities Neurological: Cranial nerves II-XII grossly intact, Deep Tendon Reflexes 2+/4 and Symmetrical, Motor Exam 5/5 strength throughout - Except RUE 4/5 Psych/Mental Status: Normal Affect, Appropriate, Alert and oriented to time, place, person, mood and affect Vital Signs Temp Pulse Resp BP Pulse Ox 97.5 F L 64 16 138/65 H 99 09/26/18 09:02 09/26/18 09:02 09/26/18 09:02 09/26/18 09:02 09/26/18 09:02 Oxygen Flow Rate (L/min) 3 Oxygen Delivery Method Room Air Weight: 89.6 kg Body Mass Index (BMI) 26.8 Finger Stick Blood Glucose 123 Laboratory Tests Past 24 Hrs 09/26/18 05:25 Sodium 143 Potassium 4.2 Chloride 110 H Carbon Dioxide 23.0 Anion Gap 10 BUN 29 H Creatinine 1.82 H Estim Creat Clear Calc 37.90 Est GFR (MDRD) Af Amer 47 L Est GFR (MDRD) Non-Af 39 L BUN/Creatinine Ratio 15.9 Glucose 90 Calcium 8.5 Medical Necessity - Tobacco Use Smoking Status: Former smoker Tobacco Use: Cigarettes Assessment/Plan All Active Problems (Last Reviewed 08/26/18 @ 14:35 by Jazzy Sierra) Acute stroke (Acute) NSTEMI (non-ST elevated myocardial infarction) (Acute) Dyspnea (Acute) Acute blood loss anemia (Resolved) Atrial fibrillation (Resolved) Renal insufficiency (Resolved) The patient is a 77 year old M with PMH of atrial fibrillation, COPD, PUD, chronic anemia, BPH, chronic renal insufficiency, hyperlipidemia, cardiomyopathy, hypertension, and osteoarthritis. Admitted to [facility] on 09/17/2018 with debility secondary to acute ischemic stroke and Non-Stemi for greater of 3 hours of therapy daily with a goal of returning back home at or near his prior level of functional dependence. On 09/14/2018 patient presented to [facility] with right-sided weakness and dysarthria. NIH score was 5 and he was administered TPA. NIH was repeated increased to 14. His troponin increased to 2.34 and an EKG did not show acute ST changes. Was diagnosed with a non-STEMI. Brain CT done which showed chronic involutional changes of the brain. Brain MRI showed extensive periventricular microvascular ischemic senescent changes with left posterior insular ribbon small region of the cortical ischemia extending to the centrum semioval. No evidence of large territorial ischemia or acute intracranial blood product. Head CTA showed normal [place] without demonstrated aneurysm or significant stenosis. Neck CTA showed arthrosclerotic calcification of the left bulb and proximal ICA, with less than 50% stenosis. Atherosclerotic calcification of the right carotid bulb, no stenosis. Normal for vertebral arteries. 2D echo showed EF of 27% with stage II diastolic dysfunction and hypokinesia of the left ventricle. Also a moderately enlarged left atrium and mildly enlarged right atrium with negative bubble study. HgbA1c 5.5 %. LDL 51. Cardiology was consulted and advocated conservative management with no plans for invasive cardiac cath. Patient was started on aspirin, Eliquis, and Lipitor. Patient lives with spouse in a one level house, he is retired and independent with all of his ADLs, mobility and driving needs. States that his will help with most of the chores due to his COPD. Plan - PT for mobility - OT for ADLs - ST for evaluation - Analgesics as needed - Ischemic stroke post TPA on Eliquis, asa, Lipitor - Non-Stemi carvedilol, isosorbide dinitrate - HTN continue anti-hypertensives - Atrial fibrillation on Eliquis, amiodarone, Coreg - Cardiomyopathy on Coreg - PUD on Protonix - COPD on ProAir - Chronic renal insufficiency on 09/23/2018 Cr 1.9 decreased from 2.01 lasix and lisinopril d/c on 09/22/18 On 09/26/18 Cr 1.82 - Hyperlipidemia on lipitor - Chronic anemia monitor - BPH - GI/DVT prophylaxis on protonix/eliquis, knee high elliot hose and SCDs - Bowel protocol - Fall precautions - Medical management per hospitalist- consult - F/U with PCP, neurology, pulmonary and cardiology - Discharge home on 09/27/2018
--- NOTE | 2018-09-26 13:53 | PN_ITS ---
Subjective: Patient seen and examined. He has no complaints. Review of systems otherwise negative. Labs and vitals reviewed. Vitals/I&O's: Vital Signs Temp Pulse Resp BP Pulse Ox 97.5 F L 64 16 138/65 H 99 09/26/18 09:02 09/26/18 09:02 09/26/18 09:02 09/26/18 09:02 09/26/18 09:02 Oxygen Flow Rate (L/min) 3 Oxygen Delivery Method Room Air Weight: 197 lb 8.547 oz Body Mass Index (BMI) 26.8 Finger Stick Blood Glucose 123 General: Alert, Oriented x3, Cooperative, No apparent distress HEENT: Atraumatic, PERRLA, EOMI, Normocephalic Oral: Moist Mucosa Neck: Supple, No JVD, Negative Carotid Bruits, Negative Hepatojugular Reflux, No Nodes, No Nuchal Rigidity Lungs: Clear to auscultation, Normal air movement, No rhonchi, No wheeze, No rales Cardiovascular: Regular rate, Regular Rhythm, Normal S1, Normal S2, No murmurs Abdomen: Bowel Sounds Present, Soft, Non Tender, Non-Distended, No Hepato- splenomegaly Extremities: No clubbing, No cyanosis, No edema, Capillary Refill Less than 3 Seconds Skin: No rashes, No breakdown Musculoskeletal: No Tenderness to Palpation of Joints or Extremities Lymphatic: No Cervical, Supraclavicular, or Inguinal Adenopathy Neurological: Cranial nerves II-XII grossly intact, - - RUE power is 4/5, power in rest of limbs is 5/5; normal sensation Psych/Mental Status: Normal Affect, Appropriate, Alert and oriented to time, place, person, mood and affect Laboratory Results 09/26/18 05:25: Sodium 143, Potassium 4.2, Chloride 110 H, Carbon Dioxide 23.0, Anion Gap 10, BUN 29 H, Creatinine 1.82 H, Estim Creat Clear Calc 37.90, Est GFR (MDRD) Af Amer 47 L, Est GFR (MDRD) Non-Af 39 L, BUN/Creatinine Ratio 15.9, Glucose 90, Calcium 8.5 Current Medications Acetaminophen (Tylenol) 650 mg PO Q6H PRN PRN PRN Reason: Mild Pain (0-3/10)/Headache Albuterol Sulfate (Ventolin Aerosols) 2.5 mg INHALATION Q4H PRN PRN PRN Reason: WHEEZING Last Admin: 09/25/18 06:43 Dose: 2.5 mg Albuterol Sulfate (Ventolin Hfa (Sp)) 1 puff INHALATION BID [facility] Last Admin: 09/26/18 09:12 Dose: 1 puff Amiodarone HCl (Cordarone) 200 mg PO DAILY [facility] Last Admin: 09/26/18 09:11 Dose: 200 mg Apixaban (Eliquis) 5 mg PO BID [facility] Last Admin: 09/26/18 09:11 Dose: 5 mg Aspirin (Aspirin, Baby) 81 mg PO DAILY@0800 [facility] Last Admin: 09/26/18 09:11 Dose: 81 mg Atorvastatin Calcium (Lipitor) 40 mg PO QHS [facility] Last Admin: 09/25/18 21:37 Dose: 40 mg Bisacodyl (Dulcolax) 10 mg RECTAL .PRN X 1 PRN PRN Reason: Constipation Carvedilol (Coreg) 6.25 mg PO BID [facility] Last Admin: 09/26/18 09:11 Dose: 6.25 mg Isosorbide Dinitrate (Isordil) 30 mg PO DAILY [facility] Last Admin: 09/26/18 09:11 Dose: 30 mg Lisinopril (Zestril) 10 mg PO DAILY [facility] Last Admin: 09/26/18 09:11 Dose: 10 mg Magnesium Hydroxide (Milk Of Magnesia) 30 ml PO .PRN X 1 PRN PRN Reason: Constipation Last Admin: 09/24/18 07:11 Dose: 30 ml Pantoprazole Sodium (Protonix) 40 mg PO DAILY [facility] Last Admin: 09/26/18 09:11 Dose: 40 mg Spironolactone (Aldactone) 25 mg PO DAILY [facility] Last Admin: 09/26/18 09:11 Dose: 25 mg Medical Necessity - Tobacco Use Smoking Status: Former smoker Tobacco Use: Cigarettes Assessment/Plan All Active Problems (Last Reviewed 08/26/18 @ 14:35 by Jazzy Sierra) Acute stroke (Acute) NSTEMI (non-ST elevated myocardial infarction) (Acute) Dyspnea (Acute) Acute blood loss anemia (Resolved) Atrial fibrillation (Resolved) Renal insufficiency (Resolved) 1. Acute ischemic stroke s/p TPA * power in RUE and RLE are back to normal, and speech is now normalised. * On aspirin, Eliquis and high intensity statin. * PT OT on board. * Urology on board. * 2. History of non-STEMI: Conservative management per cardiology in light of acute ischemic CVA. On aspirin, statin and metoprolol as well as Imdur. 3. History of A. fib: Rate and rhythm controlled. On amiodarone and metoprolol. On Eliquis. 4. Hypertension: Controlled. On lisinopril and carvedilol. 5. History of peptic ulcer disease: On pantoprazole. 6. COPD: Breathing treatments. 7. Chronic iron deficiency anemia: On iron supplementation 8. BPH: Stable DVT prophylaxis: On Eliquis Code Visit Inpatient E&M: 02727 Subs Hosp L2
--- NOTE | 2018-09-26 16:21 | DCINST_ITS ---
- Discharge Diagnoses Reason(s) for Visit for Discharge Instructions: Debility secondary to ischemic stroke and Non-Stemi You will use the following diet at home:: Cardiac Your food should be the consistency of: Regular Your liquids should be the consistency of: Regular/Thin Discharge Activity: Return to Normal Activity, May Not Drive, May Shower, Use Walker Weight Bearing Status: Weight bearing as tolerated Call your doctor if you observe: Fever of 101 or Higher, Coldness, Increased Pain, Numbness or Tingling, Change in Color, Inability to urinate, Inability to have a bowel movement, Shortness of breath, Dizziness, Fainting spells, Swelling in the ankles, Chest pain, Prolonged hiccoughing, Increased palpitations (irregular heartbeat), Calf discomfort, Uncontrolled pain Additional Instructions: Recommended home OT/ST/PT. Not required per patient at this time. Allergies/Adverse Reactions: Allergies cortisone Allergy (Verified 09/14/18 19:21) Rash Medications to take at Discharge omeprazole 40 mg capsule,delayed release 40 mg PO QDAY 05/04/17 Albuterol Inhaler [Ventolin Hfa] 1 puff INHALATION BID #1 inhaler 09/26/18 Amiodarone HCl [Cordarone] 200 mg PO DAILY #30 tablet 09/26/18 Apixaban [Eliquis] 5 mg PO BID #60 tablet 09/26/18 Aspirin [Aspirin, Baby] 81 mg PO DAILY@0800 tab.chew 09/26/18 Atorvastatin Calcium [Lipitor] 40 mg PO QHS #30 tablet 09/26/18 Carvedilol [Coreg (Beta Mary)] 6.25 mg PO BID #60 tablet 09/26/18 Isosorbide DN [Isordil] 30 mg PO DAILY #30 tablet 09/26/18 Lisinopril [Zestril] 10 mg PO DAILY #30 tablet 09/26/18 Spironolactone [Aldactone] 25 mg PO DAILY #30 tablet 09/26/18 The following prescriptions were given: Amiodarone HCl [Cordarone] 200 mg PO DAILY #30 tablet Atorvastatin Calcium [Lipitor] 40 mg PO QHS #30 tablet Isosorbide DN [Isordil] 30 mg PO DAILY #30 tablet Lisinopril [Zestril] 10 mg PO DAILY #30 tablet Spironolactone [Aldactone] 25 mg PO DAILY #30 tablet Albuterol Inhaler [Ventolin Hfa] 1 puff INHALATION BID #1 inhaler Apixaban [Eliquis] 5 mg PO BID #60 tablet Carvedilol [Coreg (Beta Mary)] 6.25 mg PO BID #60 tablet Primary Care Physician: Wilberto Michel MD [Primary Care Provider] - Test Results: Test results from this visit will be discussed in further detail at your follow- up appointment, if applicable. Please Follow Up With: Dr. Wilberto Michel Please Follow Up With: Neurology Please Follow Up With: Pulmonary Please Follow Up With: Cardiology
[2018-09-26 16:25] VITALS: BMI 26.8
--- NOTE | 2018-09-26 16:27 | DS.PCM_ITS ---
Rehab Discharge Summary DATE OF ADMISSION: 09/17/18 DATE OF DISCHARGE: 09/27/2018 - Rehab Diagnosis Debility secondary to ischemic stroke and Non-Stemi Subjective: Patient will be discharged home on 09/27/2018. Therapies recommending home health for PT/OT/ST, patient refused home therapy, discussed the risks with the patient, he understands the same, he is a high fall risk. During rehab course at times has refused speech therapy. Denies further questions or concerns. - Physical Exam General: Alert, Oriented x3, Cooperative HEENT: Atraumatic, PERRLA Oral: Moist Mucosa Neck: Supple, No JVD Lungs: Clear to auscultation, Normal air movement Cardiovascular: Regular rate, Regular Rhythm Abdomen: Bowel Sounds Present, Soft, Non Tender Extremities: No clubbing, No cyanosis, No edema Musculoskeletal: No Tenderness to Palpation of Joints or Extremities Neurological: Cranial nerves II-XII grossly intact, Deep Tendon Reflexes 2+/4 and Symmetrical, Motor Exam 5/5 strength throughout - except RUE 4/5 Psych/Mental Status: Normal Affect, Appropriate, Alert and oriented to time, place, person, mood and affect Vital Signs Temp Pulse Resp BP Pulse Ox 97.5 F L 64 16 138/65 H 99 09/26/18 09:02 09/26/18 09:02 09/26/18 09:02 09/26/18 09:02 09/26/18 09:02 Oxygen Flow Rate (L/min) 3 Oxygen Delivery Method Room Air Weight: 89.6 kg Body Mass Index (BMI) 26.8 Finger Stick Blood Glucose 123 Intake and Output for Last 24 Hours 09/24/18 09/25/18 09/26/18 23:59 23:59 23:59 Intake Total 240 / 240 Balance 240 / 240 Laboratory Tests Past 24 Hrs 09/26/18 05:25 Sodium 143 Potassium 4.2 Chloride 110 H Carbon Dioxide 23.0 Anion Gap 10 BUN 29 H Creatinine 1.82 H Estim Creat Clear Calc 37.90 Est GFR (MDRD) Af Amer 47 L Est GFR (MDRD) Non-Af 39 L BUN/Creatinine Ratio 15.9 Glucose 90 Calcium 8.5 Discharge Diet: Low fat/ Low Cholesterol Discharge Activity: Return to Normal Activity, May Not Drive, May Shower, Use Walker Weight Bearing Status: Weight bearing as tolerated Call your doctor if you observe: Fever of 101 or Higher, Coldness, Increased Pain, Numbness or Tingling, Change in Color, Inability to urinate, Inability to have a bowel movement, Shortness of breath, Dizziness, Fainting spells, Swelling in the ankles, Chest pain, Prolonged hiccoughing, Increased palpitations (irregular heartbeat), Calf discomfort, Uncontrolled pain Home Medications: Medications to take at Discharge omeprazole 40 mg capsule,delayed release 40 mg PO QDAY 05/04/17 Albuterol Inhaler [Ventolin Hfa] 1 puff INHALATION BID #1 inhaler 09/26/18 Amiodarone HCl [Cordarone] 200 mg PO DAILY #30 tablet 09/26/18 Apixaban [Eliquis] 5 mg PO BID #60 tablet 09/26/18 Aspirin [Aspirin, Baby] 81 mg PO DAILY@0800 tab.chew 09/26/18 Atorvastatin Calcium [Lipitor] 40 mg PO QHS #30 tablet 09/26/18 Carvedilol [Coreg (Beta Mary)] 6.25 mg PO BID #60 tablet 09/26/18 Isosorbide DN [Isordil] 30 mg PO DAILY #30 tablet 09/26/18 Lisinopril [Zestril] 10 mg PO DAILY #30 tablet 09/26/18 Spironolactone [Aldactone] 25 mg PO DAILY #30 tablet 09/26/18 Following Prescrptions Were Given to Patient: Amiodarone HCl [Cordarone] 200 mg PO DAILY #30 tablet Atorvastatin Calcium [Lipitor] 40 mg PO QHS #30 tablet Isosorbide DN [Isordil] 30 mg PO DAILY #30 tablet Lisinopril [Zestril] 10 mg PO DAILY #30 tablet Spironolactone [Aldactone] 25 mg PO DAILY #30 tablet Albuterol Inhaler [Ventolin Hfa] 1 puff INHALATION BID #1 inhaler Apixaban [Eliquis] 5 mg PO BID #60 tablet Carvedilol [Coreg (Beta Mary)] 6.25 mg PO BID #60 tablet Primary Care Physician: Wilberto Michel MD [Primary Care Provider] - Please Follow Up With: Dr. Wilberto Michel When: Sunday Please Follow Up With: Neurology Please Follow Up With: Pulmonary Please Follow Up With: Cardiology Additional Instructions: Home PT/OT/ST recommended, patient refused. Disposition: Home Patient Condition:: Stable Rehab Course The patient is a 77 year old M with PMH of atrial fibrillation, COPD, PUD, chronic anemia, BPH, chronic renal insufficiency, hyperlipidemia, cardiomyopathy, hypertension, and osteoarthritis. Admitted to [facility] on 09/17/2018 with debility secondary to acute ischemic stroke and Non-Stemi for greater of 3 hours of therapy daily with a goal of returning back home at or near his prior level of functional dependence. On 09/14/2018 patient presented to [facility] with right-sided weakness and dysarthria. NIH score was 5 and he was administered TPA. NIH was repeated increased to 14. His troponin increased to 2.34 and an EKG did not show acute ST changes. Was diagnosed with a non-STEMI. Brain CT done which showed chronic involutional changes of the brain. Brain MRI showed extensive periventricular microvascular ischemic senescent changes with left posterior insular ribbon small region of the cortical ischemia extending to the centrum semioval. No evidence of large territorial ischemia or acute intracranial blood product. Head CTA showed normal [place] of [place] without demonstrated aneurysm or significant stenosis. Neck CTA showed arthrosclerotic calcification of the left bulb and proximal ICA, with less than 50% stenosis. Atherosclerotic calcification of the right carotid bulb, no stenosis. Normal for vertebral arteries. 2D echo showed EF of 27% with stage II diastolic dysfunction and hypokinesia of the left ventricle. Also a moderately enlarged left atrium and mildly enlarged right atrium with negative bubble study. HgbA1c 5.5 %. LDL 51. Cardiology was consulted and advocated conservative management with no plans for invasive cardiac cath. Patient was started on aspirin, Eliquis, and Lipitor. Patient lives with spouse in a one level house, he is retired and independent with all of his ADLs, mobility and driving needs. States that his will help with most of the chores due to his COPD. During Rehab course, patient would at times refuse speech therapy sessions. Lasix was discontinued and lisinopril decreased to daily due to Creatinine levels increased, Cr 1.82 on 09/26/2018. On 09/23/2018 patient voiced he wanted to be discharged soon, the risks/fall risk was discussed with the patient and he understands the risks, per patient he did not want to sign out AMA. After re-evaluation by therapies patient can be discharged home on 09/27/2018. Therapies recommending home health for PT/OT/ST, patient refused home therapy, risks/fall risk with the patient was re-discussed and verbalized understanding. Patient to F/U with PCP, Neurology, Pulmonary, and Cardiology. Meaningful Use Info Meaningful Use Diagnoses (Choose all that apply): AMI, Ischemic CVA - AMI Aspirin given w/in 24hrs of arrival?: Yes ASA at discharge?: Yes Statins at discharge?: Yes Reuben/ARB at discharge?: Yes Beta Mary at discharge?: Yes Done w/ Acute CA measure.: Yes Documented LVEF (%): 27 - CVA Therapy Assessed for PT,OT and/or ST?: Yes - Ischemic Stroke Antithrombotic order at d/c?: Yes Dx of Atrial fib/flutter?: Yes Anticoagulant at discharge?: Yes Statins at discharge?: Yes Primary Dx Acute Ischemic CVA?: Yes IV tPA ordered during stay?: Yes
[2018-09-26] MEDS: Atorvastatin Calcium 80 MG Tablet 40 MG PO (21:01)
[2018-09-26 22:18] VITALS: BP 122/58; PULSE 53; RESP 16; TEMP 36.6; O2SAT 96
[2018-09-27 05:36] VITALS: BMI 26.8
[2018-09-27 07:00] VITALS: BP 148/92; PULSE 61; RESP 16; TEMP 36.6; O2SAT 99
[2018-09-27] MEDS: Spironolactone 25 MG Tablet PO (09:54)
[2018-09-27] MEDS: APIXABAN 5 MG TABLET PO (09:54)
[2018-09-27] MEDS: Lisinopril 10 MG Tablet PO (09:55)
[2018-09-27] MEDS: Pantoprazole Sodium 40 MG Tablet PO (09:55)
[2018-09-27] MEDS: Aspirin 81 MG TAB.CHEW PO (09:55)
[2018-09-27] MEDS: Carvedilol 6.25 MG Tablet PO (09:55)
[2018-09-27] MEDS: Amiodarone 200 MG Tablet PO (09:55)
[2018-09-27] MEDS: Isosorbide DN 30 MG Tablet PO (09:55)
[2018-09-27 09:57] VITALS: BP 132/92; PULSE 58; RESP 16; TEMP 36.6; O2SAT 97
[2018-09-27 10:13] VITALS: BMI 26.8
== END 2018-09-27 10:15 | disposition home or self-care (01) | DRG 56 ==
PROVIDERS: Internal Medicine; Nurse Practitioner Family; Admitting Provider Psychiatry & Neurology Neurology; Family Provider Family Medicine; PCP Family Medicine; Referring Provider Psychiatry & Neurology Neurology; Visit Provider Student in an Organized Health Care Education/Training Program
DX: I69.351 Hemiplegia and hemiparesis following cerebral infarction affecting right dominant side (principal); I21.3 ST elevation (STEMI) myocardial infarction of unspecified site; I13.0 Hypertensive heart and chronic kidney disease with heart failure and stage 1 through stage 4 chronic kidney disease, or unspecified chronic kidney disease; I69.322 Dysarthria following cerebral infarction; N40.0 Benign prostatic hyperplasia without lower urinary tract symptoms; J44.9 Chronic obstructive pulmonary disease, unspecified; I48.0 Paroxysmal atrial fibrillation; I50.9 Heart failure, unspecified; N18.3 Chronic kidney disease, stage 3 (moderate); E78.5 Hyperlipidemia, unspecified; M19.90 Unspecified osteoarthritis, unspecified site; Z87.891 Personal history of nicotine dependence; Z87.11 Personal history of peptic ulcer disease; D50.9 Iron deficiency anemia, unspecified; I69.392 Facial weakness following cerebral infarction
CPT/HCPCS: 36415; 80048; 80053; 85025; 92507; 92523; 94640; 97110; 97112; 97116; 97162; 97166; 97530; 97535; 97802

== ENCOUNTER → 2019-04-17 | Outpatient (CLI) | payer MEDICARE, OTHER, SELFPAY ==
[2019-04-04 13:39] VITALS: BMI 26.9
[2019-04-17 10:47] LABS: AST(SGOT) 18 U/L (15-37); Alanine Aminotransfer ALT/SGPT 24 U/L (16-61); Alkaline Phosphatase 85 U/L (45-117); Anion Gap 6 (5-15); BUN 22 mg/dL (7-18); BUN/Creat Ratio 12.3 RATIO (10-20); Bilirubin, Direct 0.14 mg/dL (0.00-0.30); Calcium,Total 8.7 mg/dL (8.5-10.1); Chloride 105 mmol/L (98-107); Cholesterol 122 mg/dL (200); Creatinine, Serum 1.79 mg/dL (0.70-1.30); EST Glomerular Filtration Rate 39 mL/min (>60); Est Glom Filt Rate - Afr Amer 48 mL/min (>60); Globulin 3.6 g/dL (2.2-4.2); Glucose 96 mg/dL (74-106); High Density Lipoprotein 40 mg/dL; Potassium 4.5 mmol/L (3.5-5.1); Protein, Total 7.6 g/dL (6.4-8.2); Sodium Level 140 mmol/L (136-145); Triglycerides 134 mg/dL; Very Low Density Lipoprotein 27 mg/dL (5-40)
== END | disposition home or self-care (01) ==
LOC: MTLAB 08:38
PROVIDERS: Family Provider Family Medicine; PCP Family Medicine; Referring Provider Internal Medicine Cardiovascular Disease; Visit Provider Internal Medicine Cardiovascular Disease
DX: E78.5 Hyperlipidemia, unspecified (principal); I10 Essential (primary) hypertension; N28.9 Disorder of kidney and ureter, unspecified
CPT/HCPCS: 36415; 80048; 80061; 80076

== ENCOUNTER → 2019-08-25 11:55 | Outpatient (CLI) | payer MEDICARE, OTHER, SELFPAY ==
[2019-04-04 13:39] VITALS: BMI 26.9
--- NOTE | 2019-08-25 12:00 | RAD_ITS ---
STUDY: X-RAY - PARANASAL SINUSES REASON FOR EXAM: Male, 78 years old. Patient complains of dizziness TECHNIQUE: 3 view(s) of the paranasal sinuses were obtained. COMPARISON: None. FINDINGS: Normal visualized frontal, maxillary, ethmoidal and sphenoid sinuses. Normal visualized facial bones. The soft tissue structures are unremarkable. RAD/Sinuses min 3 Views IMPRESSION: Normal x-rays of the paranasal sinuses. Electronically Signed: Tyler Lewis, at 15:22 EDT , Service support ,
== END ==
PROVIDERS: PCP Family Medicine; Referring Provider Family Medicine; Visit Provider Family Medicine
DX: R42 Dizziness and giddiness (principal)
CPT/HCPCS: 70220

== ENCOUNTER → 2019-09-08 10:41 | Outpatient (CLI) | payer MEDICARE, OTHER, SELFPAY ==
[2019-04-04 13:39] VITALS: BMI 26.9
--- NOTE | 2019-09-08 10:59 | MRI_ITS ---
STUDY: MRA OF THE HEAD WITHOUT CONTRAST REASON FOR EXAM: Male, 78 years old. dizziness x 3 months, stroke 1 year ago with rt sided paralysis TECHNIQUE: 3-D ienu-rb-okuamu (TOF) imaging was performed with MIPs. The study was performed unenhanced. COMPARISON: None. FINDINGS: Normal bilateral petrous carotid arteries. Normal right cavernous carotid artery with a normal supraclinoid bifurcation. Normal left cavernous carotid artery with a normal supraclinoid bifurcation. Normal right A1 segments of the anterior cerebral artery. Normal left A1 segments of the anterior cerebral artery. Normal intact anterior communicating artery (ACOM). Normal bilateral A2 segments of the anterior cerebral arteries. Normal right M1 and M2 segments of the middle cerebral arteries, with a normal M1 bifurcation. Normal left M1 and M2 segments of the middle cerebral arteries, with a normal M1 bifurcation. Normal right posterior communicating artery (PCOM). Normal left posterior communicating artery (PCOM). Normal bilateral vertebral arteries. Normal basilar artery with a normal basilar bifurcation. The visualized bilateral superior cerebellar (SCA) arteries are normal. Normal bilateral P1, P2 and visualized P3 segments of the posterior cerebral arteries. There is no demonstrated aneurysm of the [place]. There is no major vessel occlusion or hemodynamically significant stenosis. There is no demonstrated abnormality of the visualized brain. MRI/MRA Head ONLY without Contrast IMPRESSION: Normal MRA of the head Electronically Signed: Fabio Hawkins MD at 14:39 EDT Tel , Service support ,
--- NOTE | 2019-09-08 10:59 | MRI_ITS ---
STUDY: MRA NECK WITHOUT CONTRAST REASON FOR EXAM: Male, 78 years old. dizziness x 3 months, stroke 1 year ago with rt sided paralysis TECHNIQUE: Source images were obtained, MIPs were performed. The study was performed unenhanced. COMPARISON: CTA 09/14/2018 FINDINGS: RIGHT CAROTID ARTERIES: Normal right common carotid artery (CCA). Normal right common carotid bulb. Normal origin of the right internal carotid (ICA) artery without a hemodynamically significant stenosis. Normal visualized cervical portion of the right internal carotid artery. Normal origin of the right external carotid artery (ECA). LEFT CAROTID ARTERIES: Normal left common carotid artery (CCA). Normal left common carotid bulb. Normal origin of the left internal carotid (ICA) artery without a hemodynamically significant stenosis. Normal visualized cervical portion of the left internal carotid artery. Normal origin of the left external carotid artery (ECA). VERTEBRAL ARTERIES: Normal antegrade flow within the bilateral vertebral artery without a hemodynamically significant stenosis. MRI/MRA Neck without Contrast IMPRESSION: Normal bilateral cervical carotid and vertebral arteries. Electronically Signed: Fabio Hawkins MD at 14:42 EDT Tel , Service support ,
== END ==
PROVIDERS: PCP Family Medicine; Referring Provider Family Medicine; Visit Provider Family Medicine
DX: R42 Dizziness and giddiness (principal)
CPT/HCPCS: 70544; 70547

== ENCOUNTER → 2020-05-14 11:09 | Outpatient (CLI) | payer MEDICARE, OTHER, SELFPAY ==
[2020-04-28 11:29] VITALS: BMI 24.4
[2020-05-14 12:23] LABS: Absolute Lymphocyte Count 0.97 X10^3/uL (0.83-4.51); Absolute Neutrophil Count 4.9 X10^3/uL (2.0-7.7); Basophil# 0.05 X10^3/uL; Basophil% 0.7 % (0-1); Eosinophil# 0.04 X10^3/uL; Eosinophils% 0.6 % (0-5); Hematocrit 53.4 % (40-54); Hemoglobin 17.4 g/dL (13.0-16.5); Lymphocyte # 0.97 X10^3/ul (4.0); Lymphocyte % 14.5 % (19-41); Mean Corp Hgb Conc 32.6 g/dL (32-36); Mean Corpuscular Hgb 31.2 pg (27.0-32.0); Mean Corpuscular Volume 95.9 fL (80-94); Mean Platelet Vol. 12.8 fl (6.2-12.0); Monocyte% 10.5 % (0-10); NRBC Flagged by Analyzer 0 % (0-5); Neutrophil # 4.91 X10^3/uL (2.7-7.7); Neutrophil % 73.6 % (47-70); Platelet Count 221 K/mm3 (150-450); RBC Distribution Width CV 14.3 % (11.6-14.6); RBC Distribution Width SD 50.4 fl (35.1-43.9); Red Blood Count 5.57 M/mm3 (4.6-6.2); White Blood Count 6.7 K/mm3 (4.4-11.0)
[2020-05-14 12:50] LABS: Vitamin B12 337 pg/mL (211-911)
[2020-05-14 13:57] LABS: AST(SGOT) 17 U/L (15-37); Alanine Aminotransfer ALT/SGPT 18 U/L (16-61); Albumin, Serum 3.8 g/dL (3.2-5.0); Alkaline Phosphatase 75 U/L (45-117); Anion Gap 9 (5-15); BUN 17 mg/dL (7-18); BUN/Creat Ratio 11.7 RATIO (10-20); Calcium,Total 8.8 mg/dL (8.5-10.1); Chloride 104 mmol/L (98-107); Creatinine, Serum 1.45 mg/dL (0.70-1.30); EST Glomerular Filtration Rate 50 mL/min (>60); Est Glom Filt Rate - Afr Amer 60 mL/min (>60); Globulin 3.9 g/dL (2.2-4.2); Glucose 86 mg/dL (74-106); Magnesium 2.2 mg/dL (1.6-2.6); Potassium 3.9 mmol/L (3.5-5.1); Protein, Total 7.7 g/dL (6.4-8.2); Sodium Level 138 mmol/L (136-145); Thyroid Stim Hormone (TSH) 1.86 uIU/mL (0.358-3.74)
== END ==
PROVIDERS: PCP Family Medicine; Referring Provider Family Medicine; Visit Provider Family Medicine
DX: R20.2 Paresthesia of skin (principal); F33.0 Major depressive disorder, recurrent, mild
CPT/HCPCS: 36415; 80053; 82607; 82746; 83735; 84443; 85025

== ENCOUNTER → 2020-07-02 12:05 | Outpatient (CLI) | payer MEDICARE, OTHER, SELFPAY ==
[2020-07-02 10:45] VITALS: BMI 24.0
[2020-07-02 12:36] LABS: Absolute Lymphocyte Count 0.99 X10^3/uL (0.83-4.51); Absolute Neutrophil Count 4.7 X10^3/uL (2.0-7.7); Basophil# 0.08 X10^3/uL; Basophil% 1.2 % (0-1); Eosinophil# 0.04 X10^3/uL; Eosinophils% 0.6 % (0-5); Hematocrit 49.4 % (40-54); Lymphocyte # 0.99 X10^3/ul (4.0); Lymphocyte % 15.1 % (19-41); Mean Corp Hgb Conc 32.4 g/dL (32-36); Mean Corpuscular Hgb 31.4 pg (27.0-32.0); Mean Corpuscular Volume 96.9 fL (80-94); Mean Platelet Vol. 12.1 fl (6.2-12.0); Monocyte# 0.71 X10^3/uL; Monocyte% 10.8 % (0-10); NRBC Flagged by Analyzer 0 % (0-5); Neutrophil # 4.72 X10^3/uL (2.7-7.7); Platelet Count 224 K/mm3 (150-450); RBC Distribution Width CV 14.1 % (11.6-14.6); RBC Distribution Width SD 51.2 fl (35.1-43.9); White Blood Count 6.6 K/mm3 (4.4-11.0)
[2020-07-02 13:35] LABS: AST(SGOT) 18 U/L (15-37); Alanine Aminotransfer ALT/SGPT 15 U/L (16-61); Albumin, Serum 3.7 g/dL (3.2-5.0); Alkaline Phosphatase 82 U/L (45-117); Anion Gap 7 (5-15); BUN 17 mg/dL (7-18); BUN/Creat Ratio 10.6 RATIO (10-20); Calcium,Total 8.8 mg/dL (8.5-10.1); Chloride 108 mmol/L (98-107); Cholesterol 167 mg/dL (200); EST Glomerular Filtration Rate 45 mL/min (>60); Est Glom Filt Rate - Afr Amer 54 mL/min (>60); Free T3 2.2 pg/mL (2.18-3.98); Globulin 3.6 g/dL (2.2-4.2); Glucose 89 mg/dL (74-106); High Density Lipoprotein 47 mg/dL; Potassium 3.9 mmol/L (3.5-5.1); Protein, Total 7.3 g/dL (6.4-8.2); Sodium Level 143 mmol/L (136-145); T4 Free Direct 1.23 ng/dL (0.76-1.46); Thyroid Stim Hormone (TSH) 1.56 uIU/mL (0.358-3.74); Triglycerides 102 mg/dL; Very Low Density Lipoprotein 20 mg/dL (5-40)
== END ==
PROVIDERS: Referring Provider Physician Assistant Medical; Visit Provider Physician Assistant Medical
DX: E78.5 Hyperlipidemia, unspecified (principal); I10 Essential (primary) hypertension; I48.0 Paroxysmal atrial fibrillation; I43 Cardiomyopathy in diseases classified elsewhere; I25.2 Old myocardial infarction; Z86.73 Personal history of transient ischemic attack (TIA), and cerebral infarction without residual deficits
CPT/HCPCS: 36415; 80053; 80061; 84439; 84443; 84481; 85025

== ENCOUNTER → 2020-07-07 08:46 | Outpatient (CLI) | payer MEDICARE, OTHER, SELFPAY ==
[2020-07-02 10:45] VITALS: BMI 24.0
--- NOTE | 2020-07-07 08:48 | RAD_ITS ---
STUDY: X-RAY CHEST REASON FOR EXAM: Male, 79 years old. 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 COMPARISON: 09/14/2018 FINDINGS: There is hyperinflation of the lungs consistent with chronic obstructive lung disease (COPD). There is no demonstrated pleural abnormality. Normal size heart. Normal mediastinum and scarlett. Normal visualized pulmonary arteries. Normal visualized aortic arch and descending thoracic aorta. Normal visualized thoracic spine. Normal visualized ribs, clavicles, and shoulders. There is no demonstrated abnormality of the visualized soft tissue structures of the upper abdomen. RAD/Chest PA and Lateral IMPRESSION: Emphysema without pneumonia or atelectasis. Electronically Signed: Fabio Hawkins MD at 8:38 EDT Tel , Service support ,
== END ==
PROVIDERS: Referring Provider Physician Assistant Medical; Visit Provider Physician Assistant Medical
DX: I10 Essential (primary) hypertension (principal); I48.0 Paroxysmal atrial fibrillation; E78.5 Hyperlipidemia, unspecified; I43 Cardiomyopathy in diseases classified elsewhere
CPT/HCPCS: 71046

== ENCOUNTER 2021-03-02 10:26 | Emergency (ER) | payer MEDICARE, OTHER, SELFPAY ==
[2021-03-02 10:27] VITALS: BP 153/100; PULSE 70; RESP 14; TEMP 36.7; O2SAT 98; BMI 23.6
--- NOTE | 2021-03-02 10:44 | EDS_ITS ---
HPI History of Present Illness Chief Complaint: General Illness Informant: patient Narrative Narrative: 80-year-old male presents to the emergency room with 17 months of dyspnea and dizziness. Nothing is different today but he states that he was told if he does not feel good to come to emergency. He states that he had to come appearing get some blood work and a chest x-ray done in preparation for an echocardiogram which is next Sunday. Patient is a long-term smoker. Still smokes about 2 cigarettes a day to break up the phlegm so I can cough it up. He states his dizziness is better some days worse other days he states he has had a CAT scan and MRI. He uses a cane. Patient reports that he has nothing wrong with his lungs however he carries a diagnosis of COPD and had pulmonary function testings in 2013 that were consistent with COPD. I do not see anything other than an albuterol inhaler for COPD. [facility] Medical History (Updated 03/02/21 @ 13:[address] Nikolai Bean, DO) Anemia Atrial fibrillation BPH (benign prostatic hyperplasia) Cardiomyopathy in diseases classified elsewhere COPD (chronic obstructive pulmonary disease) GI bleed Hemorrhoid History of CVA (cerebrovascular accident) (09/14/18) Hyperlipidemia Hypertension Left inguinal hernia Osteoarthritis Paroxysmal atrial fibrillation Peptic ulcer disease PUD (peptic ulcer disease) Renal insufficiency Renal insufficiency Home Medications omeprazole 40 mg capsule,delayed release 40 mg PO QDAY 05/04/17 [History Last Taken Unknown] albuterol sulfate 1 puff INHALATION BID #1 inhaler 09/26/18 [Rx Last Taken Unknown] amiodarone 200 mg tablet 200 mg PO DAILY #90 tab 01/14/20 [Rx Last Taken Unknown] carvedilol 6.25 mg tablet 6.25 mg PO BID #180 tab 01/14/20 [Rx Last Taken Unknown] isosorbide dinitrate 30 mg tablet 30 mg PO DAILY #90 tab 01/14/20 [Rx Last Taken Unknown] simvastatin 20 mg tablet 20 mg PO QHS #90 tab 01/14/20 [Rx Last Taken Unknown] spironolactone 25 mg tablet 25 mg PO DAILY #90 tab 01/14/20 [Rx Last Taken Unknown] aspirin 81 mg tablet,delayed release 81 mg PO DAILY #30 tab 07/02/20 [Rx Last Taken Unknown] lisinopril 10 mg tablet 10 mg PO DAILY #30 tab 07/02/20 [Rx Last Taken Unknown] furosemide 40 mg tablet 40 mg PO DAILY #30 tab 12/24/20 [Rx Last Taken Unknown] Allergy/AdvReac Type Severity Reaction Status Date / Time cortisone Allergy Rash Verified 03/02/21 11:27 Family History Father CAD (coronary artery disease) Colon cancer Mother Alzheimers disease Sister Cancer Surgical History History of bilateral knee replacement History of cataract surgery History of colonoscopy history of incision and drainage infected back abscess (06/14/18) History of left heart catheterization (11/25/14) Hx of bilateral inguinal hernia repair Social History Smoking Status: Light Smoker (<10/day) alcohol intake: current alcohol intake frequency: 0-2 drinks per day Alcohol type: beer and wine substance use type: does not use caffeine: Yes Type: coffee Number of servings: 1 ROS ROS ED Constitutional Constitutional ED: Denies chills, fever(s) or weight loss Eyes Eyes: Denies change in vision or diplopia ENT ENT ED: Denies ear pain, rhinorrhea or sore throat Cardiovascular Cardiovascular: Denies chest pain, orthopnea, palpitations or racing heartbeat Respiratory/Chest Respiratory/Chest: Reports dyspnea and dyspnea on exertion; Denies cough or orthopnea Gastrointestinal Gastrointestinal: Denies abdominal pain, diarrhea, nausea or vomiting Genitourinary Genitourinary ED: Denies dysuria, hematuria or urinary frequency Musculoskeletal Musculoskeletal: Denies arthralgias or myalgias Integumentary Denies abscess or rash Neurologic Neurologic: Reports other Details: Dizziness ; Denies headache(s) or weakness Psychiatric Psychiatric: Denies anxiety, depression, suicidal ideation or suicidal thoughts Endocrine Endocrinology: Denies polydipsia, polyphagia or polyuria Allergic/Immunologic Allergic/Immunologic ED: Denies mouth swelling, tongue swelling or urticaria EXAM Physical Exam Const Vital Signs: 03/02/21 10:27 03/02/21 11:00 03/02/21 11:06 Temperature 98.0 F Temperature Source Temporal Pulse Rate 70 76 Respiratory Rate 14 20 H Respiratory Effort Normal Respiratory Pattern Normal Normal Blood Pressure 153/100 H Blood Pressure Mean 117 Pulse Ox 98 Oxygen Delivery Method Room Air 03/02/21 12:27 Temperature Temperature Source Pulse Rate 68 Respiratory Rate Respiratory Effort Respiratory Pattern Blood Pressure 161/116 H Blood Pressure Mean 131 Pulse Ox 94 Oxygen Delivery Method Room Air Positive well nourished and well developed General Appearance ED: well developed HEENT Reports normocephalic, head/scalp atraumatic, TM's clear and moist mucous membranes Negative for trauma Tympanic Membrane ED: Yes TM's clear Eyes PERRL and EOMs intact bilaterally Neck no lymphadenopathy, supple and no JVD Chest Wall Chest Narrative: Barrel chested Resp normal respiratory effort and clear to auscultation bilaterally Cardio regular rate, regular rhythm and no murmurs GI normal to inspection, nondistended, normoactive bowel sounds and non-tender Palpation: soft Back/Spine no CVA tenderness and normal ROM Extremity normal to inspection General Extremety ED: Negative for edema General Extremity: Negative for edema Neuro oriented x3 and CN's II-XII intact bilaterally Sensorium / Orientation: alert Motor Exam: strength 5/5 throughout Psych mental status grossly normal Mood & Affect: Negative for depressed or tearful Skin no rashes or lesions noted and no wounds MDM MDM MDM Narrative Medical decision making narrative: My interpretation of chest x-ray is chronic changes associated with COPD. There is flattening of the diaphragms. I spoke with Eden Aguirre who follows him with cardiology. She told me which labs she had wrote an order for on Sunday for him to come up to the hospital and get. I will obtain those. TSH is 3.49. Beta natruretic peptide 2140. Has had another one in the past where is around 1700. As his chest x-ray does not show fluid overload and I do not see significant amount of peripheral edema I do not think he has acute CHF. As I look at the patient and I watch him breathe I noticed that he is barrel chested he has flattening of his diaphragms. He has short staccato-like breathing pattern. I think he would probably benefit from pulmonology evaluation. From what he list I can only see an albuterol MDI on his list. Lab Data Attestation: I reviewed the patient's lab results. Labs: Laboratory Results - last 24 hr 03/02/21 03/02/21 03/02/21 11:25 11:25 11:25 WBC 6.7 RBC 4.86 Hgb 15.0 Hct 45.1 MCV 92.8 MCH 30.9 MCHC 33.3 RDW Std Deviation 49.7 H RDW Coeff of [place]ilet 14.6 Plt Count 185 MPV 12.7 H Immature Gran % (Auto) 0.100 Neut % (Auto) 77.5 H Lymph % (Auto) 11.1 L [place] % (Auto) 9.4 Eos % (Auto) 0.6 Baso % (Auto) 1.3 H Absolute Neuts (auto) 5.2 Absolute Lymphs (auto) 0.74 L Nucleated RBC % 0 Sodium Potassium Chloride Carbon Dioxide Anion Gap BUN Creatinine Estim Creat Clear Calc Est GFR (MDRD) Af Amer Est GFR (MDRD) Non-Af BUN/Creatinine Ratio Glucose Calcium Total Bilirubin AST ALT Alkaline Phosphatase Troponin I High Sens 23 B-Natriuretic Peptide 2140.3 H Total Protein Albumin Globulin Albumin/Globulin Ratio TSH 3.49 03/02/21 11:25 WBC RBC Hgb Hct MCV MCH MCHC RDW Std Deviation RDW Coeff of [place]ilet Plt Count MPV Immature Gran % (Auto) Neut % (Auto) Lymph % (Auto) [place] % (Auto) Eos % (Auto) Baso % (Auto) Absolute Neuts (auto) Absolute Lymphs (auto) Nucleated RBC % Sodium 137 Potassium 4.8 Chloride 105 Carbon Dioxide 28.0 Anion Gap 4 L BUN 15 Creatinine 1.47 H Estim Creat Clear Calc 44.72 Est GFR (MDRD) Af Amer 59 L Est GFR (MDRD) Non-Af 49 L BUN/Creatinine Ratio 10.2 Glucose 113 H Calcium 8.9 Total Bilirubin 0.80 AST 19 ALT 26 Alkaline Phosphatase 73 Troponin I High Sens B-Natriuretic Peptide Total Protein 6.8 Albumin 3.1 L Globulin 3.7 Albumin/Globulin Ratio 0.8 L TSH Radiography Diagnostic Testing: Clinical Impression(s) from Imaging Studies Chest X-Ray 03/02/21 11:53 IMPRESSION: Hyperinflation. Increased interstitial markings more prominent at the lung bases suggestive of scarring. Electronically Signed: Tyler Lewis MD at 12:19 EST , Service support , EKG Initial EKG: Attestation: I personally reviewed and interpreted this EKG as follows: Comments: Normal sinus rhythm with a right bundle branch block and a ventricular rate of 75 bpm Discharge Plan Triage Chief Complaint: General Illness ED Provider: Nikolai Bean Dx/Rx/DC Orders Clinical Impression: Dyspnea, COPD (chronic obstructive pulmonary disease), Dizziness Instructions: Discharge Instructions: COPD, ED Dizziness, Uncertain Cause Prescriptions: No Action omeprazole 40 mg capsule,delayed release(DR/EC) 40 mg PO QDAY RF: 0 aspirin [Adult Aspirin Regimen] 81 mg tablet,delayed release (DR/EC) 81 mg PO DAILY Qty: 30 RF: 11 lisinopril 10 mg tablet 10 mg PO DAILY Qty: 30 RF: 11 albuterol sulfate 1 INHALER inhaler 1 puff inhalation BID Qty: 1 RF: 3 carvedilol 6.25 mg tablet 6.25 mg PO BID Qty: 180 RF: 3 spironolactone 25 mg tablet 25 mg PO DAILY Qty: 90 RF: 3 amiodarone 200 mg tablet 200 mg PO DAILY Qty: 90 RF: 3 isosorbide dinitrate 30 mg tablet 30 mg PO DAILY Qty: 90 RF: 3 simvastatin 20 mg tablet 20 mg PO QHS Qty: 90 RF: 3 furosemide 40 mg tablet 40 mg PO DAILY Qty: 30 RF: 3 Primary Care Provider: Wilberto Michel Referrals: John Paul Kerr MD [STAFF PHYSICIAN] - As soon as possible (for pulmonary evaluation ) Wilberto Michel MD [Primary Care Provider] - Disposition Disposition: Home, Self Care
--- NOTE | 2021-03-02 10:44 | EKG12_ITS ---
Test Reason : SOB Blood Pressure : / mmHG Vent. Rate : 075 BPM Atrial Rate : 075 BPM P-R Int : 188 ms QRS Dur : 164 ms QT Int : 486 ms P-R-T Axes : 093 134 077 degrees QTc Int : 542 ms Normal sinus rhythm Right bundle branch block Abnormal ECG Confirmed by RADHA WINSLOW, REED ([id number]), dictionary editor ROSANGELA SHEA ([id number]) on 03/03/2021 11:35:50 AM Referred By: MICHELE Confirmed By:REED GARCIA MD
[2021-03-02 11:00] VITALS: PULSE 76; RESP 20
[2021-03-02 11:41] LABS: Absolute Lymphocyte Count 0.74 X10^3/uL (0.83-4.51); Absolute Neutrophil Count 5.2 X10^3/uL (2.0-7.7); Basophil# 0.09 X10^3/uL; Basophil% 1.3 % (0-1); Eosinophil# 0.04 X10^3/uL; Eosinophils% 0.6 % (0-5); Hematocrit 45.1 % (40-54); Lymphocyte # 0.74 X10^3/ul (0.83-4.51); Lymphocyte % 11.1 % (19-41); Mean Corp Hgb Conc 33.3 g/dL (32-36); Mean Corpuscular Hgb 30.9 pg (27.0-32.0); Mean Corpuscular Volume 92.8 fL (80-94); Mean Platelet Vol. 12.7 fl (6.2-12.0); Monocyte# 0.63 X10^3/uL; Monocyte% 9.4 % (0-10); NRBC Flagged by Analyzer 0 % (0-5); Neutrophil # 5.16 X10^3/uL (2.7-7.7); Neutrophil % 77.5 % (47-70); POSITIVE MORPHOLOGY YES; Platelet Count 185 K/mm3 (150-450); RBC Distribution Width CV 14.6 % (11.6-14.6); RBC Distribution Width SD 49.7 fl (35.1-43.9); Red Blood Count 4.86 M/mm3 (4.6-6.2); White Blood Count 6.7 K/mm3 (4.4-11.0)
--- NOTE | 2021-03-02 11:53 | RAD_ITS ---
STUDY: X-RAY CHEST REASON FOR EXAM: Male, 80 years old. Dyspnea and shortness of breath. TECHNIQUE: Single AP portable view of the chest. COMPARISON: Comparison is made with prior study dated 07/07/2020. FINDINGS: Hyperinflation. Stable increased interstitial markings more prominent in the lower lobes suggestive of scarring. There is no demonstrated pleural abnormality. Normal size heart. Normal mediastinum and scarlett. Normal visualized pulmonary arteries. There is atherosclerotic calcification of the aortic arch with tortuosity. There are diffuse degenerative changes of the visualized thoracic spine. Normal visualized ribs, clavicles, and shoulders. There is no demonstrated abnormality of the visualized soft tissue structures of the upper abdomen. RAD/Chest 1 View (Portable) IMPRESSION: Hyperinflation. Increased interstitial markings more prominent at the lung bases suggestive of scarring. Electronically Signed: Tyler Lewis MD at 12:19 EST , Service support ,
[2021-03-02 12:01] LABS: Thyroid Stim Hormone (TSH) 3.49 uIU/mL (0.358-3.74); Troponin-I HS 23 pg/mL (3.0-78.0)
[2021-03-02 12:12] LABS: Differential Indicated SCAN CRITERIA MET
[2021-03-02 12:24] LABS: BNP,B-Type NATRIURETIC PEPTIDE 2140.3 pg/mL (0-100)
[2021-03-02 12:27] VITALS: BP 161/116; PULSE 68; O2SAT 94
[2021-03-02 12:50] LABS: ALB/GLOB Ratio 0.8 RATIO (0.9-2.4); AST(SGOT) 19 U/L (15-37); Alanine Aminotransfer ALT/SGPT 26 U/L (16-61); Albumin, Serum 3.1 g/dL (3.2-5.0); Alkaline Phosphatase 73 U/L (45-117); Anion Gap 4 (5-15); BUN 15 mg/dL (7-18); BUN/Creat Ratio 10.2 RATIO (10-20); Calcium,Total 8.9 mg/dL (8.5-10.1); Chloride 105 mmol/L (98-107); Creatinine, Serum 1.47 mg/dL (0.70-1.30); EST Glomerular Filtration Rate 49 mL/min (>60); Est Glom Filt Rate - Afr Amer 59 mL/min (>60); Estimated Creatinine Clearance 44.72 ml/min; Globulin 3.7 g/dL (2.2-4.2); Glucose 113 mg/dL (74-106); Potassium 4.8 mmol/L (3.5-5.1); Protein, Total 6.8 g/dL (6.4-8.2); Sodium Level 137 mmol/L (136-145)
[2021-03-02] MEDS: Ipratropium/Albuterol Sulfate 3 ML AMPUL.NEB INHALATION (13:32)
[2021-03-02 13:33] VITALS: BP 149/99; PULSE 75; O2SAT 94
== END 2021-03-02 13:34 | disposition home or self-care (01) ==
PROVIDERS: Emergency Provider Emergency Medicine; PCP Family Medicine
DX: J44.9 Chronic obstructive pulmonary disease, unspecified (principal); R42 Dizziness and giddiness; I48.0 Paroxysmal atrial fibrillation; I42.9 Cardiomyopathy, unspecified; I10 Essential (primary) hypertension; E78.5 Hyperlipidemia, unspecified; M19.90 Unspecified osteoarthritis, unspecified site; N40.0 Benign prostatic hyperplasia without lower urinary tract symptoms; F17.210 Nicotine dependence, cigarettes, uncomplicated; Z79.82 Long term (current) use of aspirin; Z79.899 Other long term (current) drug therapy; Z86.73 Personal history of transient ischemic attack (TIA), and cerebral infarction without residual deficits; Z87.11 Personal history of peptic ulcer disease
CPT/HCPCS: 71045; 80053; 83880; 84443; 84484; 85025; 85027; 93005; 94640; 99285; J7030

== ENCOUNTER 2021-03-20 21:26 | Emergency (ER) | payer MEDICARE, OTHER, SELFPAY ==
[2021-03-20 21:27] VITALS: BP 155/144; PULSE 104; RESP 25; TEMP 36.6; O2SAT 97; BMI 25.2
[2021-03-20 21:31] VITALS: O2SAT 97
--- NOTE | 2021-03-20 21:47 | EKG12_ITS ---
Test Reason : SOB Blood Pressure : / mmHG Vent. Rate : 094 BPM Atrial Rate : 104 BPM P-R Int : 000 ms QRS Dur : 172 ms QT Int : 460 ms P-R-T Axes : 000 128 019 degrees QTc Int : 575 ms Poor data quality, interpretation may be adversely affected Atrial fibrillation with premature ventricular or aberrantly conducted complexes Right bundle branch block Abnormal ECG Confirmed by RADHA WINSLOW, REED ([id number]), marketing editor ROSANGELA SHEA ([id number]) on 03/23/2021 12:45:40 PM Referred By: BEV Confirmed By:REED GARCIA MD
--- NOTE | 2021-03-20 21:49 | EKG12_ITS ---
Test Reason : SOB Blood Pressure : / mmHG Vent. Rate : 098 BPM Atrial Rate : 094 BPM P-R Int : 000 ms QRS Dur : 164 ms QT Int : 416 ms P-R-T Axes : 000 132 012 degrees QTc Int : 531 ms Poor data quality, interpretation may be adversely affected Atrial fibrillation with premature ventricular or aberrantly conducted complexes Right bundle branch block Abnormal ECG Confirmed by MICHELLE WINSLOW, ELISA ([id number]), production editor ROSANGELA SHEA ([id number]) on 03/22/2021 9:21:41 AM Referred By: BEV Confirmed By:ELISA MARTINEZ MD
--- NOTE | 2021-03-20 22:04 | CT_ITS ---
HISTORY: dyspnea TECHNIQUE: Helically acquired images were obtained of the chest following 75mL Isovue-370 IV contrast as per pulmonary angiogram protocol with 3D reconstructions. A radiation dose optimization technique was used for this scan. COMPARISON: None FINDINGS: # of images incl. paperwork: [id number] THYROID IMAGED PORTION: Unremarkable. PULMONARY ARTERIES: 2 mm subsegmental posterior left lower lobe embolus. No gross arterial enlargement. AORTA/AORTIC ARCH: Mild atherosclerosis. No ectasia. No dissection. HEART/PERICARDIUM: Normal RV and LV ratio. Mild cardiomegaly. No significant pericardial fluid. Coronary atherosclerosis. ADENOPATHY: No suspicious mediastinal or hilar adenopathy by size criteria. LUNG PARENCHYMA: Moderate diffuse centrilobular emphysematous change. Diffuse peribronchial thickening. 7 mm post lateral right lower lobe nodule axial image 78. Anterolateral left upper lung 8 mm nodule. Right posterior lateral patchy airspace opacities with small right effusion. No left effusion. PNEUMOTHORAX: None. UPPER ABDOMEN IMAGED PORTION: Right renal 4.5 cm pelvic cyst, no imaging follow-up required. MUSCULOSKELETAL: No acute osseous finding. CT/CTA Chest W/WO Contrast IMPRESSION: 1. Subsegmental pulmonary embolus posterior left lower lobe. No evidence of right heart strain. 2. Patchy right posterior lateral airspace consolidations versus atelectasis with small right effusion. Correlate for clinical pneumonia. 3. Centrilobular emphysematous change. Also mild diffuse peribronchial thickening, compatible with acute or chronic bronchitis. 4. Right lower lobe 7mm nodule. 6 month follow-up CT recommended if not known to be stable on prior exam. Individualized dose optimization techniques were used for this CT. at 0141 Reported and signed by: Marco Lopez MD N.B. : The above Results were Read Back by Marco Lopez MD to Dr. Matias Raymond MD, and understanding confirmed on 03/21/2021 01:40:50 (ET). Electronically Signed: Marco Lopez MD at 1:40 EST Tel , Service support ,
--- NOTE | 2021-03-20 22:07 | EDS_ITS ---
HPI History of Present Illness Chief Complaint: Shortness of Breath Narrative Narrative: Patient is [id number] male with past medical history of COPD. He states he still continues to smoke but denies any need for supplemental oxygen. He states that he has been feeling short of breath with any type of speech or exertion for multiple weeks. He was seen in the ER on March 02 and had a work-up which revealed no obvious findings. Patient states that despite this he is continued to have shortness of breath and therefore returns the ER for repeat evaluation. [facility] Medical History (Updated 03/21/21 @ 01:[address] Matias Raymond, ) Anemia Atrial fibrillation BPH (benign prostatic hyperplasia) Cardiomyopathy in diseases classified elsewhere COPD (chronic obstructive pulmonary disease) GI bleed Hemorrhoid History of CVA (cerebrovascular accident) (09/14/18) Hyperlipidemia Hypertension Left inguinal hernia Osteoarthritis Paroxysmal atrial fibrillation Peptic ulcer disease PUD (peptic ulcer disease) Renal insufficiency Renal insufficiency Home Medications omeprazole 40 mg capsule,delayed release 40 mg PO QDAY 05/04/17 [History Last Taken Unknown] albuterol sulfate 1 puff INHALATION BID #1 inhaler 09/26/18 [Rx Last Taken Unknown] amiodarone 200 mg tablet 200 mg PO DAILY #90 tab 01/14/20 [Rx Last Taken Unknown] carvedilol 6.25 mg tablet 6.25 mg PO BID #180 tab 01/14/20 [Rx Last Taken Unknown] isosorbide dinitrate 30 mg tablet 30 mg PO DAILY #90 tab 01/14/20 [Rx Last Taken Unknown] simvastatin 20 mg tablet 20 mg PO QHS #90 tab 01/14/20 [Rx Last Taken Unknown] spironolactone 25 mg tablet 25 mg PO DAILY #90 tab 01/14/20 [Rx Last Taken Unknown] aspirin 81 mg tablet,delayed release 81 mg PO DAILY #30 tab 07/02/20 [Rx Last Taken Unknown] lisinopril 10 mg tablet 10 mg PO DAILY #30 tab 07/02/20 [Rx Last Taken Unknown] furosemide 40 mg tablet 40 mg PO DAILY #30 tab 12/24/20 [Rx Last Taken Unknown] doxycycline hyclate 100 mg PO BID 10 Days #20 cap 03/21/21 [Rx Last Taken Unknown] fluticasone furoate-vilanterol [Breo Ellipta] 1 inh INHALATION DAILY #60 ea 03/21/21 [Rx Last Taken Unknown] rivaroxaban [Xarelto DVT-PE Treat 30d Start] See Rx Instructions .ROUTE .COMPLEX #51 tab 03/21/21 [Rx Last Taken Unknown] Allergy/AdvReac Type Severity Reaction Status Date / Time cortisone Allergy Rash Verified 03/20/21 21:31 Family History Father CAD (coronary artery disease) Colon cancer Mother Alzheimers disease Sister Cancer Surgical History History of bilateral knee replacement History of cataract surgery History of colonoscopy history of incision and drainage infected back abscess (06/14/18) History of left heart catheterization (11/25/14) Hx of bilateral inguinal hernia repair Social History Smoking Status: Former smoker quit date: 10/27/14 pack-years: 42 alcohol intake: current alcohol intake frequency: 0-2 drinks per day Alcohol type: beer and wine substance use type: does not use caffeine: Yes Type: coffee Number of servings: 1 ROS ROS ED Constitutional Constitutional ED: Denies chills or fever(s) ENT ENT ED: Denies rhinorrhea or sore throat Cardiovascular Cardiovascular: Denies chest pain Respiratory/Chest Respiratory/Chest: Reports cough, dyspnea and dyspnea on exertion Gastrointestinal Gastrointestinal: Denies abdominal pain, diarrhea, nausea or vomiting Genitourinary Genitourinary ED: Denies dysuria Musculoskeletal Musculoskeletal: Denies myalgias Integumentary Denies rash Neurologic Neurologic: Denies headache(s) EXAM Physical Exam Const Vital Signs: 03/20/21 21:27 03/20/21 21:31 03/20/21 23:07 Temperature 98 F Temperature Source Temporal Pulse Rate 104 H 93 Respiratory Rate 25 H 25 H Respiratory Effort Short of Breath Respiratory Pattern Blood Pressure 155/144 H 142/93 H Blood Pressure Mean 147 109 Pulse Ox 97 95 Oxygen Delivery Method Room Air Room Air Room Air 03/20/21 23:17 03/21/21 00:04 Temperature Temperature Source Pulse Rate 85 120 H Respiratory Rate 22 H 32 H Respiratory Effort Respiratory Pattern Normal Blood Pressure Blood Pressure Mean Pulse Ox 97 Oxygen Delivery Method Room Air Positive well nourished and well developed General Appearance ED: well developed HEENT Reports moist mucous membranes HEENT Narrative: No tongue or lip swelling no oral lesions no airway edema or compromise Eyes PERRL and EOMs intact bilaterally Neck supple and no JVD Resp Resp Narrative: BS are diminished throughout with diffuse inspiratory and expiatory wheezes with tachypnea and accessory muscle use Auscultation: rhonchi, wheezes and diminished lung sounds Cardio Rate: other Other Details: Patient has an irregularly irregular rhythm with regular rate . radial pulses are plus 2 out of 4 bilaterally they are equal and symmetric GI normal to inspection, nondistended, normoactive bowel sounds, non-tender, non- distended and no masses GI Narrative: No voluntary guarding or rigidity no pulsatile mass Auscultation: normoactive bowel sounds Palpation: soft Extremity Extremity Narrative: +1-2 pitting edema to B/L lower extremities. Negative Popeye's sign B/L Neuro oriented x3 and CN's II-XII intact bilaterally Sensorium / Orientation: alert Motor Exam: strength 5/5 throughout Psych mental status grossly normal Skin no rashes or lesions noted MDM MDM MDM Narrative Medical decision making narrative: Patient presented to the ER afebrile and satting 97% on room air. He had an irregularly irregular heart rhythm but does have a known history of atrial fibrillation. His heart rate was right around 100. He was seen approximately 2 weeks ago for similar event and had a negative work-up. However he is not on anticoagulation and therefore with his persistent shortness of breath I did elect to perform repeat laboratory studies with a CTA. Labs revealed no significant elevation to the troponin as it was still in normal range. His proBNP was elevated but he has chronic kidney disease and this is near his last lab value from 2 to 3 weeks ago. The CTA showed a small subsegmental pulmonary embolus without any type of heart strain. It also question atelectasis versus pneumonia. At this time I feel his is most likely atelectasis as patient does not have a fever or white count. However as he has been having persistent shortness of breath and cough and reports sputum production I will elect to place him on a round of antibiotics. While the patient is at rest his pulse ox remains in the mid 90s and his heart rate is 80- 90 as well. He was ambulated and his pulse ox stayed around 95% on room air but his heart rate did increase. However after he sat back down the heart rate returned to a regular rate. Therefore at this time as he has known A. fib and only becomes tachycardic with exertion I do not feel there is need for admission. As patient is already on aspirin I will prescribe Xarelto because of the pulmonary embolus found on today's exam and also placed him on doxycycline for the possible pneumonia. I feel he should follow-up with his family doctor to discuss need for improved rate control versus possible pacemaker placement. However at this time as he does not have signs of sepsis or cardiac damage and is not hypoxic I do not feel there is need for admission and patient can be discharged home Lab Data Attestation: I reviewed the patient's lab results. Labs: Laboratory Results - last 24 hr 03/20/21 03/20/21 03/20/21 21:05 21:05 21:05 WBC 6.9 RBC 4.81 Hgb 14.6 Hct 44.9 MCV 93.3 MCH 30.4 MCHC 32.5 RDW Std Deviation 51.1 H RDW Coeff of Yamilet 14.8 H Plt Count 231 MPV 13.2 H Immature Gran % (Auto) 0.100 Neut % (Auto) 64.4 Lymph % (Auto) 23.8 Green % (Auto) 9.5 Eos % (Auto) 0.9 Baso % (Auto) 1.3 H Absolute Neuts (auto) 4.5 Absolute Lymphs (auto) 1.65 Nucleated RBC % 0 PT INR APTT Sodium 139 Potassium 3.8 Chloride 106 Carbon Dioxide 24.0 Anion Gap 9 BUN 28 H Creatinine 1.93 H Estim Creat Clear Calc 34.06 Est GFR (MDRD) Af Amer 43 L Est GFR (MDRD) Non-Af 36 L BUN/Creatinine Ratio 14.5 Glucose 141 H Calcium 8.9 Magnesium 2.0 Troponin I High Sens 32 B-Natriuretic Peptide 2294.1 H 03/20/21 22:20 WBC RBC Hgb Hct MCV MCH MCHC RDW Std Deviation RDW Coeff of Yamilet Plt Count MPV Immature Gran % (Auto) Neut % (Auto) Lymph % (Auto) Green % (Auto) Eos % (Auto) Baso % (Auto) Absolute Neuts (auto) Absolute Lymphs (auto) Nucleated RBC % PT 14.5 INR 1.2 APTT 31.0 Sodium Potassium Chloride Carbon Dioxide Anion Gap BUN Creatinine Estim Creat Clear Calc Est GFR (MDRD) Af Amer Est GFR (MDRD) Non-Af BUN/Creatinine Ratio Glucose Calcium Magnesium Troponin I High Sens B-Natriuretic Peptide Radiography Diagnostic Testing: Clinical Impression(s) from Imaging Studies Chest CTA 03/20/21 22:04 IMPRESSION: 1. Subsegmental pulmonary embolus posterior left lower lobe. No evidence of right heart strain. 2. Patchy right posterior lateral airspace consolidations versus atelectasis with small right effusion. Correlate for clinical pneumonia. 3. Centrilobular emphysematous change. Also mild diffuse peribronchial thickening, compatible with acute or chronic bronchitis. 4. Right lower lobe 7mm nodule. 6 month follow-up CT recommended if not known to be stable on prior exam. Individualized dose optimization techniques were used for this CT. at 0141 Reported and signed by: Marco Lopez MD N.B. : The above Results were Read Back by Marco Lopez MD to Dr. Matias Raymond MD, and understanding confirmed on 03/21/2021 01:40:50 (ET). Electronically Signed: Marco Lopez MD at 1:40 EST Tel , Service support , ADDENDUM: 03/21/21 0148 IMPRESSION: 1. Subsegmental pulmonary embolus posterior left lower lobe. No evidence of right heart strain. 2. Patchy right posterior lateral airspace consolidations versus atelectasis with small right effusion. Correlate for clinical pneumonia. 3. Centrilobular emphysematous change. Also mild diffuse peribronchial thickening, compatible with acute or chronic bronchitis. 4. Right lower lobe 7mm nodule. 6 month follow-up CT recommended if not known to be stable on prior exam. Individualized dose optimization techniques were used for this CT. at 0141 Reported and signed by: Marco Lopez MD N.B. : The above Results were Read Back by Marco Lopez MD to Dr. Matias Raymond MD, and understanding confirmed on 03/21/2021 01:40:50 (ET). Electronically Signed: Marco Lopez MD at 1:40 EST Tel , Service support , Discharge Plan Triage Chief Complaint: Shortness of Breath ED Provider: Matias Raymond Dx/Rx/DC Orders Clinical Impression: Single subsegmental pulmonary embolism without acute cor pulmonale, Atrial fibrillation, Pneumonia, Emphysema of lung Instructions: Pulmonary Embolism, COPD: Wheezing and Chest Tightness, ED AFIB Prescriptions: New Breo Ellipta 100-25 mcg/dose blister with device 1 inh inhalation DAILY Qty: 60 RF: 0 doxycycline hyclate 100 mg capsule 100 mg PO BID 10 Days Qty: 20 RF: 0 Xarelto DVT-PE Treat 30d Start 15 mg (42)- 20 mg (9) tablets,dose pack See Rx Instructions .ROUTE .COMPLEX Qty: 51 RF: 0 No Action omeprazole 40 mg capsule,delayed release(DR/EC) 40 mg PO QDAY RF: 0 aspirin [Adult Aspirin Regimen] 81 mg tablet,delayed release (DR/EC) 81 mg PO DAILY Qty: 30 RF: 11 lisinopril 10 mg tablet 10 mg PO DAILY Qty: 30 RF: 11 albuterol sulfate 1 INHALER inhaler 1 puff inhalation BID Qty: 1 RF: 3 carvedilol 6.25 mg tablet 6.25 mg PO BID Qty: 180 RF: 3 spironolactone 25 mg tablet 25 mg PO DAILY Qty: 90 RF: 3 amiodarone 200 mg tablet 200 mg PO DAILY Qty: 90 RF: 3 isosorbide dinitrate 30 mg tablet 30 mg PO DAILY Qty: 90 RF: 3 simvastatin 20 mg tablet 20 mg PO QHS Qty: 90 RF: 3 furosemide 40 mg tablet 40 mg PO DAILY Qty: 30 RF: 3 Primary Care Provider: Wilberto Michel Referrals: Wilberto Michel MD [Primary Care Provider] - Disposition Disposition: Home, Self Care
[2021-03-20 22:33] LABS: Absolute Lymphocyte Count 1.65 X10^3/uL (0.83-4.51); Absolute Neutrophil Count 4.5 X10^3/uL (2.0-7.7); Basophil# 0.09 X10^3/uL; Basophil% 1.3 % (0-1); Eosinophil# 0.06 X10^3/uL; Eosinophils% 0.9 % (0-5); Hematocrit 44.9 % (40-54); Hemoglobin 14.6 g/dL (13.0-16.5); Lymphocyte # 1.65 X10^3/ul (0.83-4.51); Lymphocyte % 23.8 % (19-41); Mean Corp Hgb Conc 32.5 g/dL (32-36); Mean Corpuscular Hgb 30.4 pg (27.0-32.0); Mean Corpuscular Volume 93.3 fL (80-94); Mean Platelet Vol. 13.2 fl (6.2-12.0); Monocyte# 0.66 X10^3/uL; Monocyte% 9.5 % (0-10); NRBC Flagged by Analyzer 0 % (0-5); Neutrophil # 4.47 X10^3/uL (2.7-7.7); Neutrophil % 64.4 % (47-70); Platelet Count 231 K/mm3 (150-450); RBC Distribution Width CV 14.8 % (11.6-14.6); RBC Distribution Width SD 51.1 fl (35.1-43.9); Red Blood Count 4.81 M/mm3 (4.6-6.2); White Blood Count 6.9 K/mm3 (4.4-11.0)
[2021-03-20 22:45] LABS: International Normalized Ratio 1.2; Prothrombin Time (Protime)PT. 14.5 SECONDS (11.7-14.9)
[2021-03-20 22:46] LABS: Anion Gap 9 (5-15); BUN 28 mg/dL (7-18); BUN/Creat Ratio 14.5 RATIO (10-20); Calcium,Total 8.9 mg/dL (8.5-10.1); Chloride 106 mmol/L (98-107); Creatinine, Serum 1.93 mg/dL (0.70-1.30); EST Glomerular Filtration Rate 36 mL/min (>60); Est Glom Filt Rate - Afr Amer 43 mL/min (>60); Estimated Creatinine Clearance 34.06 ml/min; Glucose 141 mg/dL (74-106); Potassium 3.8 mmol/L (3.5-5.1); Sodium Level 139 mmol/L (136-145); Troponin-I HS 32 pg/mL (3.0-78.0)
[2021-03-20 23:07] VITALS: BP 142/93; PULSE 93; RESP 25; O2SAT 95
[2021-03-20] MEDS: Albuterol 2.5 MG/3 ML VIAL.NEB. INHALATION (23:15)
[2021-03-20] MEDS: Ipratropium/Albuterol Sulfate 3 ML AMPUL.NEB INHALATION (23:15)
[2021-03-20 23:17] VITALS: PULSE 85; RESP 22
[2021-03-20] MEDS: MethylPREDNISolone 125 MG/2 ML Vial IV (23:52)
[2021-03-21 00:04] VITALS: PULSE 120; RESP 32; O2SAT 97
[2021-03-21 01:59] VITALS: BP 149/103; PULSE 98; RESP 24; O2SAT 94
[2021-03-21] MEDS: Rivaroxaban 15 MG Tablet PO (02:00)
[2021-03-21] MEDS: Doxycycline 100 MG CAPSULE PO (02:00)
== END 2021-03-21 02:05 | disposition home or self-care (01) ==
PROVIDERS: Emergency Provider Emergency Medicine; PCP Family Medicine
DX: I26.93 Single subsegmental thrombotic pulmonary embolism without acute cor pulmonale (principal); I48.0 Paroxysmal atrial fibrillation; J18.9 Pneumonia, unspecified organism; J44.9 Chronic obstructive pulmonary disease, unspecified; E78.5 Hyperlipidemia, unspecified; I10 Essential (primary) hypertension; I42.9 Cardiomyopathy, unspecified; Z87.891 Personal history of nicotine dependence; Z86.73 Personal history of transient ischemic attack (TIA), and cerebral infarction without residual deficits; Z79.82 Long term (current) use of aspirin; Z79.51 Long term (current) use of inhaled steroids; Z79.01 Long term (current) use of anticoagulants; Z79.899 Other long term (current) drug therapy
CPT/HCPCS: 71275; 80048; 83735; 83880; 84484; 85025; 85610; 85730; 87426; 93005; 94640; 96361; 96374; 99285; J7040; Q9967; A4216

== ENCOUNTER → 2021-03-25 10:45 | Outpatient (CLI) | payer MEDICARE, OTHER, SELFPAY ==
--- NOTE | 2021-03-25 10:47 | ECHOD_ITS ---
Reason For Study: DYSPNEA Procedure This was a 2D Doppler, Color Flow transthoracic echocardiogram. Poor parasternal windows. The study was technically difficult. Exam performed in department. Left Ventricle Severely dilated left ventricle. Severe segmental systolic dysfunction (see wall motion). The estimated ejection fraction is 20 %. Unable to assess diastolic dysfunction. Anterio-Basal: Hypokinetic. Posterior-Basal: Hypokinetic. Infero-Basal: Hypokinetic. Basal inferoseptal: Akinetic. Basal anteroseptal: Hypokinetic. Mid-Anterior : Hypokinetic. Mid-Lateral : Hypokinetic. Mid- Posterior: Akinetic. Mid-Inferior: Akinetic. Mid-inferoseptal : Akinetic. Mid-anteroseptal : Hypokinetic. Anterior [place] : Akinetic. Inferior [place] : Akinetic. Lateral [place] : Hypokinetic. Septal [place] : Hypokinetic. Right Ventricle Normal RV size. Mild global right ventricular systolic dysfunction. Atria The left atrium is moderately enlarged. Normal right atrium. Color-flow Doppler compatible with a left to right interatrial shunt compatible with a small PFO versus ASD. Mitral Valve There is no mitral annular calcification. Normal mitral valve. The mitral valve chordae are thickened and/or calcified. Mild (1+) mitral valve insufficiency. Tricuspid Valve Normal tricuspid valve. Mild to moderate (1-2+) tricuspid valve insufficiency. Right ventricular systolic pressure estimated to be 40 mmHg. Aortic Valve Trisinus/trileaflet aortic valve. Mild diffuse aortic valve thickening. Mild diffuse aortic valve calcification. Mild aortic stenosis. Mild (1+) aortic valve insufficiency. Pulmonic Valve The pulmonic valve is not well visualized. Trivial pulmonic valve insufficiency. Great Vessels Mild to moderately dilated aortic root. Calcified aortic root. Pericardium/Pleural No pericardial effusion. MMode/2D Measurements & Calculations LVIDd: 6.4 cm IVSd: 0.43 cm LVOT diam: 2.0 cm LVIDs: 5.9 cm LVPWd: 0.80 cm LVOT area: 3.3 cm2 RVDd: 3.8 cm FS: 6.7 % Ao root diam: 4.6 cm LAV(MOD-bp): 92.8 ml LVAd ap4: 53.0 cm2 LAV(MOD-bp) Indexed: 46.1 ml/m2 LVLd ap4: 10.8 cm LAV(MOD-sp2): 96.9 ml EDV(MOD-sp4): 215.8 ml LAV(MOD-sp4): 83.5 ml EDV(sp4-el): 221.4 ml LVAs ap4: 43.4 cm2 LVLs ap4: 9.8 cm ESV(MOD-sp4): 160.8 ml ESV(sp4-el): 163.4 ml EF(MOD-sp4): 25.5 % EF(sp4-el): 26.2 % LVAd ap2: 47.0 cm2 SV(MOD-sp4): 55.1 ml SV(MOD-sp2): 28.2 ml LVLd ap2: 9.7 cm EDV(MOD-sp2): 193.9 ml EDV(sp2-el): 193.5 ml LVAs ap2: 42.9 cm2 LVLs ap2: 9.4 cm ESV(MOD-sp2): 165.7 ml ESV(sp2-el): 166.1 ml EF(MOD-sp2): 14.5 % SV(sp4-el): 58.0 ml LA dimension(2D): 5.4 cm LA A4 area: 24.8 cm2 RA A4 area: 17.7 cm2 Doppler Measurements & Calculations MV E max fish: 95.1 cm/sec Ao V2 max: 125.8 cm/sec AI max fish: 420.6 cm/sec Ao max P.4 mmHg AI max P.8 mmHg [place](V,D): 1.8 cm2 AI dec slope: 248.1 cm/sec2 AI P1/2t: 496.6 msec LV V1 max: 69.9 cm/sec TR max fish: 302.8 cm/sec LV V1 max P.0 mmHg TR max P.7 mmHg ECHO/Echo Complete Interpretation Summary Severely dilated left ventricle. Severe segmental systolic dysfunction (see wall motion). The estimated ejection fraction is 20 %. The left atrium is moderately enlarged. The mitral valve chordae are thickened and/or calcified. Mild (1+) mitral valve insufficiency. Mild to moderate (1-2+) tricuspid valve insufficiency. Mild aortic stenosis. Mild (1+) aortic valve insufficiency. Trivial pulmonic valve insufficiency. Mild to moderately dilated aortic root. Calcified aortic root. Right ventricular systolic pressure estimated to be 40 mmHg. Unable to assess diastolic dysfunction. Ordering Physician: Eden Aguirre Referring Physician: DIAN HARPER Performed By: Ledy Davis, GELACIO, RVT
== END ==
PROVIDERS: PCP Family Medicine; Referring Provider Physician Assistant Medical; Visit Provider Physician Assistant Medical
DX: R06.00 Dyspnea, unspecified (principal); R06.02 Shortness of breath; I43 Cardiomyopathy in diseases classified elsewhere
CPT/HCPCS: 93306

== ENCOUNTER 2021-04-04 08:27 | Inpatient (IN) | payer MEDICARE, OTHER, SELFPAY ==
[2021-04-04] VITALS (13 sets, daily range): BP systolic 130–142; BP diastolic 89–118; PULSE 85–125; RESP 21–38; TEMP 36.1–36.6; O2SAT 93–98; BMI 23.4
--- NOTE | 2021-04-04 08:31 | EKG12_ITS ---
Test Reason : CHEST PAIN Blood Pressure : / mmHG Vent. Rate : 115 BPM Atrial Rate : 125 BPM P-R Int : 000 ms QRS Dur : 154 ms QT Int : 358 ms P-R-T Axes : 000 143 056 degrees QTc Int : 495 ms Atrial fibrillation with premature ventricular or aberrantly conducted complexes Right bundle branch block Septal infarct , age undetermined Abnormal ECG Confirmed by RADHA WINSLOW, REED ([id number]), editor city ROSANGELA SHEA ([id number]) on 04/06/2021 11:43:35 AM Referred By: FIDEL Confirmed By:REED GARCIA MD
[2021-04-04 08:44] LABS: Absolute Lymphocyte Count 0.94 X10^3/uL (0.83-4.51); Absolute Neutrophil Count 6.3 X10^3/uL (2.0-7.7); Basophil# 0.08 X10^3/uL; Eosinophil# 0.03 X10^3/uL; Eosinophils% 0.4 % (0-5); Hematocrit 43.5 % (40-54); Lymphocyte # 0.94 X10^3/ul (0.83-4.51); Lymphocyte % 11.8 % (19-41); Mean Corp Hgb Conc 32.2 g/dL (32-36); Mean Corpuscular Hgb 29.9 pg (27.0-32.0); Mean Corpuscular Volume 92.9 fL (80-94); Mean Platelet Vol. 14.3 fl (6.2-12.0); Monocyte# 0.66 X10^3/uL; Monocyte% 8.3 % (0-10); NRBC Flagged by Analyzer 0 % (0-5); Neutrophil # 6.26 X10^3/uL (2.7-7.7); Neutrophil % 78.2 % (47-70); Platelet Count 166 K/mm3 (150-450); RBC Distribution Width CV 15.4 % (11.6-14.6); RBC Distribution Width SD 51.9 fl (35.1-43.9); Red Blood Count 4.68 M/mm3 (4.6-6.2)
--- NOTE | 2021-04-04 08:50 | RAD_ITS ---
STUDY: X-RAY CHEST REASON FOR EXAM: Male, 80 years old. Chest pain TECHNIQUE: Single AP portable view of the chest. COMPARISON: Comparison is made with prior study dated 03/02/2021. FINDINGS: EKG electrodes are seen. I suspect focal infiltrate in the right mid lung superimposed on chronic interstitial scarring. Stable blunting of the right costophrenic angle. Normal size heart. Normal mediastinum and scarlett. Normal visualized pulmonary arteries. There is atherosclerotic calcification of the aortic arch with tortuosity. Normal visualized thoracic spine. Normal visualized ribs, clavicles, and shoulders. There is no demonstrated abnormality of the visualized soft tissue structures of the upper abdomen. RAD/Chest 1 View (Portable) IMPRESSION: Focal infiltrate in the right mid lung superimposed on chronic scarring. Electronically Signed: Tyler Lewis MD at 9:07 EST , Service support ,
[2021-04-04 08:59] LABS: Anion Gap 6 (5-15); BUN 52 mg/dL (7-18); BUN/Creat Ratio 25.5 RATIO (10-20); Calcium,Total 9.1 mg/dL (8.5-10.1); Chloride 108 mmol/L (98-107); Creatinine, Serum 2.04 mg/dL (0.70-1.30); EST Glomerular Filtration Rate 34 mL/min (>60); Est Glom Filt Rate - Afr Amer 41 mL/min (>60); Estimated Creatinine Clearance 32.23 ml/min; Glucose 144 mg/dL (74-106); Potassium 4.5 mmol/L (3.5-5.1); Sodium Level 141 mmol/L (136-145); Troponin-I HS 36 pg/mL (3.0-78.0)
[2021-04-04 10:47] LABS: Troponin-I HS 30 pg/mL (3.0-78.0)
--- NOTE | 2021-04-04 12:58 | EDS_ITS ---
HPI History of Present Illness Chief Complaint: Chest Pain Informant: patient Onset/Context/Timing Onset: Days Activity at onset: gradual Timing: Continuous Quality: Positive for Tightness Location: Right Chest and Left Chest Worsened By: Nothing Relieved By: - (Albuterol aerosols) Narrative Narrative: Patient presents with chest pain that has been gradually getting worse over the last couple days. Patient noted increasing swelling his legs. Patient states his pain feels like a tightness around his chest. Patient states it is over the lower chest. Patient states nothing makes it worse. Patient states it gets better after he takes an aerosol. Patient admits to some shortness of breath and cough. Patient states he also feels off balance and feels like he is leaning to the right. Patient admits to some increasing swelling of his lower legs as well. Patient states that he had some diarrhea today. Patient states his stools look like they were coffee ground. Patient states that he is supposed to be on Xarelto. Patient states he stopped that when he saw the coffee-ground stools today. CVD Risk Factors: Positive for Hypertension, Hypercholesterolemia and Smoking; Negative for Diabetes and Family History 1' </=55 PE Risk Factors: Negative for Recent Travel/Surgery, Recent Immobilization, Canc er and OCP + Smoking + >/=35 PFSH [facility] Medical History (Updated 04/04/21 @ 15:[address] Wilberto Parker, ) Anemia Atrial fibrillation BPH (benign prostatic hyperplasia) Cardiomyopathy in diseases classified elsewhere COPD (chronic obstructive pulmonary disease) GI bleed Hemorrhoid History of CVA (cerebrovascular accident) (09/14/18) Hyperlipidemia Hypertension Left inguinal hernia Osteoarthritis Paroxysmal atrial fibrillation Peptic ulcer disease PUD (peptic ulcer disease) Renal insufficiency Renal insufficiency Home Medications omeprazole 40 mg capsule,delayed release 40 mg PO QDAY 05/04/17 [History Last Taken Unknown] albuterol sulfate 1 puff INHALATION BID #1 inhaler 09/26/18 [Rx Last Taken Unknown] amiodarone 200 mg tablet 200 mg PO DAILY #90 tab 01/14/20 [Rx Last Taken Unknown] carvedilol 6.25 mg tablet 6.25 mg PO BID #180 tab 01/14/20 [Rx Last Taken Unknown] isosorbide dinitrate 30 mg tablet 30 mg PO DAILY #90 tab 01/14/20 [Rx Last Taken Unknown] simvastatin 20 mg tablet 20 mg PO QHS #90 tab 01/14/20 [Rx Last Taken Unknown] spironolactone 25 mg tablet 25 mg PO DAILY #90 tab 01/14/20 [Rx Last Taken Unknown] aspirin 81 mg tablet,delayed release 81 mg PO DAILY #30 tab 07/02/20 [Rx Last Taken Unknown] lisinopril 10 mg tablet 10 mg PO DAILY #30 tab 07/02/20 [Rx Last Taken Unknown] furosemide 40 mg tablet 40 mg PO DAILY #30 tab 12/24/20 [Rx Last Taken Unknown] doxycycline hyclate 100 mg PO BID 10 Days #20 cap 03/21/21 [Rx Last Taken Unknown] fluticasone furoate-vilanterol [Breo Ellipta] 1 inh INHALATION DAILY #60 ea 03/21/21 [Rx Last Taken Unknown] rivaroxaban [Xarelto DVT-PE Treat 30d Start] See Rx Instructions .ROUTE .COMPLEX #51 tab 03/21/21 [Rx Last Taken Unknown] Allergy/AdvReac Type Severity Reaction Status Date / Time cortisone Allergy Rash Verified 04/04/21 08:30 Family History Father CAD (coronary artery disease) Colon cancer Mother Alzheimers disease Sister Cancer Surgical History History of bilateral knee replacement History of cataract surgery History of colonoscopy history of incision and drainage infected back abscess (06/14/18) History of left heart catheterization (11/25/14) Hx of bilateral inguinal hernia repair Social History Smoking Status: Current every day smoker tobacco type: cigarettes alcohol intake: current alcohol intake frequency: 0-2 drinks per day Alcohol type: beer and wine substance use type: does not use caffeine: Yes Type: coffee Number of servings: 1 ROS ROS ED Constitutional Constitutional ED: Denies chills or fever(s) Eyes Eyes: Denies blurry vision or change in vision ENT ENT ED: Denies rhinorrhea or sore throat Cardiovascular Cardiovascular: Reports chest pain; Denies palpitations Respiratory/Chest Respiratory/Chest: Reports cough and dyspnea Gastrointestinal Gastrointestinal: Denies abdominal pain, nausea or vomiting Genitourinary Genitourinary ED: Reports urinary frequency; Denies dysuria or hematuria Musculoskeletal Musculoskeletal: Denies back pain or neck pain Integumentary Denies abscess or rash Neurologic Neurologic: Reports weakness; Denies headache(s) Allergic/Immunologic Allergic/Immunologic ED: Denies mouth swelling or urticaria EXAM Physical Exam Const Vital Signs: 04/04/21 08:28 04/04/21 08:50 04/04/21 08:51 Temperature 97 F L 97 F L Temperature Source Temporal Temporal Pulse Rate 125 H 101 H 101 H Respiratory Rate 23 H 38 H 38 H Blood Pressure 138/118 H 138/118 H Blood Pressure Mean 124 124 Pulse Ox 97 97 Oxygen Delivery Method Room Air Room Air 04/04/21 10:19 04/04/21 11:06 04/04/21 12:11 Temperature Temperature Source Pulse Rate 105 H 103 H 85 Respiratory Rate 27 H 31 H 21 H Blood Pressure 130/101 H Blood Pressure Mean 110 Pulse Ox 96 97 94 Oxygen Delivery Method Room Air Room Air 04/04/21 13:34 04/04/21 14:00 Temperature Temperature Source Pulse Rate 102 H 114 H Respiratory Rate 30 H 35 H Blood Pressure 142/101 H 138/118 H Blood Pressure Mean 114 124 Pulse Ox 96 93 Oxygen Delivery Method Room Air Nasal Cannula Positive well nourished and well developed General Appearance ED: well developed HEENT normocephalic and atraumatic Eyes PERRL and EOMs intact bilaterally Neck supple and no JVD Chest Wall palpation of chest normal Resp normal respiratory effort and clear to auscultation bilaterally Effort and Inspection: Negative for respiratory distress Cardio regular rate and no murmurs Rhythm: abnormal rhythm irregularly irregular GI normal to inspection, nondistended, normoactive bowel sounds, soft to palpation, non-tender and non-distended GI Narrative: Rectal exam showed good sphincter tone. There is brown stool which was Hemoccult negative. There were no masses palpated. Rectal Exam: heme negative stool Extremity normal to inspection General Extremety ED: Negative for edema or tenderness General Extremity: Negative for edema Neuro oriented x3, CN's II-XII intact bilaterally and no sensory deficits noted Sensorium / Orientation: awake and alert Motor Exam: strength 5/5 throughout Psych mental status grossly normal Heart Score History: Slightly/Non-Suspicious ECG: Nonspecific Repolarization Age: >/= 65 years Risk Factors: >/= 3 Risk Factors or History of CAD Troponin: </= Normal Limit Score: 5 MDM MDM MDM Narrative Medical decision making narrative: CBC was within normal limits. Basic metabolic profile showed a BUN of 52 and creatinine of 2.04. These are consistent with prior results. High-sensitivity troponin was 36. B-natriuretic peptide was 3940.4. 2-hour repeat high-sensitivity troponin was 30. Stool was guaiac negative. Portable chest x-ray was obtained. There is 1 view. On my interpretation, there is a right lower lobe infiltrate as well as chronic changes. Bony thorax is normal. There is no cardiomegaly. Radiologist also interpreted the x-ray and agrees. EKG shows atrial fibrillation with a rate of 115. There is a right bundle branch block pattern noted. QRS interval was slightly prolonged at 154. QTc interval was normal. There are no acute ST or T wave changes. Patient was started on Rocephin and Zithromax here. Patient was advised of his findings. Patient states he does not feel like he can go home. Patient states he is too weak to even ambulate. We attempted to ambulate the patient here in the emergency department. He was unable to get out of bed. Because of this, hospitalist was contacted. She recommended obtaining a COVID- 19 rapid antigen. This was obtained and was negative. Patient will be admitted to the hospital. Patient understands and is agreeable with the plan. All questions were answered. Lab Data Attestation: I reviewed the patient's lab results. Labs: Laboratory Results - last 24 hr 04/04/21 04/04/21 04/04/21 08:10 08:10 08:10 WBC 8.0 RBC 4.68 Hgb 14.0 Hct 43.5 MCV 92.9 MCH 29.9 MCHC 32.2 RDW Std Deviation 51.9 H RDW Coeff of [place]ilet 15.4 H Plt Count 166 MPV 14.3 H Immature Gran % (Auto) 0.300 Neut % (Auto) 78.2 H Lymph % (Auto) 11.8 L [place] % (Auto) 8.3 Eos % (Auto) 0.4 Baso % (Auto) 1.0 Absolute Neuts (auto) 6.3 Absolute Lymphs (auto) 0.94 Nucleated RBC % 0 Sodium 141 Potassium 4.5 Chloride 108 H Carbon Dioxide 27.0 Anion Gap 6 BUN 52 H Creatinine 2.04 H Estim Creat Clear Calc 32.23 Est GFR (MDRD) Af Amer 41 L Est GFR (MDRD) Non-Af 34 L BUN/Creatinine Ratio 25.5 H Glucose 144 H Calcium 9.1 Troponin I High Sens 36 B-Natriuretic Peptide 3940.4 H 04/04/21 10:15 WBC RBC Hgb Hct MCV MCH MCHC RDW Std Deviation RDW Coeff of [place]ilet Plt Count MPV Immature Gran % (Auto) Neut % (Auto) Lymph % (Auto) [place] % (Auto) Eos % (Auto) Baso % (Auto) Absolute Neuts (auto) Absolute Lymphs (auto) Nucleated RBC % Sodium Potassium Chloride Carbon Dioxide Anion Gap BUN Creatinine Estim Creat Clear Calc Est GFR (MDRD) Af Amer Est GFR (MDRD) Non-Af BUN/Creatinine Ratio Glucose Calcium Troponin I High Sens 30 B-Natriuretic Peptide Radiography Chest X-Ray - ED: 1 View, Read by ED Physician, Read by Radiologist and Right Infiltrate Diagnostic Testing: Clinical Impression(s) from Imaging Studies Chest X-Ray 04/04/21 08:50 IMPRESSION: Focal infiltrate in the right mid lung superimposed on chronic scarring. Electronically Signed: Tyler Lewis MD at 9:07 EST , Service support , EKG Initial EKG: Attestation: I personally reviewed and interpreted this EKG as follows: Interpretation: Atrial Fibrillation (115) and RBBB Prior EKG tracings: available for review Prior: Unchanged (March 20, 2021) Discharge Plan Triage Chief Complaint: Chest Pain ED Provider: Wilberto Parker Dx/Rx/DC Orders Clinical Impression: Pneumonia, Debility, unspecified Prescriptions: No Action omeprazole 40 mg capsule,delayed release(DR/EC) 40 mg PO QDAY RF: 0 aspirin [Adult Aspirin Regimen] 81 mg tablet,delayed release (DR/EC) 81 mg PO DAILY Qty: 30 RF: 11 lisinopril 10 mg tablet 10 mg PO DAILY Qty: 30 RF: 11 albuterol sulfate 1 INHALER inhaler 1 puff inhalation BID Qty: 1 RF: 3 Breo Ellipta 100-25 mcg/dose blister with device 1 inh inhalation DAILY Qty: 60 RF: 0 doxycycline hyclate 100 mg capsule 100 mg PO BID 10 Days Qty: 20 RF: 0 Xarelto DVT-PE Treat 30d Start 15 mg (42)- 20 mg (9) tablets,dose pack See Rx Instructions .ROUTE .COMPLEX Qty: 51 RF: 0 carvedilol 6.25 mg tablet 6.25 mg PO BID Qty: 180 RF: 3 spironolactone 25 mg tablet 25 mg PO DAILY Qty: 90 RF: 3 amiodarone 200 mg tablet 200 mg PO DAILY Qty: 90 RF: 3 isosorbide dinitrate 30 mg tablet 30 mg PO DAILY Qty: 90 RF: 3 simvastatin 20 mg tablet 20 mg PO QHS Qty: 90 RF: 3 furosemide 40 mg tablet 40 mg PO DAILY Qty: 30 RF: 3 Primary Care Provider: Wilberto Michel Referrals: Wilberto Michel MD [Primary Care Provider] - Disposition Disposition: Acute Care Hospital [facility]
--- NOTE | 2021-04-04 16:43 | HP.PCM.HOS_ITS ---
Documented by User: Shanell MARTINEZ 04/04/21 17:08 HPI - General General Date of Admission: 04/04/21 Date of Service: 04/04/21 Chief Complaint: Shortness of breath HPI Narrative SHANELL BRIDGES is a 80-year-old male who presents to the ED at [facility] on 04/04/2021 for progressively worsening shortness of breath. Patient reports that for the past 5 weeks he has been feeling progressively more short of breath as well as he has noticed swelling in his lower extremities. Patient also endorses orthopnea and paroxysmal nocturnal dyspnea. Patient reports that sometimes he feels like he has to scream just so he can be able to get his breath. Patient denies any infectious symptoms to include productive purulent sputum, fever, chills, N/V/D. Of note, patient was seen on 03/20/2021 in the ED where he was found to have a small segmental PE without evidence of heart strain, patient was subsequently discharged on Xarelto and placed on doxycycline for possible pneumonia. Patient reports that despite these measures his shortness of breath and swelling has only gotten worse. Vital signs in the ED are temperature of 97.0 ?F, HR of 125, RR of 23 and patient is currently satting 97% on room air. CBC shows WBCs at 8.0, hemoglobin of 14 and platelets at 166. BMP in the ED shows sodium at 141, potassium of 4.5, creatinine is elevated at 2.04 with a BUN of 52. BNP is elevated at 3940. Chest x-ray demonstrates focal entry in the right midlung superimposed on chronic scarring, heart is not enlarged and associated vessels are unremarkable. Patient was given antibiotics in the ED. [facility] Medical History (Updated 04/04/21 @ 17:[address] Jenni Fabian, ) Anemia Atrial fibrillation BPH (benign prostatic hyperplasia) Cardiomyopathy in diseases classified elsewhere COPD (chronic obstructive pulmonary disease) GI bleed Hemorrhoid History of CVA (cerebrovascular accident) (09/14/18) History of pulmonary embolism Hyperlipidemia Hypertension Left inguinal hernia Osteoarthritis Paroxysmal atrial fibrillation Peptic ulcer disease PUD (peptic ulcer disease) Renal insufficiency Renal insufficiency Stage 3b chronic kidney disease (CKD) Home Medications omeprazole 40 mg capsule,delayed release 40 mg PO DAILY 05/04/17 [History Last Taken 2 Days Ago ~04/02/21] albuterol sulfate 1 puff INHALATION BID #1 inhaler 06/06/19 [Rx Last Taken 2 Days Ago ~04/02/21] amiodarone 200 mg tablet 200 mg PO DAILY #90 tab 01/14/20 [Rx Last Taken 2 Days Ago ~04/02/21] carvedilol 6.25 mg tablet 6.25 mg PO BID #180 tab 01/14/20 [Rx Last Taken 2 Days Ago ~04/02/21] isosorbide dinitrate 30 mg tablet 30 mg PO DAILY #90 tab 01/14/20 [Rx Last Taken 2 Days Ago ~04/02/21] simvastatin 20 mg tablet 20 mg PO QHS #90 tab 01/14/20 [Rx Last Taken 2 Days Ago ~04/02/21] spironolactone 25 mg tablet 25 mg PO DAILY #90 tab 01/14/20 [Rx Last Taken 2 Days Ago ~04/02/21] aspirin 81 mg tablet,delayed release 81 mg PO DAILY #30 tab 07/02/20 [Rx Last Taken 2 Days Ago ~04/02/21] lisinopril 10 mg tablet 10 mg PO DAILY #30 tab 07/02/20 [Rx Last Taken 2 Days Ago ~04/02/21] furosemide 40 mg tablet 40 mg PO DAILY #30 tab 12/24/20 [Rx Last Taken 2 Days Ago ~04/02/21] fluticasone furoate-vilanterol [Breo Ellipta] 1 inh INHALATION DAILY #60 ea 03/21/21 [Rx Last Taken 04/04/21] rivaroxaban [Xarelto DVT-PE Treat 30d Start] See Rx Instructions .ROUTE .COMPLEX #51 tab 03/21/21 [Rx Last Taken 2 Days Ago ~04/02/21] Allergy/AdvReac Type Severity Reaction Status Date / Time cortisone Allergy Rash Verified 04/04/21 08:30 Family History Father CAD (coronary artery disease) Colon cancer Mother Alzheimers disease Sister Cancer Surgical History History of bilateral knee replacement History of cataract surgery History of colonoscopy history of incision and drainage infected back abscess (06/14/18) History of left heart catheterization (11/25/14) Hx of bilateral inguinal hernia repair Social History (Updated 04/04/21 @ 16:50 by Shanell MARTINEZ) Smoking Status: Former smoker quit date: 10/27/14 pack-years: 42 alcohol intake: current alcohol intake frequency: 0-2 drinks per day Alcohol type: beer and wine substance use type: does not use caffeine: Yes Type: coffee Number of servings: 1 ROS Constitutional Constitutional: Denies anorexia, change in weight, chills, fatigue, fever(s), malaise, night sweats, weakness or other Eyes Eyes: Denies blurry vision, change in eye color, change in vision, discharge fro m eye(s), double vision, erythema, eye pain, loss of vision or other ENT HEENT: Denies abnormal hearing, dysphagia, ear pain, epistaxis, headache(s), hearing loss, nasal congestion, nasal discharge, post nasal drip, sinus press ure, sore throat or other Cardiovascular Cardiovascular: Reports chest pain, dyspnea on exertion, edema, lightheadedness, orthopnea and paroxysmal nocturnal dyspnea; Denies claudication, palpitations, rapid heart rate, syncope or other Respiratory/Chest Respiratory/Chest: Reports dyspnea, excessive phlegm production, shortness of breath at rest and shortness of breath with exertion; Denies cough, hemoptysis, productive cough, wheezing or other Gastrointestinal Gastrointestinal: Denies abdominal pain, coffee ground emesis, constipation, diarrhea, dyspepsia, hematemesis, hematochezia, loose stools, melena, nausea, vomiting or other Genitourinary Genitourinary: Denies burning urination, difficulty urinating, dysuria, hematuria, nocturia, urinary frequency, urinary hesitancy, urinary incontinence, urinary urgency or other Musculoskeletal Musculoskeletal: Denies arthralgias, back pain, joint pain, joint stiffness, joint swelling, myalgias, neck pain or other Neurologic Neurologic: Denies abnormal gait, abnormal speech, confusion, disequilibrium, dizziness, focal weakness, headache(s), numbness, paresthesias, seizure-like activity, seizures, syncope, tingling, tremor(s) or other Psychiatric Psychiatric: Denies anxiety, depression, homicidal ideation, suicidal ideation or other Endocrine Endocrinology: Denies change in body appearance, cold intolerance, excessive sweating, heat intolerance, polydipsia, polyuria or other Hematologic/Lymphatic Hematologic/Lymphatic: Denies anemia, easy bleeding, easy bruising, lymphadenopathy or other Allergic/Immunologic Allergic/Immunologic: Denies rhinitis, hives, eczemia, asthma or other Vital Signs Vital Signs Vital Signs: 04/04/21 08:28 04/04/21 08:50 04/04/21 08:51 Temperature 97 F L 97 F L Temperature Source Temporal Temporal Pulse Rate 125 H 101 H 101 H Respiratory Rate 23 H 38 H 38 H Blood Pressure 138/118 H 138/118 H Blood Pressure Mean 124 124 Pulse Ox 97 97 Oxygen Delivery Method Room Air Room Air 04/04/21 10:19 04/04/21 11:06 04/04/21 12:11 Temperature Temperature Source Pulse Rate 105 H 103 H 85 Respiratory Rate 27 H 31 H 21 H Blood Pressure 130/101 H Blood Pressure Mean 110 Pulse Ox 96 97 94 Oxygen Delivery Method Room Air Room Air 04/04/21 13:34 04/04/21 14:00 04/04/21 15:45 Temperature Temperature Source Pulse Rate 102 H 114 H 115 H Respiratory Rate 30 H 35 H 25 H Blood Pressure 142/101 H 138/118 H Blood Pressure Mean 114 124 Pulse Ox 96 93 95 Oxygen Delivery Method Room Air Nasal Cannula Room Air Weight Weight: 173 lb Body Mass Index (BMI) 23.4 Physical Exam Const alert and oriented x3 General Appearance: cooperative HEENT normocephalic, head/scalp atraumatic, hearing grossly normal bilaterally and moist oral mucous membranes Eyes PERRL, EOMs intact bilaterally and conjunctivae normal Neck no lymphadenopathy, supple and no JVD Resp Effort and Inspection: tachypneic, respiratory distress and labored Auscultation: diminished lung sounds Cardio Cardio Narrative: JVD with positive hepatojugular reflux. Jugular Venous Distention: JVD Rate: tachycardic Rhythm: abnormal rhythm irregularly irregular GI normal to inspection, nondistended, normoactive bowel sounds, soft to palpation and non-tender Extremity General Extremity: edema bilateral lower extremity Details: moderate Skin no rashes or lesions noted, no wounds, skin turgor normal and no jaundice Neuro CN's II-XII intact bilaterally Psych affect normal Results Lab / Micro Data Result Diagrams: 04/04/21 08:10 04/04/21 08:10 Labs: Laboratory Results - last 24 hr 04/04/21 08:10: WBC 8.0, RBC 4.68, Hgb 14.0, Hct 43.5, MCV 92.9, MCH 29.9, MCHC 32.2, RDW Std Deviation 51.9 H, RDW Coeff of [place]ilet 15.4 H, Plt Count 166, MPV 14.3 H, Immature Gran % (Auto) 0.300, Neut % (Auto) 78.2 H, Lymph % (Auto) 11.8 L, [place] % (Auto) 8.3, Eos % (Auto) 0.4, Baso % (Auto) 1.0, Absolute Neuts (auto) 6.3, Absolute Lymphs (auto) 0.94, Nucleated RBC % 0 04/04/21 08:10: Sodium 141, Potassium 4.5, Chloride 108 H, Carbon Dioxide 27.0, Anion Gap 6, BUN 52 H, Creatinine 2.04 H, Estim Creat Clear Calc 32.23, Est GFR (MDRD) Af Amer 41 L, Est GFR (MDRD) Non-Af 34 L, BUN/Creatinine Ratio 25.5 H, Glucose 144 H, Calcium 9.1, Troponin I High Sens 36 04/04/21 08:10: B-Natriuretic Peptide 3940.4 H 04/04/21 10:15: Troponin I High Sens 30 Micro: Microbiology 04/04/21 14:55 Nasal Secretion SARS-CoV-2 Antigen (Rapid) - Final 04/04/21 09:45 Stool Stool Occult Blood (HELLEN) - Final Radiology Impression Chest X-Ray 04/04/21 08:50 IMPRESSION: Focal infiltrate in the right mid lung superimposed on chronic scarring. Electronically Signed: Tyler Lewis MD at 9:07 EST , Service support , Assessment & Plan Assessment/Plan (1) Acute exacerbation of congestive heart failure: (2) RUCKER (dyspnea on exertion): (3) Debility, unspecified: PLAN: Patient is a 80-year-old male who presents to the ED at [facility] on 04/04/2021 with a chief complaint of progressively worsening shortness of breath and lower extremity swelling. Patient will be admitted for management and evaluation of acute on chronic CHF exacerbation. 1) acute respiratory failure secondary to acute on chronic HFrEF exacerbation Patient presents with a 5-week history of progressively worsening shortness of breath and lower extremity swelling. Patient was seen in the ED at the end of February for a small segmental PE, and was subsequently placed on Xarelto and doxycycline, which has not helped the patient symptoms. Patient follows with Dr. Connor of the [facility]. Recent echocardiogram from 03/25/2021 demonstrated severely dilated left ventricle, severe segmental systolic dysfunction with an EF of 20%, mild to moderate dilated aortic root, and RVSP of 40 mmHg with indeterminate diastolic dysfunction. Patient is on a home CHF regimen, although is not on home oxygen. Vital signs in the ED show a sustained tachycardia with tachypnea, although patient is not hypoxic. Imaging was unremarkable although BNP is elevated at 3940. Plan; admit to PCU for cardiac monitoring, initiate Lasix drip, monitor I's and O's, obtain daily weights, continue to trend cardiac enzymes, heart healthy diet ordered, incentive spirometry ordered, PT/OT eval ordered, case management consult ordered, CBC and CMP in a.m., TSH in a.m., phosphorus in a.m., TSH in a.m, hold home Lasix and l isinopril, continue Coreg, continue spironolactone, initiate Zaroxolyn. 2) KATEY on CKD stage IIIb Creatinine currently 2.04, likely cardiorenal syndrome. Hopefully should begin to trend down with initiation of Lasix. Plan; continue to monitor, as above. 3) history of PE Patient was diagnosed with a small right segmental PE in February 2021, discharged from the ED on Xarelto. Continue Xarelto. 4) history of CVA On appropriate aspirin and statin regimen, continue home regimen. 5) HTN Not within goal, hold home Lasix and lisinopril as above. Continue Coreg, isosorbide, spironolactone. As needed hydralazine ordered. 6) paroxysmal atrial fibrillation Patient is rate controlled on amiodarone and Coreg. Patient is anticoagulated on Xarelto. 7) GERD Continue PPI. CODE STATUS: Full code Advance care planning: Patient does not have a designated healthcare power of commercial real estate attorney or living well. In the event that patient cannot make decisions for himself he would like his stepdaughter, Tonia Olivas, to make medical decisions for him. Patient seen by Shanell Jenkins PA-C, under the supervision of Dr. Fabian Documented by User: Dr. Jenni Fabian DO 04/04/21 17:57 HPI - General General Date of Admission: 04/04/21 Date of Service: 04/04/21 Chief Complaint: Shortness of breath/chest pain HPI Narrative This patient was seen in conjunction with MICHELLE Dc. The following is representation my independent history of his examination. Please see below for addendum the above. Mr. Bridges is a 80-year-old white male who presented to the emergency department at [facility] on 04/04/2021 with a chief complaint of chest pain, shortness of breath and possibly melanotic stool. The patient re ports over the last 5 weeks he has had marked increased swelling in his bilateral lower extremities and he feels like there is some tightness around his chest. He reported that nothing makes it better or worse. He did indicate it feels better after he takes an aerosol. He indicates he also feels off balance and feels like he is leaning to the right intermittently. He had some diarrhea earlier today and thought that his stools looked dark so he stopped the Xarelto he is supposed to be on at home with his last dose being yesterday. He had a visit to the emergency department at the end of January where a CTA of his chest was performed and showed subsegmental pulmonary embolus of the left lower lobe with no evidence of right heart strain as well as patchy right posterior airspace disease and centrilobular emphysematous changes with diffuse peribronchial thickening and a right lower lobe 7 mm nodule. [facility] Medical History (Updated 04/04/21 @ 17:[address] Jenni Fabian DO) Anemia Atrial fibrillation BPH (benign prostatic hyperplasia) Cardiomyopathy in diseases classified elsewhere COPD (chronic obstructive pulmonary disease) GI bleed Hemorrhoid History of CVA (cerebrovascular accident) (09/14/18) History of pulmonary embolism Hyperlipidemia Hypertension Left inguinal hernia Osteoarthritis Paroxysmal atrial fibrillation Peptic ulcer disease PUD (peptic ulcer disease) Renal insufficiency Renal insufficiency Stage 3b chronic kidney disease (CKD) Home Medications omeprazole 40 mg capsule,delayed release 40 mg PO DAILY 05/04/17 [History Last Taken 2 Days Ago ~04/02/21] albuterol sulfate 1 puff INHALATION BID #1 inhaler 09/26/18 [Rx Last Taken 2 Days Ago ~04/02/21] amiodarone 200 mg tablet 200 mg PO DAILY #90 tab 01/14/20 [Rx Last Taken 2 Days Ago ~04/02/21] carvedilol 6.25 mg tablet 6.25 mg PO BID #180 tab 01/14/20 [Rx Last Taken 2 Days Ago ~04/02/21] isosorbide dinitrate 30 mg tablet 30 mg PO DAILY #90 tab 01/14/20 [Rx Last Taken 2 Days Ago ~04/02/21] simvastatin 20 mg tablet 20 mg PO QHS #90 tab 01/14/20 [Rx Last Taken 2 Days Ago ~04/02/21] spironolactone 25 mg tablet 25 mg PO DAILY #90 tab 01/14/20 [Rx Last Taken 2 Days Ago ~04/02/21] aspirin 81 mg tablet,delayed release 81 mg PO DAILY #30 tab 07/02/20 [Rx Last Taken 2 Days Ago ~04/02/21] lisinopril 10 mg tablet 10 mg PO DAILY #30 tab 07/02/20 [Rx Last Taken 2 Days Ago ~04/02/21] furosemide 40 mg tablet 40 mg PO DAILY #30 tab 12/24/20 [Rx Last Taken 2 Days Ago ~04/02/21] fluticasone furoate-vilanterol [Breo Ellipta] 1 inh INHALATION DAILY #60 ea 03/21/21 [Rx Last Taken 04/04/21] rivaroxaban [Xarelto DVT-PE Treat 30d Start] See Rx Instructions .ROUTE .COMPLEX #51 tab 03/21/21 [Rx Last Taken 2 Days Ago ~04/02/21] Allergy/AdvReac Type Severity Reaction Status Date / Time cortisone Allergy Rash Verified 04/04/21 08:30 Family History Father CAD (coronary artery disease) Colon cancer Mother Alzheimers disease Sister Cancer Surgical History History of bilateral knee replacement History of cataract surgery History of colonoscopy history of incision and drainage infected back abscess (06/14/18) History of left heart catheterization (11/25/14) Hx of bilateral inguinal hernia repair Social History (Updated 04/04/21 @ 16:50 by Shanell MARTINEZ) Smoking Status: Former smoker quit date: 10/27/14 pack-years: 42 alcohol intake: current alcohol intake frequency: 0-2 drinks per day Alcohol type: beer and wine substance use type: does not use caffeine: Yes Type: coffee Number of servings: 1 Results Lab / Micro Data Result Diagrams: 04/04/21 08:10 04/04/21 08:10 Assessment & Plan Assessment/Plan (1) Acute exacerbation of congestive heart failure: (2) RUCKER (dyspnea on exertion): (3) Lower extremity edema: (4) Pulmonary nodule: (5) Debility: (6) KATEY (acute kidney injury): PLAN: Assessment: Acute exacerbation of chronic systolic and diastolic heart failure Lower extremity edema Dyspnea on exertion ? Melena KATEY CKD stage IIIb Recent diagnosis of subsegmental pulmonary embolus 7 mm right lower lobe pulmonary nodule COPD History of stroke Hypertension PAF GERD Hypertension Hyperlipidemia Debility Plan: -Cycle cardiac enzymes -Lasix drip -Add Zaroxolyn 2.5 mg daily -Continue beta-fidel but will hold lisinopril with worsening serum creatinine and add hydralazine 25 mg 3 times daily -Continue home Aldactone -Daily weights -Accurate I's and O's -Low-sodium diet -1500 cc fluid restriction -No need for repeat echo as patient had one on 03/25/2021 as noted above -Discontinue Xarelto and start Eliquis given renal disease--> will dose at 2.5 mg twice daily -Monitor H&H and if remains stable continue medication as patient was recently diagnosed with pulmonary embolus -Will need to discontinue if hemoglobin drops or patient has further bleeding -Check Hemoccult stool -PT/OT consultation Charges/Coding Visit Charges Inpatient E&M: 24382 Init Hosp L3
[2021-04-04] MEDS: Furosemide 100 MG/10 ML Vial 80 MG IV (16:57)
--- NOTE | 2021-04-04 19:28 | NURSING ---
PT HX, MED LIST, ADMISSION QUESTIONS COMPLETED.
[2021-04-04] MEDS: Furosemide 500 MG in Empty Viaflex 50 mL 1 EACH CONT INF (20:17)
[2021-04-04 20:33] LABS: Troponin-I HS 37 pg/mL (3.0-78.0)
[2021-04-04] MEDS: APIXABAN 2.5 MG TABLET PO (21:59)
[2021-04-04] MEDS: hydrALAZINE 25 MG Tablet PO (21:59)
[2021-04-04] MEDS: Atorvastatin Calcium 10 MG Tablet PO (21:59)
[2021-04-04] MEDS: Carvedilol 6.25 MG Tablet PO (21:59)
[2021-04-04 22:18] LABS: Hematocrit 41.8 % (40-54); Hemoglobin 13.3 g/dL (13.0-16.5); POSITIVE MORPHOLOGY YES
[2021-04-04 22:39] LABS: Troponin-I HS 36 pg/mL (3.0-78.0)
[2021-04-04] MEDS: Albuterol 2.5 MG/3 ML VIAL.NEB. INHALATION (22:46)
[2021-04-05] VITALS (17 sets, daily range): BP systolic 114–134; BP diastolic 88–95; PULSE 80–101; RESP 16–38; TEMP 36.4–36.8; O2SAT 93–100
[2021-04-05 02:26] LABS: Hematocrit 40.5 % (40-54); Hemoglobin 13.1 g/dL (13.0-16.5)
[2021-04-05 02:44] LABS: Troponin-I HS 35 pg/mL (3.0-78.0)
--- NOTE | 2021-04-05 02:48 | PCS.PANDOC ---
PANDEMIC DOCUMENTATION INITIATED: Date: 04/04/2021 Time: 1916
[2021-04-05] MEDS: hydrALAZINE 25 MG Tablet PO ×3 (05:50→21:55)
[2021-04-05 06:05] LABS: Absolute Lymphocyte Count 0.81 X10^3/uL (0.83-4.51); Absolute Neutrophil Count 5.6 X10^3/uL (2.0-7.7); Basophil# 0.06 X10^3/uL; Basophil% 0.8 % (0-1); Eosinophil# 0.06 X10^3/uL; Eosinophils% 0.8 % (0-5); Hematocrit 41.7 % (40-54); Hemoglobin 13.5 g/dL (13.0-16.5); Lymphocyte # 0.81 X10^3/ul (0.83-4.51); Lymphocyte % 11.2 % (19-41); Mean Corp Hgb Conc 32.4 g/dL (32-36); Mean Corpuscular Hgb 30.1 pg (27.0-32.0); Mean Corpuscular Volume 93.1 fL (80-94); Monocyte# 0.65 X10^3/uL; NRBC Flagged by Analyzer 0 % (0-5); Neutrophil # 5.61 X10^3/uL (2.7-7.7); Neutrophil % 77.6 % (47-70); Platelet Count 142 K/mm3 (150-450); RBC Distribution Width CV 15.2 % (11.6-14.6); RBC Distribution Width SD 51.7 fl (35.1-43.9); Red Blood Count 4.48 M/mm3 (4.6-6.2); White Blood Count 7.2 K/mm3 (4.4-11.0)
[2021-04-05] MEDS: Albuterol 2.5 MG/3 ML VIAL.NEB. INHALATION ×3 (06:58→19:14)
[2021-04-05] MEDS: Budesonide Respules 0.5 MG/2 ML AMPUL.NEB. INHALATION ×2 (06:58→19:14)
[2021-04-05 07:01] LABS: Anion Gap 6 (5-15); BUN 51 mg/dL (7-18); BUN/Creat Ratio 25.6 RATIO (10-20); Calcium,Total 8.8 mg/dL (8.5-10.1); Chloride 106 mmol/L (98-107); Creatinine, Serum 1.99 mg/dL (0.70-1.30); EST Glomerular Filtration Rate 35 mL/min (>60); Est Glom Filt Rate - Afr Amer 42 mL/min (>60); Estimated Creatinine Clearance 33.04 ml/min; Glucose 106 mg/dL (74-106); Magnesium 1.9 mg/dL (1.6-2.6); Phosphorus 4.6 mg/dL (2.5-4.9); Potassium 3.9 mmol/L (3.5-5.1); Sodium Level 139 mmol/L (136-145); Thyroid Stim Hormone (TSH) 4.38 uIU/mL (0.358-3.74)
--- NOTE | 2021-04-05 09:35 | CASEMGMT ---
RN AMINA Face to Face with patient for initial transition planning/care coordination assessment. RN CM introduced self and role at [facility]. Patient lying in bed, alert and oriented. Patient willing to participate in assessment and is able to answer all questions appropriately. Care providers, pharmacy, and demographics verified. Patient wishes to discharge home, will monitor for HHC pending progress with therapy. Patient states he has no further needs or concerns at this time. CM to follow for discharge planning needs that may arise. PCP: Wilberto Michel Specialists: Eden Giron NP, licensed bondsman Preferred Pharmacy:[facility] Insurance: [employer] Prescription Benefit: yes Living Will/HPOA: none LNOK: daughter, step daughter Living Arrangements: Patient lives alone in a single story home with 2-3 steps to enter the home. Patient states that is in a SNF. Patient states he is independent at home. Transportation: self/stepdaughter Jessica or friend DME/HHC: Patient states he has shower chair, walker, and nebulizer at home. Patient denies previous HHC or SNF. Will monitor progress with therapy. Disposition Plan: Patient to discharge home with follow-up plans in place. Will monitor for HHC pending therapy. Radha MONSALVE, RN, CM
[2021-04-05] MEDS: APIXABAN 2.5 MG TABLET PO ×2 (09:38→21:53)
[2021-04-05] MEDS: Isosorbide DN 30 MG Tablet PO (09:38)
[2021-04-05] MEDS: Pantoprazole Sodium 40 MG Tablet PO (09:38)
[2021-04-05] MEDS: Spironolactone 25 MG Tablet PO (09:38)
[2021-04-05] MEDS: Amiodarone 200 MG Tablet PO (09:38)
[2021-04-05] MEDS: Aspirin E.C. 81 MG Tablet PO (09:38)
[2021-04-05] MEDS: Carvedilol 6.25 MG Tablet PO ×2 (09:38→21:53)
[2021-04-05] MEDS: Metolazone 2.5 MG Tablet PO (09:39)
--- NOTE | 2021-04-05 14:19 | PN.HOSP_ITS ---
Subjective Subjective He notes about 25% improvement in his leg swelling compared to yesterday. He does report ongoing swelling from the knees through the feet. He does not report any orthopnea but he has been propped up in bed. Denies any chest pain or shortness of breath at rest. He does continue to get short of breath with any activity. He reports ongoing right arm weakness from his previous stroke. He reports improvement in his generalized weakness since presentation He denies any previous assessment for sleep apnea. Objective Data Objective Data Vital Signs: Vital Signs Temp Pulse Resp BP Pulse Ox 97.5 F L 83 22 H 125/95 H 98 04/05/21 09:39 04/05/21 13:43 04/05/21 13:43 04/05/21 13:37 04/05/21 09:39 Oxygen Delivery Method Room Air Weight: 173 lb Body Mass Index (BMI) 23.4 Intake & Output: Intake and Output for Last 24 Hours 04/03/21 04/04/21 04/05/21 23:59 23:59 23:59 Intake Total 305 / 305 500 / 500 Output Total 3700 / 3700 Balance 305 / 305 -3200 / -3200 Lab / Micro Data Result Diagrams: 04/05/21 05:45 04/05/21 05:45 Labs: Laboratory Results - last 24 hr 04/05/21 02:14: Troponin I High Sens 35 04/05/21 02:14: Hgb 13.1, Hct 40.5 04/05/21 05:45: WBC 7.2, RBC 4.48 L, Hgb 13.5, Hct 41.7, MCV 93.1, MCH 30.1, MCHC 32.4, RDW Std Deviation 51.7 H, RDW Coeff of Yamilet 15.2 H, Plt Count 142 L, MPV 14.0 H, Immature Gran % (Auto) 0.600, Neut % (Auto) 77.6 H, Lymph % (Auto) 11.2 L, [place] % (Auto) 9.0, Eos % (Auto) 0.8, Baso % (Auto) 0.8, Absolute Neuts (auto) 5.6, Absolute Lymphs (auto) 0.81 L, Nucleated RBC % 0 04/05/21 05:45: Sodium 139, Potassium 3.9, Chloride 106, Carbon Dioxide 27.0, Anion Gap 6, BUN 51 H, Creatinine 1.99 H, Estim Creat Clear Calc 33.04, Est GFR (MDRD) Af Amer 42 L, Est GFR (MDRD) Non-Af 35 L, BUN/Creatinine Ratio 25.6 H, Glucose 106, Calcium 8.8, Phosphorus 4.6, Magnesium 1.9, TSH 4.38 H Micro: Microbiology 04/04/21 14:55 Nasal Secretion SARS-CoV-2 Antigen (Rapid) - Final 04/04/21 09:45 Stool Stool Occult Blood (HELLEN) - Final Physical Exam Narrative In bed sitting at a 30 degree angle to the horizontal with no acute distress. He had decreased breath sounds bilaterally with no rales or wheezing. He had distant, irregularly irregular heart sounds with a controlled rate and no murmur or gallop. He had an external Roldan catheter in place with clear, yellow urine in the container. He had 3+ pitting edema from the pretibial areas distally through the feet bilaterally. He had chronic venous stasis changes in the pretibial areas bilaterally with no open wounds. He was alert and oriented x3 with decreased arm strength with abduction and handgrip on the right. He had a normal affect and mood. 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 - Patient will continue with his Lasix drip and oral Zaroxylyn for his acute systolic CHF exacerbation. - I will recommend compression stockings for his lower extremity edema along with his Lasix drip. - I will repeat his BMP on the morning of 04/06/2021 to follow his potassium on the Lasix drip. - I will also repeat his BMP in order to monitor his CKD stage IIIb with his ongoing need for diuresis. - Nursing will continue to monitor his oxygen needs with his reduced ejection fraction and elevated BNP dyspnea. - The patient's magnesium and phosphorus are therapeutic-I will repeat those again in the a.m. - Continue his amiodarone and Coreg for his paroxysmal atrial fibrillation. - Given his systolic CHF, RVSP of 40 by Echo, and atrial fibrillation, he is at considerable risk for sleep apnea. - He would do well to consider outpatient sleep testing with his compromised cardiac function. - He is using Eliquis 0.5 mg twice daily adjusted for his kidney function his recent PE in February 2021. - He will continue with his aspirin for his known vascular disease. - He will continue his Coreg, Imdur, Aldactone, and hydralazine for his chronic hypertension. - He is not a candidate for ELOISA inhibitors with his stage IIIb chronic kidney disease. - The patient is appropriate for palliative care-this can be recommended at discharge. - Patient is on full dose anticoagulation for DVT prophylaxis. - He remains a full code. I did review the plan of care with the patient's daughter, Jessica, by phone. We discussed the progression of his compromised ejection fraction compared to 2019 (he was in the 27% range and is now down to 20% as of 1 week ago). I explained to the problems related to his untreated sleep apnea in the context of his cardiomyopathy and ongoing tobacco use. She was open to the discussion as she does wear CPAP herself. She was willing to reinforce these notions with her father. Patient remains appropriate for inpatient status given his need for ongoing IV Lasix and electrolyte monitoring with his cardiorenal syndrome. Charges/Coding Visit Charges Inpatient E&M: 61486 [facility] L3
[2021-04-05] MEDS: Atorvastatin Calcium 10 MG Tablet PO (21:53)
[2021-04-06] VITALS (10 sets, daily range): BP systolic 103–129; BP diastolic 81–85; PULSE 80–87; RESP 18; TEMP 36.5–36.7; O2SAT 90–96
[2021-04-06] MEDS: hydrALAZINE 25 MG Tablet PO (05:05)
[2021-04-06 06:27] LABS: Anion Gap 9 (5-15); BUN 48 mg/dL (7-18); BUN/Creat Ratio 22.9 RATIO (10-20); Calcium,Total 8.5 mg/dL (8.5-10.1); Chloride 97 mmol/L (98-107); EST Glomerular Filtration Rate 33 mL/min (>60); Est Glom Filt Rate - Afr Amer 39 mL/min (>60); Estimated Creatinine Clearance 31.31 ml/min; Glucose 112 mg/dL (74-106); Phosphorus 4.1 mg/dL (2.5-4.9); Potassium 3.5 mmol/L (3.5-5.1); Sodium Level 138 mmol/L (136-145)
[2021-04-06 06:33] LABS: Anion Gap 9 (5-15); BUN 49 mg/dL (7-18); Calcium,Total 8.4 mg/dL (8.5-10.1); Chloride 98 mmol/L (98-107); Creatinine, Serum 2.13 mg/dL (0.70-1.30); EST Glomerular Filtration Rate 32 mL/min (>60); Est Glom Filt Rate - Afr Amer 39 mL/min (>60); Estimated Creatinine Clearance 30.87 ml/min; Glucose 111 mg/dL (74-106); Magnesium 1.8 mg/dL (1.6-2.6); Potassium 3.5 mmol/L (3.5-5.1); Sodium Level 139 mmol/L (136-145)
[2021-04-06] MEDS: Furosemide 500 MG in Empty Viaflex 50 mL 1 EACH CONT INF (08:50)
[2021-04-06] MEDS: Metolazone 2.5 MG Tablet PO (09:28)
[2021-04-06] MEDS: Furosemide 40 MG/4 ML Vial IV (09:28)
[2021-04-06] MEDS: 0.9% Saline Lock 10 ML Syringe IV (09:28)
[2021-04-06] MEDS: Amiodarone 200 MG Tablet PO (09:28)
[2021-04-06] MEDS: Aspirin E.C. 81 MG Tablet PO (09:28)
[2021-04-06] MEDS: Pantoprazole Sodium 40 MG Tablet PO (09:28)
[2021-04-06] MEDS: Isosorbide DN 30 MG Tablet PO (09:29)
[2021-04-06] MEDS: APIXABAN 2.5 MG TABLET PO (09:29)
[2021-04-06] MEDS: Carvedilol 6.25 MG Tablet PO (09:29)
[2021-04-06] MEDS: Spironolactone 25 MG Tablet PO (09:29)
--- NOTE | 2021-04-06 10:15 | PCM.DC ---
Discharge Instructions Diet Discharge Diet: No restrictions Activity Discharge Activity: Return to Normal Activity Weight Bearing Status: Weight bearing as tolerated Dressing / Incision Call your doctor if you observe: Fever of 101 or Higher, Numbness or Tingling, Shortness of breath, Dizziness, Chest pain, Increased palpitations (irregular heartbeat) and Calf discomfort Follow Up Care Please Follow Up With: Primary care provider When: Within the next two weeks. Test Results: Test results from this visit will be discussed in further detail at your follow-up appointment, if applicable. Discharge Plan Admission Admit Date/Time: 04/04/21 16:30 Attending Provider: Kit Hurtado Primary Care Provider: Wilberto Michel Discharge Orders/Prescriptions Prescriptions: Continued omeprazole 40 mg capsule,delayed release(DR/EC) 40 mg PO DAILY RF: 0 aspirin [Adult Aspirin Regimen] 81 mg tablet,delayed release (DR/EC) 81 mg PO DAILY Qty: 30 RF: 11 lisinopril 10 mg tablet 10 mg PO DAILY Qty: 30 RF: 11 albuterol sulfate 1 INHALER inhaler 1 puff inhalation BID Qty: 1 RF: 3 Breo Ellipta 100-25 mcg/dose blister with device 1 inh inhalation DAILY Qty: 60 RF: 0 Xarelto DVT-PE Treat 30d Start 15 mg (42)- 20 mg (9) tablets,dose pack See Rx Instructions .ROUTE .COMPLEX Qty: 51 RF: 0 carvedilol 6.25 mg tablet 6.25 mg PO BID Qty: 180 RF: 3 spironolactone 25 mg tablet 25 mg PO DAILY Qty: 90 RF: 3 amiodarone 200 mg tablet 200 mg PO DAILY Qty: 90 RF: 3 isosorbide dinitrate 30 mg tablet 30 mg PO DAILY Qty: 90 RF: 3 simvastatin 20 mg tablet 20 mg PO QHS Qty: 90 RF: 3 Changed furosemide 40 mg tablet 40 mg PO BID Qty: 30 RF: 3 Referrals / Follow Up: Wilberto Michel MD [Primary Care Provider] - Within 2 Weeks Disposition Disposition (needs filled in before D/C Order can be placed): Home, Self Care
--- NOTE | 2021-04-06 11:16 | CASEMGMT ---
Per Dr. Cardenas's note, palliative c/s for pt. Referral emailed,pt discharging today. Vin RICHTER CM
--- NOTE | 2021-04-06 11:33 | CASEMGMT ---
Addendum entered by Radha Jurado 04/06/21 11:57: Pt aware that he can call PCP for therapy once home if he changes his mind about therapy. Pt agreeable to referral for [facility] as he states he has been stuggling to prepare meals for self. Pt states his step-daughter does get him groceries. [facility] referral placed online for pt. Pt voices no further questions/concerns/needs. Vin RICHTER CM Addendum entered by Radha Jurado 04/06/21 11:39: German Peterson RN, pt does not qualify for home oxygen at this time. Vin RICHTER CM Original Note: This RN CM to room to discuss discharge plan with pt. Pt declines need for any further therapy at home at this time. Pt is aware that he will be switched to Eliquis from his Xarelto and updated that this RN CM will call to check coverage/co-pay, pt voices understanding. Call to [facility] and per maynor, pt's co-pay is $47 and this RN CM applied a 30 day free trial card with tech at this time. Pt updated and voices no further questions/concerns/needs. Vin RICHTER CM
--- NOTE | 2021-04-06 12:00 | PHA.DC.MC ---
Pharmacy Service has performed discharge medication reconciliation and counseling for this patient. 1. APIXABAN 2.5MG PO BID The patient's discharge medication list was reviewed for discrepancies and discrepancies were resolved. Home Medications omeprazole 40 mg capsule,delayed release 40 mg PO DAILY 05/04/17 albuterol sulfate 1 puff INHALATION BID #1 inhaler 09/26/18 amiodarone 200 mg tablet 200 mg PO DAILY #90 tab 01/14/20 carvedilol 6.25 mg tablet 6.25 mg PO BID #180 tab 01/14/20 isosorbide dinitrate 30 mg tablet 30 mg PO DAILY #90 tab 01/14/20 simvastatin 20 mg tablet 20 mg PO QHS #90 tab 01/14/20 spironolactone 25 mg tablet 25 mg PO DAILY #90 tab 01/14/20 aspirin 81 mg tablet,delayed release 81 mg PO DAILY #30 tab 07/02/20 lisinopril 10 mg tablet 10 mg PO DAILY #30 tab 07/02/20 Breo Ellipta 1 inh INHALATION DAILY #60 ea 03/21/21 apixaban [Eliquis] 2.5 mg PO BID #60 tab 04/06/21 furosemide 40 mg PO BID #30 tab 04/06/21 The patient was counseled on the following discharge medications and changes in medications for homegoing were reviewed. The Reason for Use, instructions for use, and potential side effects were reviewed for all new medications. The patient's questions regarding all of their medications were answered. The patient was able to verbally demonstrate an understanding of their discharge medications.
[2021-04-06] MEDS: Albuterol 2.5 MG/3 ML VIAL.NEB. INHALATION (14:05)
--- NOTE | 2021-04-06 14:08 | DS.PCM_ITS ---
Documented by User: Seven MARTINEZ 04/06/21 14:18 Providers Date of Admission: 04/04/21 Primary Care Physician: Dr. Wilberto Michel MD Reason For Visit: ACUTE DECOMPENSATED SYSTOLIC/DIASTOLIC HEART FAILU Diagnosis Discharge Diagnosis (1) Acute exacerbation of congestive heart failure: Status: Chronic Code(s): I50.9 - Heart failure, unspecified (2) Lower extremity edema: Status: Acute Code(s): R60.0 - Localized edema (3) Atrial fibrillation: Status: Chronic Code(s): I48.91 - Unspecified atrial fibrillation (4) Renal insufficiency: Status: Chronic Code(s): N28.9 - Disorder of kidney and ureter, unspecified (5) Hypertension: Status: Chronic Code(s): I10 - Essential (primary) hypertension Medications at Discharge Home Medications omeprazole 40 mg capsule,delayed release 40 mg PO DAILY 05/04/17 albuterol sulfate 1 puff INHALATION BID #1 inhaler 09/26/18 amiodarone 200 mg tablet 200 mg PO DAILY #90 tab 01/14/20 carvedilol 6.25 mg tablet 6.25 mg PO BID #180 tab 01/14/20 isosorbide dinitrate 30 mg tablet 30 mg PO DAILY #90 tab 01/14/20 simvastatin 20 mg tablet 20 mg PO QHS #90 tab 01/14/20 spironolactone 25 mg tablet 25 mg PO DAILY #90 tab 01/14/20 aspirin 81 mg tablet,delayed release 81 mg PO DAILY #30 tab 07/02/20 lisinopril 10 mg tablet 10 mg PO DAILY #30 tab 07/02/20 Breo Ellipta 1 inh INHALATION DAILY #60 ea 03/21/21 apixaban [Eliquis] 2.5 mg PO BID #60 tab 04/06/21 furosemide 40 mg PO BID #60 tab 04/06/21 Hospital Course Summary of Care Provided Minutes Spent on Discharge: 35 Hospital Course: Disposition: Patient discharged home. 1) acute respiratory failure secondary to acute on chronic HFrEF exacerbation Patient presented to the ED on 04/21/2021 with chief complaint of progressively worsening shortness of breath with lower extremity swelling. BNP elevated on admission at 3940. Patient was subsequently admitted to PCU for cardiac monitoring and initiated on Lasix drip. Patient reports significant improvement in his shortness of breath and lower extremity swelling from admission. Repeat echocardiogram was not obtained due to patient obtaining an Echo on 04/04/2021 which demonstrated severely dilated left ventricle, severe segmental systolic dysfunction with an EF of 20%, mild to moderate dilated aortic root, and RVSP of 40 mmHg with indeterminate diastolic dysfunction. Patient does follow with Dr. Connor of the [facility]. Patient's home Lasix were increased to 4 0 mg twice daily. Patient's Coreg, spironolactone and lisinopril were continued. 2) KATEY on CKD stage IIIb Creatinine currently 2.13. On admission creatinine was elevated due to cardiorenal syndrome, likely elevated on discharge due to aggressive diuresing. Likely to decrease now that patient has been taken off of Lasix drip. 3) history of PE Patient was diagnosed with a small right segmental PE in February 2021, discharged from the ED on Xarelto. Given patient's worsening renal function, p atient was transitioned from Xarelto to Eliquis 2.5 mg p.o. twice daily. 4) history of CVA On appropriate aspirin and statin regimen, continue home regimen. 5) HTN Continue home HTN regimen. 6) paroxysmal atrial fibrillation Patient is rate controlled on amiodarone and Coreg. Patient anticoagulation transitioned as above. 7) GERD Continue PPI. Patient seen by Seven Jenkins PA-C, under the supervision of Dr. Hurtado. Physical Exam Narrative Patient is a 80-year-old male comfortably resting in bed, alert and oriented x3. Patient reports significant improvement in his shortness of breath and swelling from admission. Denies development of any new symptoms overnight. Does not appear in acute distress. Const alert, oriented x3 and no apparent distress HEENT normocephalic, head/scalp atraumatic and hearing grossly normal bilaterally Eyes PERRL, EOMs intact bilaterally and conjunctivae normal Neck no lymphadenopathy, supple and no JVD Resp normal respiratory effort, no retractions, no use of accessory muscles and clear to auscultation bilaterally Cardio regular rate, regular rhythm, no murmurs and no JVD GI normal to inspection, nondistended, normoactive bowel sounds, soft to palpation and non-tender Extremity normal to inspection, full ROM and no clubbing, cyanosis or edema Skin no rashes or lesions noted, no wounds and skin turgor normal Neuro CN's II-XII intact bilaterally Psych affect normal Weight / BMI Weight Weight: 173 lb Body Mass Index (BMI) 23.4 ABG / Lab / Microbiology Data Result Diagrams: 04/05/21 05:45 04/06/21 05:50 Laboratory: Laboratory Results - last 24 hr 04/06/21 05:40: Sodium 138, Potassium 3.5, Chloride 97 L, Carbon Dioxide 32.0, Anion Gap 9, BUN 48 H, Creatinine 2.10 H, Estim Creat Clear Calc 31.31, Est GFR (MDRD) Af Amer 39 L, Est GFR (MDRD) Non-Af 33 L, BUN/Creatinine Ratio 22.9 H, Glucose 112 H, Calcium 8.5, Phosphorus 4.1 04/06/21 05:50: Sodium 139, Potassium 3.5, Chloride 98, Carbon Dioxide 32.0, Anion Gap 9, BUN 49 H, Creatinine 2.13 H, Estim Creat Clear Calc 30.87, Est GFR (MDRD) Af Amer 39 L, Est GFR (MDRD) Non-Af 32 L, BUN/Creatinine Ratio 23.0 H, Glucose 111 H, Calcium 8.4 L, Magnesium 1.8 Microbiology: Microbiology 04/04/21 14:55 Nasal Secretion SARS-CoV-2 Antigen (Rapid) - Final 04/04/21 09:45 Stool Stool Occult Blood (HELLEN) - Final D/C Instructions Discharge Diet: No restrictions Weight Bearing Status: Weight bearing as tolerated Call your doctor if you observe: Fever of 101 or Higher, Numbness or Tingling, Shortness of breath, Dizziness, Chest pain, Increased palpitations (irregular heartbeat) and Calf discomfort Please Follow Up With: Primary care provider When: Within the next two weeks. Meaningful Use Info Meaningful Use Diagnoses (Choose all that apply): CHF CHF ELOISA/ARB ordered at discharge?: Yes Documented LVEF (%): 20 Discharge Plan Admission Admit Date/Time: 04/04/21 16:30 Attending Provider: Kit Hurtado Primary Care Provider: Wilberto Michel Discharge Orders/Prescriptions Prescriptions: New Eliquis 2.5 mg tablet 2.5 mg PO BID Qty: 60 RF: 0 Continued omeprazole 40 mg capsule,delayed release(DR/EC) 40 mg PO DAILY RF: 0 aspirin [Adult Aspirin Regimen] 81 mg tablet,delayed release (DR/EC) 81 mg PO DAILY Qty: 30 RF: 11 lisinopril 10 mg tablet 10 mg PO DAILY Qty: 30 RF: 11 albuterol sulfate 1 INHALER inhaler 1 puff inhalation BID Qty: 1 RF: 3 Breo Ellipta 100-25 mcg/dose blister with device 1 inh inhalation DAILY Qty: 60 RF: 0 carvedilol 6.25 mg tablet 6.25 mg PO BID Qty: 180 RF: 3 spironolactone 25 mg tablet 25 mg PO DAILY Qty: 90 RF: 3 amiodarone 200 mg tablet 200 mg PO DAILY Qty: 90 RF: 3 isosorbide dinitrate 30 mg tablet 30 mg PO DAILY Qty: 90 RF: 3 simvastatin 20 mg tablet 20 mg PO QHS Qty: 90 RF: 3 Changed furosemide 40 mg tablet 40 mg PO BID Qty: 60 RF: 3 Discontinued Xarelto DVT-PE Treat 30d Start 15 mg (42)- 20 mg (9) tablets,dose pack See Rx Instructions .ROUTE .COMPLEX Qty: 51 RF: 0 Referrals / Follow Up: Wilberto Michel MD [Primary Care Provider] - 04/18/21 8:50 am Disposition Disposition (needs filled in before D/C Order can be placed): Home, Self Care Documented by User: Dr. Kit Hurtado MD 04/06/21 14:44 Providers Date of Admission: 04/04/21 Reason For Visit: ACUTE DECOMPENSATED SYSTOLIC/DIASTOLIC HEART FAILU Medications at Discharge Home Medications omeprazole 40 mg capsule,delayed release 40 mg PO DAILY 05/04/17 albuterol sulfate 1 puff INHALATION BID #1 inhaler 09/26/18 amiodarone 200 mg tablet 200 mg PO DAILY #90 tab 01/14/20 carvedilol 6.25 mg tablet 6.25 mg PO BID #180 tab 01/14/20 isosorbide dinitrate 30 mg tablet 30 mg PO DAILY #90 tab 01/14/20 simvastatin 20 mg tablet 20 mg PO QHS #90 tab 01/14/20 spironolactone 25 mg tablet 25 mg PO DAILY #90 tab 01/14/20 aspirin 81 mg tablet,delayed release 81 mg PO DAILY #30 tab 07/02/20 lisinopril 10 mg tablet 10 mg PO DAILY #30 tab 07/02/20 Breo Ellipta 1 inh INHALATION DAILY #60 ea 03/21/21 apixaban [Eliquis] 2.5 mg PO BID #60 tab 04/06/21 furosemide 40 mg PO BID #60 tab 04/06/21 Hospital Course Summary of Care Provided Hospital Course: This patient was seen in conjunction with Seven Jenkins PA-C. I have independently interviewed and examined the patient and reviewed pertinent historical, laboratory, and other data. Please refer to Seven Jenkins PA-C's note for details of this patient's presentation, findings, and recommendations. I have reviewed Seven Jenkins PA-C's note and concur with documented findings. In brief, patient is a 80-year-old gentleman who presented with progressive shortness of breath. An assessment of acute congestive heart failure made. Admitted to a monitored bed where patient was managed Hospital course; as documented above ABG / Lab / Microbiology Data Result Diagrams: 04/05/21 05:45 04/06/21 05:50 Discharge Plan Admission Admit Date/Time: 04/04/21 16:30 Attending Provider: Kit Hurtado Primary Care Provider: Wilberto Michel Discharge Orders/Prescriptions Prescriptions: New Eliquis 2.5 mg tablet 2.5 mg PO BID Qty: 60 RF: 0 Continued omeprazole 40 mg capsule,delayed release(DR/EC) 40 mg PO DAILY RF: 0 aspirin [Adult Aspirin Regimen] 81 mg tablet,delayed release (DR/EC) 81 mg PO DAILY Qty: 30 RF: 11 lisinopril 10 mg tablet 10 mg PO DAILY Qty: 30 RF: 11 albuterol sulfate 1 INHALER inhaler 1 puff inhalation BID Qty: 1 RF: 3 Breo Ellipta 100-25 mcg/dose blister with device 1 inh inhalation DAILY Qty: 60 RF: 0 carvedilol 6.25 mg tablet 6.25 mg PO BID Qty: 180 RF: 3 spironolactone 25 mg tablet 25 mg PO DAILY Qty: 90 RF: 3 amiodarone 200 mg tablet 200 mg PO DAILY Qty: 90 RF: 3 isosorbide dinitrate 30 mg tablet 30 mg PO DAILY Qty: 90 RF: 3 simvastatin 20 mg tablet 20 mg PO QHS Qty: 90 RF: 3 Changed furosemide 40 mg tablet 40 mg PO BID Qty: 60 RF: 3 Discontinued Xarelto DVT-PE Treat 30d Start 15 mg (42)- 20 mg (9) tablets,dose pack See Rx Instructions .ROUTE .COMPLEX Qty: 51 RF: 0 Referrals / Follow Up: Wilberto Michel MD [Primary Care Provider] - 04/18/21 8:50 am Disposition Disposition (needs filled in before D/C Order can be placed): Home, Self Care Charges/Coding Visit Charges Inpatient E&M: 27737 Disch Hosp
== END 2021-04-06 17:45 | disposition home or self-care (01) | DRG 291 ==
LOC: ED 15:48 → MS3 04-05 07:06 → PCU 04-05 14:16
PROVIDERS: Internal Medicine; Admitting Provider Internal Medicine; Emergency Provider Emergency Medicine; PCP Family Medicine; Visit Provider Internal Medicine
DX: I13.0 Hypertensive heart and chronic kidney disease with heart failure and stage 1 through stage 4 chronic kidney disease, or unspecified chronic kidney disease (principal); I50.23 Acute on chronic systolic (congestive) heart failure; J96.00 Acute respiratory failure, unspecified whether with hypoxia or hypercapnia; J18.9 Pneumonia, unspecified organism; I26.93 Single subsegmental thrombotic pulmonary embolism without acute cor pulmonale; J15.9 Unspecified bacterial pneumonia; J44.0 Chronic obstructive pulmonary disease with (acute) lower respiratory infection; I48.20 Chronic atrial fibrillation, unspecified; N18.32 Chronic kidney disease, stage 3b; I42.9 Cardiomyopathy, unspecified; I69.331 Monoplegia of upper limb following cerebral infarction affecting right dominant side; Z20.822 Contact with and (suspected) exposure to COVID-19; R19.7 Diarrhea, unspecified; N40.1 Benign prostatic hyperplasia with lower urinary tract symptoms; R35.0 Frequency of micturition; E78.5 Hyperlipidemia, unspecified; M19.90 Unspecified osteoarthritis, unspecified site; K21.9 Gastro-esophageal reflux disease without esophagitis; F17.210 Nicotine dependence, cigarettes, uncomplicated; Z79.82 Long term (current) use of aspirin; Z79.01 Long term (current) use of anticoagulants; Z79.899 Other long term (current) drug therapy; Z86.711 Personal history of pulmonary embolism; Z96.653 Presence of artificial knee joint, bilateral
CPT/HCPCS: 36415; 71045; 80048; 82274; 83735; 83880; 84100; 84443; 84484; 85014; 85018; 85025; 87040; 87426; 93005; 94640; 97162; 97166; 99251; 99285; A4216; G0463; J0696; J1940

== ENCOUNTER 2021-04-25 14:21 | Outpatient (CLI) | payer MEDICARE, OTHER, SELFPAY ==
[2021-04-25 15:16] LABS: Absolute Lymphocyte Count 0.63 X10^3/uL (0.83-4.51); Absolute Neutrophil Count 4.6 X10^3/uL (2.0-7.7); Basophil# 0.08 X10^3/uL; Basophil% 1.4 % (0-1); Eosinophil# 0.05 X10^3/uL; Eosinophils% 0.8 % (0-5); Hematocrit 38.5 % (40-54); Hemoglobin 12.3 g/dL (13.0-16.5); Lymphocyte # 0.63 X10^3/ul (0.83-4.51); Lymphocyte % 10.7 % (19-41); Mean Corp Hgb Conc 31.9 g/dL (32-36); Mean Corpuscular Hgb 29.9 pg (27.0-32.0); Mean Corpuscular Volume 93.7 fL (80-94); Mean Platelet Vol. 12.4 fl (6.2-12.0); Monocyte# 0.58 X10^3/uL; Monocyte% 9.8 % (0-10); NRBC Flagged by Analyzer 0 % (0-5); Neutrophil # 4.55 X10^3/uL (2.7-7.7); Neutrophil % 77.1 % (47-70); Platelet Count 206 K/mm3 (150-450); RBC Distribution Width CV 15.8 % (11.6-14.6); RBC Distribution Width SD 54.2 fl (35.1-43.9); Red Blood Count 4.11 M/mm3 (4.6-6.2); White Blood Count 5.9 K/mm3 (4.4-11.0)
[2021-04-25 15:59] LABS: Anion Gap 5 (5-15); BUN 30 mg/dL (7-18); BUN/Creat Ratio 16.8 RATIO (10-20); Calcium,Total 8.8 mg/dL (8.5-10.1); Chloride 112 mmol/L (98-107); Creatinine, Serum 1.79 mg/dL (0.70-1.30); EST Glomerular Filtration Rate 39 mL/min (>60); Est Glom Filt Rate - Afr Amer 47 mL/min (>60); Free T3 1.4 pg/mL (2.18-3.98); Glucose 106 mg/dL (74-106); Potassium 4.6 mmol/L (3.5-5.1); Sodium Level 142 mmol/L (136-145); T4 Free Direct 1.34 ng/dL (0.76-1.46); Thyroid Stim Hormone (TSH) 3.42 uIU/mL (0.358-3.74)
== END 2021-04-25 23:59 | disposition short-term general hospital (02) ==
LOC: LAB 14:24
PROVIDERS: PCP Family Medicine; Visit Provider Physician Assistant Medical
DX: I48.0 Paroxysmal atrial fibrillation (principal)
CPT/HCPCS: 36415; 80048; 84439; 84443; 84481; 85025

== ENCOUNTER 2021-05-30 10:05 | Inpatient (IN) | payer MEDICARE, SELFPAY ==
[2021-05-30] VITALS (8 sets, daily range): BP systolic 116–132; BP diastolic 72–103; PULSE 82–115; RESP 17–20; TEMP 36.1–36.6; O2SAT 97–100; BMI 24.4; BMI 25.9
--- NOTE | 2021-05-30 10:29 | RAD_ITS ---
STUDY: X-RAY CHEST REASON FOR EXAM: Male, 80 years old. Sob TECHNIQUE: Single AP portable view of the chest. COMPARISON: Comparison is made with prior study dated 04/04/2021. FINDINGS: EKG electrodes are seen. Hyperinflation. Patchy right lower lobe infiltrate with blunting of the right costophrenic angle. This has progressed as compared to prior study. Normal size heart. Normal mediastinum and scarlett. Normal visualized pulmonary arteries. There is atherosclerotic calcification of the aortic arch with tortuosity. There are diffuse degenerative changes of the visualized thoracic spine. Normal visualized ribs, clavicles, and shoulders. There is no demonstrated abnormality of the visualized soft tissue structures of the upper abdomen. RAD/Chest 1 View (Portable) IMPRESSION: Findings suggestive of a focal right lower lobe infiltrate with blunting of the right costophrenic angle. This has progressed as compared to prior study. Electronically Signed: Tyler Lewis MD at 11:19 EST ,
--- NOTE | 2021-05-30 10:30 | EKG12_ITS ---
Test Reason : Blood Pressure : / mmHG Vent. Rate : 101 BPM Atrial Rate : 468 BPM P-R Int : 000 ms QRS Dur : 170 ms QT Int : 438 ms P-R-T Axes : 000 161 033 degrees QTc Int : 567 ms Atrial fibrillation Right bundle branch block Abnormal ECG Confirmed by RADHA WINSLOW, REED ([id number]), publication editor ROSANGELA SHEA [id number]) on 05/31/2021 11:34:47 AM Referred By: RICARDO Confirmed By:REED GARCIA MD
--- NOTE | 2021-05-30 10:32 | EDS_ITS ---
HPI History of Present Illness Chief Complaint: Edema Informant: patient Onset/Context/Timing Onset: Weeks Context: Gradual Onset Current Severity: Mild Maximum Severity: Moderate Narrative Narrative: Patient presents secondary to increased swelling and shortness of breath. Patient has a history of CHF. He was last admitted to the hospital mid March for diuresis. Patient states he has noted increased swelling in his legs and through his abdomen. He does have increased shortness of breath especially with any exertion. He reportedly was told by cardiology to double his Lasix on Sunday but did not have improvement in his symptoms. Patient denies chest pain. [facility] Medical History Anemia Atrial fibrillation BPH (benign prostatic hyperplasia) Cardiomyopathy in diseases classified elsewhere COPD (chronic obstructive pulmonary disease) Debility Debility, unspecified GI bleed Hemorrhoid History of CVA (cerebrovascular accident) (09/14/18) History of pulmonary embolism Hyperlipidemia Hypertension Left inguinal hernia Osteoarthritis Paroxysmal atrial fibrillation Peptic ulcer disease Pneumonia PUD (peptic ulcer disease) Pulmonary nodule Renal insufficiency Renal insufficiency Stage 3b chronic kidney disease (CKD) Home Medications omeprazole 40 mg capsule,delayed release 40 mg PO DAILY 05/04/17 [History Last Taken 2 Days Ago ~04/02/21] amiodarone 200 mg tablet 200 mg PO DAILY #90 tab 01/14/20 [Rx Last Taken 2 Days Ago ~04/02/21] carvedilol 6.25 mg tablet 6.25 mg PO BID #180 tab 01/14/20 [Rx Last Taken 2 Days Ago ~04/02/21] furosemide 40 mg tablet 40 mg PO DAILY #90 tab 04/27/21 [Rx Last Taken Unknown] isosorbide dinitrate 30 mg tablet 30 mg PO DAILY #90 tab 04/27/21 [Rx Last Taken Unknown] spironolactone 25 mg tablet 25 mg PO DAILY #90 tab 04/27/21 [Rx Last Taken Unknown] albuterol sulfate 2.5 mg INHALATION Q6H #90 ml 05/26/21 [Rx Last Taken Unknown] apixaban 5 mg tablet 5 mg PO BID #10 tab 05/27/21 [Rx Last Taken Unknown] Allergy/AdvReac Type Severity Reaction Status Date / Time cortisone Allergy Rash Verified 05/30/21 10:10 Family History Father CAD (coronary artery disease) Colon cancer Mother Alzheimers disease Sister Cancer Surgical History History of bilateral knee replacement History of cataract surgery History of colonoscopy history of incision and drainage infected back abscess (06/14/18) History of left heart catheterization (11/25/14) Hx of bilateral inguinal hernia repair Social History Smoking Status: Former smoker quit date: 10/27/14 pack-years: 42 alcohol intake: current alcohol intake frequency: 0-2 drinks per day Alcohol type: beer and wine substance use type: does not use caffeine: Yes Type: coffee Number of servings: 1 ROS ROS ED Constitutional Constitutional ED: Denies chills or fever(s) Eyes Eyes: Denies change in vision ENT ENT ED: Denies sore throat Cardiovascular Cardiovascular: Denies chest pain Respiratory/Chest Respiratory/Chest: Reports dyspnea; Denies cough Gastrointestinal Gastrointestinal: Reports other Details: Abdominal distention ; Denies abdominal pain, diarrhea, nausea or vomiting Genitourinary Genitourinary ED: Denies dysuria Musculoskeletal Musculoskeletal: Denies back pain Integumentary Denies rash Neurologic Neurologic: Denies headache(s) or weakness Allergic/Immunologic Allergic/Immunologic ED: Denies urticaria EXAM Physical Exam Const Vital Signs: 05/30/21 10:06 05/30/21 10:48 Temperature 96.9 F L Temperature Source Temporal Pulse Rate 115 H Respiratory Rate 20 H Respiratory Effort Normal Non-Labored Respiratory Pattern Normal Blood Pressure 124/95 H Blood Pressure Mean 104 Pulse Ox 99 Oxygen Delivery Method Room Air Positive well nourished and well developed General Appearance ED: well developed HEENT Reports moist mucous membranes Eyes PERRL and EOMs intact bilaterally Neck supple Chest Wall inspection of chest normal and palpation of chest normal Resp normal respiratory effort Resp Narrative: Bilateral bases Auscultation: diminished lung sounds Cardio regular rate and regular rhythm GI non-tender Auscultation: hypoactive bowel sounds Palpation: soft Extremity Extremity Narrative: 3+ edema bilateral lower extremities up to mid thigh Neuro oriented x3 Sensorium / Orientation: alert Psych mental status grossly normal Skin no rashes or lesions noted MDM MDM MDM Narrative Medical decision making narrative: EKG, chest x-ray, lab work obtained. Lab Data Attestation: I reviewed the patient's lab results. Labs: Laboratory Results - last 24 hr 05/30/21 05/30/21 05/30/21 10:44 10:44 10:44 WBC 6.4 RBC 4.06 L Hgb 11.3 L Hct 36.4 L MCV 89.7 MCH 27.8 MCHC 31.0 L RDW Std Deviation 52.9 H RDW Coeff of Yamilet 16.3 H Plt Count 221 MPV 11.9 Immature Gran % (Auto) 0.200 Neut % (Auto) 73.4 H Lymph % (Auto) 11.9 L [place] % (Auto) 11.9 H Eos % (Auto) 1.3 Baso % (Auto) 1.3 H Absolute Neuts (auto) 4.7 Absolute Lymphs (auto) 0.76 L Nucleated RBC % 0 Sodium 139 Potassium 4.4 Chloride 107 Carbon Dioxide 28.0 Anion Gap 4 L BUN 34 H Creatinine 1.85 H Estim Creat Clear Calc 35.54 Est GFR (MDRD) Af Amer 46 L Est GFR (MDRD) Non-Af 38 L BUN/Creatinine Ratio 18.4 Glucose 139 H Calcium 8.4 L Troponin I High Sens 25 B-Natriuretic Peptide 1852.6 H Radiography Chest X-Ray - ED: 1 View, Read by ED Physician, Chronic Changes and CHF Diagnostic Testing: Clinical Impression(s) from Imaging Studies Chest X-Ray 05/30/21 10:29 IMPRESSION: Findings suggestive of a focal right lower lobe infiltrate with blunting of the right costophrenic angle. This has progressed as compared to prior study. Electronically Signed: Tyler Lewis MD at 11:19 EST , EKG Initial EKG: Attestation: I personally reviewed and interpreted this EKG as follows: Interpretation: Atrial Fibrillation (A. fib at 101 with right bundle branch block. No acute ischemia.) Treatment and Re-Evaluation Comments:: Lab work reviewed. Creatinine is 1.85 which appears near the patient's baseline. BNP is over 1800. Troponin is normal at 25. Patient did not tolerate attempts for extra diuresis at home. He will be given 40 mg of IV Lasix and will be discussed with hospitalist regarding admission for diuresis. It does appear his last echocardiogram revealed an EF of 20%. Discharge Plan Triage Chief Complaint: Edema ED Provider: Gladis Polk Dx/Rx/DC Orders Clinical Impression: CHF (congestive heart failure) Prescriptions: No Action omeprazole 40 mg capsule,delayed release(DR/EC) 40 mg PO DAILY RF: 0 isosorbide dinitrate 30 mg tablet 30 mg PO DAILY Qty: 90 RF: 3 furosemide 40 mg tablet 40 mg PO DAILY Qty: 90 RF: 3 spironolactone 25 mg tablet 25 mg PO DAILY Qty: 90 RF: 3 carvedilol 6.25 mg tablet 6.25 mg PO BID Qty: 180 RF: 3 amiodarone 200 mg tablet 200 mg PO DAILY Qty: 90 RF: 3 albuterol sulfate 2.5 mg /3 mL (0.083 %) solution for nebulization 2.5 mg inhalation Q6H Qty: 90 RF: 0 Eliquis 5 mg tablet 5 mg PO BID Qty: 10 RF: 1 Primary Care Provider: Eden Aguirre Referrals: Eden Aguirre, PA [Primary Care Provider] - Disposition Disposition: Acute Care Hospital [facility]
[2021-05-30 10:56] LABS: Absolute Lymphocyte Count 0.76 X10^3/uL (0.83-4.51); Absolute Neutrophil Count 4.7 X10^3/uL (2.0-7.7); Basophil# 0.08 X10^3/uL; Basophil% 1.3 % (0-1); Eosinophil# 0.08 X10^3/uL; Eosinophils% 1.3 % (0-5); Hematocrit 36.4 % (40-54); Hemoglobin 11.3 g/dL (13.0-16.5); Lymphocyte # 0.76 X10^3/ul (0.83-4.51); Lymphocyte % 11.9 % (19-41); Mean Corpuscular Hgb 27.8 pg (27.0-32.0); Mean Corpuscular Volume 89.7 fL (80-94); Mean Platelet Vol. 11.9 fl (6.2-12.0); Monocyte# 0.76 X10^3/uL; Monocyte% 11.9 % (0-10); NRBC Flagged by Analyzer 0 % (0-5); Neutrophil # 4.68 X10^3/uL (2.7-7.7); Neutrophil % 73.4 % (47-70); Platelet Count 221 K/mm3 (150-450); RBC Distribution Width CV 16.3 % (11.6-14.6); RBC Distribution Width SD 52.9 fl (35.1-43.9); Red Blood Count 4.06 M/mm3 (4.6-6.2); White Blood Count 6.4 K/mm3 (4.4-11.0)
[2021-05-30 11:12] LABS: Anion Gap 4 (5-15); BUN 34 mg/dL (7-18); BUN/Creat Ratio 18.4 RATIO (10-20); Calcium,Total 8.4 mg/dL (8.5-10.1); Chloride 107 mmol/L (98-107); Creatinine, Serum 1.85 mg/dL (0.70-1.30); EST Glomerular Filtration Rate 38 mL/min (>60); Est Glom Filt Rate - Afr Amer 46 mL/min (>60); Estimated Creatinine Clearance 35.54 ml/min; Glucose 139 mg/dL (74-106); Potassium 4.4 mmol/L (3.5-5.1); Sodium Level 139 mmol/L (136-145); Troponin-I HS 25 pg/mL (3.0-78.0)
[2021-05-30 11:14] LABS: BNP,B-Type NATRIURETIC PEPTIDE 1852.6 pg/mL (0-100)
--- NOTE | 2021-05-30 12:31 | HP.PCM.HOS_ITS ---
HPI - General General Date of Admission: 05/30/21 HPI Narrative SHANELL BRIDGES, is a 80 M with a PMH as outlined who presents with a complaint of edema and shortness of bareath. He had noted increased swelling in his LEs and abdomen recently and this had worsened. he ahd associtaed shortness of breath which worsened with exertion. He says he was told by his earth boring machine operator to double his dose of lasix 3 days prior to admisison, but it didnt help. He denied any chest pain, palpitations, dizziness, nausea, vomiting or diarrhea. Review of systems otherwise negative. CBC was unremarkable and BMP was significant for creatinine of 1.85 which is around his baseline. BNP was thousand 852.6 and initial high-sensitivity troponin was only 25. Checks x-ray showed hyperinflation with patchy right lower lobe infiltrate with blunting of the costophrenic angle which appeared to have progressed since previous study. EKG showed no acute ST changes. He has been admitted to be managed for acute exacerbation of heart failure. [facility] Medical History Anemia Atrial fibrillation BPH (benign prostatic hyperplasia) Cardiomyopathy in diseases classified elsewhere COPD (chronic obstructive pulmonary disease) Debility Debility, unspecified GI bleed Hemorrhoid History of CVA (cerebrovascular accident) (09/14/18) History of pulmonary embolism Hyperlipidemia Hypertension Left inguinal hernia Osteoarthritis Paroxysmal atrial fibrillation Peptic ulcer disease Pneumonia PUD (peptic ulcer disease) Pulmonary nodule Renal insufficiency Renal insufficiency Stage 3b chronic kidney disease (CKD) Home Medications omeprazole 40 mg capsule,delayed release 40 mg PO DAILY 05/04/17 [History Last Taken 2 Days Ago ~04/02/21] amiodarone 200 mg tablet 200 mg PO DAILY #90 tab 01/14/20 [Rx Last Taken 2 Days Ago ~04/02/21] carvedilol 6.25 mg tablet 6.25 mg PO BID #180 tab 01/14/20 [Rx Last Taken 2 Days Ago ~04/02/21] furosemide 40 mg tablet 40 mg PO DAILY #90 tab 04/27/21 [Rx Last Taken Unknown] isosorbide dinitrate 30 mg tablet 30 mg PO DAILY #90 tab 04/27/21 [Rx Last Taken Unknown] spironolactone 25 mg tablet 25 mg PO DAILY #90 tab 04/27/21 [Rx Last Taken Unknown] albuterol sulfate 2.5 mg INHALATION Q6H #90 ml 05/26/21 [Rx Last Taken Unknown] apixaban 5 mg tablet 5 mg PO BID #10 tab 05/27/21 [Rx Last Taken Unknown] Allergy/AdvReac Type Severity Reaction Status Date / Time cortisone Allergy Rash Verified 05/30/21 10:10 Family History Father CAD (coronary artery disease) Colon cancer Mother Alzheimers disease Sister Cancer Surgical History History of bilateral knee replacement History of cataract surgery History of colonoscopy history of incision and drainage infected back abscess (06/14/18) History of left heart catheterization (11/25/14) Hx of bilateral inguinal hernia repair Social History (Updated 05/30/21 @ 14:13 by Beatrice Almazan) household members: none housing: house Smoking Status: Former smoker quit date: 10/27/14 pack-years: 42 alcohol intake: current alcohol intake frequency: 0-2 drinks per day Alcohol type: beer and wine substance use type: does not use caffeine: Yes Type: coffee Number of servings: 1 ROS Review of Systems ROS Unobtainable: due to encephalopathy Constitutional Constitutional: Reports change in weight and malaise; Denies anorexia, chills, fatigue, fever(s), night sweats or weakness Eyes Eyes: Denies change in vision ENT HEENT: Denies abnormal hearing, dysphagia, headache(s), nasal congestion or nasal discharge Cardiovascular Cardiovascular: Reports dyspnea on exertion, orthopnea and paroxysmal nocturnal dyspnea; Denies chest pain, lightheadedness, palpitations, rapid heart rate or syncope Respiratory/Chest Respiratory/Chest: Reports cough, dyspnea, shortness of breath at rest and shortness of breath with exertion; Denies excessive phlegm production, hemoptysis, productive cough or wheezing Gastrointestinal Gastrointestinal: Denies abdominal pain, constipation, diarrhea, nausea or vomiting Genitourinary Genitourinary: Denies burning urination or dysuria Musculoskeletal Musculoskeletal: Denies arthralgias Neurologic Neurologic: Denies confusion, focal weakness or headache(s) Psychiatric Psychiatric: Denies anxiety or depression Endocrine Endocrinology: Denies change in body appearance Hematologic/Lymphatic Hematologic/Lymphatic: Denies anemia Allergic/Immunologic Allergic/Immunologic: Denies asthma Vital Signs Vital Signs Vital Signs: 05/30/21 10:06 05/30/21 10:48 Temperature 96.9 F L Temperature Source Temporal Pulse Rate 115 H Respiratory Rate 20 H Respiratory Effort Normal Non-Labored Respiratory Pattern Normal Blood Pressure 124/95 H Blood Pressure Mean 104 Pulse Ox 99 Oxygen Delivery Method Room Air Weight Weight: 180 lb Body Mass Index (BMI) 24.4 Physical Exam Const alert, oriented x3 and no apparent distress General Appearance: cooperative HEENT normocephalic, head/scalp atraumatic, hearing grossly normal bilaterally and m oist oral mucous membranes Eyes PERRL, EOMs intact bilaterally and conjunctivae normal Neck no lymphadenopathy Resp normal respiratory effort, no retractions and no use of accessory muscles Resp Narrative: Mildly diminished breath sounds bibasilarly. No wheezes or crackles. Cardio regular rate, regular rhythm, S1 normal heart sound, S2 normal heart sound and no murmurs GI normal to inspection, nondistended, normoactive bowel sounds, soft to palpation, non-tender and non-distended Extremity normal to inspection and full ROM Extremity Narrative: bilateral 2+ lower extremity edema Peripheral Pulses: Yes pulses 2+ throughout Skin no rashes or lesions noted Neuro oriented x3, CN's II-XII intact bilaterally and moves all extremities Sensorium / Orientation: awake and alert Psych affect normal Results Lab / Micro Data Result Diagrams: 05/31/21 04:58 05/31/21 04:58 Labs: Laboratory Results - last 24 hr 05/30/21 10:44: WBC 6.4, RBC 4.06 L, Hgb 11.3 L, Hct 36.4 L, MCV 89.7, MCH 27.8, MCHC 31.0 L, RDW Std Deviation 52.9 H, RDW Coeff of Yamilet 16.3 H, Plt Count 221, MPV 11.9, Immature Gran % (Auto) 0.200, Neut % (Auto) 73.4 H, Lymph % (Auto) 11 .9 L, [place] % (Auto) 11.9 H, Eos % (Auto) 1.3, Baso % (Auto) 1.3 H, Absolute Neuts (auto) 4.7, Absolute Lymphs (auto) 0.76 L, Nucleated RBC % 0 05/30/21 10:44: Sodium 139, Potassium 4.4, Chloride 107, Carbon Dioxide 28.0, Anion Gap 4 L, BUN 34 H, Creatinine 1.85 H, Estim Creat Clear Calc 35.54, Est GFR (MDRD) Af Amer 46 L, Est GFR (MDRD) Non-Af 38 L, BUN/Creatinine Ratio 18.4, Glucose 139 H, Calcium 8.4 L, Troponin I High Sens 25 05/30/21 10:44: B-Natriuretic Peptide 1852.6 H Radiology Impression Chest X-Ray 05/30/21 10:29 IMPRESSION: Findings suggestive of a focal right lower lobe infiltrate with blunting of the right costophrenic angle. This has progressed as compared to prior study. Electronically Signed: Tyler Lewis MD at 11:19 EST , Assessment & Plan Assessment/Plan (1) CHF (congestive heart failure): PLAN: #Acute exacerbation of heart failure with reduced EF * Admit to PCU with telemetry * Start diuresis with IV Lasix 40 mg twice daily * Monitor intake and output. Fluid restriction to 1500 cc daily. * He has a known EF of 20%. He was referred for ICD placement but patient declined according to his earth boring machine operator notes. * On carvedilol and spironolactone as well as lisinopril * #History of A. fib * Does not appear to be very compliant with his medication according to cardiology notes. * On Eliquis. On amiodarone and carvedilol #History of CVA * On aspirin and high intensity statin. * #DVT prophylaxis: Not indicated as patient on Eliquis CODE STATUS: * Patient counseled extensively about different types of CODE STATUS including full code, DNR CCA and DNR CCA. Patient could not decide his CODE STATUS and said he would want CPR but does not want to be intubated. When counseled that most times the to go together, patient said he would want more time to think about it. We will therefore enter as full code unverified for now. * Total [id number] time discussion 17 minutes. Charges/Coding Visit Charges Inpatient E&M: 42280 Init Hosp L3 Procedures Hospitalists Procedures: 69239 Advncd Care Plan 30 Min
[2021-05-30] MEDS: Furosemide 40 MG/4 ML Vial IV ×2 (12:42→17:34)
--- NOTE | 2021-05-30 13:55 | CM.ED ---
RN CM Assessment Introduced role of RN CM to patient. Patient is alert, oriented and able to participate in RN CM Assessment. Care providers, pharmacy, and demographics verified. Admit Dx: Acute Exacerbation HF w/reduced EF Re-Admit: No. Admit 04/04-04/06/21 for Acute decompensated SHF/DHF Barriers/Issues: Patient lives alone since was placed in a facility February 2021 d/t Alzheimer's Dementia. PCP: Anand (Would like to change as patient voices does not feel PCP is helping him out). PCP list provided along with provider directory. Specialists: [facility]- Eden Aguirre Preferred Pharmacy: [facility] Insurance: [employer] A/B, [employer] Rx Benefit: Yes LNOK: Dtr in law Lopez Brendon LW/HPOA: None. AD information provided and patient aware to inform staff if wishing to complete on this admission. Aware can return as an outpatient to complete with social work dept. Living Arrangements: Lives alone in a [facility], 2 steps to enter home. ADL?s: Ambulates with 2WW, Independent with ADLs. Requires assistance with transportation, grocery shopping. Transportation: Dtr in law Lopez or patient son. DME: [employer], Built in MD, 2WW HHC: None. List provided. Patient voiced can use Aide-House Chores/Assist IADLS-Transportation and Grocery pick-up/delivery assistance, PT, SN-Medication reconciliation and check, HF education w/diet. Patient has a difficult time with fluid restriction at home as he feels thirsty.Possibly CCN referral? SNF: None Goal/DC Plan: Home with possible HH/CCN referral. JB Harrison
[2021-05-30] MEDS: Albuterol 2.5 MG/3 ML VIAL.NEB. INHALATION ×2 (14:36→19:55)
[2021-05-30 15:34] LABS: Troponin-I HS 24 pg/mL (3.0-78.0)
[2021-05-30] MEDS: 0.9% Saline Lock 10 ML Syringe IV (17:34)
[2021-05-30 17:41] LABS: Troponin-I HS 29 pg/mL (3.0-78.0)
[2021-05-30] MEDS: Carvedilol 6.25 MG Tablet PO (21:21)
[2021-05-30] MEDS: APIXABAN 5 MG TABLET PO (21:21)
[2021-05-31] VITALS (12 sets, daily range): BP systolic 112–119; BP diastolic 67–72; PULSE 76–99; RESP 18–24; TEMP 36.1–37.2; O2SAT 95–97
[2021-05-31] MEDS: Albuterol 2.5 MG/3 ML VIAL.NEB. INHALATION ×4 (01:35→19:24)
[2021-05-31 05:29] LABS: Absolute Lymphocyte Count 0.79 X10^3/uL (0.83-4.51); Absolute Neutrophil Count 4.6 X10^3/uL (2.0-7.7); Basophil# 0.06 X10^3/uL; Basophil% 0.9 % (0-1); Eosinophil# 0.13 X10^3/uL; Hematocrit 34.6 % (40-54); Hemoglobin 11.2 g/dL (13.0-16.5); Lymphocyte # 0.79 X10^3/ul (0.83-4.51); Lymphocyte % 12.3 % (19-41); Mean Corp Hgb Conc 32.4 g/dL (32-36); Mean Corpuscular Hgb 28.4 pg (27.0-32.0); Mean Corpuscular Volume 87.8 fL (80-94); Monocyte# 0.82 X10^3/uL; Monocyte% 12.8 % (0-10); NRBC Flagged by Analyzer 0 % (0-5); Neutrophil # 4.61 X10^3/uL (2.7-7.7); Neutrophil % 71.7 % (47-70); Platelet Count 211 K/mm3 (150-450); RBC Distribution Width CV 16.1 % (11.6-14.6); RBC Distribution Width SD 51.7 fl (35.1-43.9); Red Blood Count 3.94 M/mm3 (4.6-6.2); White Blood Count 6.4 K/mm3 (4.4-11.0)
[2021-05-31 05:57] LABS: Anion Gap 8 (5-15); BUN 36 mg/dL (7-18); BUN/Creat Ratio 17.9 RATIO (10-20); Calcium,Total 8.1 mg/dL (8.5-10.1); Chloride 105 mmol/L (98-107); Creatinine, Serum 2.01 mg/dL (0.70-1.30); EST Glomerular Filtration Rate 34 mL/min (>60); Est Glom Filt Rate - Afr Amer 41 mL/min (>60); Estimated Creatinine Clearance 32.71 ml/min; Glucose 115 mg/dL (74-106); Potassium 4.5 mmol/L (3.5-5.1); Sodium Level 137 mmol/L (136-145)
[2021-05-31] MEDS: Pantoprazole Sodium 40 MG Tablet PO ×2 (09:30→19:04)
[2021-05-31] MEDS: APIXABAN 5 MG TABLET PO ×2 (09:30→21:37)
[2021-05-31] MEDS: Amiodarone 200 MG Tablet PO (09:30)
[2021-05-31] MEDS: Furosemide 40 MG/4 ML Vial IV ×2 (09:30→17:31)
[2021-05-31] MEDS: Carvedilol 6.25 MG Tablet PO (09:30)
[2021-05-31] MEDS: Spironolactone 25 MG Tablet PO (09:30)
[2021-05-31] MEDS: Isosorbide DN 30 MG Tablet PO (09:30)
--- NOTE | 2021-05-31 12:27 | PN.HOSP_ITS ---
Subjective Subjective Patient seen and examined. He had no active complaints but was unhappy about how the swelling in his legs had not improved quickly enough for him. He stated that he wanted to be on a Lasix drip because that helped him get his lower extremity swelling down faster. He feels his shortness of breath is improving but he still short of breath. He denies any chest pain, nausea vomiting or diarrhea. Review of systems was otherwise negative. He has remained hemodynamically stable and was on room air at time of review. Objective Data Objective Data Vital Signs: Vital Signs Temp Pulse Resp BP Pulse Ox 99 F 79 18 119/72 95 05/31/21 09:24 05/31/21 09:24 05/31/21 09:24 05/31/21 09:24 05/31/21 09:24 Oxygen Delivery Method Room Air Weight: 192 lb 3.889 oz Body Mass Index (BMI) 25.9 Intake & Output: Intake and Output for Last 24 Hours 05/29/21 05/30/21 05/31/21 23:59 23:59 23:59 Intake Total 240 / 480 480 / 480 Output Total 300 / 1000 1775 / 1775 Balance -60 / -520 -1295 / -1295 Lab / Micro Data Result Diagrams: 05/31/21 04:58 05/31/21 04:58 Labs: Laboratory Results - last 24 hr 05/30/21 14:20: Troponin I High Sens 24 05/30/21 16:58: Troponin I High Sens 29 05/31/21 04:58: Sodium 137, Potassium 4.5, Chloride 105, Carbon Dioxide 24.0, Anion Gap 8, BUN 36 H, Creatinine 2.01 H, Estim Creat Clear Calc 32.71, Est GFR (MDRD) Af Amer 41 L, Est GFR (MDRD) Non-Af 34 L, BUN/Creatinine Ratio 17.9, Glucose 115 H, Calcium 8.1 L 05/31/21 04:58: WBC 6.4, RBC 3.94 L, Hgb 11.2 L, Hct 34.6 L, MCV 87.8, MCH 28.4, MCHC 32.4, RDW Std Deviation 51.7 H, RDW Coeff of Yamilet 16.1 H, Plt Count 211, MPV 12.0, Immature Gran % (Auto) 0.300, Neut % (Auto) 71.7 H, Lymph % (Auto) 12.3 L, [place] % (Auto) 12.8 H, Eos % (Auto) 2.0, Baso % (Auto) 0.9, Absolute Neuts (auto) 4.6, Absolute Lymphs (auto) 0.79 L, Nucleated RBC % 0 Physical Exam Const alert, oriented x3 and no apparent distress General Appearance: cooperative HEENT normocephalic, head/scalp atraumatic, hearing grossly normal bilaterally and moist oral mucous membranes Head and Scalp: normocephalic Eyes PERRL, EOMs intact bilaterally and conjunctivae normal Neck no lymphadenopathy Resp normal respiratory effort, no retractions and no use of accessory muscles Resp Narrative: Mildly diminished breath sounds bibasilarly. No wheezes or crackles. on room air Cardio regular rate, regular rhythm, S1 normal heart sound, S2 normal heart sound and no murmurs GI normal to inspection, nondistended, normoactive bowel sounds, soft to palpation, non-tender and non-distended Extremity normal to inspection and full ROM Extremity Narrative: bilateral 2+ lower extremity edema Skin no rashes or lesions noted Neuro oriented x3, CN's II-XII intact bilaterally and moves all extremities Sensorium / Orientation: awake and alert Psych affect normal Assessment & Plan Assessment/Plan (1) CHF (congestive heart failure): PLAN: #Acute on chronic exacerbation of heart failure with reduced EF * on IV lasix 40mg bid. Diuresing quite well * monitor intake and output * fluid restriction to 1500cc daily * He has a known EF of 20%. He was referred for ICD placement but patient declined according to his wharfmaster notes. * On carvedilol and spironolactone as well as lisinopril * #History of A. fib * On Eliquis. On amiodarone and carvedilol #History of CVA * On aspirin and high intensity statin. * #DVT prophylaxis: Not indicated as patient on Eliquis CODE STATUS: valet couldnt decide about code status and wanted more time to think about it. Charges/Coding Visit Charges Inpatient E&M: 31208 Subs Hosp L2
[2021-05-31] MEDS: 0.9% Saline Lock 10 ML Syringe IV (17:31)
[2021-06-01] VITALS (11 sets, daily range): BP systolic 107–140; BP diastolic 81–100; PULSE 72–108; RESP 20–32; TEMP 36.5–36.8; O2SAT 96–100
--- NOTE | 2021-06-01 03:34 | NURSING ---
Pt voiced complaints regarding his lasix frequency, states he thinks the doctors are not doing enough for his swelling and he feels like he is filling up with fluid. Charge nurse notified to discuss concerns with patient. Messaged Dr. Edwards regarding patients complaints. Reviewed last set of vitals, blood pressure has been running low and BUN and creatinine are elevated. Pulse ox is 97% on room air. 02 2l applied for comfort. Respiratory Therapy notified for breathing treatment. Pt states he plans on calling his industrial pharmacist in the am because he doesn't feel we are doing enough for his swelling. Per Dr. Edwards no additional lasix at this time after reviewing his lab work and vital signs. Suggested continuing the aerosol treatments and she will discuss his concerns with Dr Dc who saw his yesterday in the am.
--- NOTE | 2021-06-01 03:48 | NURSING ---
This RN called in pt room to speak with pt regarding his care. Pt angry that he is not on a lasix gtt and feels that his legs are getting bigger. This RN reviewed his weight with him from previous day to this day with a nearly 2 pound loss as well as the over 2L urine the past 24 hours which indicates that he is diuresing. We reviewed Dr. Dc's sentiment from her assessment of him yesterday that stated she was pleased with how well he's diuresing and that he did not need to be on a lasix gtt in spite of pt feeling that was the best treatment. We discussed frequency and dosing of current lasix as well as the concern for his kidney function. Education given on lasix and effects on blood pressure and kidney function. Pt observed drinking water and this RN reminded pt the effect of consuming fluids increasing the size of his legs. Pt was not happy with any of the education or suggestions given to patient as he confirms that he will not be happy unless he is placed on a lasix gtt. This RN informed pt that he can request another opinion from another hospitalist if he is not pleased with the treatment course prescribed by Dr. Dc. Pt continued to respond negatively and is not receptive to further suggestions and help offered. This RN asked aquarium specialist to elevate legs on pillows and primary RN wrapped b/l legs with vera wraps.
[2021-06-01] MEDS: Albuterol 2.5 MG/3 ML VIAL.NEB. INHALATION (03:49)
[2021-06-01 06:18] LABS: Absolute Lymphocyte Count 0.79 X10^3/uL (0.83-4.51); Absolute Neutrophil Count 4.7 X10^3/uL (2.0-7.7); Basophil# 0.05 X10^3/uL; Basophil% 0.8 % (0-1); Eosinophil# 0.09 X10^3/uL; Eosinophils% 1.4 % (0-5); Hematocrit 34.6 % (40-54); Hemoglobin 11.1 g/dL (13.0-16.5); Lymphocyte # 0.79 X10^3/ul (0.83-4.51); Lymphocyte % 12.1 % (19-41); Mean Corp Hgb Conc 32.1 g/dL (32-36); Mean Corpuscular Hgb 28.1 pg (27.0-32.0); Mean Corpuscular Volume 87.6 fL (80-94); Mean Platelet Vol. 12.2 fl (6.2-12.0); Monocyte# 0.89 X10^3/uL; Monocyte% 13.6 % (0-10); NRBC Flagged by Analyzer 0 % (0-5); Neutrophil % 71.8 % (47-70); Platelet Count 220 K/mm3 (150-450); RBC Distribution Width CV 16.1 % (11.6-14.6); RBC Distribution Width SD 51.9 fl (35.1-43.9); Red Blood Count 3.95 M/mm3 (4.6-6.2); White Blood Count 6.5 K/mm3 (4.4-11.0)
--- NOTE | 2021-06-01 06:42 | NURSING ---
While rounding on pt noted he had O2 off pt states It doesn't help, it's just for show. Offerred pt the aerosol treatment the physician ordered. Pt refused stating nothing you do helps. Acewraps were removed by the pt, found on the floor beside bed. Pt states they were hurting my legs. Will inform next shift of pt concerns during shift change to have addressed with physician this am.
[2021-06-01 06:56] LABS: Anion Gap 8 (5-15); BUN 42 mg/dL (7-18); BUN/Creat Ratio 19.8 RATIO (10-20); Calcium,Total 8.4 mg/dL (8.5-10.1); Chloride 102 mmol/L (98-107); Creatinine, Serum 2.12 mg/dL (0.70-1.30); EST Glomerular Filtration Rate 32 mL/min (>60); Est Glom Filt Rate - Afr Amer 39 mL/min (>60); Estimated Creatinine Clearance 31.01 ml/min; Glucose 112 mg/dL (74-106); Potassium 4.6 mmol/L (3.5-5.1); Sodium Level 136 mmol/L (136-145)
[2021-06-01] MEDS: Carvedilol 6.25 MG Tablet PO ×2 (08:33→20:04)
[2021-06-01] MEDS: Spironolactone 25 MG Tablet PO (08:33)
[2021-06-01] MEDS: Pantoprazole Sodium 40 MG Tablet PO (08:33)
[2021-06-01] MEDS: Amiodarone 200 MG Tablet PO (08:33)
[2021-06-01] MEDS: Furosemide 500 MG in Empty Viaflex 50 mL 1 EACH CONT INF (08:33)
[2021-06-01] MEDS: Isosorbide DN 30 MG Tablet PO (08:33)
[2021-06-01] MEDS: APIXABAN 5 MG TABLET PO ×2 (08:33→20:04)
--- NOTE | 2021-06-01 12:26 | PN.HOSP_ITS ---
Subjective Subjective Patient seen and examined. Patient is on room air. However he still complains of shortness of breath and states he feels his legs are still very swollen. He has been refusing the Reuben wraps because they are not comfortable. He says he wants the Lasix drip because he feels that would help him get better. Creatin ine has trended up slightly from 2.01-2.12 today. Objective Data Objective Data Vital Signs: Vital Signs Temp Pulse Resp BP Pulse Ox 97.7 F L 97 20 H 140/97 H 99 06/01/21 08:30 06/01/21 08:30 06/01/21 08:30 06/01/21 08:30 06/01/21 08:30 Oxygen Flow Rate (L/min) 2 Oxygen Delivery Method Room Air Weight: 190 lb 1.6 oz Body Mass Index (BMI) 25.9 Intake & Output: Intake and Output for Last 24 Hours 05/30/21 05/31/21 06/01/21 23:59 23:59 23:59 Intake Total 240 / 480 960 / 1260 650 / 650 Output Total 300 / 1000 2625 / 3150 1725 / 1725 Balance -60 / -520 -1665 / -1890 -1075 / -1075 Lab / Micro Data Result Diagrams: 06/01/21 05:17 06/01/21 05:17 Labs: Laboratory Results - last 24 hr 06/01/21 05:17: Sodium 136, Potassium 4.6, Chloride 102, Carbon Dioxide 26.0, Anion Gap 8, BUN 42 H, Creatinine 2.12 H, Estim Creat Clear Calc 31.01, Est GFR (MDRD) Af Amer 39 L, Est GFR (MDRD) Non-Af 32 L, BUN/Creatinine Ratio 19.8, Glucose 112 H, Calcium 8.4 L 06/01/21 05:17: WBC 6.5, RBC 3.95 L, Hgb 11.1 L, Hct 34.6 L, MCV 87.6, MCH 28.1, MCHC 32.1, RDW Std Deviation 51.9 H, RDW Coeff of Yamilet 16.1 H, Plt Count 220, MPV 12.2 H, Immature Gran % (Auto) 0.300, Neut % (Auto) 71.8 H, Lymph % (Auto) 12.1 L, Owen % (Auto) 13.6 H, Eos % (Auto) 1.4, Baso % (Auto) 0.8, Absolute Neuts (auto) 4.7, Absolute Lymphs (auto) 0.79 L, Nucleated RBC % 0 Physical Exam Const alert, oriented x3 and no apparent distress General Appearance: cooperative Exam Limitations: no limitations HEENT normocephalic, head/scalp atraumatic, hearing grossly normal bilaterally and moist oral mucous membranes Head and Scalp: normocephalic Eyes PERRL, EOMs intact bilaterally and conjunctivae normal Neck no lymphadenopathy Resp Resp Narrative: mildly diminished breath sounds bibasally, no wheezes or crackles. On room air. Cardio regular rate, regular rhythm, S1 normal heart sound, S2 normal heart sound and no murmurs GI normal to inspection, nondistended, normoactive bowel sounds, soft to palpation, non-tender and non-distended Extremity normal to inspection and full ROM Extremity Narrative: bilateral 2+ lower extremity edema Peripheral Pulses: Yes pulses 2+ throughout Skin no rashes or lesions noted Neuro oriented x3, CN's II-XII intact bilaterally and moves all extremities Sensorium / Orientation: awake and alert Psych affect normal Assessment & Plan Assessment/Plan (1) CHF (congestive heart failure): PLAN: #Acute exacerbation of heart failure with reduced EF * urine output so far has been 4.65L since admission, with a cumulative negative balance of 2.8L * will switch to IV lasix drip today as patient insists that is what will make him feel better * Monitor intake and output. Fluid restriction 1500 cc daily. * Continue carvedilol and spironolactone as well as lisinopril * Has known EF of 20% from 2D echo done in 2020. * * #History of A. fib * On Eliquis. On amiodarone and carvedilol #CKD stage 3B: * Cr today is 2.12. * His baseline seems to fluctuate between ~ 1.4-1.9. * Slight upward trend in creatinine is likely due to Lasix. * Will monitor and if it worsens will consult nephrology. #History of CVA * On aspirin and high intensity statin. * #DVT prophylaxis: Not indicated as patient on Eliquis CODE STATUS: * cannot decide about code status. Enter as full code unverified for now. Charges/Coding Visit Charges Inpatient E&M: 18810 Subs Hosp L2
[2021-06-01] MEDS: guaiFENesin 10 ML UDC (200MG/10ML) 20 ML PO (20:04)
[2021-06-01] MEDS: Ipratropium/Albuterol Sulfate 3 ML AMPUL.NEB INHALATION (20:13)
[2021-06-02] VITALS (12 sets, daily range): BP systolic 101–133; BP diastolic 62–96; PULSE 73–91; RESP 16–24; TEMP 36.2–36.8; O2SAT 96–98
[2021-06-02] MEDS: Acetaminophen 325 MG Tablet 650 MG PO (00:52)
[2021-06-02 06:13] LABS: Absolute Lymphocyte Count 0.99 X10^3/uL (0.83-4.51); Absolute Neutrophil Count 4.1 X10^3/uL (2.0-7.7); Basophil# 0.09 X10^3/uL; Basophil% 1.5 % (0-1); Eosinophil# 0.12 X10^3/uL; Hematocrit 36.8 % (40-54); Hemoglobin 11.7 g/dL (13.0-16.5); Lymphocyte # 0.99 X10^3/ul (0.83-4.51); Lymphocyte % 16.1 % (19-41); Mean Corp Hgb Conc 31.8 g/dL (32-36); Mean Corpuscular Hgb 27.5 pg (27.0-32.0); Mean Corpuscular Volume 86.4 fL (80-94); Mean Platelet Vol. 11.6 fl (6.2-12.0); Monocyte# 0.83 X10^3/uL; Monocyte% 13.5 % (0-10); NRBC Flagged by Analyzer 0 % (0-5); Neutrophil # 4.09 X10^3/uL (2.7-7.7); Neutrophil % 66.6 % (47-70); Platelet Count 229 K/mm3 (150-450); RBC Distribution Width CV 16.1 % (11.6-14.6); RBC Distribution Width SD 50.3 fl (35.1-43.9); Red Blood Count 4.26 M/mm3 (4.6-6.2); White Blood Count 6.1 K/mm3 (4.4-11.0)
[2021-06-02 06:36] LABS: Anion Gap 8 (5-15); BUN 50 mg/dL (7-18); BUN/Creat Ratio 22.9 RATIO (10-20); Calcium,Total 8.5 mg/dL (8.5-10.1); Chloride 100 mmol/L (98-107); Creatinine, Serum 2.18 mg/dL (0.70-1.30); EST Glomerular Filtration Rate 31 mL/min (>60); Est Glom Filt Rate - Afr Amer 38 mL/min (>60); Estimated Creatinine Clearance 30.16 ml/min; Glucose 110 mg/dL (74-106); Potassium 4.6 mmol/L (3.5-5.1); Sodium Level 134 mmol/L (136-145)
[2021-06-02] MEDS: guaiFENesin 10 ML UDC (200MG/10ML) 20 ML PO (06:53)
[2021-06-02] MEDS: Ipratropium/Albuterol Sulfate 3 ML AMPUL.NEB INHALATION ×3 (07:07→19:50)
[2021-06-02] MEDS: Furosemide 40 MG Tablet PO ×2 (09:45→17:16)
[2021-06-02] MEDS: 0.9% Saline Lock 10 ML Syringe IV ×2 (09:45→21:50)
[2021-06-02] MEDS: Spironolactone 25 MG Tablet PO (09:46)
[2021-06-02] MEDS: Amiodarone 200 MG Tablet PO (09:46)
[2021-06-02] MEDS: APIXABAN 5 MG TABLET PO ×2 (09:47→21:50)
[2021-06-02] MEDS: Pantoprazole Sodium 40 MG Tablet PO (09:47)
[2021-06-02] MEDS: Isosorbide DN 30 MG Tablet PO (09:47)
[2021-06-02] MEDS: Carvedilol 6.25 MG Tablet PO ×2 (09:47→21:50)
--- NOTE | 2021-06-02 12:16 | VDLE_ITS ---
Reason For Study: swelling RIGHT LEFT GSV is normal. GSV is normal. CFV is compressible, spontaneous, phasic, CFV is compressible, spontaneous, phasic, competent and demonstrates normal competent, and demonstrates normal augmentation. augmentation. FV is compressible, spontaneous, phasic, FV is compressible, spontaneous, phasic, competent and demonstrates normal competent and demonstrates normal augmentation. augmentation. POP V is compressible, spontaneous, phasic, POP V is compressible, spontaneous, phasic, competent and demonstrates normal competent and demonstrates normal augmentation. augmentation. T/P Trunk is compressible. T/P Trunk is compressible. PTV is compressible. PTV is compressible. RT PerV is compressible. LT PerV is compressible. Procedure This is a venous duplex using B-mode, color flow and spectral Doppler. Exam performed portable in patient room. The exam was diagnostic. A preliminary report was called and/or faxed to PCU charge account clerk. VL/Venous Duplex US - Atif Extrem Interpretation Summary No evidence for acute deep venous thrombosis bilateral lower extremities with p atent and compressible bilateral great saphenous veins. Ordering Physician: Teresita Dc Performed By: Colin Schumacher RVT
--- NOTE | 2021-06-02 13:52 | PN.HOSP_ITS ---
Subjective Subjective Patient seen and examined. He has no complaints today. He feels his breathing has improved. He remains on room air. He states his legs are still swollen. He denies any chest pain, palpitations, dizziness, nausea vomiting. Review of stents otherwise negative. Objective Data Objective Data Vital Signs: Vital Signs Temp Pulse Resp BP Pulse Ox 97.4 F L 74 16 133/96 H 98 06/02/21 09:45 06/02/21 09:45 06/02/21 09:45 06/02/21 09:45 06/02/21 09:45 Oxygen Flow Rate (L/min) 2 Oxygen Delivery Method Room Air Weight: 183 lb 13.848 oz Body Mass Index (BMI) 25.9 Intake & Output: Intake and Output for Last 24 Hours 05/31/21 06/01/21 06/02/21 23:59 23:59 23:59 Intake Total 960 / 1260 800 / 1000 670.2 / 670.2 Output Total 2625 / 3150 2725 / 4125 3300 / 3300 Balance -1665 / -1890 -1925 / -3125 -2629.8 / -2629.8 Lab / Micro Data Result Diagrams: 06/02/21 06:00 06/02/21 06:00 Labs: Laboratory Results - last 24 hr 06/02/21 06:00: Sodium 134 L, Potassium 4.6, Chloride 100, Carbon Dioxide 26.0, Anion Gap 8, BUN 50 H, Creatinine 2.18 H, Estim Creat Clear Calc 30.16, Est GFR (MDRD) Af Amer 38 L, Est GFR (MDRD) Non-Af 31 L, BUN/Creatinine Ratio 22.9 H, Glucose 110 H, Calcium 8.5 06/02/21 06:00: WBC 6.1, RBC 4.26 L, Hgb 11.7 L, Hct 36.8 L, MCV 86.4, MCH 27.5, MCHC 31.8 L, RDW Std Deviation 50.3 H, RDW Coeff of Yamilet 16.1 H, Plt Count 229, MPV 11.6, Immature Gran % (Auto) 0.300, Neut % (Auto) 66.6, Lymph % (Auto) 16.1 L, [place] % (Auto) 13.5 H, Eos % (Auto) 2.0, Baso % (Auto) 1.5 H, Absolute Neuts (auto) 4.1, Absolute Lymphs (auto) 0.99, Nucleated RBC % 0 Physical Exam Const alert, oriented x3 and no apparent distress General Appearance: cooperative Exam Limitations: no limitations HEENT normocephalic, head/scalp atraumatic, hearing grossly normal bilaterally and moist oral mucous membranes Head and Scalp: normocephalic Eyes PERRL, EOMs intact bilaterally and conjunctivae normal Neck no lymphadenopathy Resp normal respiratory effort, no retractions and no use of accessory muscles Resp Narrative: mildly diminished breath sounds bibasally, no wheezes or crackles. On room air. Cardio regular rate, regular rhythm, S1 normal heart sound, S2 normal heart sound and no murmurs GI normal to inspection, nondistended, normoactive bowel sounds, soft to palpation, non-tender and non-distended Extremity normal to inspection and full ROM Extremity Narrative: bilateral 2+ lower extremity edema Skin no rashes or lesions noted Neuro oriented x3, CN's II-XII intact bilaterally and moves all extremities Sensorium / Orientation: awake and alert Psych affect normal Assessment & Plan Assessment/Plan (1) CHF (congestive heart failure): PLAN: #Acute exacerbation of heart failure with reduced EF * in cumulative negative balance by 6.28L * will dc lasix drip today. Start on PO lasix 40mg bid. * Monitor intake and output. Fluid restriction 1500 cc daily. * Continue carvedilol and spironolactone as well as lisinopril * Has known EF of 20% from 2D echo done in 2020. Patient apparently refused ICD. I spoke to him today about ICD and patient tells me that he does not want any surgical intervention * #History of A. fib * On Eliquis. On amiodarone and carvedilol #CKD stage 3B: * Cr today is 2.18 * His baseline seems to fluctuate between ~ 1.4-1.9. * Slight upward trend in creatinine is likely due to Lasix. * will monitor #History of CVA * On aspirin and high intensity statin. * #DVT prophylaxis: Not indicated as patient on Eliquis CODE STATUS: * patient undecided, so entered as full code unverified. * Disposition: for likely dc tomorrow Charges/Coding Visit Charges Inpatient E&M: 37178 Subs Hosp L2
--- NOTE | 2021-06-02 14:49 | CASEMGMT ---
Addendum entered by Alyx Munguia 06/02/21 15:48: Noted Palliative referral was made last admission. Spoke w/Shana @ [facility]. She states pt was scheduled to sign with them 05/27, but that did not occur, and no documentation stating why. She states will attempt to have someone meet with pt tomorrow morning. Addendum entered by Alyx Munguia 06/02/21 15:10: Per Nicole @ [facility], they are able to do SOC Sat, if pt discharges tomorrow. Pt made aware. Pt states he does not want them to come that soon, and would prefer they not come until Sunday. Nicole made aware and SOC slated for Sunday. Pt states he would like to switch PCP's. He was provided w/list of local PCP's and made aware [facility] provides transportation to both [facility] and [place]. Pt voices appreciation. Original Note: ROBER HUYNH NOTE: Anticipate pt may be ready for discharge tomorrow. ROBER HUYNH in room to talk w/pt to discuss discharge planning. Pt states he would like HHC. Pt was provided with list of HHC providers including quality and resource use data and consistent with the patient's preferred geographic region, medical needs, and insurance network. The pt's preferred provider is [facility]. Pt states he would be interested in an aide also. Pt made aware the aide would only provide care for bathing/dressing and does not assist w/grocery shopping, picking up medications, transportation, or home mgmt tasks. He states an aide would still be helpful. Pt states he does not drive and has difficulty w/getting his own medications and groceries. He states his son lives in [place] and he assists at times and he has a step-dtr, Tonia, who lives in [place] who also helps at times. He is interested in further community resources. SW aware. Also discussed CCN and he is agreeable to referral. Order placed. Call to John @ [facility] to notify her of referral and made aware pt will receive HHC services prior to CCN. ROBER HUYNH also provided [facility] transportation information at this time. Order placed for HHC: SN, PT/OT, SW, and an aide. Call placed to Nicole @ [facility] and referral made. She was made aware anticipated discharge tomorrow. She confirms they are able to accept pt. She states pt's PCP, Dr Michel, requires pt to be seen in office prior to following pt for HHC. She states she has reached out to Dr Connor's office, who confirms he will follow pt for HHC. Violetta MONSALVE RN CM
[2021-06-03] VITALS (14 sets, daily range): BP systolic 116–131; BP diastolic 64–90; PULSE 72–81; RESP 18–22; TEMP 36.3–36.9; O2SAT 94–97
[2021-06-03 05:27] LABS: Absolute Neutrophil Count 5.1 X10^3/uL (2.0-7.7); Basophil# 0.06 X10^3/uL; Eosinophil# 0.08 X10^3/uL; Eosinophils% 1.3 % (0-5); Hematocrit 36.7 % (40-54); Hemoglobin 11.7 g/dL (13.0-16.5); Lymphocyte % 4.9 % (19-41); Mean Corp Hgb Conc 31.9 g/dL (32-36); Mean Corpuscular Hgb 27.5 pg (27.0-32.0); Mean Corpuscular Volume 86.4 fL (80-94); Mean Platelet Vol. 11.8 fl (6.2-12.0); Monocyte# 0.57 X10^3/uL; Monocyte% 9.3 % (0-10); NRBC Flagged by Analyzer 0 % (0-5); Neutrophil # 5.12 X10^3/uL (2.7-7.7); Neutrophil % 83.3 % (47-70); POSITIVE DIFFERENTIAL YES; Platelet Count 223 K/mm3 (150-450); RBC Distribution Width CV 16.3 % (11.6-14.6); RBC Distribution Width SD 50.4 fl (35.1-43.9); Red Blood Count 4.25 M/mm3 (4.6-6.2); White Blood Count 6.1 K/mm3 (4.4-11.0)
[2021-06-03 05:39] LABS: Differential Indicated SCAN CRITERIA MET
[2021-06-03 05:50] LABS: Anion Gap 5 (5-15); BUN 56 mg/dL (7-18); BUN/Creat Ratio 21.7 RATIO (10-20); Calcium,Total 8.6 mg/dL (8.5-10.1); Chloride 99 mmol/L (98-107); Creatinine, Serum 2.58 mg/dL (0.70-1.30); EST Glomerular Filtration Rate 26 mL/min (>60); Est Glom Filt Rate - Afr Amer 31 mL/min (>60); Estimated Creatinine Clearance 25.48 ml/min; Glucose 119 mg/dL (74-106); Potassium 4.3 mmol/L (3.5-5.1); Sodium Level 134 mmol/L (136-145)
[2021-06-03] MEDS: Ipratropium/Albuterol Sulfate 3 ML AMPUL.NEB INHALATION ×3 (05:50→19:40)
[2021-06-03 06:15] LABS: Anisocytosis 1+; Hypochromasia 1NP
[2021-06-03] MEDS: LORazepam 2 MG/ML Syringe 0.5 MG IV (06:35)
[2021-06-03] MEDS: Furosemide 40 MG Tablet PO (07:45)
[2021-06-03] MEDS: APIXABAN 5 MG TABLET PO (07:45)
[2021-06-03] MEDS: Isosorbide DN 30 MG Tablet PO (07:45)
[2021-06-03] MEDS: Amiodarone 200 MG Tablet PO (07:46)
[2021-06-03] MEDS: Pantoprazole Sodium 40 MG Tablet PO (07:46)
[2021-06-03] MEDS: Carvedilol 6.25 MG Tablet PO (07:46)
[2021-06-03] MEDS: Spironolactone 25 MG Tablet PO (07:46)
--- NOTE | 2021-06-03 09:55 | CASEMGMT ---
SW met with patient regarding resources. SW introduced self and role at [facility]. SW gave patient information on [employer] toll free resource line, [employer] and [employer] free grocery delivery, as well as private duty list. Patient said he and his daughter will look over the information. Melinda ROMERO
--- NOTE | 2021-06-03 12:34 | PCM.DC.SUM ---
Providers Date of Admission: 05/30/21 Primary Care Physician: MICHELLE Razo Reason For Visit: ACUTE EXACERBATION OF HEART FAILURE W/ REDUCED EF Diagnosis Discharge Diagnosis (1) CHF (congestive heart failure): Status: Acute Code(s): I50.9 - Heart failure, unspecified Medications at Discharge Home Medications omeprazole 40 mg capsule,delayed release 40 mg PO DAILY 05/04/17 amiodarone 200 mg tablet 200 mg PO DAILY #90 tab 01/14/20 carvedilol 6.25 mg tablet 6.25 mg PO BID #180 tab 01/14/20 furosemide 40 mg tablet 40 mg PO DAILY #90 tab 04/27/21 isosorbide dinitrate 30 mg tablet 30 mg PO DAILY #90 tab 04/27/21 spironolactone 25 mg tablet 25 mg PO DAILY #90 tab 04/27/21 albuterol sulfate 2.5 mg INHALATION Q6H #90 ml 05/26/21 apixaban 5 mg tablet 5 mg PO BID #10 tab 05/27/21 Hospital Course Operations None Procedures None Summary of Care Provided Minutes Spent on Discharge: 45 Hospital Course: SHANELL BRIDGES, is a 80 M with a PMH as outlined who presents with a complaint of edema and shortness of bareath. He had noted increased swelling in his LEs and abdomen recently and this had worsened. he ahd associtaed shortness of breath which worsened with exertion. He says he was told by his business support specialist to double his dose of lasix 3 days prior to admisison, but it didnt help. He denied any chest pain, palpitations, dizziness, nausea, vomiting or diarrhea. Review of systems otherwise negative. CBC was unremarkable and BMP was significant for creatinine of 1.85 which is around his baseline. BNP was thousand 852.6 and initial high-sensitivity troponin was only 25. Checks x-ray showed hyperinflation with patchy right lower lobe infiltrate with blunting of the costophrenic angle which appeared to have progressed since previous study. EKG showed no acute ST changes. He has been admitted to be managed for acute exacerbation of heart failure with reduced ejection fraction. Patient had a known EF of 20% from 2D echo done in March 2021. He had been referred for ICD but patient refused. He was started on IV Lasix. Patient was switched to IV Lasix drip per his request as he said this is what made him feel better. He was weaned off of oxygen and did well. He felt much better. Creatinine did trend upwards likely due to Lasix and peaked at 2.5. Patient remained stable and was discharged home on 06/03/2021. He was discharged on p.o. Lasix 40 mg daily and p.o. spironolactone. He is to follow-up with his primary care doctor in about 3 days to repeat BMP to assess creatinine level. Was also referred to nephrology to establish care and is to also follow-up with his business support specialist. Was also counseled on compliance. Of note, duplex of the lower extremities done was negative for DVT. Patient seen and examined prior to discharge. He did feel better and had no active complaints. Review of systems otherwise negative. Labs and vitals reviewed. Home medication reviewed and reconciled. Physical Exam Const alert, oriented x3 and no apparent distress General Appearance: cooperative Exam Limitations: no limitations HEENT normocephalic, head/scalp atraumatic, hearing grossly normal bilaterally and moist oral mucous membranes Eyes PERRL, EOMs intact bilaterally and conjunctivae normal Neck no lymphadenopathy Resp normal respiratory effort, no retractions and no use of accessory muscles Resp Narrative: mildly diminished breath sounds bibasally, no wheezes or crackles. On room air. Cardio regular rate, regular rhythm, S1 normal heart sound, S2 normal heart sound and no murmurs GI normal to inspection, nondistended, normoactive bowel sounds, soft to palpation, non-tender and non-distended Extremity normal to inspection and full ROM Extremity Narrative: bilateral 1+ lower extremity edema Skin no rashes or lesions noted Neuro oriented x3, CN's II-XII intact bilaterally and moves all extremities Sensorium / Orientation: awake and alert Psych affect normal Weight / BMI Weight Weight: 180 lb 8.937 oz Body Mass Index (BMI) 25.9 ABG / Lab / Microbiology Data Result Diagrams: 06/03/21 04:56 06/03/21 04:56 Laboratory: Laboratory Results - last 24 hr 06/03/21 04:56: Sodium 134 L, Potassium 4.3, Chloride 99, Carbon Dioxide 30.0, Anion Gap 5, BUN 56 H, Creatinine 2.58 H, Estim Creat Clear Calc 25.48, Est GFR (MDRD) Af Amer 31 L, Est GFR (MDRD) Non-Af 26 L, BUN/Creatinine Ratio 21.7 H, Glucose 119 H, Calcium 8.6 06/03/21 04:56: WBC 6.1, RBC 4.25 L, Hgb 11.7 L, Hct 36.7 L, MCV 86.4, MCH 27.5, MCHC 31.9 L, RDW Std Deviation 50.4 H, RDW Coeff of Yamilet 16.3 H, Plt Count 223, MPV 11.8, Immature Gran % (Auto) 0.200, Neut % (Auto) 83.3 H, Lymph % (Auto) 4.9 L, [place] % (Auto) 9.3, Eos % (Auto) 1.3, Baso % (Auto) 1.0, Absolute Neuts (auto) 5.1, Absolute Lymphs (auto) 0.30 L, Nucleated RBC % 0, Hypochromasia 1NP, Anisocytosis 1+ Radiography Diagnostic Testing: Radiology Impression Venous Doppler Study 06/02/21 12:16 Interpretation Summary No evidence for acute deep venous thrombosis bilateral lower extremities with patent and compressible bilateral great saphenous veins. Ordering Physician: Teresita Dc Performed By: Colin Schumacher RVT D/C Instructions Discharge Diet: Low fat / Low cholesterol Discharge Activity: Return to Normal Activity Weight Bearing Status: Weight bearing as tolerated Call your doctor if you observe: Fever of 101 or Higher, Shortness of breath, Dizziness, Swelling in the ankles and Chest pain Meaningful Use Info Meaningful Use Diagnoses (Choose all that apply): CHF CHF ELOISA/ARB ordered at discharge?: No Reason ELOISA/ARB not ordered?: Worsening renal disease Documented LVEF (%): 20 Discharge Plan Admission Admit Date/Time: 05/30/21 12:48 Primary Reason for Your Visit: acute on chronic HFrEF Attending Provider: Teresita Dc Primary Care Provider: Eden Aguirre Instructions Patient Instructions: Coping with Heart Failure Additional Instructions / Restrictions: See PCP in the next 3 days for follow-up BMP to assess creatinine to ensure its improving. Discharge Orders/Prescriptions Prescriptions: Continued omeprazole 40 mg capsule,delayed release(DR/EC) 40 mg PO DAILY RF: 0 isosorbide dinitrate 30 mg tablet 30 mg PO DAILY Qty: 90 RF: 3 furosemide 40 mg tablet 40 mg PO DAILY Qty: 90 RF: 3 spironolactone 25 mg tablet 25 mg PO DAILY Qty: 90 RF: 3 carvedilol 6.25 mg tablet 6.25 mg PO BID Qty: 180 RF: 3 amiodarone 200 mg tablet 200 mg PO DAILY Qty: 90 RF: 3 albuterol sulfate 2.5 mg /3 mL (0.083 %) solution for nebulization 2.5 mg inhalation Q6H Qty: 90 RF: 0 Eliquis 5 mg tablet 5 mg PO BID Qty: 10 RF: 1 Referrals / Follow Up: Lupe Astudillo MD [STAFF PHYSICIAN] - Within 2 Weeks (establish care for CKD) Cornelia Tom MD [STAFF PHYSICIAN] - Within 1 Week (set up PCP care, per patient's request. ) Eden Aguirre, PA [Primary Care Provider] - Within 2 Weeks Disposition Disposition (needs filled in before D/C Order can be placed): Home Health Service Charges/Coding Visit Charges Inpatient E&M: 31149 Disch Hosp
--- NOTE | 2021-06-03 13:54 | CASEMGMT ---
Addendum entered by Radha Jurado 06/03/21 14:42: Pt's step daughter, Vicenta, called in to speak with RN and then asked to speak with ROBER HUYNH. Per step daughter, she does not live with pt but does check on him occasionally and she feels that pt should go somewhere for rehab as she has been concerned for his safety at home. This ROBER CM back to room to discuss with pt and pt does agree to go to SNF at this time. Pt was provided a list of SNF providers including quality and resource use data and consistent with the pt's preferred geographic region, medical needs, and insurance network. Pt states he would like to go to [facility] as that is where his is. Tonya SW aware, voices understanding. Dr. Dc and Valeria RICHTER updated on all, voice understanding. Vin RICHTER CM Original Note: Per therapy, they are recommending SNF for pt. This RN CM to room to discuss with pt and pt states plan is to go home and declines SNF at this time. Pt states step-daughter is at home 13/11 to help, if needed. Pt does have HHC set up at discharge. Vin RICHTER CM
--- NOTE | 2021-06-03 13:54 | CASEMGMT ---
Per therapy, they are recommending SNF for pt. This RN CM to room to discuss with pt and pt states plan is to go home and declines SNF at this time. Pt states step-daughter is at home to help, if needed. Pt does have HHC set up at discharge. SStmono RICHTER CM
--- NOTE | 2021-06-03 15:10 | CASEMGMT ---
Social Work Per Radha Shay RNCM pt requesting to go to [facility]. Phone call to Ivan at [facility] and he requested referral be sent. Referral faxed. Returned call from Ivan who states they cannot accept pt due to staffing limits. Pt second choice is [facility]. Phone call to Tonia at the [facility] and beds are available. Referral faxed. SW will await determination of acceptance. Plan: [facility], pending acceptance TAI Mason
--- NOTE | 2021-06-03 16:19 | PN.HOSP_ITS ---
Subjective Subjective Patient seen and examined. He had no active complaints today and felt well. Review of systems otherwise negative. Plan was for patient to be discharged home today. However patient subsequently decided to go to a intermediate facility as he did not think he would get the help he needed at home. Objective Data Objective Data Vital Signs: Vital Signs Temp Pulse Resp BP Pulse Ox 97.4 F L 75 22 H 116/86 H 95 06/03/21 14:32 06/03/21 14:32 06/03/21 14:32 06/03/21 14:32 06/03/21 14:32 Oxygen Flow Rate (L/min) 2 Oxygen Delivery Method Room Air Weight: 180 lb 8.937 oz Body Mass Index (BMI) 25.9 Intake & Output: Intake and Output for Last 24 Hours 06/01/21 06/02/21 06/03/21 23:59 23:59 23:59 Intake Total 800 / 1000 1150.2 / 1150.2 340 / 340 Output Total 2725 / 4125 5100 / 5100 750 / 750 Balance -1925 / -3125 -3949.8 / -3949.8 -410 / -410 Lab / Micro Data Result Diagrams: 06/03/21 04:56 06/03/21 04:56 Labs: Laboratory Results - last 24 hr 06/03/21 04:56: Sodium 134 L, Potassium 4.3, Chloride 99, Carbon Dioxide 30.0, Anion Gap 5, BUN 56 H, Creatinine 2.58 H, Estim Creat Clear Calc 25.48, Est GFR (MDRD) Af Amer 31 L, Est GFR (MDRD) Non-Af 26 L, BUN/Creatinine Ratio 21.7 H, Glucose 119 H, Calcium 8.6 06/03/21 04:56: WBC 6.1, RBC 4.25 L, Hgb 11.7 L, Hct 36.7 L, MCV 86.4, MCH 27.5, MCHC 31.9 L, RDW Std Deviation 50.4 H, RDW Coeff of Yamilet 16.3 H, Plt Count 223, MPV 11.8, Immature Gran % (Auto) 0.200, Neut % (Auto) 83.3 H, Lymph % (Auto) 4.9 L, Wilkin % (Auto) 9.3, Eos % (Auto) 1.3, Baso % (Auto) 1.0, Absolute Neuts (auto) 5.1, Absolute Lymphs (auto) 0.30 L, Nucleated RBC % 0, Hypochromasia 1NP, A nisocytosis 1+ Radiography Diagnostic Testing: Radiology Impression Venous Doppler Study 06/02/21 12:16 Interpretation Summary No evidence for acute deep venous thrombosis bilateral lower extremities with patent and compressible bilateral great saphenous veins. Ordering Physician: Teresita Dc Performed By: Colin Schumacher RVT Physical Exam Const alert, oriented x3 and no apparent distress General Appearance: cooperative Exam Limitations: no limitations HEENT normocephalic, head/scalp atraumatic, hearing grossly normal bilaterally and moist oral mucous membranes Head and Scalp: normocephalic Eyes PERRL, EOMs intact bilaterally and conjunctivae normal Neck no lymphadenopathy Resp normal respiratory effort, no retractions and no use of accessory muscles Resp Narrative: mildly diminished breath sounds bibasally, no wheezes or crackles. On room air. Cardio regular rate, regular rhythm, S1 normal heart sound, S2 normal heart sound and no murmurs GI normal to inspection, nondistended, normoactive bowel sounds, soft to palpation, non-tender and non-distended Extremity normal to inspection and full ROM Extremity Narrative: bilateral 1+ lower extremity edema Skin no rashes or lesions noted Neuro oriented x3, CN's II-XII intact bilaterally and moves all extremities Sensorium / Orientation: awake and alert Psych affect normal Assessment & Plan Assessment/Plan (1) CHF (congestive heart failure): PLAN: #Acute exacerbation of heart failure with reduced EF * Now off Lasix drip. Switch to p.o. Lasix 40 mg twice daily. Will decrease to 40 mg daily as creatinine is trended upwards. * Monitor intake and output. Fluid restriction 1500 cc daily. * Continue carvedilol and spironolactone as well as lisinopril * Has known EF of 20% from 2D echo done in 2020. Patient apparently refused ICD. Patient thought about ICD during this admission and history refuses. * #History of A. fib * On Eliquis. 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 * Upward trend in creatinine is likely due to Lasix as he was on IV Lasix and Lasix drip. * Lasix decreased to 40 mg daily. Will monitor for now. * If cr worsens, will consider nephrology consult. #History of CVA * On aspirin and high intensity statin. * #DVT prophylaxis: Not indicated as patient on Eliquis CODE STATUS: * patient undecided, so entered as full code unverified. * Disposition: Patient now wants placement so awaiting placement. Charges/Coding Visit Charges Inpatient E&M: 06741 Subs Hosp L2
--- NOTE | 2021-06-03 16:28 | CASEMGMT ---
JEMAL received a call from Estefania at [facility]. They can accept patient today. JEMAL notified physician, RN, charge poster, and legal secretary receptionist. JEMAL also called patient's daughter and let her know patient will be going to [facility] today. JEMAL faxed orders to [facility]. JEMAL completed a 7000 on HENS. JEMAL notified patient he will be going to [facility] and that Tonia is aware. Plan: d/c to [facility] at [place] under skilled level of care on a convalescent stay. Physicians will transport via [facility]. 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
--- NOTE | 2021-06-03 16:34 | PCM.TXEXTCAR ---
Diet 05/30/21 14:00 Diet: Cardiac - Heart Healthy Food consistency:: Regular Liquid Consistency:: Regular/Thin Dietary Modifications:: Sodium Restricted Fluid restriction:: 1500 mL Routine Orders/Code Status Enema Type: Fleetz Enema Frequency: Daily PRN Suppository Type: Dulcolax 10mg Suppository Frequency: Daily PRN O2 Frequency: PRN Keep PO Greater than or Equal to (%): 90 Therapies Weight Bearing: Weight bearing as tolerated Occupational Therapy: Eval and Treat Speech Therapy: Eval and Treat Problem/Diagnosis (1) CHF (congestive heart failure): Status: Acute Allergies/Procedures Done in Hospital Allergies cortisone Allergy (Verified 05/30/21 10:10) Rash Procedures: None Type of Care/Length of Stay Estimated LOS: Convalescent Care Less Than 30 days Type of Care Needed: Skilled Rehab Potential: Fair Prognosis: Fair Additional Orders/Day of Discharge Day of Discharge: 06/03/21 Dietary and Speech Recommendations Dietitian Recommendations/Changes: Will adjust diet to Cardiac/Sodium-Restricted with 1500ml FR/day. ONS as needed if PO established inadequate at meals. Discharge Plan Admission Admit Date/Time: 05/30/21 12:48 Primary Reason for Your Visit: acute on chronic HFrEF Attending Provider: Teresiat Dc Primary Care Provider: Eden Aguirre Instructions Patient Instructions: Coping with Heart Failure Additional Instructions / Restrictions: See PCP in the next 3 days for follow-up BMP to assess creatinine to ensure its improving. Discharge Orders/Prescriptions Prescriptions: Continued omeprazole 40 mg capsule,delayed release(DR/EC) 40 mg PO DAILY RF: 0 isosorbide dinitrate 30 mg tablet 30 mg PO DAILY Qty: 90 RF: 3 furosemide 40 mg tablet 40 mg PO DAILY Qty: 90 RF: 3 spironolactone 25 mg tablet 25 mg PO DAILY Qty: 90 RF: 3 carvedilol 6.25 mg tablet 6.25 mg PO BID Qty: 180 RF: 3 amiodarone 200 mg tablet 200 mg PO DAILY Qty: 90 RF: 3 albuterol sulfate 2.5 mg /3 mL (0.083 %) solution for nebulization 2.5 mg inhalation Q6H Qty: 90 RF: 0 Eliquis 5 mg tablet 5 mg PO BID Qty: 10 RF: 1 Referrals / Follow Up: Lupe Astudillo MD [STAFF PHYSICIAN] - Within 2 Weeks (establish care for CKD) Cornelia Tom MD [STAFF PHYSICIAN] - Within 1 Week (set up PCP care, per patient's request. ) Eden Aguirre, PA [Primary Care Provider] - Within 2 Weeks Disposition Disposition (needs filled in before D/C Order can be placed): Home Health Service
--- NOTE | 2021-06-07 09:21 | CCN.REFER ---
CCN CCN referral on hold due to patient transferring to SNF. CCN to contact in one month to check status on going home.
== END 2021-06-03 19:55 | disposition skilled nursing facility (03) | DRG 291 ==
LOC: ED 13:02 → PCU 13:05
PROVIDERS: Admitting Provider Student in an Organized Health Care Education/Training Program; Emergency Provider Emergency Medicine; PCP Physician Assistant Medical; Visit Provider Student in an Organized Health Care Education/Training Program
DX: I13.0 Hypertensive heart and chronic kidney disease with heart failure and stage 1 through stage 4 chronic kidney disease, or unspecified chronic kidney disease (principal); I50.23 Acute on chronic systolic (congestive) heart failure; N17.9 Acute kidney failure, unspecified; I42.9 Cardiomyopathy, unspecified; Z79.01 Long term (current) use of anticoagulants; J44.9 Chronic obstructive pulmonary disease, unspecified; I48.0 Paroxysmal atrial fibrillation; N18.32 Chronic kidney disease, stage 3b; E78.5 Hyperlipidemia, unspecified; N40.0 Benign prostatic hyperplasia without lower urinary tract symptoms; Z87.891 Personal history of nicotine dependence; Z20.822 Contact with and (suspected) exposure to COVID-19; Z86.73 Personal history of transient ischemic attack (TIA), and cerebral infarction without residual deficits; Z86.711 Personal history of pulmonary embolism; Z79.899 Other long term (current) drug therapy
CPT/HCPCS: 36415; 71045; 80048; 83880; 84484; 85025; 87426; 93005; 93970; 94640; 97110; 97162; 97166; 97530; 97535; 97802; 99251; 99283; A4216; G0463; J1940

== ENCOUNTER 2021-06-10 15:22 | Emergency (ER) | payer MEDICARE, OTHER, SELFPAY ==
[2021-06-10 15:30] VITALS: BP 112/76; PULSE 82; RESP 21; TEMP 36.7; O2SAT 98; BMI 23.8
[2021-06-10 15:37] VITALS: BP 112/76; PULSE 82; RESP 21; TEMP 36.7; O2SAT 98
--- NOTE | 2021-06-10 16:14 | EKG12_ITS ---
Test Reason : SOB Blood Pressure : / mmHG Vent. Rate : 078 BPM Atrial Rate : 073 BPM P-R Int : 000 ms QRS Dur : 160 ms QT Int : 490 ms P-R-T Axes : 000 164 031 degrees QTc Int : 558 ms Atrial fibrillation Right bundle branch block Septal infarct , age undetermined Abnormal ECG Confirmed by HERMES WINSLOW, YARED ([id number]), commissioning editor ROSANGELA SHEA ([id number]) on 06/13/2021 1:11:35 PM Referred By: ESTEBAN Confirmed By:NURYS MIRZA MD
--- NOTE | 2021-06-10 17:05 | RAD_ITS ---
STUDY: X-RAY CHEST REASON FOR EXAM: Male, 80 years old. Fever and cough TECHNIQUE: 2 AP portable views COMPARISON: 05/30/2021 FINDINGS: EKG leads overlie the chest Lungs are mildly hyperexpanded with persistent and essentially unchanged interstitial and airspace opacifications in both lung corbin. Previously noted right pleural effusion however has resolved. Normal size heart. Normal mediastinum and scarlett. Normal visualized pulmonary arteries. There is atherosclerotic calcification of the aortic arch with tortuosity. There are diffuse degenerative changes of the visualized thoracic spine. There is degenerative osteoarthritis of the bilateral shoulders. There is no demonstrated abnormality of the visualized soft tissue structures of the upper abdomen. RAD/Chest 1 View (Portable) IMPRESSION: Hyperexpanded lungs with chronic interstitial changes and stable superimposed interstitial and airspace opacifications. Resolution of previous noted right pleural effusion Degenerative bony changes Electronically Signed: Ari Sanchez MD at 17:29 EST ,
[2021-06-10 17:16] LABS: ALB/GLOB Ratio 0.8 RATIO (0.9-2.4); AST(SGOT) 36 U/L (15-37); Alanine Aminotransfer ALT/SGPT 29 U/L (16-61); Albumin, Serum 2.5 g/dL (3.2-5.0); Alkaline Phosphatase 71 U/L (45-117); Anion Gap 7 (5-15); BUN 51 mg/dL (7-18); BUN/Creat Ratio 23.5 RATIO (10-20); Calcium,Total 7.8 mg/dL (8.5-10.1); Chloride 103 mmol/L (98-107); Creatinine, Serum 2.17 mg/dL (0.70-1.30); EST Glomerular Filtration Rate 31 mL/min (>60); Est Glom Filt Rate - Afr Amer 38 mL/min (>60); Globulin 3.2 g/dL (2.2-4.2); Glucose 96 mg/dL (74-106); Potassium 4.5 mmol/L (3.5-5.1); Protein, Total 5.7 g/dL (6.4-8.2); Sodium Level 136 mmol/L (136-145); Troponin-I HS 74 pg/mL (3.0-78.0)
[2021-06-10 17:25] LABS: Absolute Lymphocyte Count 0.69 X10^3/uL (0.83-4.51); Absolute Neutrophil Count 5.1 X10^3/uL (2.0-7.7); Basophil# 0.01 X10^3/uL; Basophil% 0.2 % (0-1); Hematocrit 39.7 % (40-54); Hemoglobin 12.9 g/dL (13.0-16.5); Lymphocyte # 0.69 X10^3/ul (0.83-4.51); Lymphocyte % 10.9 % (19-41); Mean Corp Hgb Conc 32.5 g/dL (32-36); Mean Corpuscular Hgb 27.5 pg (27.0-32.0); Mean Corpuscular Volume 84.6 fL (80-94); Mean Platelet Vol. 13.4 fl (6.2-12.0); Monocyte# 0.51 X10^3/uL; Monocyte% 8.1 % (0-10); NRBC Flagged by Analyzer 0 % (0-5); Neutrophil # 5.08 X10^3/uL (2.7-7.7); Neutrophil % 80.2 % (47-70); Platelet Count 133 K/mm3 (150-450); RBC Distribution Width CV 15.9 % (11.6-14.6); RBC Distribution Width SD 49.2 fl (35.1-43.9); Red Blood Count 4.69 M/mm3 (4.6-6.2); White Blood Count 6.3 K/mm3 (4.4-11.0)
--- NOTE | 2021-06-10 17:51 | EDS_ITS ---
HPI History of Present Illness Chief Complaint: Shortness of Breath Narrative Narrative: 80-year-old male with history of CHF, CAD, COPD presenting with dyspnea. Patient states he has been having a cough and shortness of breath for about 5 days. Patient states he was diagnosed with COVID-19 a couple of days ago. Since then he has had more generalized weakness. He states he is under a lot of the care for himself. He has increasing shortness of breath. He states he wears 2 to 3 L of oxygen at baseline and is now wearing 4 L. He is not having chest pain. Patient is currently residing at a nursing facility after being hospitalized for Covid. He states he does not like it there. He states the food is awful. [facility] Medical History Anemia Atrial fibrillation BPH (benign prostatic hyperplasia) Cardiomyopathy in diseases classified elsewhere CHF (congestive heart failure) COPD (chronic obstructive pulmonary disease) Debility Debility, unspecified GI bleed Hemorrhoid History of CVA (cerebrovascular accident) (09/14/18) History of pulmonary embolism Hyperlipidemia Hypertension Left inguinal hernia Osteoarthritis Paroxysmal atrial fibrillation Peptic ulcer disease Pneumonia PUD (peptic ulcer disease) Pulmonary nodule Renal insufficiency Renal insufficiency Stage 3b chronic kidney disease (CKD) Home Medications omeprazole 40 mg capsule,delayed release 40 mg PO DAILY 05/04/17 [History Last Taken 06/08/21] amiodarone 200 mg tablet 200 mg PO DAILY #90 tab 01/14/20 [Rx Last Taken ] carvedilol 6.25 mg tablet 6.25 mg PO BID #180 tab 01/14/20 [Rx Last Taken 06/10/21] furosemide 40 mg tablet 40 mg PO DAILY #90 tab 04/27/21 [Rx Last Taken 06/09/21] isosorbide dinitrate 30 mg tablet 30 mg PO DAILY #90 tab 04/27/21 [Rx Last Taken 06/10/21] spironolactone 25 mg tablet 25 mg PO DAILY #90 tab 04/27/21 [Rx Last Taken 06/10/21] albuterol sulfate 2.5 mg INHALATION Q6H #90 ml 05/26/21 [Rx Last Taken 06/08/21] Eliquis 5 mg PO BID 06/10/21 [History Last Taken 06/10/21] albuterol sulfate 2 puff INHALATION Q4H PRN 06/10/21 [History Last Taken 06/10/21] benzonatate 100 mg PO TID PRN 06/10/21 [History Last Taken 06/10/21] dexamethasone 6 mg PO DAILY #7 tab 06/10/21 [Rx Last Taken Unknown] Allergy/AdvReac Type Severity Reaction Status Date / Time cortisone Allergy Rash Verified 06/10/21 15:39 Family History Father CAD (coronary artery disease) Colon cancer Mother Alzheimers disease Sister Cancer Surgical History History of bilateral knee replacement History of cataract surgery History of colonoscopy history of incision and drainage infected back abscess (06/14/18) History of left heart catheterization (11/25/14) Hx of bilateral inguinal hernia repair Social History household members: none housing: house Smoking Status: Former smoker quit date: 10/27/14 pack-years: 42 alcohol intake: current alcohol intake frequency: 0-2 drinks per day Alcohol type: beer and wine substance use type: does not use caffeine: Yes Type: coffee Number of servings: 1 ROS ROS ED ROS Narrative Generalized weakness Constitutional Constitutional ED: Denies chills or fever(s) Eyes Eyes: Denies blurry vision or diplopia ENT ENT ED: Denies rhinorrhea or sore throat Cardiovascular Cardiovascular: Denies chest pain or palpitations Respiratory/Chest Respiratory/Chest: Reports dyspnea and dyspnea on exertion Gastrointestinal Gastrointestinal: Denies abdominal pain, nausea or vomiting Genitourinary Genitourinary ED: Denies dysuria or hematuria Integumentary Denies rash Neurologic Neurologic: Denies headache(s) or paresthesias EXAM Physical Exam Const Vital Signs: 06/10/21 15:30 06/10/21 15:37 06/10/21 15:41 Temperature 98.0 F 98.0 F Temperature Source Temporal Temporal Pulse Rate 82 82 Respiratory Rate 21 H 21 H Respiratory Effort Short of Breath Respiratory Depth Normal Respiratory Pattern Tachypnea Blood Pressure 112/76 112/76 Blood Pressure Mean 88 88 Pulse Ox 98 98 Oxygen Delivery Method Nasal Cannula Nasal Cannula Nasal Cannula Oxygen Flow Rate (L/min) 4 4 4 06/10/21 18:00 06/10/21 18:30 06/10/21 20:47 Temperature 98.0 F 98.0 F Temperature Source Temporal Temporal Pulse Rate 82 82 86 Respiratory Rate 26 H 26 H 22 H Respiratory Effort Respiratory Depth Respiratory Pattern Blood Pressure 106/86 H 106/86 H 121/77 H Blood Pressure Mean 92 92 Pulse Ox 93 93 94 Oxygen Delivery Method Nasal Cannula Nasal Cannula Oxygen Flow Rate (L/min) 4 4 Positive cachectic General Appearance ED: cachectic and NAD; Negative for pallor Nutritional Appearance: cachectic HEENT Reports dry mucous membranes atraumatic Mouth ED: Yes dry mucous membranes Mouth: dry mucous membranes Eyes PERRL and EOMs intact bilaterally General Eye ED: Negative for pale conjunctiva or scleral icterus Resp normal respiratory effort Auscultation: rales bilateral base Neuro oriented x3 and CN's II-XII intact bilaterally Sensorium / Orientation: alert Psych mental status grossly normal Thought Process: normal thought process Skin General Skin Exam: Negative for jaundice or pallor MDM MDM MDM Narrative Medical decision making narrative: Patient presenting with dyspnea and is requiring 1 L more of oxygen that is baseline. It was noted that he only had 1 prong of the nasal cannula and one nare and the other was not. Lungs have no wheezing. There is some bibasilar crackles. EKG on my interpretation shows atrial fibrillation with controlled ventricular response of 78 bpm without sign of ischemic change. Patient is anticoagulated for this which makes PE unlikely. CBC within normal limits. He is noted to be lymphopenic. Creatinine is baseline at 2.17. LFTs within normal limits. Chest x-ray on my interpretation shows no acute cardiopulmonary process and the radiologist does agree. After discussion with the patient and with social work it was determined that the patient needed to go back to his current facility because it is only 1 of 2 accepting facilities for people with Covid after hospitalization. Social work did give him the option and ultimately decided to go back to the senior care. As far as his work-up today I do not believe there is anything acute. If he has any new or worsening symptoms he is return to the ED. Impression: 1. Dyspnea 2. History of COVID-19 Lab Data Attestation: I reviewed the patient's lab results. Labs: Laboratory Results - last 24 hr 06/10/21 06/10/21 06/10/21 16:50 16:50 16:50 WBC 6.3 RBC 4.69 Hgb 12.9 L Hct 39.7 L MCV 84.6 MCH 27.5 MCHC 32.5 RDW Std Deviation 49.2 H RDW Coeff of Yamilet 15.9 H Plt Count 133 L MPV 13.4 H Immature Gran % (Auto) 0.600 Neut % (Auto) 80.2 H Lymph % (Auto) 10.9 L [place] % (Auto) 8.1 Eos % (Auto) 0.0 Baso % (Auto) 0.2 Absolute Neuts (auto) 5.1 Absolute Lymphs (auto) 0.69 L Nucleated RBC % 0 Sodium 136 Potassium 4.5 Chloride 103 Carbon Dioxide 26.0 Anion Gap 7 BUN 51 H Creatinine 2.17 H Estim Creat Clear Calc 30.30 Est GFR (MDRD) Af Amer 38 L Est GFR (MDRD) Non-Af 31 L BUN/Creatinine Ratio 23.5 H Glucose 96 Calcium 7.8 L Total Bilirubin 0.80 AST 36 ALT 29 Alkaline Phosphatase 71 Troponin I High Sens 74 Total Protein 5.7 L Albumin 2.5 L Globulin 3.2 Albumin/Globulin Ratio 0.8 L Procalcitonin 1.59 H Radiography Diagnostic Testing: Clinical Impression(s) from Imaging Studies Chest X-Ray 06/10/21 17:05 IMPRESSION: Hyperexpanded lungs with chronic interstitial changes and stable superimposed interstitial and airspace opacifications. Resolution of previous noted right pleural effusion Degenerative bony changes Electronically Signed: Ari Sanchez MD at 17:29 EST , Discharge Plan Triage Chief Complaint: Shortness of Breath ED Provider: Imer Bui Dx/Rx/DC Orders Instructions: Coronavirus Disease 2019 (COVID-19): Caring for Yourself or Others, ED Dyspnea Prescriptions: New dexamethasone 6 mg tablet 6 mg PO DAILY Qty: 7 RF: 0 No Action omeprazole 40 mg capsule,delayed release(DR/EC) 40 mg PO DAILY RF: 0 isosorbide dinitrate 30 mg tablet 30 mg PO DAILY Qty: 90 RF: 3 furosemide 40 mg tablet 40 mg PO DAILY Qty: 90 RF: 3 spironolactone 25 mg tablet 25 mg PO DAILY Qty: 90 RF: 3 benzonatate 100 mg Capsule 100 mg PO TID PRN (Reason: THROAT) RF: 0 albuterol sulfate 90 mcg/actuation Hfa Aerosol Inhaler 2 puff INHALATION Q4H PRN (Reason: SOB) RF: 0 Eliquis 5 mg tablet 5 mg PO BID RF: 0 carvedilol 6.25 mg tablet 6.25 mg PO BID Qty: 180 RF: 3 amiodarone 200 mg tablet 200 mg PO DAILY Qty: 90 RF: 3 albuterol sulfate 2.5 mg /3 mL (0.083 %) solution for nebulization 2.5 mg inhalation Q6H Qty: 90 RF: 0 Primary Care Provider: Eden Aguirre Referrals: Eden Aguirre PA [Primary Care Provider] - Disposition Disposition: Care Home Facility Discharge Location: [facility] Discharge Date/Time: 06/10/21 21:00
[2021-06-10 18:00] VITALS: BP 106/86; PULSE 82; RESP 26; TEMP 36.7; O2SAT 93
[2021-06-10 18:00] LABS: Procalcitonin 1.59 ng/mL (0.00-0.09)
[2021-06-10] MEDS: dexAMETHasone 10 MG/ML Vial 6 MG IV (18:05)
--- NOTE | 2021-06-10 18:20 | CM.ED ---
Social Work Consult: senior care placement Referral source: Dr. Bui. Met with patient in room. Introduced self and social sciences research scientist role, patient agreeable to speak with this socia worker. Patient is currently placed at the [facility] under skilled services since 06/03/2021. Patient was living at home prior to medical stay and then [facility] this [facility]. Patient is not wanting to return to the [facility]. Patient states the food is terrible. Patient is currently COVID-19 positive. This social sciences research scientist exploring patient options. Patient would like to discharge to the community, but not sure this is an option at this point. Patient is agreeable to this social sciences research scientist contacting patient daughter, Vicenta. Vicenta concerned with patient returning to the community at this time as patient is new on oxygen and would be living alone as patient spouse is currently a resident at [facility]. This social sciences research scientist speaking with Vicenta with patient present. Patient voiced understanding as to concerns of patient returning to the community. Patient is not interested in looking into another [place] [facility] and aware that patient is not able to stay at the hospital as patient does not meet criteria for admission per hospitalist/ED doctor. Active support and listening provided. Patient denies any concerns for neglect or harm at the [facility]. Patient plans to return to the [facility] under skilled services with family to keep checking in on patient and working towards patient returning to the community when able to safely. Medical team updated. Yamel OTERO, BREANNA
--- NOTE | 2021-06-10 18:24 | NURSING ---
MED SURG OBS PATRICIA FAILURE TO THRIVE
[2021-06-10 18:30] VITALS: BP 106/86; PULSE 82; RESP 26; TEMP 36.7; O2SAT 93
[2021-06-10 20:47] VITALS: BP 121/77; PULSE 86; RESP 22; O2SAT 94
--- NOTE | 2021-06-10 20:59 | ED.RN ---
ATTEMPTED TO CALL REPORT ON PT, BUT [facility] DENIES HAVING PT BY THAT NAME.
--- NOTE | 2021-06-10 21:05 | ED.RN ---
REPORT CALLED TO [facility].
== END 2021-06-10 21:00 | disposition skilled nursing facility (03) ==
PROVIDERS: Emergency Provider Student in an Organized Health Care Education/Training Program; PCP Physician Assistant Medical; Visit Provider Student in an Organized Health Care Education/Training Program
DX: R06.00 Dyspnea, unspecified (principal); J44.9 Chronic obstructive pulmonary disease, unspecified; I13.0 Hypertensive heart and chronic kidney disease with heart failure and stage 1 through stage 4 chronic kidney disease, or unspecified chronic kidney disease; I50.9 Heart failure, unspecified; I42.9 Cardiomyopathy, unspecified; I48.0 Paroxysmal atrial fibrillation; N18.32 Chronic kidney disease, stage 3b; I25.10 Atherosclerotic heart disease of native coronary artery without angina pectoris; N40.0 Benign prostatic hyperplasia without lower urinary tract symptoms; E78.5 Hyperlipidemia, unspecified; M19.90 Unspecified osteoarthritis, unspecified site; Z86.16 Personal history of COVID-19; Z87.891 Personal history of nicotine dependence; Z99.81 Dependence on supplemental oxygen; Z79.01 Long term (current) use of anticoagulants; Z79.899 Other long term (current) drug therapy; Z86.73 Personal history of transient ischemic attack (TIA), and cerebral infarction without residual deficits; Z96.653 Presence of artificial knee joint, bilateral
CPT/HCPCS: 71045; 80053; 84145; 84484; 85025; 87040; 87426; 93005; 96374; 99285; A4216

== ENCOUNTER 2021-06-17 14:33 | Outpatient (CLI) | payer SELFPAY ==
--- NOTE | 2021-06-17 14:30 | NURSING ---
Pt received via cot from [facility] to infusion room. Pt alert and oriented x2 and on O2 at 4L from [facility]. Pt moaning intermittently, tachypnea noted. O2 sat 94% on 4L.
[2021-06-17 14:36] VITALS: BP 112/88; PULSE 81; RESP 24; TEMP 36.7; O2SAT 94; BMI 21.9
[2021-06-17] MEDS: 0.9% Saline Lock 10 ML Syringe IV (14:54)
--- NOTE | 2021-06-17 15:07 | NURSING ---
[facility] contacted and let know pt will be ready for discharge at 1631 and to notify us when transportation will be arriving.
[2021-06-17 15:33] VITALS: BP 119/77; PULSE 81; RESP 24; TEMP 37; O2SAT 94
[2021-06-17 16:27] VITALS: BP 119/79; PULSE 92; RESP 24; TEMP 36.6; O2SAT 94
== END 2021-06-17 23:59 | disposition home or self-care (01) ==
LOC: MS3OUT 14:33 → MS3 14:34
PROVIDERS: PCP Physician Assistant Medical; Referring Provider Nurse Practitioner Adult Health; Visit Provider Nurse Practitioner Adult Health
DX: U07.1 COVID-19 (principal)
CPT/HCPCS: J7050; M0247; A4216; Q0247

== ENCOUNTER 2021-06-21 09:52 | Emergency (ER) | payer MEDICARE, OTHER, SELFPAY ==
[2021-06-21] VITALS (8 sets, daily range): BP systolic 123–131; BP diastolic 89–108; PULSE 58–130; RESP 19–24; TEMP 36.6; O2SAT 6–97; BMI 22.8
--- NOTE | 2021-06-21 10:02 | EKG12_ITS ---
Test Reason : SOB Blood Pressure : / mmHG Vent. Rate : 084 BPM Atrial Rate : 375 BPM P-R Int : 000 ms QRS Dur : 176 ms QT Int : 484 ms P-R-T Axes : 000 154 074 degrees QTc Int : 571 ms Atrial fibrillation Right bundle branch block Abnormal ECG Confirmed by MICHELLE WINSLOW, ELISA ([id number]), makeup editor ROSANGELA SHEA ([id number]) on 06/23/2021 1:33:59 PM Referred By: KARAN Confirmed By:ELISA MARTINEZ MD
--- NOTE | 2021-06-21 10:02 | RAD_ITS ---
STUDY: X-RAY CHEST REASON FOR EXAM: Male, 80 years old. Shortness of breath. History of Covid pneumonia. TECHNIQUE: Single AP portable view of the chest. COMPARISON: Comparison is made with prior study dated 06/20/2021. FINDINGS: EKG electrode are seen. Persistent bilateral pulmonary infiltrates in the preferential peripheral lateral distribution suggestive of pneumonitis associated with Covid.There is no demonstrated pleural abnormality. Normal size heart. Normal mediastinum and scarlett. Normal visualized pulmonary arteries. There is atherosclerotic calcification of the aortic arch with tortuosity. There are diffuse degenerative changes of the visualized thoracic spine. Normal visualized ribs, clavicles, and shoulders. There is no demonstrated abnormality of the visualized soft tissue structures of the upper abdomen. RAD/Chest 1 View (Portable) IMPRESSION: Patchy bilateral pulmonary infiltrates worse in the right hemithorax and the preferential peripheral distribution suggestive of a Covid pneumonitis. Electronically Signed: Tyler Lewis MD at 11:18 EST ,
--- NOTE | 2021-06-21 10:05 | ED.VIS.DYS ---
HPI History of Present Illness Chief Complaint: Shortness of Breath Narrative Narrative: Patient with past medical history of COPD, CHF, wears 6 L of oxygen. He presents from the [facility] with reported Covid pneumonia. He tested positive for Covid 15 days ago, and wears oxygen at all times. He has been short of breath for the last few days. He was sent in because he was reportedly noncompliant with his medication and because of a low pulse ox. He denies any leg swelling. No chest pain. He states for the past few days he has been short of breath especially at night. He quit smoking [address] [facility] Medical History Anemia Atrial fibrillation BPH (benign prostatic hyperplasia) Cardiomyopathy in diseases classified elsewhere CHF (congestive heart failure) CHF (congestive heart failure) COPD (chronic obstructive pulmonary disease) Debility Debility, unspecified GI bleed Hemorrhoid History of CVA (cerebrovascular accident) (09/14/18) History of pulmonary embolism Hyperlipidemia Hypertension Left inguinal hernia Osteoarthritis Paroxysmal atrial fibrillation Peptic ulcer disease Pneumonia PUD (peptic ulcer disease) Pulmonary nodule Renal insufficiency Renal insufficiency Stage 3b chronic kidney disease (CKD) Home Medications omeprazole 40 mg capsule,delayed release 40 mg PO DAILY 05/04/17 [History Last Taken 06/08/21] amiodarone 200 mg tablet 200 mg PO DAILY #90 tab 01/14/20 [Rx Last Taken 06/10/21] carvedilol 6.25 mg tablet 6.25 mg PO BID #180 tab 01/14/20 [Rx Last Taken 06/10/21] furosemide 40 mg tablet 40 mg PO DAILY #90 tab 04/27/21 [Rx Last Taken 06/09/21] isosorbide dinitrate 30 mg tablet 30 mg PO DAILY #90 tab 04/27/21 [Rx Last Taken 06/10/21] spironolactone 25 mg tablet 25 mg PO DAILY #90 tab 04/27/21 [Rx Last Taken 06/10/21] Eliquis 5 mg PO BID 06/10/21 [History Last Taken 06/10/21] albuterol sulfate 2 puff INHALATION Q4H PRN 06/10/21 [History Last Taken 06/10/21] dexamethasone 6 mg PO DAILY #7 tab 06/10/21 [Rx Last Taken Unknown] azithromycin 250 mg PO DAILY 06/17/21 [History Last Taken Unknown] benzonatate [Tessalon Perles] 100 mg PO TID PRN 06/17/21 [History Last Taken Unknown] guaifenesin 10 ml PO/SL Q6H PRN PRN 06/17/21 [History Last Taken Unknown] guaifenesin [Mucinex] 1,200 mg PO Q12H PRN 06/17/21 [History Last Taken Unknown] melatonin 3 mg PO QHS 06/17/21 [History Last Taken Unknown] multivitamin 1 cap PO DAILY 06/17/21 [History Last Taken Unknown] Allergy/AdvReac Type Severity Reaction Status Date / Time cortisone Allergy Rash Verified 06/21/21 10:02 Family History Father CAD (coronary artery disease) Colon cancer Mother Alzheimers disease Sister Cancer Surgical History History of bilateral knee replacement History of cataract surgery History of colonoscopy history of incision and drainage infected back abscess (06/14/18) History of left heart catheterization (11/25/14) Hx of bilateral inguinal hernia repair Social History household members: none housing: house Smoking Status: Former smoker quit date: 10/27/14 pack-years: 42 alcohol intake: current alcohol intake frequency: 0-2 drinks per day Alcohol type: beer and wine substance use type: does not use caffeine: Yes Type: coffee Number of servings: 1 ROS ROS ED ROS Narrative Constitutional: No fever, no chills. HEENT: No sore throat. No neck pain. No loss of vision. No rhinorrhea. Cardiovascular: No chest pain. No palpitations. No pedal edema. Respiratory: Occasional cough, positive shortness of breath. Nocturnal dyspnea. Abdominal: No abdominal pain. No nausea. No vomiting. Genitourinary: No dysuria. No hematuria. Musculoskeletal: No myalgias. No arthralgias. Neurologic: No headaches. No dizziness. No lightheadedness. Skin: No rash. No change in color. Psychiatric: No depression. No anxiety. EXAM Physical Exam Narrative Exam Narrative: Afebrile. Vital signs noted. HEENT: Normocephalic. Atraumatic. PERRL, EOMI. Neck soft and supple. No point tenderness or step off. Cardiovascular: Regular rate and rhythm. No murmurs, rubs, or gallops appreciated. Respiratory: No tachypnea. Lungs clear to auscultation bilaterally. Gastrointestinal: Abdomen soft, nontender, with normoactive bowel sounds. No rebound or guarding. Neurological: Awake. Alert. Nonfocal, nonlateralizing. Skin: No rash. Normal color. No pallor. Musculoskeletal: No pedal edema. Full range of motion extremities. Const Vital Signs: 06/21/21 09:55 06/21/21 10:13 06/21/21 10:38 Temperature 97.9 F 97.9 F Temperature Source Temporal Temporal Pulse Rate 75 88 58 L Respiratory Rate 20 H 20 H 20 H Respiratory Effort Respiratory Depth Respiratory Pattern Tachypnea Blood Pressure 124/89 H 127/100 H Blood Pressure Mean 100 109 Pulse Ox 94 93 Oxygen Delivery Method Nasal Cannula Nasal Cannula Oxygen Flow Rate (L/min) 6 6 06/21/21 10:42 06/21/21 12:00 06/21/21 14:13 Temperature Temperature Source Pulse Rate 81 112 H Respiratory Rate 24 H 19 H Respiratory Effort Short of Breath Respiratory Depth Shallow Respiratory Pattern Normal Blood Pressure 126/94 H 123/99 H Blood Pressure Mean 104 107 Pulse Ox 93 96 Oxygen Delivery Method Nasal Cannula Nasal Cannula Nasal Cannula Oxygen Flow Rate (L/min) 6 6 MDM MDM MDM Narrative Medical decision making narrative: Patient has a normal pulse. His blood pressure is normal. O2 sat on 5 L is 94%, but there is difficulty in obtaining a good waveform at times secondary to his cold extremities. Comprehensive work-up was pursued. EKG demonstrates atrial fibrillation at [address] changes. He has normal white count 10.1, hemoglobin normal at 15.2. Platelet count also normal at 302. His electrolyte panel shows a chloride elevated at 108, glucose appropriately elevated at 150 with a normal anion gap/slightly low at 4. He does have a chronic kidney injury with a creatinine of 2.31 but this appears to be his baseline. High-sensitivity troponin normal at 41. BNP elevated 1875, but this also is his baseline. Chest x-ray shows patchy bilateral pulmonary infiltrates worse on the right, suggestive of Covid pneumonitis. Given his reported recent diagnosis 15 days ago, I do feel that he is safe for discharge. His atrial fibrillation did act up and he was given his amiodarone 200 mg for rhythm control. Of note, his daughter is now at the bedside. He does not want to return to the [facility], and it was reported that he has been noncompliant with his medications because he states he does not like it there. Case management has discussed the patient with his daughter. While she would like to take him home, they have also discussed DO NOT RESUSCITATE comfort care status. Hospice nurse is at the bedside to evaluate the patient. Additionally, I do feel that the patient would benefit from an inpatient stay in hospice. He is becoming symptomatic with his heart rate and is becoming slightly tachypneic. I discussed the patient with Dr. Gutiérrez for [facility]. He will be transferred in stable condition. Lab Data Attestation: I reviewed the patient's lab results. Labs: Laboratory Results - last 24 hr 06/21/21 06/21/21 06/21/21 10:25 10:25 10:25 WBC 10.1 RBC 5.56 Hgb 15.2 Hct 46.6 MCV 83.8 MCH 27.3 MCHC 32.6 RDW Std Deviation 50.0 H RDW Coeff of Yamilet 17.0 H Plt Count 302 MPV 12.2 H Immature Gran % (Auto) 0.700 Neut % (Auto) 89.3 H Lymph % (Auto) 5.9 L Swift % (Auto) 3.8 Eos % (Auto) 0.2 Baso % (Auto) 0.1 Absolute Neuts (auto) 9.0 H Absolute Lymphs (auto) 0.60 L Nucleated RBC % 0 Sodium 138 Potassium 4.0 Chloride 108 H Carbon Dioxide 26.0 Anion Gap 4 L BUN 82 H Creatinine 2.31 H Estim Creat Clear Calc 27.20 Est GFR (MDRD) Af Amer 35 L Est GFR (MDRD) Non-Af 29 L BUN/Creatinine Ratio 35.5 H Glucose 150 H Calcium 8.4 L Troponin I High Sens 41 B-Natriuretic Peptide 1875.5 H Radiography Diagnostic Testing: Clinical Impression(s) from Imaging Studies Chest X-Ray 06/21/21 10:02 IMPRESSION: Patchy bilateral pulmonary infiltrates worse in the right hemithorax and the preferential peripheral distribution suggestive of a Covid pneumonitis. Electronically Signed: Tyler Lewis MD at 11:18 EST , Discharge Plan Triage Chief Complaint: Shortness of Breath ED Provider: Marek Ziegler Dx/Rx/DC Orders Clinical Impression: COPD exacerbation, Pneumonia due to COVID-19 virus, Do not resuscitate discussion Instructions: ED Heart Failure, Congestive (CHF), ED COPD Flare Prescriptions: No Action omeprazole 40 mg capsule,delayed release(DR/EC) 40 mg PO DAILY RF: 0 isosorbide dinitrate 30 mg tablet 30 mg PO DAILY Qty: 90 RF: 3 furosemide 40 mg tablet 40 mg PO DAILY Qty: 90 RF: 3 spironolactone 25 mg tablet 25 mg PO DAILY Qty: 90 RF: 3 albuterol sulfate 90 mcg/actuation Hfa Aerosol Inhaler 2 puff INHALATION Q4H PRN (Reason: SOB) RF: 0 Eliquis 5 mg tablet 5 mg PO BID RF: 0 dexamethasone 6 mg tablet 6 mg PO DAILY Qty: 7 RF: 0 azithromycin 250 mg Tablet 250 mg PO DAILY RF: 0 melatonin 3 mg Tablet 3 mg PO QHS RF: 0 benzonatate [Tessalon Perles] 100 mg Capsule 100 mg PO TID PRN (Reason: Cough) RF: 0 guaifenesin [Mucinex] 600 mg Tablet Extended Release 12hr 1,200 mg PO Q12H PRN (Reason: Cough) RF: 0 guaifenesin 10 ml PO/SL Q6H PRN PRN (Reason: Cough) RF: 0 multivitamin Capsule 1 cap PO DAILY RF: 0 carvedilol 6.25 mg tablet 6.25 mg PO BID Qty: 180 RF: 3 amiodarone 200 mg tablet 200 mg PO DAILY Qty: 90 RF: 3 Primary Care Provider: Eden Aguirre Referrals: Eden Aguirre, PA [Primary Care Provider] - Disposition Disposition: Hospice in Medical Facility Discharge Location: [facility]
[2021-06-21] MEDS: Ipratropium/Albuterol Sulfate 3 ML AMPUL.NEB INHALATION (10:13)
--- NOTE | 2021-06-21 10:22 | ED.RN ---
THIS RN TALKED WITH PT DAUGHTER ALISSA GODWIN. DAUGHTER CONFIRMED SOME ONGOING ISSUES AT THE CORRECTION. STATES WAS PLANNING TO ATTEMPT TO BRING FATHER HOME TO MAKE ONE LAST ATTEMPT. WILL BE ENROUTE TO OUR FACILITY, WILL TALK WITH CASE MANAGEMENT REGARDING PT ABILITY TO GO HOME ON OXYGEN
[2021-06-21 10:48] LABS: Basophil# 0.01 X10^3/uL; Basophil% 0.1 % (0-1); Eosinophil# 0.02 X10^3/uL; Eosinophils% 0.2 % (0-5); Hematocrit 46.6 % (40-54); Hemoglobin 15.2 g/dL (13.0-16.5); Lymphocyte % 5.9 % (19-41); Mean Corp Hgb Conc 32.6 g/dL (32-36); Mean Corpuscular Hgb 27.3 pg (27.0-32.0); Mean Corpuscular Volume 83.8 fL (80-94); Mean Platelet Vol. 12.2 fl (6.2-12.0); Monocyte# 0.38 X10^3/uL; Monocyte% 3.8 % (0-10); NRBC Flagged by Analyzer 0 % (0-5); Neutrophil # 9.03 X10^3/uL (2.7-7.7); Neutrophil % 89.3 % (47-70); POSITIVE DIFFERENTIAL YES; Platelet Count 302 K/mm3 (150-450); Red Blood Count 5.56 M/mm3 (4.6-6.2); White Blood Count 10.1 K/mm3 (4.4-11.0)
[2021-06-21 10:51] LABS: Differential Indicated SCAN CRITERIA MET
[2021-06-21 11:00] LABS: Anion Gap 4 (5-15); BUN 82 mg/dL (7-18); BUN/Creat Ratio 35.5 RATIO (10-20); Calcium,Total 8.4 mg/dL (8.5-10.1); Chloride 108 mmol/L (98-107); Creatinine, Serum 2.31 mg/dL (0.70-1.30); EST Glomerular Filtration Rate 29 mL/min (>60); Est Glom Filt Rate - Afr Amer 35 mL/min (>60); Glucose 150 mg/dL (74-106); Sodium Level 138 mmol/L (136-145); Troponin-I HS 41 pg/mL (3.0-78.0)
[2021-06-21 11:10] LABS: BNP,B-Type NATRIURETIC PEPTIDE 1875.5 pg/mL (0-100)
--- NOTE | 2021-06-21 12:00 | CASEMGMT ---
RN CM note: RN CM made aware per RN that patient unhappy and frustrated with care at [facility] and patient interested in returning home with possible HHC. RN CM to room to speak with patient. RN CM introduced self and role at [facility]. Patient alert, oriented to person, place and year and agreeable to speaking with RN CM. Patient confirms he would like to leave [facility] and return home to be with my cats. Patient confirms he continues to work with therapy at [facility] but feels he would be able to take care of himself, alone at home, because he has a walker and can heat up food when needed. RN CM discussed patient's previous interest in [facility] during prior hospital admission ([facility] unable to accept at that time due to staffing issues). Patient's also resides at [facility]. Patient states he would be interested in going to [facility] for continued inpatient therapy with plan to return home when stronger. RN AMINA asked patient if okay to speak with step-daughter Jessica Olivas listed on patient's demographics and patient gave approval. Telephone call to step-daughter Jessica Olivas to discuss possible transfer to [facility]. Jessica states she thinks this is a better idea than returning home at this time as family is currently working to add DME in home to make more adaptive environment for patient. Jessica reports patient's currently lives at [facility] on [facility] and she would request that patient be placed on different unit as patient's has dementia and this is difficult for patient to witness. Jessica made aware ROBER HUYNH will check on bed availability at [facility]. Jessica states she will be to ER approximately 1300 today to see patient. ROBER HUYNH placed call to [facility] to inquire about bed availability. Voice message left on secure answering machine. Call back received from Olivia, admissions gate attendant, at [facility]. Per Olivia, no skilled bed anticipated to be available today but possibly available on 06/23 or Saturday 06/24. Olivia requests that referral be faxed to [phone]. ROBER Gorman CM
--- NOTE | 2021-06-21 12:30 | CASEMGMT ---
Addendum entered by Brynn Dawkins 06/21/21 15:45: 1520- Patient's step-daughter Jessica speaking with ROBER HUYNH and JEMAL Holman, asking if patient is appropriate for Hospice care. Jessica states she just wants patient to be comfortable and to have the things that mean the most to him, especially his five cats. JEMAL Miles informed Jessica that ROBER HUYNH and JEMAL will speak with Dr. Ziegler and place referral for hospice consult and hospice would determine if patient is appropriate for IPU. Jessica voiced understanding. JEMAL and ROBER HUYNH did speak with patient and patient agreeable with hospice consult at this time. JEMAL spoke with Dr. Ziegler and order placed for hospice consult. Referral faxed and telephone call placed for consult. Original Note: ROBER HUYNH note: Referral faxed to [facility]. -ROBER Us CM
[2021-06-21] MEDS: Amiodarone 200 MG Tablet PO (15:01)
--- NOTE | 2021-06-21 16:18 | NURSING ---
ornamental painter in to do assessment of pt. daughter to return and pt approp for inpatient hospice but needs to dr. gonzales. sw to talk with ed physician regarding. pt continues to be restless and moan and wanting staff to stay in room with many c/o of being hot
--- NOTE | 2021-06-21 16:36 | NURSING ---
pt not considered symptomatic for inpt hospice so pt and family agreeing to stay here instead of going back [facility] where family and pt had issues with sw to talk with axel regarding admission
--- NOTE | 2021-06-21 17:05 | CM.ED ---
JEMAL Note: Referral Source: RN CM Referral Reason: Discharge planning Per patient he does not want to go back to the [facility]. Family wants him to go to [facility]. Family is making adjustments at home, which include railing, for patient's home. JEMAL spoke to patient's Tonia augustine. Tonia said that patient has not signed paperwork that she is his POA but he tells everyone that she is his POA. Tonia said that patient does not like the [facility]. JEMAL and RN AMINA asked patient's rebeccadaughterTonia, about hospice and she was open to a hospice referral. davide Randall requested hospice in [place] and said that her cousin's works there. SW asked if she was referring to [facility] and she said yes. Patient's big concern is being with his cats and spending time with them. SW faxed referral to [facility]. JEMAL called and left voice mail for [facility] staff. [facility] staff, Marylu, called and left a voice mail that their intake staff would be at the ED in 1 hour or less. JEMAL called rebecca Randalltiennelda and said that Hospice was coming and she said call me when they get there as I am 5 minutes away. JEMAL met with John and she said that if the MD is thinking IPU then the MD needs to call Dr. Osuna. JEMAL updated MD and he called Dr. Osuna. Per MD patient was good to come over to the [facility]PU. JEMAL and ROBER HUYNH went in and spoke to patient. Discussed hospice and patient was receptive to referral to [facility]. However, John advised that patient going to IPU would be emergency respite which medicare would not pay and thus it was $350 day and Tonia did not want to pay that. JEMAL and ROBER HUYNH met with John and patient and Tonia augustine. JEMAL reviewed that patient did not meet criteria for inpatient hospitalization so he needed to return to the [facility]. JEMAL explained that Dory RICHTER CM had made referral to Elisabet at [facility]. Patient and family were in agreement with plan that patient return to [facility] tomorrow and then hospice can follow up with patient. JEMAL explained to Tonia and patient that the nursing home room and board would not be paid under SNF medicare benefit as the goal is different than rehab. JEMAL explained it would need to be private pay or medicaid. Tonia said that she completed medicaid application for her mom in March so she has all the paperwork for medicaid. Tonia said that she felt like if patient went home and even for a short time and failed it would give patient the opportunity to say goodbye to his cats. Plan is for patient to return to the [facility] and from the [facility] patient will go to [facility] or home with hospice. JEMAL called Tonia at [facility]. She said that patient is on day 14 of his covid isolation tomorrow. JEMAL explained that patient wanted to go to [facility] and that Dory HUYNH sent a referral to [facility].. SW explained that hospice came out and the plan is for hospice to follow up with patient tomorrow at [facility]. Tonia said they tried to make a referral to [place] [facility] and patient declined. JEMAL advised that patient would be returning to the [facility] tonight. JEMAL requested Ondina, land title examiner schedule transport time for patient to return to [facility]. Ondina advised transport scheduled for 90 minutes from 5pm SW called the construction job titles Beth and advised patient would return in 60 minute. Plan: Return to [facility] Ginger LUO
--- NOTE | 2021-06-21 17:14 | NURSING ---
CALLED [facility], ETA IS 90 MIN
== END 2021-06-21 19:39 | disposition skilled nursing facility (03) ==
PROVIDERS: Emergency Provider Emergency Medicine; PCP Physician Assistant Medical; Visit Provider Emergency Medicine
DX: U07.1 COVID-19 (principal); J44.1 Chronic obstructive pulmonary disease with (acute) exacerbation; J12.82 Pneumonia due to coronavirus disease 2019; Z87.891 Personal history of nicotine dependence
CPT/HCPCS: 71045; 80048; 83880; 84484; 85025; 93005; 94640; 99285